=== PATIENT | female | born 1955 | race Caucasian/White ===

== ENCOUNTER 2016-09-06 15:43 | Emergency (ER) | payer SELFPAY ==
[~2016-09-06] VITALS: Ht 167.6 cm; Wt 90.0 kg
[~2016-09-06 15:43] MED LIST: LEVEMIR SQ; METH40TA PO; NEUR300C PO; NOVOLOGP2 SQ; PANT40TA3 PO
[2016-09-06 15:46] VITALS: BP 210/104; PULSE 86; RESP 22; TEMP 98.2; O2SAT 96
[2016-09-06] MEDS ORDERED: SODIUM CHLOR 0.9% 1000 ML INJ 1,000 ML IV ONE (16:13)
[2016-09-06 16:14] VITALS: O2SAT 96
[2016-09-06] MEDS ORDERED: INSULIN HUMAN REGULAR 1,000 UNITS/10 ML VIAL IVP ONE (16:15)
[2016-09-06] MEDS ORDERED: SODIUM CHLORIDE 0.9% FLUSH 5 ML FLUSH IVF PRN ×2 (16:15)
[2016-09-06] MEDS ORDERED: methylPREDNISolone SOD SUCC 125 MG/2 ML VIAL IVP ONE (16:15)
[2016-09-06 16:20] VITALS: RESP 24; O2SAT 97
[2016-09-06] MEDS: RESP: ALBUTEROL 2.5 MG/IPRATROPIUM 0.5 MG NEB (SCH) INH (16:22)
--- NOTE | 2016-09-06 16:25 | PD ---
HPI Chief Complaint: Cold / Flu Symptoms Time Seen by Provider: 16:04 Travel History International Travel<30 days: No Contact w/Intl Traveler<30days: No Traveled to known affect area: No History of Present Illness HPI The patient was seen and examined in the presence of the nurse. This patient complains of shortness of breath. Duration is 3 weeks. Severity is severe. She's been wheezing and congested and coughing. Denies fever or chest pain. She continues to smoke. Has history of uncontrolled diabetes, Accu-Chek was critical high just now. Reports compliance with her insulin. No alleviating factors. PFSH Past Medical History Hx Anticoagulant Therapy: No Arthritis: Yes Blood Disorders: No Anxiety: Yes Depression: Yes Cancer: No Cardiovascular Problems: No High Cholesterol: Yes Chemotherapy: No Chest Pain: Yes COPD: Yes Cerebrovascular Accident: No Diabetes: Yes Diminished Hearing: Yes Deep Vein Thrombosis: Yes Endocrine: Yes Gastrointestinal Disorders: Yes Genitourinary: Yes Hepatitis: Yes (B/C) Hiatal Hernia: Yes Hypertension: Yes Immune Disorder: No Implanted Vascular Access Dvce: No Musculoskeletal: Yes Neurologic: Yes Psychiatric: Yes Respiratory: No Integumentary: Yes (IVDA) Pneumonia: Yes Thyroid Disease: No Ulcer: Yes Menopausal: Yes : 3 Para: 2 Miscarriage: 1 Past Surgical History Body Medical Devices: NONE Gynecologic Surgery: Yes Oral Surgery: Yes (EGD) Pacemaker: No Thoracic Surgery: Yes (GRISELDA BREAST REDUCTION) Other Surgery: Yes (LEFT BREAST BIOPSY, PROLAPSED UTERUS) Social History Alcohol Use: No Tobacco Use: Yes (1/2 PPD) Substance Use: No Allergies-Medications (Allergen,Severity, Reaction): Coded Allergies: Erythromycin (Verified Allergy, Severe, Rash, 09/06/16) Toradol (Verified Allergy, Severe, Shortness of Breath, 09/06/16) Reported Meds & Prescriptions Reported Meds & Active Scripts Active Ventolin Hfa 18 GM Inh (Albuterol Sulfate) 90 Mcg/Act Aer 2 Puff INH Q6H PRN Prednisone 20 Mg Tab 40 Mg PO DIRECTED Bactrim DS (Sulfamethoxazole-Trimethoprim) 800-160 Mg Tab 1 Tab PO BID Novolog Inj (Insulin Aspart) 1,000 Unit/10 Ml Vial 1-9 Units SQ ACHS sugars less than 70,(0)units; sugars 150-199,(1) unit; sugars 200-249,(3) units; sugars 250-299,(5) units; sugars 300-349,(7) units; sugars > 349,(9) units Levemir Inj (Insulin Detemir) 1,000 unit/ 10 ML Vial 55 Units SQ BID Give 30 day supply. Reported Methadone (Methadone HCl) 40 Mg Tab 120 Mg PO DAILY Neurontin (Gabapentin) 300 Mg Cap 300 Mg PO TID Review of Systems General / Constitutional: No: Fever Eyes: No: Visual changes HENT: No: Headaches Cardiovascular: No: Chest Pain or Discomfort Respiratory: Positive: Cough, Shortness of Breath, Wheezing Gastrointestinal: No: Abdominal Pain Genitourinary: No: Dysuria Musculoskeletal: No: Pain Skin: No Rash Neurologic: No: Weakness Psychiatric: No: Depression Endocrine: No: Polydipsia Hematologic/Lymphatic: No: Easy Bruising Physical Exam Narrative GENERAL: Well-nourished, well-developed patient who is short of breath . SKIN: Warm and dry. HEAD: Atraumatic. Normocephalic. EYES: Pupils equal and round. No scleral icterus. No injection or drainage. ENT: No nasal bleeding or discharge. Mucous membranes pink and moist. NECK: Trachea midline. No JVD. CARDIOVASCULAR: Regular rate and rhythm. No murmur appreciated. RESPIRATORY: Prominent accessory muscle use. Diffuse expiratory wheezing. Breath sounds equal bilaterally. GASTROINTESTINAL: Abdomen soft, non-tender, nondistended. Hepatic and splenic margins not palpable. MUSCULOSKELETAL: No obvious deformities. No clubbing. No cyanosis. No edema. NEUROLOGICAL: Awake and alert. No obvious cranial nerve deficits. Motor grossly within normal limits. Normal speech. PSYCHIATRIC: Appropriate mood and affect; insight and judgment normal. Data Data Last Documented VS Vital Signs Date Time Temp Pulse Resp B/P Pulse Ox O2 Delivery O2 Flow Rate FiO2 09/06/16 18:25 74 22 134/85 98 Nasal Cannula 2 09/06/16 16:14 21 09/06/16 15:46 98.2 Orders Complete Blood Count With Diff (09/06/16 16:13) Basic Metabolic Panel (Bmp) (09/06/16 16:13) Iv Access Insert/Monitor (09/06/16 16:13) Electrocardiogram (09/06/16 16:13) Ecg Monitoring (09/06/16 16:13) Oximetry (09/06/16 16:13) Oxygen Administration (09/06/16 16:13) Chest, Single Ap (09/06/16 16:13) Sodium Chloride 0.9% Flush (Ns Flush) (09/06/16 16:15) Methylprednisolone So Succ Inj (Solumedr (09/06/16 16:15) Albuterol-Ipratropium Neb (Duoneb Neb) (09/06/16 16:15) Beta Hydroxybutyrate (Acetone) (09/06/16 16:13) Sodium Chloride 0.9% Flush (Ns Flush) (09/06/16 16:15) Sodium Chlor 0.9% 1000 Ml Inj (Ns 1000 M (09/06/16 16:13) Insulin Human Regular Inj (Novolin R Inj (09/06/16 16:15) Consult Vascular Access Team (09/06/16 ) Vascular Poc Ultrasound (09/06/16 ) Insulin Human Regular Inj (Novolin R Inj (09/06/16 18:45) Labs Laboratory Tests Test 09/06/16 17:05 White Blood Count 9.4 TH/MM3 Red Blood Count 4.86 MIL/MM3 Hemoglobin 14.1 GM/DL Hematocrit 41.3 % Mean Corpuscular Volume 85.0 FL Mean Corpuscular Hemoglobin 29.1 PG Mean Corpuscular Hemoglobin 34.2 % Concent Red Cell Distribution Width 12.8 % Platelet Count 149 TH/MM3 Mean Platelet Volume 11.4 FL Neutrophils (%) (Auto) 68.6 % Lymphocytes (%) (Auto) 24.4 % Monocytes (%) (Auto) 4.9 % Eosinophils (%) (Auto) 1.5 % Basophils (%) (Auto) 0.6 % Neutrophils # (Auto) 6.5 TH/MM3 Lymphocytes # (Auto) 2.3 TH/MM3 Monocytes # (Auto) 0.5 TH/MM3 Eosinophils # (Auto) 0.1 TH/MM3 Basophils # (Auto) 0.1 TH/MM3 CBC Comment DIFF FINAL Differential Comment Sodium Level 130 MEQ/L Potassium Level 3.7 MEQ/L Chloride Level 93 MEQ/L Carbon Dioxide Level 26.5 MEQ/L Anion Gap 11 MEQ/L Blood Urea Nitrogen 10 MG/DL Creatinine 1.18 MG/DL Estimat Glomerular Filtration 47 ML/MIN Rate Random Glucose 521 MG/DL Calcium Level 8.9 MG/DL B-Hydroxybutyrate 0.74 MMOL/L MDM Medical Decision Making Medical Screen Exam Complete: Yes Emergency Medical Condition: Yes Medical Record Reviewed: Yes Differential Diagnosis Differential diagnosis includes COPD, asthma, pneumonia, bronchitis, CHF Narrative Course I have reviewed the patient's electronic medical record. Patient arrives extremely dyspneic and critically ill IV placed Given a series of 3 nebulizer treatments and oxygen I gave her IV Solu-Medrol I reviewed her chest x-ray which is normal I reviewed her EKG which shows sinus rhythm without ST elevation Extended cardiac monitoring shows sinus rhythm without ectopy CBC is normal Metabolic profile is normal other than hyperglycemia of 521 Beta hydroxybutyrate slightly elevated I gave her 12 units IV regular insulin and 1 L normal saline IV bolus On reassessment she is doing much better. She arrives critically ill but her sat is now 100 and her wheezing is significantly improved. She feels like she wants to go home. Repeat Accu-Chek is 367 She is not in DKA Gave her 15 units subcutaneous regular insulin I gave her 1 L normal saline IV I gave her 12 units IV regular insulin I prescribed her some antibiotics and prednisone and an albuterol inhaler Most importantly she needs to stay away from cigarettes Will return if she worsens Critical Care Narrative Aggregate critical care time was 35 minutes. Time to perform other separately billable procedures was not included in the critical care time. My time did not include minutes spent treating any other patients simultaneously or on activities that did not directly contribute to the patient's treatment. The services I provided to this patient were to treat and/or prevent clinically significant deterioration that could result in: Respiratory failure, cardiopulmonary arrest, I provided critical care services requiring my management, as noted below: Chart data review, documentation time, medication orders and management, vital sign assessments/reviewing monitor data, ordering and reviewing lab tests, ordering and interpreting/reviewing x-rays and diagnostic studies, care of the patient and discussion of the patient with the admitting physicians. Diagnosis Primary Impression: COPD exacerbation Additional Impression: Hyperglycemia Scripts Albuterol 18 GM Inh (Ventolin Hfa 18 GM Inh)90 Mcg/Act Aer2 Puff INH Q6H PRN ( SHORTNESS OF BREATH) #1 INHALER Ref 0 Prov:Black Velásquez MD 09/06/16 Prednisone 20 Mg Tab40 Mg PO DIRECTED #10 TAB Ref 0 Prov:Black Velásquez MD 09/06/16 Sulfamethoxazole-Trimethoprim (Bactrim DS)800-160 Mg Tab1 Tab PO BID #14 TAB Ref 0 Prov:Black Velásquez MD 09/06/16 Black Velásquez MD Sep 06, 2016 16:25
[2016-09-06 16:42] VITALS: O2SAT 96
--- NOTE | 2016-09-06 17:05 | RADRPT ---
EXAM DATE/TIME: 09/06/2016 16:37 [facility] COMPARISON: CHEST SINGLE AP, May 25, 2016, 19:59. INDICATIONS : Shortness of breath. MEDICAL HISTORY : None. SURGICAL HISTORY : None. ENCOUNTER: Initial ACUITY: 3 weeks PAIN SCORE: 0/10 LOCATION: Bilateral chest FINDINGS: A single view of the chest demonstrates the lungs to be symmetrically aerated without evidence of mas s, infiltrate or effusion. The cardiomediastinal contours are unremarkable except tortuous aorta. O sseous structures are intact. CONCLUSION: 1. No acute findings. Sebastian Allred MD on September 06, 2016 at 17:03 Board Certified Radiologist. This report was verified electronically.
[2016-09-06 17:41] LABS: AUTOMATED NEUTROPHIL # 6.5 TH/MM3 (1.8-7.7); BASOPHIL # 0.1 TH/MM3 (0-0.2); BASOPHIL % 0.6 % (0.0-2.0); EOSINOPHIL # 0.1 TH/MM3 (0-0.4); EOSINOPHIL % 1.5 % (0.0-4.0); HEMATOCRIT 41.3 % (35.0-46.0); HEMO FLAGS DIFF FINAL; LYMPH % 24.4 % (9.0-44.0); LYMPHOCYTE # 2.3 TH/MM3 (1.0-4.8); MEAN CORPUSCULAR HEMOGLOBIN 29.1 PG (27.0-34.0); MEAN CORPUSCULAR HGB CONC 34.2 % (32.0-36.0); MONO % 4.9 % (0.0-8.0); NEUT % 68.6 % (16.0-70.0); PLATELET COUNT 149 TH/MM3 (150-450); RED BLOOD COUNT 4.86 MIL/MM3 (4.00-5.30); RED CELL DISTRIBUTION WIDTH 12.8 % (11.6-17.2); WHITE BLOOD COUNT 9.4 TH/MM3 (4.0-11.0)
[2016-09-06 18:23] LABS: BETA-HYDROXYBUTYRATE 0.74 MMOL/L (0.00-0.39); BICARBONATE 26.5 MEQ/L (21.0-32.0); POTASSIUM 3.7 MEQ/L (3.5-5.1)
[2016-09-06 18:25] VITALS: BP 134/85; PULSE 74; RESP 22; O2SAT 98
[2016-09-06] MEDS ORDERED: BACT800T5 PO (18:39)
[2016-09-06] MEDS ORDERED: PRED20 PO (18:39)
[2016-09-06] MEDS ORDERED: VENTAER INH (18:39)
[2016-09-06] MEDS ORDERED: INSULIN HUMAN REGULAR 1,000 UNITS/10 ML VIAL SQ ONE (18:45)
--- NOTE | 2016-09-06 21:44 | EKG ---
Date Performed: 09/06/2016 Time Performed: 17:39:49 PTAGE: 61 years EKG: Sinus rhythm NONSPECIFIC T-WAVE ABNORMALITY BORDERLINE ECG PREVIOUS TRACING : 07/22/2016 10.04 No significant change DOCTOR: Marquise Hurley Interpretating Date/Time 09/06/2016 21:43:27
== END 2016-09-06 20:02 | disposition home or self-care (01) ==
LOC: NEPC 15:43
DX: J44.1 Chronic obstructive pulmonary disease with (acute) exacerbation (principal); E11.65 Type 2 diabetes mellitus with hyperglycemia; Z79.4 Long term (current) use of insulin; I10 Essential (primary) hypertension; Z86.718 Personal history of other venous thrombosis and embolism; E78.00 Pure hypercholesterolemia, unspecified; F17.210 Nicotine dependence, cigarettes, uncomplicated
CPT/HCPCS: 71010; 80048; 82010; 85025; 93005; 94640; 94664; 96361; 96372; 96374; 96375; 99285; J1815; J2930; J7030

== ENCOUNTER 2016-10-13 20:01 | Emergency (ER) | payer SELFPAY ==
[~2016-10-13] VITALS: Ht 167.6 cm; Wt 90.5 kg
[~2016-10-13 20:01] MED LIST changes: +BACT800T5 PO; -PANT40TA3 PO; +PRED20 PO; +VENTAER INH
[2016-10-13 20:03] VITALS: BP 152/70; PULSE 86; RESP 20; TEMP 98.1; O2SAT 95
[2016-10-13] MEDS ORDERED: SODIUM CHLOR 0.9% 1000 ML INJ 1,000 ML IV ONE ×2 (20:45→22:45)
[2016-10-13] MEDS ORDERED: INSULIN HUMAN REGULAR 1,000 UNITS/10 ML VIAL SQ ONE ×2 (20:45→22:30)
--- NOTE | 2016-10-13 20:45 | PD ---
HPI Chief Complaint: Diabetic Time Seen by Provider: 20:26 Travel History International Travel<30 days: No Contact w/Intl Traveler<30days: No Traveled to known affect area: No History of Present Illness HPI The patient is a 61 year old female who presents to the [facility] emergency department with a history of reportedly difficult to control blood sugar since although, the patient reports that her blood sugar has been always difficult to control. She reports that today it was higher than usual and that her meter would only state "high". She reports that she last administered insulin this morning at approximately 11 AM. She reports that she was concerned about administering too much and not being able to check her blood sugar regularly as it was not giving her an accurate measurement just high. She reports that she gave Levemir 45 units and 12 units of NovoLog at 11 AM. The patient reports having urinary frequency, however no urgency or dysuria. The patient denies any recent fevers, cough, congestion, neck pain, chest pain, shortness of breath, abdominal pain, vomiting, diarrhea, or new neurologic symptoms (she has a prior history of diabetic neuropathy). [facility] Past Medical History Narrative Medical The patient's past medical history is significant for diabetes mellitus, diagnosed 5 years ago, history of DVT, hiatal hernia, anxiety disorder, arthritis, hyperlipidemia, COPD, depression, diabetic neuropathy, hepatitis B and C, peptic ulcer disease, hypertension, history of pneumonia Hx Anticoagulant Therapy: No Arthritis: Yes Blood Disorders: No Anxiety: Yes Depression: Yes Cancer: No Cardiovascular Problems: No High Cholesterol: Yes Chemotherapy: No Chest Pain: Yes COPD: Yes Cerebrovascular Accident: No Diabetes: Yes Patient Takes Glucophage: No Diminished Hearing: Yes Deep Vein Thrombosis: Yes Endocrine: Yes Gastrointestinal Disorders: Yes Genitourinary: Yes Hepatitis: Yes (B/C) Hiatal Hernia: Yes Hypertension: Yes Immune Disorder: No Implanted Vascular Access Dvce: No Musculoskeletal: Yes Neurologic: Yes Psychiatric: Yes Respiratory: No Integumentary: Yes (IVDA) Pneumonia: Yes Thyroid Disease: No Ulcer: Yes Menopausal: Yes : 3 Para: 2 Miscarriage: 1 Past Surgical History Narrative Surgical The patient's past surgical history is significant for left breast biopsy, surgical repair of a prolapsed uterus, history of EGD, bilateral breast reduction. Body Medical Devices: NONE Gynecologic Surgery: Yes Oral Surgery: Yes (EGD) Pacemaker: No Thoracic Surgery: Yes (GRISELDA BREAST REDUCTION) Other Surgery: Yes (LEFT BREAST BIOPSY, PROLAPSED UTERUS) Social History Alcohol Use: No Tobacco Use: Yes (1 PPD) Substance Use: No Allergies-Medications (Allergen,Severity, Reaction): Coded Allergies: Erythromycin (Verified Allergy, Severe, Rash, 10/13/16) Toradol (Verified Allergy, Severe, Shortness of Breath, 10/13/16) Reported Meds & Prescriptions Reported Meds & Active Scripts Active Novolog Inj (Insulin Aspart) 1,000 Unit/10 Ml Vial 1-9 Units SQ ACHS sugars less than 70,(0)units; sugars 150-199,(1) unit; sugars 200-249,(3) units; sugars 250-299,(5) units; sugars 300-349,(7) units; sugars > 349,(9) units Levemir Inj (Insulin Detemir) 1,000 unit/ 10 ML Vial 55 Units SQ BID Give 30 day supply. Reported Methadone (Methadone HCl) 40 Mg Tab 120 Mg PO DAILY Neurontin (Gabapentin) 300 Mg Cap 300 Mg PO TID Review of Systems Except as stated in HPI: all other systems reviewed are Neg General / Constitutional: No: Fever Eyes: No: Visual changes HENT: No: Headaches Cardiovascular: No: Chest Pain or Discomfort Respiratory: No: Shortness of Breath Gastrointestinal: No: Abdominal Pain Genitourinary: Positive: Frequency, No: Urgency, Dysuria, Flank Pain Musculoskeletal: No: Pain Skin: No Rash Neurologic: Positive: Paresthesia (chronically related to diabetic neuropathy) , No: Weakness, Focal Abnormalities, Change in Mentation, Slurred Speech, Sensory Disturbance Psychiatric: No: Depression Endocrine: Positive: Polyuria, No: Polydipsia Hematologic/Lymphatic: No: Easy Bruising Physical Exam Narrative General: The patient is a well-developed well-nourished female in no acute distress. Head and Neck exam: Head is normocephalic atraumatic. Eyes: EOMI, pupils are equal round and reactive to light. Nose: Midline septum with pink mucous membranes Mouth: Dentition unremarkable. Moist mucus membranes. Posterior oropharynx is not erythematous. No tonsillar hypertrophy. Uvula midline. Airway patent. Neck: No palpable lymphadenopathy. No nuchal rigidity. No thyromegaly. Cardiovascular: Regular rate and rhythm without murmurs, gallops, or rubs. Lungs: Clear to auscultation bilaterally. No wheezes, rhonchi, or rales. Abdomen: Soft, without tenderness to palpation in all 4 quadrants of the abdomen. No guarding, rebound, or rigidity. Normal bowel sounds are audible. Extremities: No clubbing, cyanosis, or edema. 2+ pulses in all 4 extremities. No calf tenderness on palpation. Back: No spinous process tenderness to palpation. No costovertebral angle tenderness to palpation. Neurologic Exam: Grossly nonfocal. Skin Exam: No rash noted. Intact skin that is warm and dry. Data Data Last Documented VS Vital Signs Date Time Temp Pulse Resp B/P Pulse Ox O2 Delivery O2 Flow Rate FiO2 10/13/16 22:02 70 18 138/88 99 10/13/16 20:03 98.1 Room Air Orders Complete Blood Count With Diff (10/13/16 20:36) Comprehensive Metabolic Panel (10/13/16 20:36) Urinalysis - C+S If Indicated (10/13/16 20:36) Magnesium (Mg) (10/13/16 20:36) Beta Hydroxybutyrate (Acetone) (10/13/16 20:36) Iv Access Insert/Monitor (10/13/16 20:36) Ecg Monitoring (10/13/16 20:36) Oximetry (10/13/16 20:36) Sodium Chlor 0.9% 1000 Ml Inj (Ns 1000 M (10/13/16 20:45) Insulin Human Regular Inj (Novolin R Inj (10/13/16 20:45) Blood Glucose (10/13/16 21:35) Insulin Human Regular Inj (Novolin R Inj (10/13/16 22:30) Sodium Chlor 0.9% 1000 Ml Inj (Ns 1000 M (10/13/16 22:45) Labs Laboratory Tests Test 10/13/16 21:05 White Blood Count 9.0 TH/MM3 Red Blood Count 5.10 MIL/MM3 Hemoglobin 14.7 GM/DL Hematocrit 43.8 % Mean Corpuscular Volume 85.9 FL Mean Corpuscular Hemoglobin 28.9 PG Mean Corpuscular Hemoglobin 33.6 % Concent Red Cell Distribution Width 13.0 % Platelet Count 138 TH/MM3 Mean Platelet Volume 11.0 FL Neutrophils (%) (Auto) 74.1 % Lymphocytes (%) (Auto) 19.1 % Monocytes (%) (Auto) 4.2 % Eosinophils (%) (Auto) 2.0 % Basophils (%) (Auto) 0.6 % Neutrophils # (Auto) 6.7 TH/MM3 Lymphocytes # (Auto) 1.7 TH/MM3 Monocytes # (Auto) 0.4 TH/MM3 Eosinophils # (Auto) 0.2 TH/MM3 Basophils # (Auto) 0.1 TH/MM3 CBC Comment DIFF FINAL Differential Comment Urine Color LIGHT-YELLOW Urine Turbidity CLEAR Urine pH 6.0 Urine Specific [place] 1.035 Urine Protein NEG mg/dL Urine Glucose (UA) 1000 mg/dL Urine Ketones NEG mg/dL Urine Occult Blood NEG Urine Nitrite NEG Urine Bilirubin NEG Urine Urobilinogen LESS THAN 2.0 MG/DL Urine Leukocyte Esterase NEG Urine RBC LESS THAN 1 /hpf Urine WBC LESS THAN 1 /hpf Urine Squamous Epithelial <1 /hpf Cells Urine Bacteria RARE /hpf Microscopic Urinalysis Comment CULT NOT INDICATED Sodium Level 128 MEQ/L Potassium Level 4.4 MEQ/L Chloride Level 89 MEQ/L Carbon Dioxide Level 30.4 MEQ/L Anion Gap 9 MEQ/L Blood Urea Nitrogen 16 MG/DL Creatinine 1.13 MG/DL Estimat Glomerular Filtration 49 ML/MIN Rate Random Glucose 490 MG/DL Calcium Level 8.5 MG/DL Magnesium Level 2.0 MG/DL Total Bilirubin 0.5 MG/DL Aspartate Amino Transf 98 U/L (AST/SGOT) Alanine Aminotransferase 161 U/L (ALT/SGPT) Alkaline Phosphatase 133 U/L Total Protein 8.2 GM/DL Albumin 3.4 GM/DL B-Hydroxybutyrate 0.20 MMOL/L [facility] Medical Decision Making Medical Screen Exam Complete: Yes Emergency Medical Condition: Yes Medical Record Reviewed: Yes Differential Diagnosis Poorly controlled diabetes mellitus with hyperglycemia, versus DKA, versus electrolyte abnormalities Narrative Course During the course of the patients emergency department visit, the patients history, examination, and differential diagnosis were reviewed with the patient. The patient had IV access obtained and blood work sent for analysis. The patient was placed on a surveillance monitor with oximetry and blood pressure monitoring. The patient was provided normal saline 1 L IV fluid bolus. The patient was given regular insulin 12 units subcutaneously 1 after her initial blood sugar was noted to be 476. The patients laboratory studies were reviewed and remarkable for a white count of 9, hemoglobin 14.7, platelets 138 with 74.1 neutrophils, CMP is remarkable for sodium of 128, chloride 89, creatinine 1.13, GFR 49, glucose 490, AST 98, ALT 161, alkaline phosphatase 133, urinalysis is unremarkable, beta hydroxybutyrate is within normal limits at 0.2. A review the patient's electronic medical record reveals that the patient had similarly elevated liver enzymes in the past and a positive hepatitis C antibody in September 2013. Repeat blood sugar at 11:36 PM continued to improve and was down to 301. The patient was instructed regarding the importance of taking her insulin on a regular basis. The patient was instructed to use a sliding scale as previously prescribed. The patient is instructed regarding the importance of close follow- up with her primary care physician due to her blood sugar being difficult to control recently. The patient is resting comfortably and feels better, is alert and in no distress. The patients results and examination findings were discussed with the patient. The repeat examination is unremarkable and benign. The history, exam, diagnostic testing, and current condition do not suggest any significant pathology to warrant further testing, continued ED treatment, admission, or surgical evaluation at this point. The vital signs have been stable. The patient does not have uncontrollable pain, intractable vomiting, or other significant symptoms. The patient's condition is stable and appropriate for discharge. The patient will pursue further outpatient evaluation with a primary care physician or other designated or consulting physician as indicated in the discharge instructions. The patient expressed understanding and was agreeable with this plan. Diagnosis Primary Impression: Hyperglycemia Additional Impression: Poorly controlled diabetes mellitus Referrals: Primary Care Physician 2 days Patient Instructions: Diabetic Hyperglycemia (ED), General Instructions Med/Other Pt SpecificInfo: No Change to Meds Disposition: 01 DISCHARGE HOME Condition: Stable Giana Zamora MD Oct 13, 2016 20:45 Giana Zamora MD Oct 13, 2016 20:45
[2016-10-13 21:31] LABS: AUTOMATED NEUTROPHIL # 6.7 TH/MM3 (1.8-7.7); BASOPHIL # 0.1 TH/MM3 (0-0.2); BASOPHIL % 0.6 % (0.0-2.0); EOSINOPHIL # 0.2 TH/MM3 (0-0.4); HEMATOCRIT 43.8 % (35.0-46.0); HEMO FLAGS DIFF FINAL; LYMPH % 19.1 % (9.0-44.0); LYMPHOCYTE # 1.7 TH/MM3 (1.0-4.8); MEAN CELL VOLUME 85.9 FL (80.0-100.0); MEAN CORPUSCULAR HEMOGLOBIN 28.9 PG (27.0-34.0); MEAN CORPUSCULAR HGB CONC 33.6 % (32.0-36.0); MONO % 4.2 % (0.0-8.0); NEUT % 74.1 % (16.0-70.0); PLATELET COUNT 138 TH/MM3 (150-450)
[2016-10-13 21:46] LABS: BACTERIA, URINE RARE /hpf; BLOOD, URINE NEG (NEG); COMMENT (UR) CULT NOT INDICATED; CULTURE IF INDICATED CULT NOT INDICATED; GLUCOSE,URINE 1000 mg/dL (NEG); KETONE, URINE NEG (NEG); NITRITE,URINE NEG (NEG); SQUAMOUS EPITHELIAL CELL URINE <1 /hpf (0-5); URINE COLOR LIGHT-YELLOW (YELLW/STRAW)
[2016-10-13 21:48] LABS: ANION GAP 9 MEQ/L (5-15)
[2016-10-13 22:02] VITALS: BP 138/88; PULSE 69; PULSE 70; RESP 16; RESP 18; O2SAT 99
[2016-10-13 22:06] LABS: ALKALINE PHOSPHATASE 133 U/L (45-117); ALT (GPT) 161 U/L (10-53); AST (GOT) 98 U/L (15-37); BICARBONATE 30.4 MEQ/L (21.0-32.0); BLOOD UREA NITROGEN 16 MG/DL (7-18); CHLORIDE 89 MEQ/L (98-107); GLOMERULAR FILTRATION RATE 49 ML/MIN (>89); SODIUM (NA) 128 MEQ/L (136-145); TOTAL BILIRUBIN ADULT 0.5 MG/DL (0.2-1.0)
[2016-10-13 22:17] LABS: POTASSIUM 4.4 MEQ/L (3.5-5.1)
== END 2016-10-13 23:50 | disposition home or self-care (01) ==
LOC: NEPE 20:01
DX: E11.40 Type 2 diabetes mellitus with diabetic neuropathy, unspecified (principal); B19.20 Unspecified viral hepatitis C without hepatic coma; M19.90 Unspecified osteoarthritis, unspecified site; J44.9 Chronic obstructive pulmonary disease, unspecified; I10 Essential (primary) hypertension; Z79.4 Long term (current) use of insulin; Z86.718 Personal history of other venous thrombosis and embolism
CPT/HCPCS: 80053; 81001; 82010; 83735; 85025; 96372; 99284; J1815; J7030

== ENCOUNTER 2017-04-21 06:15 | Inpatient (IN) | payer SELFPAY ==
[2017-04-21] VITALS (7 sets, daily range): BP systolic 127–146; BP diastolic 65–93; PULSE 61–81; RESP 16–18; TEMP 97.9–98.1; O2SAT 96–98
[~2017-04-21] VITALS: Ht 172.7 cm; Wt 91.6 kg
[~2017-04-21 06:15] MED LIST changes: -BACT800T5 PO; -PRED20 PO; -VENTAER INH
[2017-04-21] MEDS ORDERED: METH40TA PO (06:37)
[2017-04-21] MEDS ORDERED: SODIUM CHLOR 0.9% 1000 ML INJ 1,000 ML IV ONE ×4 (06:44→09:15)
[2017-04-21] MEDS ORDERED: INSULIN HUMAN REGULAR 1,000 UNITS/10 ML VIAL IV PUSH ONE (06:45)
[2017-04-21] MEDS ORDERED: SODIUM CHLORIDE 0.9% FLUSH 10 ML FLUSH IVF PRN (06:45)
[2017-04-21 07:11] LABS: BLOOD GAS VENOUS BASE EXCESS 4.7 mmol/L (-2-2); BLOOD GAS VENOUS HCO3 29 mmol/L (22-26); BLOOD GAS VENOUS O2 CONTENT 17.1 Vol % (9.0-17.0); BLOOD GAS VENOUS O2 HGB SAT 78 % (70-76); BLOOD GAS VENOUS PCO2 47 mmHg (44-48); BLOOD GAS VENOUS PO2 43 mmHg (35-40); BLOOD GAS VENOUS pH 7.41 (7.360-7.400); CRITICAL VALUE NO; DRAW SITE CL; OXYGEN DEVICE RA; STAT YES; TEMP CORR TO 98.6
--- NOTE | 2017-04-21 07:47 | PD ---
HPI . Abdominal pain Chief Complaint: Diabetic Time Seen by Provider: 06:44 Travel History International Travel<30 days: No Contact w/Intl Traveler<30days: No Traveled to known affect area: No History of Present Illness HPI This is a noncompliant diabetic who presents with chief complaint of upper abdominal pain associated with nausea and vomiting. Other symptoms include polyuria and polydipsia, blurred vision and exacerbation of her chronic diabetic neuropathy. Symptoms all started about a week ago. They have become progressively worse. She states that the symptoms are now severe. She reports no relieving factor. PFSH Past Medical History Hx Anticoagulant Therapy: No Arthritis: Yes Blood Disorders: No Anxiety: Yes Depression: Yes Cancer: No Cardiovascular Problems: No High Cholesterol: Yes Chemotherapy: No Chest Pain: Yes COPD: Yes Cerebrovascular Accident: No Diabetes: Yes Patient Takes Glucophage: No Diminished Hearing: Yes Deep Vein Thrombosis: Yes Endocrine: Yes Gastrointestinal Disorders: Yes Genitourinary: Yes Hepatitis: Yes (B/C) Hiatal Hernia: Yes Hypertension: Yes Immune Disorder: No Implanted Vascular Access Dvce: No Musculoskeletal: Yes Neurologic: Yes Psychiatric: Yes Respiratory: No Integumentary: Yes (IVDA) Pneumonia: Yes Thyroid Disease: No Ulcer: Yes Menopausal: Yes : 3 Para: 2 Miscarriage: 1 Past Surgical History Body Medical Devices: NONE Gynecologic Surgery: Yes Hysterectomy: No Oral Surgery: Yes (EGD) Pacemaker: No Thoracic Surgery: Yes (GRISELDA BREAST REDUCTION) Other Surgery: Yes (LEFT BREAST BIOPSY, PROLAPSED UTERUS) Social History Alcohol Use: No Tobacco Use: Yes (1/2ppd) Substance Use: No Allergies-Medications (Allergen,Severity, Reaction): Coded Allergies: erythromycin base (Unverified Allergy, Severe, Rash, 04/21/17) ketorolac (Unverified Allergy, Severe, Shortness of Breath, 04/21/17) Reported Meds & Prescriptions Reported Meds & Active Scripts Active Levemir Inj (Insulin Detemir) 1,000 unit/ 10 ML Vial 55 Units SQ BID Give 30 day supply. Novolog Inj (Insulin Aspart) 1,000 Unit/10 Ml Vial 1-9 Units SQ ACHS sugars less than 70,(0)units; sugars 150-199,(1) unit; sugars 200-249,(3) units; sugars 250-299,(5) units; sugars 300-349,(7) units; sugars > 349,(9) units Reported Methadone (Methadone HCl) 40 Mg Tab 100 Mg PO DAILY Neurontin (Gabapentin) 300 Mg Cap 300 Mg PO TID Review of Systems Except as stated in HPI: all other systems reviewed are Neg General / Constitutional: No: Fever, Chills Eyes: Positive: Blurred Vision Cardiovascular: No: Chest Pain or Discomfort Respiratory: No: Shortness of Breath Gastrointestinal: Positive: Nausea, Vomiting, Abdominal Pain Neurologic: Positive: Other (neuropathy) Endocrine: Positive: Polyuria, Polydipsia Physical Exam Narrative GENERAL: The patient is awake and alert and does not smell of ketones. SKIN: Warm and dry. HEAD: Atraumatic. Normocephalic. EYES: Pupils equal and round. Extraocular movements are intact. ENT: No nasal bleeding or discharge. Mucous membranes slightly dry. NECK: Trachea midline. Neck is supple. CARDIOVASCULAR: Regular rate and rhythm. Heart sounds are normal. RESPIRATORY: No accessory muscle use. Lungs are clear with full air movement throughout. GASTROINTESTINAL: Abdomen soft. Epigastric tenderness with no guarding or rebound. Nondistended. MUSCULOSKELETAL: No obvious deformities. No edema. NEUROLOGICAL: Awake and alert. No obvious cranial nerve deficits. Motor grossly within normal limits. Normal speech. PSYCHIATRIC: Appropriate mood and affect; insight and judgment normal. Data Data Last Documented VS Vital Signs Date Time Temp Pulse Resp B/P (MAP) Pulse Ox O2 Delivery O2 Flow Rate FiO2 04/21/17 07:11 96 04/21/17 06:18 98.1 81 16 Room Air Orders Orders Electrocardiogram (04/21/17 06:44) Complete Blood Count With Diff (04/21/17 06:44) Comprehensive Metabolic Panel (04/21/17 06:44) Beta Hydroxybutyrate (Acetone) (04/21/17 06:44) Urinalysis - C+S If Indicated (04/21/17 06:44) Blood Gas Venous (Vbg) (04/21/17 06:44) Blood Glucose (04/21/17 06:44) Blood Glucose (04/21/17 07:44) Ecg Monitoring (04/21/17 06:44) Iv Access Insert/Monitor (04/21/17 06:44) Oximetry (04/21/17 06:44) NPO (04/21/17 06:44) Sodium Chlor 0.9% 1000 Ml Inj (Ns 1000 M (04/21/17 06:44) Sodium Chlor 0.9% 1000 Ml Inj (Ns 1000 M (04/21/17 07:14) Sodium Chloride 0.9% Flush (Ns Flush) (04/21/17 06:45) Insulin Human Regular Inj (Novolin R Inj (04/21/17 06:45) Labs Laboratory Tests Test 04/21/17 06:44 Blood Gas Puncture Site CL Blood Gas Patient Temperature 98.6 Venous Blood pH 7.41 Venous Blood Partial Pressure CO2 47 mmHg Venous Blood Partial Pressure O2 43 mmHg Venous Blood HCO3 29 mmol/L Venous Blood Oxygen Saturation 78 % Venous Blood Oxygen Content 17.1 Vol % Venous Blood Base Excess 4.7 mmol/L Oxygen Delivery Device RA VALLE Medical Decision Making Medical Screen Exam Complete: Yes Emergency Medical Condition: Yes Medical Record Reviewed: Yes (this patient's medical history is significant for diabetes, COPD, hepatitis C, hyperlipidemia, tobacco and drug abuse and noncompliance.) Interpretation(s) EKG shows a sinus rhythm with no acute ischemic change. Differential Diagnosis Differential diagnosis includes but is not limited to viral gastritis, food poisoning, pancreatitis, pneumonia, hepatitis, acute coronary syndrome, Narrative Course This patient presents with the onset of blurred vision, polyuria, polydipsia, nausea, vomiting and abdominal pain. She has been noncompliant with her insulin for a week or more. Her fingerstick blood sugar here is greater than 500. IV fluids and IV insulin have been ordered. Routine labs have been ordered in addition to a venous blood gas and serum ketones. Her care is being turned over to Dr. Franklin at this time. Diagnosis Primary Impression: Hyperglycemia Condition: Stable Katelynn Palma MD Apr 21, 2017 07:46
[2017-04-21 08:00] LABS: AUTOMATED NEUTROPHIL # 5.8 TH/MM3 (1.8-7.7); BASOPHIL % 0.6 % (0.0-2.0); EOSINOPHIL # 0.2 TH/MM3 (0-0.4); EOSINOPHIL % 2.2 % (0.0-4.0); HEMATOCRIT 45.4 % (35.0-46.0); HEMO FLAGS DIFF FINAL; LYMPH % 16.4 % (9.0-44.0); LYMPHOCYTE # 1.3 TH/MM3 (1.0-4.8); MEAN CELL VOLUME 86.9 FL (80.0-100.0); MEAN CORPUSCULAR HEMOGLOBIN 30.1 PG (27.0-34.0); MEAN CORPUSCULAR HGB CONC 34.7 % (32.0-36.0); NEUT % 75.8 % (16.0-70.0); PLATELET COUNT 121 TH/MM3 (150-450); RED BLOOD COUNT 5.23 MIL/MM3 (4.00-5.30); RED CELL DISTRIBUTION WIDTH 12.9 % (11.6-17.2); WHITE BLOOD COUNT 7.6 TH/MM3 (4.0-11.0)
[2017-04-21 08:03] LABS: BLOOD, URINE NEG (NEG); COMMENT (UR) CULT NOT INDICATED; CULTURE IF INDICATED CULT NOT INDICATED; GLUCOSE,URINE 1000 mg/dL (NEG); KETONE, URINE NEG (NEG); NITRITE,URINE NEG (NEG); PH, URINE 5.5 (5.0-8.5); SQUAMOUS EPITHELIAL CELL URINE <1 /hpf (0-5); URINE COLOR LIGHT-YELLOW (YELLW/STRAW)
[2017-04-21 08:36] LABS: ALKALINE PHOSPHATASE 126 U/L (45-117); ALT (GPT) 239 U/L (10-53); ANION GAP 11 MEQ/L (5-15); AST (GOT) 205 U/L (15-37); BETA-HYDROXYBUTYRATE 0.42 MMOL/L (0.00-0.39); BICARBONATE 26.5 MEQ/L (21.0-32.0); BLOOD UREA NITROGEN 14 MG/DL (7-18); CHLORIDE 86 MEQ/L (98-107); GLOMERULAR FILTRATION RATE 56 ML/MIN (>89)
[2017-04-21 08:39] LABS: POTASSIUM 4.7 MEQ/L (3.5-5.1)
[2017-04-21 08:41] LABS: SODIUM (NA) 123 MEQ/L (136-145)
[2017-04-21] MEDS ORDERED: ONDANSETRON HCL 4 MG/2 ML VIAL IV PUSH ONE (08:45)
--- NOTE | 2017-04-21 09:14 | PD ---
Physical Exam Date Seen by Provider: Apr 21, 2017 Time Seen by Provider: 09:10 Narrative 62-year-old female came to the emergency room for hyperglycemia, revision and burning of both feet. She is a diabetic but has not taken her insulin in 3 weeks since she ran out of it and could not afford it. She was seen by the previous ER physician. Please refer to her notes regarding the details about history and physical. Sign out was to follow-up on the blood test results. Patient has a sugar of 600. She has HONK since the pH on VBG is within normal limits. Patient had received IV insulin initially by the previous ER physician and 2 L of IV fluid bolus. I've ordered 2 more liters of IV fluid bolus. Awaiting for the hospitalist to call back to admit. Blood test results otherwise show physician his hyponatremia and elevated LFTs. Patient said that she has been symptomatic for past few days where she is polyuria, polydipsia, significant dryness of her mouth. She's been trying to drink a lot but he urinates 3-4 times an hour. Data Data Last Documented VS Vital Signs Date Time Temp Pulse Resp B/P (MAP) Pulse Ox O2 Delivery O2 Flow Rate FiO2 04/21/17 07:11 96 04/21/17 06:18 98.1 81 16 Room Air Orders Orders Electrocardiogram (04/21/17 06:44) Complete Blood Count With Diff (04/21/17 06:44) Comprehensive Metabolic Panel (04/21/17 06:44) Beta Hydroxybutyrate (Acetone) (04/21/17 06:44) Urinalysis - C+S If Indicated (04/21/17 06:44) Blood Gas Venous (Vbg) (04/21/17 06:44) Blood Glucose (04/21/17 06:44) Blood Glucose (04/21/17 07:44) Ecg Monitoring (04/21/17 06:44) Iv Access Insert/Monitor (04/21/17 06:44) Oximetry (04/21/17 06:44) NPO (04/21/17 06:44) Sodium Chlor 0.9% 1000 Ml Inj (Ns 1000 M (04/21/17 06:44) Sodium Chlor 0.9% 1000 Ml Inj (Ns 1000 M (04/21/17 07:14) Sodium Chloride 0.9% Flush (Ns Flush) (04/21/17 06:45) Insulin Human Regular Inj (Novolin R Inj (04/21/17 06:45) Ondansetron Inj (Zofran Inj) (04/21/17 08:45) Sodium Chlor 0.9% 1000 Ml Inj (Ns 1000 M (04/21/17 09:15) Sodium Chlor 0.9% 1000 Ml Inj (Ns 1000 M (04/21/17 09:15) Insulin Human Regular Inj (Novolin R Inj (04/21/17 09:15) Gabapentin (Neurontin) (04/21/17 13:00) Methadone (Dolophine) (04/21/17 10:00) Insulin Detemir Inj (Levemir Inj) (04/21/17 10:00) Code Status (04/21/17 09:52) Vital Signs (Adult) Q4H (04/21/17 09:52) Activity Oob Ad Daxa (04/21/17 09:52) Bedside Glucose MAGGIE.AC&HS (04/21/17 09:52) Diet 1800 Ada Cons Carb (04/21/17 Breakfast) Sodium Chlor 0.9% 1000 Ml Inj (Ns 1000 M (04/21/17 09:52) Sodium Chloride 0.9% Flush (Ns Flush) (04/21/17 10:00) Sodium Chloride 0.9% Flush (Ns Flush) (04/21/17 21:00) Ondansetron Inj (Zofran Inj) (04/21/17 10:00) Comprehensive Metabolic Panel (04/22/17 06:00) Complete Blood Count With Diff (04/22/17 06:00) Case Management Consult (04/21/17 09:52) Enoxaparin Inj (Lovenox Inj) (04/21/17 10:00) Naloxone Inj (Narcan Inj) (04/21/17 10:00) Docusate Sodium-Senna (Eun-Colace) (04/21/17 21:00) Magnesium Hydroxide Liq (Milk Of Magnesi (04/21/17 10:00) Sennosides (Senokot) (04/21/17 10:00) Bisacodyl Supp (Dulcolax Supp) (04/21/17 10:00) Lactulose Liq (Lactulose Liq) (04/21/17 10:00) Insulin Human Reg Supp Scale (Novolin R (04/21/17 11:00) Admit Order (Ed Use Only) (04/21/17 09:59) Labs Laboratory Tests Test 04/21/17 06:44 04/21/17 07:00 Blood Gas Puncture Site CL Blood Gas Patient Temperature 98.6 Venous Blood pH 7.41 Venous Blood Partial Pressure CO2 47 mmHg Venous Blood Partial Pressure O2 43 mmHg Venous Blood HCO3 29 mmol/L Venous Blood Oxygen Saturation 78 % Venous Blood Oxygen Content 17.1 Vol % Venous Blood Base Excess 4.7 mmol/L Oxygen Delivery Device RA White Blood Count 7.6 TH/MM3 Red Blood Count 5.23 MIL/MM3 Hemoglobin 15.8 GM/DL Hematocrit 45.4 % Mean Corpuscular Volume 86.9 FL Mean Corpuscular Hemoglobin 30.1 PG Mean Corpuscular Hemoglobin Concent 34.7 % Red Cell Distribution Width 12.9 % Platelet Count 121 TH/MM3 Mean Platelet Volume 11.6 FL Neutrophils (%) (Auto) 75.8 % Lymphocytes (%) (Auto) 16.4 % Monocytes (%) (Auto) 5.0 % Eosinophils (%) (Auto) 2.2 % Basophils (%) (Auto) 0.6 % Neutrophils # (Auto) 5.8 TH/MM3 Lymphocytes # (Auto) 1.3 TH/MM3 Monocytes # (Auto) 0.4 TH/MM3 Eosinophils # (Auto) 0.2 TH/MM3 Basophils # (Auto) 0.0 TH/MM3 CBC Comment DIFF FINAL Differential Comment Urine Color LIGHT-YELLOW Urine Turbidity CLEAR Urine pH 5.5 Urine Specific [place] 1.041 Urine Protein NEG mg/dL Urine Glucose (UA) 1000 mg/dL Urine Ketones NEG mg/dL Urine Occult Blood NEG Urine Nitrite NEG Urine Bilirubin NEG Urine Urobilinogen LESS THAN 2.0 MG/DL Urine Leukocyte Esterase NEG Urine RBC LESS THAN 1 /hpf Urine WBC LESS THAN 1 /hpf Urine Squamous Epithelial Cells <1 /hpf Microscopic Urinalysis Comment CULT NOT INDICATED Blood Urea Nitrogen 14 MG/DL Creatinine 1.01 MG/DL Random Glucose 604 MG/DL Total Protein 8.3 GM/DL Albumin 3.1 GM/DL Calcium Level 8.5 MG/DL Alkaline Phosphatase 126 U/L Aspartate Amino Transf (AST/SGOT) 205 U/L Alanine Aminotransferase (ALT/SGPT) 239 U/L Total Bilirubin 1.0 MG/DL Sodium Level 123 MEQ/L Potassium Level 4.7 MEQ/L Chloride Level 86 MEQ/L Carbon Dioxide Level 26.5 MEQ/L Anion Gap 11 MEQ/L Estimat Glomerular Filtration Rate 56 ML/MIN Hemoglobin A1c 14.5 % Triglycerides Level 172 MG/DL Cholesterol Level 148 MG/DL LDL Cholesterol 78 MG/DL HDL Cholesterol 35.6 MG/DL Cholesterol/HDL Ratio 4.15 RATIO Free Thyroxine 1.71 NG/DL Thyroid Stimulating Hormone 3rd Gen 1.350 uIU/ML B-Hydroxybutyrate 0.42 MMOL/L MDM Supervised Visit with ARTUR: No Narrative Course 9:15 AM patient was given 8 units of subcutaneous regular insulin in addition. Diagnosis Primary Impression: Hyperglycemia Additional Impressions: Elevated LFTs Hyperosmolar non-ketotic state in patient with type 2 diabetes mellitus Blurred vision, bilateral Admitting Information Admitting Physician Requests: Admit Condition: Stable Aniya Franklin MD Apr 21, 2017 09:14
[2017-04-21] MEDS ORDERED: INSULIN HUMAN REGULAR 1,000 UNITS/10 ML VIAL SQ ONE (09:15)
[2017-04-21] MEDS ORDERED: MAGNESIUM HYDROXIDE SUSP 30 ML CUP PO PRN (10:00)
[2017-04-21] MEDS ORDERED: LACTULOSE SYRUP 20 GM/30 ML CUP PO PRN (10:00)
[2017-04-21] MEDS ORDERED: SENNOSIDES 8.6 MG TAB PO PRN (10:00)
[2017-04-21] MEDS ORDERED: SODIUM CHLORIDE 0.9% FLUSH 10 ML FLUSH IV FLUSH PRN (10:00)
[2017-04-21] MEDS ORDERED: BISACODYL 10 MG SUPP RECTAL PRN (10:00)
[2017-04-21] MEDS ORDERED: NALOXONE HCL 0.4 MG/ML AMP IV PRN (10:00)
[2017-04-21] MEDS: METHADONE HCL 10 MG TAB PO SCH (10:00)
[2017-04-21] MEDS: INSULIN DETEMIR 100 UNITS/ML VIAL SQ SCH ×2 (10:45→23:01)
--- NOTE | 2017-04-21 11:17 | HHI.HP ---
[facility] Kyra Zabala MD Admission Diagnosis hyperosmotic non-acidotic hyperglycemia Diagnoses: Chief Complaint: Nausea and vomit Travel History International Travel<30 Days: No Contact w/Intl Traveler <30 Da: No Traveled to Known Affected Are: No History of Present Illness This is a Pleasant 62 y/o Female with Severe Medical Non compliant issues, has DM II, came to ER with upper abdominal pain associated with nausea and vomiting. Other symptoms include polyuria and polydipsia, blurred vision and exacerbation of her chronic diabetic neuropathy. Symptoms all started about a week ago. They have become progressively worse. She states that the symptoms are now severe. She reports no relieving factor. Seen in ER in the presence of her Roommate she states run out of her medicines, discussed with nurse Miss Anne in her room. also complaint of Blurry vision and bilateral feet burning sensation asking for pain medicine, she is able to take Oxycodone. Review of Systems Constitutional: DENIES: Fever, Chills, Change in appetite Endocrine: DENIES: Heat/cold intolerance Eyes: DENIES: Blurred vision, Eye pain Except as stated in HPI: all other systems reviewed are Neg Past Family Social History Past Medical History OA Anxiety disorder Depression Hyperlipidemia COPD DM II Hepatitis B/C Hiatal Hernia Hypertension IVDA Past Surgical History Breast Reduction Left breast biopsy Uterine prolapse Reported Medications Reported Meds & Active Scripts Active Levemir Inj (Insulin Detemir) 1,000 unit/ 10 ML Vial 55 Units SQ BID Give 30 day supply. Novolog Inj (Insulin Aspart) 1,000 Unit/10 Ml Vial 1-9 Units SQ ACHS sugars less than 70,(0)units; sugars 150-199,(1) unit; sugars 200-249,(3) units; sugars 250-299,(5) units; sugars 300-349,(7) units; sugars > 349,(9) units Reported Methadone (Methadone HCl) 40 Mg Tab 100 Mg PO DAILY Neurontin (Gabapentin) 300 Mg Cap 300 Mg PO TID Allergies: Coded Allergies: erythromycin base (Unverified Allergy, Severe, Rash, 04/21/17) ketorolac (Unverified Allergy, Severe, Shortness of Breath, 04/21/17) Active Ordered Medications Current Medications Medications (Trade) Dose Ordered Sig/Criss Route Start Time Stop Time Status Last Admin (NS Flush) 2 ml UNSCH PRN IVF 04/21/17 06:45 04/21/17 07:14 (Neurontin) 300 mg TID PO 04/21/17 13:00 04/21/17 13:17 (Dolophine) 100 mg DAILY PO 04/21/17 10:00 (Levemir Inj) 40 units Q12HR SQ 04/21/17 10:00 04/21/17 10:45 Sodium Chloride 1,000 ml @ 150 mls/hr Q6H40M IV 04/21/17 09:52 04/21/17 11:57 (NS Flush) 2 ml UNSCH PRN IV FLUSH 04/21/17 10:00 (NS Flush) 2 ml BID IV FLUSH 04/21/17 21:00 (Zofran Inj) 4 mg Q6H PRN IVP 04/21/17 10:00 (Lovenox Inj) 40 mg Q24H SQ 04/21/17 10:00 04/21/17 11:29 (Narcan Inj) 0.4 mg UNSCH PRN IV 04/21/17 10:00 (Eun-Colace) 1 tab BID PO 04/21/17 21:00 (Milk Of Magnesia Liq) 30 ml Q12H PRN PO 04/21/17 10:00 (Senokot) 17.2 mg Q12H PRN PO 04/21/17 10:00 (Dulcolax Supp) 10 mg DAILY PRN RECTAL 04/21/17 10:00 (Lactulose Liq) 30 ml DAILY PRN PO 04/21/17 10:00 (NovoLIN R SUPPLEMENTAL SCALE) 1 ACHS SLIDING SCALE SQ 04/21/17 11:00 04/21/17 11:39 Family History Mother with DM father with Throat Cancer Social History Tobacco dependence one pack daily. Lives with her Roommate. Physical Exam Vital Signs Vital Signs Date Time Temp Pulse Resp B/P (MAP) Pulse Ox O2 Delivery O2 Flow Rate FiO2 04/21/17 10:49 70 18 127/93 (104) 96 Room Air 04/21/17 07:11 96 04/21/17 06:18 98.1 81 16 146/72 (96) 96 Room Air Physical Exam GENERAL: Overweight patient alert in no acute distress. SKIN: Warm and dry. HEAD: Atraumatic. Normocephalic. EYES: Pupils equal and round. Extraocular movements are intact. ENT: No nasal bleeding or discharge. Mucous membranes slightly dry. NECK: Trachea midline. Neck is supple. CARDIOVASCULAR: Regular rate and rhythm. Heart sounds are normal. RESPIRATORY: No accessory muscle use. Lungs are clear with full air movement throughout. GASTROINTESTINAL: Abdomen soft. Epigastric tenderness with no guarding or rebound. Nondistended. MUSCULOSKELETAL: No obvious deformities. No edema. NEUROLOGICAL: Awake and alert. No obvious cranial nerve deficits. Motor grossly within normal limits. Normal speech. PSYCHIATRIC: Appropriate mood and affect; insight and judgment normal. Laboratory Laboratory Tests Test 04/21/17 06:44 04/21/17 07:00 Blood Gas Puncture Site CL Blood Gas Patient Temperature 98.6 Venous Blood pH 7.41 Venous Blood Partial Pressure CO2 47 Venous Blood Partial Pressure O2 43 Venous Blood HCO3 29 Venous Blood Oxygen Saturation 78 Venous Blood Oxygen Content 17.1 Venous Blood Base Excess 4.7 Oxygen Delivery Device RA White Blood Count 7.6 Red Blood Count 5.23 Hemoglobin 15.8 Hematocrit 45.4 Mean Corpuscular Volume 86.9 Mean Corpuscular Hemoglobin 30.1 Mean Corpuscular Hemoglobin Concent 34.7 Red Cell Distribution Width 12.9 Platelet Count 121 Mean Platelet Volume 11.6 Neutrophils (%) (Auto) 75.8 Lymphocytes (%) (Auto) 16.4 Monocytes (%) (Auto) 5.0 Eosinophils (%) (Auto) 2.2 Basophils (%) (Auto) 0.6 Neutrophils # (Auto) 5.8 Lymphocytes # (Auto) 1.3 Monocytes # (Auto) 0.4 Eosinophils # (Auto) 0.2 Basophils # (Auto) 0.0 CBC Comment DIFF FINAL Differential Comment Urine Color LIGHT-YELLOW Urine Turbidity CLEAR Urine pH 5.5 Urine Specific [place] 1.041 Urine Protein NEG Urine Glucose (UA) 1000 Urine Ketones NEG Urine Occult Blood NEG Urine Nitrite NEG Urine Bilirubin NEG Urine Urobilinogen LESS THAN 2.0 Urine Leukocyte Esterase NEG Urine RBC LESS THAN 1 Urine WBC LESS THAN 1 Urine Squamous Epithelial Cells <1 Microscopic Urinalysis Comment CULT NOT INDICATED Blood Urea Nitrogen 14 Creatinine 1.01 Random Glucose 604 Total Protein 8.3 Albumin 3.1 Calcium Level 8.5 Alkaline Phosphatase 126 Aspartate Amino Transf (AST/SGOT) 205 Alanine Aminotransferase (ALT/SGPT) 239 Total Bilirubin 1.0 Sodium Level 123 Potassium Level 4.7 Chloride Level 86 Carbon Dioxide Level 26.5 Anion Gap 11 Estimat Glomerular Filtration Rate 56 B-Hydroxybutyrate 0.42 Result Diagram: 04/21/17 0700 04/21/17 0700 Caprini VTE Risk Assessment Caprini VTE Risk Assessment: Mod/High Risk (score >= 2) Caprini Risk Assessment Model Point Value = 1 Point Value = 2 Point Value = 3 Point Value = 5 Age 41-60 Minor surgery BMI > 25 kg/m2 Swollen legs Varicose veins or History of unexplained or recurrent spontaneous Oral contraceptives or hormone replacement Sepsis (< 1 month) Serious lung disease, including pneumonia (< 1 month) Abnormal pulmonary function Acute myocardial infarction Congestive heart failure (< 1 month) History of inflammatory bowel disease Medical patient at bed rest Age 61-74 Arthroscopic surgery Major open surgery (> 45 min) Laparoscopic surgery (> 45 min) Malignancy Confined to bed (> 72 hours) Immobilizing plaster cast Central venous access Age >= 75 History of VTE Family history of VTE Factor V Leiden Prothrombin [id number] Lupus anticoagulant Anticardiolipin antibodies Elevated serum homocysteine Heparin-induced thrombocytopenia Other congenital or acquired thrombophilia Stroke (< 1 month) Elective arthroplasty Hip, pelvis, or leg fracture Acute spinal cord injury (< 1 month) Prophylaxis Regimen Total Risk Factor Score Risk Level Prophylaxis Regimen 0-1 Low Early ambulation 2 Moderate Order ONE of the following: *Sequential Compression Device (SCD) *Heparin 5000 units SQ BID 3-4 Higher Order ONE of the following medications: *Heparin 5000 units SQ TID *Enoxaparin/Lovenox 40 mg SQ daily (WT < 150 kg, CrCl > 30 mL/min) *Enoxaparin/Lovenox 30 mg SQ daily (WT < 150 kg, CrCl > 10-29 mL/min) *Enoxaparin/Lovenox 30 mg SQ BID (WT < 150 kg, CrCl > 30 mL/min) AND/OR *Sequential Compression Device (SCD) 5 or more Highest Order ONE of the following medications: *Heparin 5000 units SQ TID (Preferred with Epidurals) *Enoxaparin/Lovenox 40 mg SQ daily (WT < 150 kg, CrCl > 30 mL/min) *Enoxaparin/Lovenox 30 mg SQ daily (WT < 150 kg, CrCl > 10-29 mL/min) *Enoxaparin/Lovenox 30 mg SQ BID (WT < 150 kg, CrCl > 30 mL/min) AND *Sequential Compression Device (SCD) Assessment and Plan Assessment and Plan 1. Hyponatremia receiving hydration at this time with IV fluids 2. Hyperglycemia secondary to Diabetic patient with severe non compliance and is not taking her medicines will re start her Insulin and follow her, continue Long lasting insulin, sliding scale to moderate dose and Pre meal insulin, Hemoglobin A1C, diabetic education. 3. Anxiety disorder and Depression continue Home medicines if any 4. COPD/Severe tobacco dependence strongly recommended to stop smoking Refused Nicotine replacement 5. Hepatitis C by history 6. History of IVDA 7. Peripheral Neuropathy continue Gabapentin 8. GERD symptomatology start Famotidine and Carafate. 9. Increased transaminases follow after hydration. complete laboratory continue IV fluids follow laboratory in am tomorrow Bronchodilator, Mucolytic and incentive spirometry manager office services for discharge Pain medicine DVT prophylaxis with heparin. Code Status full code Discussed Condition With patient, her relative in the room and ER physician Otilio Vazquez MD Apr 21, 2017 11:17
[2017-04-21] MEDS: ENOXAPARIN SODIUM 40 MG/0.4 ML SYRINGE SQ SCH (11:29)
[2017-04-21] MEDS: INSULIN NovoLIN REGULAR SUPPLEMENTAL SCALE SQ SCH ×3 (11:39→23:00)
[2017-04-21] MEDS: SODIUM CHLOR 0.9% 1000 ML INJ 1,000 ML IV SCH ×3 (11:57→23:12)
--- NOTE | 2017-04-21 12:36 | EKG ---
Date Performed: 04/21/2017 Time Performed: 07:23:18 PTAGE: 62 years EKG: Sinus rhythm LOW QRS VOLTAGE IN PRECORDIAL LEADS BORDERLINE ECG PREVIOUS TRACING : 09/06/2016 17.39 No significant change from previous tracing noted. DOCTOR: Eliel Stevenson Interpretating Date/Time 04/21/2017 12:35:21
[2017-04-21] MEDS: GABAPENTIN 300 MG CAP PO SCH ×2 (13:17→18:51)
[2017-04-21] MEDS: FAMOTIDINE 20 MG TAB PO SCH ×2 (14:08→22:53)
[2017-04-21 14:40] LABS: FREE T4 1.71 NG/DL (0.76-1.46); HDL CHOLESTEROL 35.6 MG/DL (40.0-60.0); LDL CHOLESTEROL 78 MG/DL (0-99)
[2017-04-21] MEDS: RESP: ALBUTEROL 2.5 MG/IPRATROPIUM 0.5 MG NEB (SCH) NEB ×3 (16:32→23:17)
[2017-04-21 17:10] LABS: HEMOGLOBIN A1a 1.8 %; HEMOGLOBIN A1b 1.7 %; HEMOGLOBIN F 3.6 %; HEMOGLOBIN LA1C 5.5 %
[2017-04-21] MEDS: SUCRALFATE 1 GM TAB PO SCH ×2 (17:35→22:53)
[2017-04-21] MEDS: DOCUSATE SODIUM 50 MG/SENNA 8.6 MG TAB PO SCH (21:00)
[2017-04-21] MEDS: guaiFENesin E.R. 600 MG TAB PO SCH (21:00)
[2017-04-21] MEDS ORDERED: HEPARIN SODIUM - SQ 10,000 UNITS/ML VIAL SQ SCH (21:00)
[2017-04-21] MEDS ORDERED: LORazepam 0.5 MG TAB PO ONE (21:45)
[2017-04-21] MEDS: SODIUM CHLORIDE 0.9% FLUSH 10 ML FLUSH IV FLUSH SCH (22:58)
[2017-04-22] VITALS (8 sets, daily range): BP systolic 117–166; BP diastolic 59–85; PULSE 61–76; RESP 16–18; TEMP 97.7–98.4; O2SAT 92–98
[2017-04-22] MEDS: ONDANSETRON HCL 4 MG/2 ML VIAL IVP PRN (03:44)
[2017-04-22] MEDS: RESP: ALBUTEROL 2.5 MG/IPRATROPIUM 0.5 MG NEB (SCH) NEB ×4 (04:00→23:50)
[2017-04-22] MEDS: SODIUM CHLOR 0.9% 1000 ML INJ 1,000 ML IV SCH ×3 (05:52→18:36)
[2017-04-22] MEDS: SUCRALFATE 1 GM TAB PO SCH ×4 (06:27→22:47)
[2017-04-22] MEDS: INSULIN NovoLIN REGULAR SUPPLEMENTAL SCALE SQ SCH ×4 (06:29→22:52)
--- NOTE | 2017-04-22 08:41 | HHI.PR ---
Subjective Remarks Follow up for uncontrolled diabetes. The patient reports "not feeling well at all" today. She reports a global headache with blurred vision, no nausea/ vomiting. She is tolerating oral intake. Her polydipsia and polyuria have improved overnight. Denies abdominal pain, diarrhea, or constipation. She reports diffuse body aches and pains. Requesting her methadone. She says there' s no way she can go home today feeling this way. She says she has felt miserable for 2 weeks now. She has been out of insulin for 3 weeks now, only has very tiny amount of Novolog. She does not know her Levemir dosing because she has been out for so long. She has no other medical complaints at this time. Objective Vitals Vital Signs Date Time Temp Pulse Resp B/P (MAP) Pulse Ox O2 Delivery O2 Flow Rate FiO2 04/22/17 07:36 97 21 04/22/17 04:11 97.9 63 18 117/75 (89) 96 04/22/17 01:08 98.4 71 18 119/69 (86) 96 04/21/17 20:15 98 21 04/21/17 18:44 97.9 61 16 133/82 (99) 98 04/21/17 18:32 04/21/17 16:33 96 21 04/21/17 16:22 18 04/21/17 15:04 70 18 136/65 (88) 97 Room Air 04/21/17 10:49 70 18 127/93 (104) 96 Room Air I/O 04/21/17 04/21/17 04/21/17 04/22/17 04/22/17 04/22/17 07:00 15:00 23:00 07:00 15:00 23:00 Intake Total 4000 ml Balance 4000 ml Intake IV Total 4000 ml Result Diagram: 04/21/17 0704/21/17 0700 Objective Remarks GENERAL: Well-nourished, well-developed female patient in [facility]. SKIN: Warm and dry. No rash. HEENT: Normocephalic. Atraumatic. Pupils equal and round. Mucous membranes pink and moist. NECK: Supple. Trachea midline. CARDIOVASCULAR: Regular rate and rhythm. S1, S2 noted. No murmur appreciated. RESPIRATORY: No accessory muscle use. Clear to auscultation. Breath sounds equal bilaterally. GASTROINTESTINAL: Abdomen soft, non-tender, nondistended. Normoactive bowel sounds x4. MUSCULOSKELETAL: No obvious deformities. Extremities without clubbing, cyanosis , or edema. NEUROLOGICAL: Awake and alert. No obvious cranial nerve deficits. Motor grossly within normal limits. Normal speech. PSYCHIATRIC: Appropriate mood and affect; insight and judgment normal. Medications and IVs Current Medications Medications (Trade) Dose Ordered Sig/Criss Route Start Time Stop Time Status Last Admin (NS Flush) 2 ml UNSCH PRN IVF 04/21/17 06:45 04/21/17 07:14 (Neurontin) 300 mg TID PO 04/21/17 13:00 04/22/17 10:04 (Dolophine) 100 mg DAILY PO 04/21/17 10:00 04/22/17 10:05 Sodium Chloride 1,000 ml @ 150 mls/hr Q6H40M IV 04/21/17 09:52 04/21/17 17:39 (NS Flush) 2 ml UNSCH PRN IV FLUSH 04/21/17 10:00 (NS Flush) 2 ml BID IV FLUSH 04/21/17 21:00 04/22/17 10:06 (Zofran Inj) 4 mg Q6H PRN IVP 04/21/17 10:00 04/22/17 03:44 (Lovenox Inj) 40 mg Q24H SQ 04/21/17 10:00 04/22/17 10:08 (Narcan Inj) 0.4 mg UNSCH PRN IV 04/21/17 10:00 (Eun-Colace) 1 tab BID PO 04/21/17 21:00 04/22/17 10:04 (Milk Of Magnesia Liq) 30 ml Q12H PRN PO 04/21/17 10:00 (Senokot) 17.2 mg Q12H PRN PO 04/21/17 10:00 (Dulcolax Supp) 10 mg DAILY PRN RECTAL 04/21/17 10:00 (Lactulose Liq) 30 ml DAILY PRN PO 04/21/17 10:00 (NovoLIN R SUPPLEMENTAL SCALE) 1 ACHS SLIDING SCALE SQ 04/21/17 11:00 04/22/17 06:29 (Duoneb Neb) 1 ampule Q4HR NEB NEB 04/21/17 16:00 04/22/17 07:33 (Mucinex Er) 600 mg BID PO 04/21/17 21:00 04/22/17 10:04 (Pepcid) 20 mg BID PO 04/21/17 14:00 04/22/17 10:05 (Carafate) 1 gm ACHS PO 04/21/17 16:00 04/22/17 06:27 (Roxicodone) 5 mg Q6H PRN PO 04/21/17 14:00 04/22/17 03:47 (Levemir Inj) 45 units Q12HR SQ 04/22/17 09:00 04/22/17 10:06 A/P Assessment and Plan 62-year-old female with history of type 2 diabetes, hyperlipidemia, hepatitis C , PE s/p anticoagulation, anxiety/depression. Hyperglycemia with Diabetes: BG over 600 upon arrival. Secondary to noncompliance with insulin x3 weeks. Patient well known to me (see prior discharge summary), long hx of noncompliance; also last hospitalization patient noncompliant with diabetic diet, ordering extra food and multiple snacks, monitor closely. -Restart patient's Levemir (unknown home dose), previously discharged on 55u bid; will start with 45u bid and titrate up as needed. -Monitor Accu-checks, cover with SSI -HgbA1c 14.5 -consult para educator and regional construction manager again Hyperglycemia Induced Hyponatremia: Na 123, however corrected Na around 133. -Continue on IVF with NS. -Repeat BMP pending. Mild COPD Exacerbation & Tobacco Use: acute on chronic, reportedly wheezing upon arrival, lungs sound clear on exam today however patient reporting nonproductive cough -counseled on tobacco cessation, patient declined nicotine patch -continue duonebs q8h, mucinex bid, incentive spirometry -check CXR Diabetic Neuropathy: acute on chronic, secondary to uncontrolled diabetes. Continue patient's Gabapentin. GERD: started on Famotidine and Carafate. Transaminitis: with hx of hepatitis C. Give IVF. Repeat CMP. Avoid hepatotoxins. Chronic Pain, Opioid Dependence: chronic. Continue patient's Methadone. DVT prophylaxis with heparin. Discharge Planning Discharge pending further clinical improvement, hopefully tomorrow. Louise Meneses PA-C Apr 22, 2017 8:41 am
[2017-04-22] MEDS: DOCUSATE SODIUM 50 MG/SENNA 8.6 MG TAB PO SCH ×2 (10:04→21:00)
[2017-04-22] MEDS: GABAPENTIN 300 MG CAP PO SCH ×3 (10:04→18:34)
[2017-04-22] MEDS: guaiFENesin E.R. 600 MG TAB PO SCH ×2 (10:04→21:00)
[2017-04-22] MEDS: METHADONE HCL 10 MG TAB PO SCH (10:05)
[2017-04-22] MEDS: FAMOTIDINE 20 MG TAB PO SCH ×2 (10:05→22:47)
[2017-04-22] MEDS: SODIUM CHLORIDE 0.9% FLUSH 10 ML FLUSH IV FLUSH SCH ×2 (10:06→22:47)
[2017-04-22] MEDS: INSULIN DETEMIR 100 UNITS/ML VIAL SQ SCH ×2 (10:06→22:49)
[2017-04-22] MEDS: ENOXAPARIN SODIUM 40 MG/0.4 ML SYRINGE SQ SCH (10:08)
[2017-04-22 13:05] LABS: AUTOMATED NEUTROPHIL # 5.6 TH/MM3 (1.8-7.7); BASOPHIL # 0.1 TH/MM3 (0-0.2); EOSINOPHIL # 0.1 TH/MM3 (0-0.4); EOSINOPHIL % 1.1 % (0.0-4.0); LYMPH % 13.2 % (9.0-44.0); LYMPHOCYTE # 0.9 TH/MM3 (1.0-4.8); MEAN CELL VOLUME 87.1 FL (80.0-100.0); MEAN CORPUSCULAR HEMOGLOBIN 29.6 PG (27.0-34.0); MONO % 3.4 % (0.0-8.0); NEUT % 80.3 % (16.0-70.0); PLATELET COUNT 93 TH/MM3 (150-450); RED BLOOD COUNT 4.59 MIL/MM3 (4.00-5.30); RED CELL DISTRIBUTION WIDTH 12.7 % (11.6-17.2); WHITE BLOOD COUNT 6.9 TH/MM3 (4.0-11.0)
[2017-04-22 13:10] LABS: HEMO FLAGS AUTO DIFF
[2017-04-22] MEDS: LORazepam 0.5 MG TAB PO PRN (13:15)
[2017-04-22 13:36] LABS: PLATELET ESTIMATE SMEAR LOW (NORMAL); PLATELET MORPHOLOGY NORMAL (NORMAL)
[2017-04-22 13:37] LABS: SCAN/DIFF AUTO DIFF CONFIRMED
[2017-04-22 13:38] LABS: ALT (GPT) 291 U/L (10-53); ANION GAP 9 MEQ/L (5-15); AST (GOT) 281 U/L (15-37); BICARBONATE 25.6 MEQ/L (21.0-32.0); BLOOD UREA NITROGEN 11 MG/DL (7-18); CHLORIDE 95 MEQ/L (98-107); GLOMERULAR FILTRATION RATE 68 ML/MIN (>89); POTASSIUM 4.3 MEQ/L (3.5-5.1); SODIUM (NA) 130 MEQ/L (136-145)
[2017-04-22 13:40] LABS: ALKALINE PHOSPHATASE 110 U/L (45-117); TOTAL BILIRUBIN ADULT 0.7 MG/DL (0.2-1.0)
--- NOTE | 2017-04-22 15:41 | RADRPT ---
EXAM DATE/TIME: 04/22/2017 14:53 [facility] COMPARISON: CHEST SINGLE AP, September 06, 2016, 16:37. INDICATIONS : Wheezing. MEDICAL HISTORY : Hypertension. Deep venous thrombosis. Hypercholesterolemia. COPD. Ulcer. Hiatal SURGICAL HISTORY : Hysterectomy. Breast reduction. Left breast biopsy. ENCOUNTER: Initial ACUITY: 3 days PAIN SCORE: 0/10 LOCATION: Bilateral chest FINDINGS: A single view of the chest demonstrates the lungs to be symmetrically aerated without evidence of mas s, infiltrate or effusion. The cardiomediastinal contours are unremarkable. Osseous structures are intact. CONCLUSION: No acute disease. Douglas Cunningham MD on April 22, 2017 at 15:28 Board Certified Radiologist. This report was verified electronically.
[2017-04-22] MEDS ORDERED: INSULIN HUMAN REGULAR 1,000 UNITS/10 ML VIAL IV PUSH ONE (22:30)
[2017-04-23] VITALS (7 sets, daily range): BP systolic 119–141; BP diastolic 63–75; PULSE 64–80; RESP 16–18; TEMP 97.6–98.6; O2SAT 94–98
[2017-04-23] MEDS ORDERED: INSULIN HUMAN REGULAR 1,000 UNITS/10 ML VIAL IV PUSH ONE ×2 (00:45→07:00)
[2017-04-23] MEDS: LORazepam 0.5 MG TAB PO PRN ×2 (01:11→13:50)
[2017-04-23] MEDS: SODIUM CHLOR 0.9% 1000 ML INJ 1,000 ML IV SCH ×4 (01:52→21:52)
[2017-04-23] MEDS: SUCRALFATE 1 GM TAB PO SCH ×4 (06:59→20:23)
[2017-04-23] MEDS: INSULIN NovoLIN REGULAR SUPPLEMENTAL SCALE SQ SCH (07:00)
[2017-04-23] MEDS: RESP: ALBUTEROL 2.5 MG/IPRATROPIUM 0.5 MG NEB (SCH) NEB ×3 (07:37→23:01)
[2017-04-23] MEDS ORDERED: INSULIN ASPART 1,000 UNITS/10 ML VIAL SQ ONE (08:30)
[2017-04-23] MEDS: guaiFENesin E.R. 600 MG TAB PO SCH ×2 (09:00→20:23)
[2017-04-23] MEDS: SODIUM CHLORIDE 0.9% FLUSH 10 ML FLUSH IV FLUSH SCH ×2 (09:00→20:23)
[2017-04-23] MEDS: METHADONE HCL 10 MG TAB PO SCH (09:01)
[2017-04-23] MEDS: ENOXAPARIN SODIUM 40 MG/0.4 ML SYRINGE SQ SCH (09:02)
[2017-04-23] MEDS: DOCUSATE SODIUM 50 MG/SENNA 8.6 MG TAB PO SCH ×2 (09:02→20:23)
[2017-04-23] MEDS: FAMOTIDINE 20 MG TAB PO SCH ×2 (09:02→20:23)
[2017-04-23] MEDS: GABAPENTIN 300 MG CAP PO SCH (09:02)
[2017-04-23] MEDS: INSULIN DETEMIR 100 UNITS/ML VIAL SQ SCH ×2 (09:04→20:24)
[2017-04-23 10:52] LABS: ANION GAP 10 MEQ/L (5-15); AST (GOT) 192 U/L (15-37); BICARBONATE 26.5 MEQ/L (21.0-32.0); BLOOD UREA NITROGEN 10 MG/DL (7-18); CHLORIDE 97 MEQ/L (98-107); GLOMERULAR FILTRATION RATE 69 ML/MIN (>89); POTASSIUM 3.7 MEQ/L (3.5-5.1); SODIUM (NA) 133 MEQ/L (136-145)
[2017-04-23 10:53] LABS: ALT (GPT) 258 U/L (10-53)
[2017-04-23 10:55] LABS: ALKALINE PHOSPHATASE 110 U/L (45-117); TOTAL BILIRUBIN ADULT 0.4 MG/DL (0.2-1.0)
--- NOTE | 2017-04-23 10:58 | HHI.PR ---
Subjective Remarks Follow-up for uncontrolled diabetes. Required IV insulin overnight secondary to low glucoses in the 500s. Patient continues to complain of generalized ill feeling. She complains of blurry vision. She states she's had blurry vision for months, and hasn't seen an eye doctor in years, counseled on compliance with ophthalmology follow-up and diabetes. Patient continues to complain of generalized headache, unchanged. She complains of chronic lower extremity burning pain, unchanged. She is asking for increased frequency or dose of oxycodone. She states she is pretty signed gabapentin for this, unsure what dose she was taking. Patient continues to complain of polyuria and polydipsia. Per RN, has been really requesting sugary drinks including apple juice. Objective Vitals Vital Signs Date Time Temp Pulse Resp B/P (MAP) Pulse Ox O2 Delivery O2 Flow Rate FiO2 04/23/17 08:29 98.6 70 16 119/63 (81) 95 04/23/17 07:37 97 21 04/23/17 06:39 98.3 64 18 141/72 (95) 95 04/23/17 00:44 97.9 80 18 133/65 (87) 94 04/22/17 23:52 96 21 04/22/17 20:12 98.2 72 16 132/59 (83) 95 04/22/17 16:17 97.7 76 16 139/67 (91) 96 04/22/17 12:17 97.8 61 16 166/85 (112) 98 I/O 04/22/17 04/22/17 04/22/17 04/23/17 04/23/17 04/23/17 07:00 15:00 23:00 07:00 15:00 23:00 Intake Total 1000 ml Balance 1000 ml Intake IV Total 1000 ml # Voids 3 Result Diagram: 04/22/17 1250 04/22/17 1250 Imaging Last Impressions Chest X-Ray 04/22/17 0000 Signed Impressions: Service Date/Time: Saturday, April 22, 2017 14:53 - CONCLUSION: No acute disease. Douglas Cunningham MD Objective Remarks GENERAL: Well-developed well-nourished. In no acute distress. SKIN: Warm and dry. No lesions noted. HEENT: Normocephalic. Pupils equal and round. Mucous membranes pink and moist. CARDIOVASCULAR: Regular rate and rhythm. No murmur appreciated. RESPIRATORY: No accessory muscle use. Clear to auscultation. Breath sounds equal bilaterally. GASTROINTESTINAL: Abdomen soft, non-tender, nondistended. Bowel sounds x4. MUSCULOSKELETAL: No obvious deformities. No clubbing or cyanosis. No edema. NEUROLOGICAL: Awake and alert. No focal neurological deficits. Moves upper and lower extremities spontaneously. Normal speech. PSYCHIATRIC: Appropriate mood and affect; insight and judgment normal. A/P Assessment and Plan 62-year-old female with history of type 2 diabetes, hyperlipidemia, hepatitis C , PE s/p anticoagulation, anxiety/depression. Hyperglycemia with Diabetes: Blood glucoses uncontrolled, hemoglobin A1c 14.5, secondary to medication and dietary noncompliance. -Restarted Levemir, currently on 45u bid, will titrate up as needed. 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 -Continue on IVF with NS. -Monitor Mild COPD Exacerbation & Tobacco Use: No further wheezing. Chest x-ray clear. Improved. -counseled on tobacco cessation, patient declined nicotine patch -continue duonebs q8h, mucinex bid, incentive spirometry Diabetic Neuropathy: -Increased gabapentin dose. -Continue oxycodone as needed, will not adjust dose at this time GERD: -started on Famotidine and Carafate. Transaminitis: with hx of hepatitis C. transaminases are stable. -Monitor CMP. Avoid hepatotoxins. Chronic Pain, Opioid Dependence: chronic. -Continue patient's Methadone. -Encouraged pain management follow-up DVT prophylaxis with heparin. Discharge Planning Blood glucoses remain uncontrolled. Discussed with case management, patient has been inpatient criteria since admission, will admit. Possible discharge in 1-2 days if blood glucoses are better controlled. Discussed with case management, patient may need assistance with insulin prescriptions at discharge. Otoniel Moise Apr 23, 2017 10:58
[2017-04-23] MEDS: INSULIN ASPART SUPPLEMENTAL SCALE SQ SCH ×3 (11:00→20:34)
[2017-04-23] MEDS ORDERED: INSULIN ASPART 1,000 UNITS/10 ML VIAL SQ SCH ×2 (12:00→17:00)
[2017-04-23] MEDS: GABAPENTIN 400 MG CAP PO SCH ×2 (12:16→16:57)
[2017-04-24] VITALS (9 sets, daily range): BP systolic 130–151; BP diastolic 65–76; PULSE 59–87; RESP 16–18; TEMP 97.7–98.5; O2SAT 95–98
[2017-04-24] MEDS: LORazepam 0.5 MG TAB PO PRN ×3 (01:50→16:46)
[2017-04-24] MEDS: SODIUM CHLOR 0.9% 1000 ML INJ 1,000 ML IV SCH ×4 (04:32→23:02)
[2017-04-24] MEDS: INSULIN ASPART SUPPLEMENTAL SCALE SQ SCH ×4 (06:46→22:15)
[2017-04-24] MEDS: SUCRALFATE 1 GM TAB PO SCH ×4 (06:49→22:07)
[2017-04-24] MEDS: RESP: ALBUTEROL 2.5 MG/IPRATROPIUM 0.5 MG NEB (SCH) NEB (07:27)
--- NOTE | 2017-04-24 07:53 | HHI.PR ---
Subjective Remarks in no acute distress. but she says that she's not feeling good with some on and off nausea, anxiety and some blurred vision. blood sugar levels still in 400 range. Objective Vitals Vital Signs Date Time Temp Pulse Resp B/P (MAP) Pulse Ox O2 Delivery O2 Flow Rate FiO2 04/24/17 07:29 96 21 04/24/17 07:24 97.7 59 17 151/72 (98) 96 04/24/17 03:53 98.2 76 18 130/65 (86) 98 04/24/17 00:10 98.5 75 18 134/67 (89) 97 04/23/17 21:26 16 04/23/17 20:02 98.1 80 18 140/70 (93) 98 04/23/17 15:39 98.2 75 18 134/67 (89) 95 04/23/17 11:50 97.6 73 17 122/75 (91) 95 04/23/17 08:29 98.6 70 16 119/63 (81) 95 I/O 04/23/17 04/23/17 04/23/17 04/24/17 04/24/17 04/24/17 07:00 15:00 23:00 07:00 15:00 23:00 Intake Total 874 ml Balance 874 ml Intake IV Total 874 ml # Voids 3 4 3 Result Diagram: 04/22/17 1250 04/23/17 0847 Imaging Last Impressions Chest X-Ray 04/22/17 0000 Signed Impressions: Service Date/Time: Saturday, April 22, 2017 14:53 - CONCLUSION: No acute disease. Douglas Cunningham MD Objective Remarks GENERAL: This is a well-nourished, well-developed patient, in no apparent distress. CARDIOVASCULAR: Regular rate and regular rhythm without murmurs, gallops, or rubs. RESPIRATORY: minimal bilateral wheezing. GASTROINTESTINAL: Abdomen soft, non-tender, nondistended. Normal, active bowel sounds MUSCULOSKELETAL: Extremities without clubbing, cyanosis, or edema. NEURO: Alert & Oriented x4 to person, place, time, situation. Moves all ext x4 Medications and IVs Current Medications Sodium Chloride 1,000 ml @ 2,000 mls/hr Q30M ONCE IV Last administered on 04/21t 07:13; Start 04/21/17 at 06:44; Stop 04/21/17 at 07:13; Status DC Sodium Chloride 1,000 ml @ 2,000 mls/hr Q30M ONCE IV Last administered on 04/21 07:14; Start 04/21/17 at 07:14; Stop 04/21/17 at 07:43; Status DC Sodium Chloride (NS Flush) 2 ml UNSCH PRN IVF FLUSH AFTER USING IV ACCESS Last administered on 04/21/17 07:14; Start 04/21/17 at 06:45; Stop 04/23/17 at 07:23 ; Status DC Insulin Human Regular (NovoLIN R INJ) 9 units ONCE ONCE IV PUSH Last administered on 04/21/17 07:13; Start 04/21/17 at 06:45; Stop 04/21/17 at 06:48 ; Status DC Ondansetron HCl (Zofran Inj) 4 mg ONCE ONCE IV PUSH Last administered on 08:54; Start 04/21/17 at 08:45; Stop 04/21/17 at 08:46; Status DC Sodium Chloride 1,000 ml @ 999 mls/hr BOLUS ONCE IV Last administered on 04/21 10:25; Start 04/21/17 at 09:15; Stop 04/21/17 at 10:15; Status DC Sodium Chloride 1,000 ml @ 999 mls/hr BOLUS ONCE IV Last administered on 04/21 10:25; Start 04/21/17 at 09:15; Stop 04/21/17 at 10:15; Status DC Insulin Human Regular (NovoLIN R INJ) 8 units ONCE ONCE SQ ; Start 04/21/17 at 09:15; Stop 04/21/17 at 09:16; Status DC Gabapentin (Neurontin) 300 mg TID PO Last administered on 04/23/17 09:02; Start 04/21/17 at 13:00; Stop 04/23/17 at 10:51; Status DC Methadone HCl (Dolophine) 100 mg DAILY PO Last administered on 04/23/17 09:01 ; Start 04/21/17 at 10:00 Insulin Detemir (Levemir Inj) 40 units Q12HR SQ Last administered on 04/21/17 23:01; Start 04/21/17 at 10:00; Stop 04/22/17 at 08:40; Status DC Sodium Chloride 1,000 ml @ 150 mls/hr Q6H40M IV Last administered on 16:58; Start 04/21/17 at 09:52 Sodium Chloride (NS Flush) 2 ml UNSCH PRN IV FLUSH FLUSH AFTER USING IV ACCESS ; Start 04/21/17 at 10:00 Sodium Chloride (NS Flush) 2 ml BID IV FLUSH Last administered on 04/23/17 20: 23; Start 04/21/17 at 21:00 Ondansetron HCl (Zofran Inj) 4 mg Q6H PRN IVP NAUSEA OR VOMITING Last administered on 04/22/17 03:44; Start 04/21/17 at 10:00 Enoxaparin Sodium (Lovenox Inj) 40 mg Q24H SQ Last administered on 04/23/17 09 :02; Start 04/21/17 at 10:00 Naloxone HCl (Narcan Inj) 0.4 mg UNSCH PRN IV SEE LABEL COMMENTS; Start at 10:00 Senna/Docusate Sodium (Eun-Colace) 1 tab BID PO Last administered on 20:23; Start 04/21/17 at 21:00 Magnesium Hydroxide (Milk Of Magnesia Liq) 30 ml Q12H PRN PO MILD - MODERATE CONSTIPATION; Start 04/21/17 at 10:00 Sennosides (Senokot) 17.2 mg Q12H PRN PO MODERATE - SEVERE CONSTIPATION; Start 04/21/17 at 10:00 Bisacodyl (Dulcolax Supp) 10 mg DAILY PRN RECTAL SEVERE CONSITIPATION; Start at 10:00 Lactulose (Lactulose Liq) 30 ml DAILY PRN PO SEVERE CONSITIPATION; Start at 10:00 Insulin Human Regular (NovoLIN R SUPPLEMENTAL SCALE) 1 ACHS SLIDING SCALE SQ Last administered on 04/22/17 18:33; Start 04/21/17 at 11:00; Stop 04/23/17 at 07:20; Status DC Albuterol/ Ipratropium (Duoneb Neb) 1 ampule Q4HR NEB NEB Last administered on 04/22/17 07:33; Start 04/21/17 at 16:00; Stop 04/22/17 at 11:17; Status DC Guaifenesin (Mucinex Er) 600 mg BID PO Last administered on 04/23/17 20:23; Start 04/21/17 at 21:00 Famotidine (Pepcid) 20 mg BID PO Last administered on 04/23/17 20:23; Start at 14:00 Sucralfate (Carafate) 1 gm ACHS PO Last administered on 04/24/17 06:49; Start 04/21/17 at 16:00 Oxycodone HCl (Roxicodone) 5 mg Q6H PRN PO PAIN SCALE 5 TO 10 Last administered on 04/23/17 20:23; Start 04/21/17 at 14:00 Heparin Sodium (Porcine) (Heparin Inj) 5,000 units Q12HR SQ ; Start 04/21/17 at 21:00; Stop 04/21/17 at 21:00; Status DC Lorazepam (Ativan) 0.5 mg ONCE ONCE PO Last administered on 04/21/17 22:53; Start 04/21/17 at 21:45; Stop 04/21/17 at 21:46; Status DC Insulin Detemir (Levemir Inj) 45 units Q12HR SQ Last administered on 04/23/17 09:04; Start 04/22/17 at 09:00; Stop 04/23/17 at 16:22; Status DC Albuterol/ Ipratropium (Duoneb Neb) 1 ampule Q8HR NEB NEB Last administered on 04/24/17 07:27; Start 04/22/17 at 16:00 Lorazepam (Ativan) 0.5 mg Q12HR PRN PO anxiety Last administered on 04/24/17 01:50; Start 04/22/17 at 13:00 Insulin Human Regular (NovoLIN R INJ) 10 units ONCE ONCE IV PUSH Last administered on 04/22/17 22:51; Start 04/22/17 at 22:30; Stop 04/22/17 at 22:31 ; Status DC Insulin Human Regular (NovoLIN R INJ) 10 units ONCE ONCE IV PUSH Last administered on 04/23/17 01:11; Start 04/23/17 at 00:45; Stop 04/23/17 at 00:49 ; Status DC Insulin Human Regular (NovoLIN R INJ) 10 units ONCE ONCE IV PUSH Last administered on 04/23/17 07:01; Start 04/23/17 at 07:00; Stop 04/23/17 at 07:01 ; Status DC Insulin Aspart (NovoLOG SUPPLEMENTAL SCALE) 1 ACHS SLIDING SCALE SQ Last administered on 04/24/17 06:46; Start 04/23/17 at 11:00 Insulin Aspart (NovoLOG INJ) 5 units TIDAC SQ Last administered on 04/23/17 12 :17; Start 04/23/17 at 12:00; Stop 04/23/17 at 16:22; Status DC Insulin Aspart (NovoLOG INJ) 7 units ONCE ONCE SQ ; Start 04/23/17 at 08:30; Stop 04/23/17 at 08:30; Status DC Gabapentin (Neurontin) 400 mg TID PO Last administered on 04/23/17 16:57; Start 04/23/17 at 13:00 Insulin Aspart (NovoLOG INJ) 8 units TIDAC SQ Last administered on 04/23/17 19 :04; Start 04/23/17 at 17:00 Insulin Detemir (Levemir Inj) 50 units Q12HR SQ Last administered on 04/23/17 20:24; Start 04/23/17 at 21:00 A/P Assessment and Plan A/P Hyperglycemia with Diabetes: Blood glucoses uncontrolled, hemoglobin A1c 14.5, secondary to medication and dietary noncompliance. -Restarted Levemir, currently on 50 units bid, will titrate up as needed. -increase preprandial NovoLog to 10 units -Continue sliding scale to medium NovoLog scale -Monitor Accu-checks, adjust regimen as needed -Patient continues to have poor insight into her diabetes, consulted nurse educator and language tutor -Counseled on compliance and importance of follow-up Hyperglycemia Induced Hyponatremia: Na 123, improved to 133 with IVF and better blood glucose control. -Continue on IVF with NS. -Monitor Mild COPD Exacerbation & Tobacco Use: Chest x-ray clear. Improved. -counseled on tobacco cessation, patient declined nicotine patch -continue albuterol as needed, mucinex bid, incentive spirometry Diabetic Neuropathy: -continue Gabapentin -Continue oxycodone as needed. GERD: -started on Famotidine and Carafate. Transaminitis: with hx of hepatitis C. transaminases are stable. -Monitor CMP. Avoid hepatotoxins. Chronic Pain, Opioid Dependence: chronic. -Continue patient's Methadone. -Encouraged pain management follow-up DVT prophylaxis with heparin. Discharge Planning dc home within the next 24-48 hrs when blood sugar is better controlled. Lola Urban MD Apr 24, 2017 07:53
[2017-04-24] MEDS: METHADONE HCL 10 MG TAB PO SCH (08:30)
[2017-04-24] MEDS: GABAPENTIN 400 MG CAP PO SCH ×3 (08:31→16:47)
[2017-04-24] MEDS: SODIUM CHLORIDE 0.9% FLUSH 10 ML FLUSH IV FLUSH SCH ×2 (08:31→22:08)
[2017-04-24] MEDS: guaiFENesin E.R. 600 MG TAB PO SCH ×2 (08:31→21:00)
[2017-04-24] MEDS: DOCUSATE SODIUM 50 MG/SENNA 8.6 MG TAB PO SCH ×2 (08:31→22:07)
[2017-04-24] MEDS: FAMOTIDINE 20 MG TAB PO SCH ×2 (08:31→22:07)
[2017-04-24] MEDS: INSULIN DETEMIR 100 UNITS/ML VIAL SQ SCH ×2 (08:38→22:15)
[2017-04-24] MEDS: INSULIN ASPART 1,000 UNITS/10 ML VIAL SQ SCH ×3 (08:38→16:15)
[2017-04-24] MEDS: ENOXAPARIN SODIUM 40 MG/0.4 ML SYRINGE SQ SCH (08:40)
[2017-04-25] VITALS (7 sets, daily range): BP systolic 108–129; BP diastolic 60–90; PULSE 64–80; RESP 16–18; TEMP 97.4–97.9; O2SAT 93–98
[2017-04-25] MEDS: LORazepam 0.5 MG TAB PO PRN ×3 (01:18→18:14)
[2017-04-25] MEDS: SUCRALFATE 1 GM TAB PO SCH ×4 (06:20→21:00)
[2017-04-25] MEDS: SODIUM CHLOR 0.9% 1000 ML INJ 1,000 ML IV SCH ×3 (06:24→14:24)
[2017-04-25] MEDS: INSULIN ASPART SUPPLEMENTAL SCALE SQ SCH ×4 (06:24→21:41)
[2017-04-25] MEDS: INSULIN DETEMIR 100 UNITS/ML VIAL SQ SCH ×2 (08:59→21:41)
[2017-04-25] MEDS: guaiFENesin E.R. 600 MG TAB PO SCH ×2 (09:00→21:00)
[2017-04-25] MEDS: INSULIN ASPART 1,000 UNITS/10 ML VIAL SQ SCH ×4 (09:00→18:35)
[2017-04-25] MEDS: METHADONE HCL 10 MG TAB PO SCH (09:09)
[2017-04-25] MEDS: GABAPENTIN 400 MG CAP PO SCH ×2 (09:10→12:43)
[2017-04-25] MEDS: DOCUSATE SODIUM 50 MG/SENNA 8.6 MG TAB PO SCH ×2 (09:10→21:00)
[2017-04-25] MEDS: FAMOTIDINE 20 MG TAB PO SCH ×2 (09:10→21:00)
[2017-04-25] MEDS: SODIUM CHLORIDE 0.9% FLUSH 10 ML FLUSH IV FLUSH SCH ×2 (09:11→21:39)
[2017-04-25] MEDS: ONDANSETRON HCL 4 MG/2 ML VIAL IVP PRN ×2 (09:16→18:13)
[2017-04-25] MEDS: ENOXAPARIN SODIUM 40 MG/0.4 ML SYRINGE SQ SCH (12:44)
--- NOTE | 2017-04-25 12:45 | HHI.PR ---
Subjective Remarks in no acute distress. had some nausea and an episode of emesis earlier today. complaining of pain to both legs. accu-check trend noted. Objective Vitals Vital Signs Date Time Temp Pulse Resp B/P (MAP) Pulse Ox O2 Delivery O2 Flow Rate FiO2 04/25/17 12:00 97.9 64 18 118/75 (89) 96 04/25/17 08:34 98 04/25/17 08:20 72 04/25/17 08:00 97.9 67 18 123/70 (87) 96 04/25/17 03:44 97.5 80 16 108/90 (96) 96 04/24/17 23:50 98.0 77 16 148/76 (100) 96 04/24/17 20:00 76 04/24/17 19:50 98.5 69 16 140/76 (97) 96 04/24/17 14:52 97.9 87 17 150/76 (100) 97 I/O 04/24/17 04/24/17 04/24/17 04/25/17 04/25/17 04/25/17 06:59 14:59 22:59 06:59 14:59 22:59 Intake Total 960 ml Output Total 350 ml Balance 610 ml Intake Oral 960 ml Output Urine Total 350 ml # Bowel Movements 0 Result Diagram: 04/22/17 1250 04/23/17 0847 Imaging Last Impressions Chest X-Ray 04/22/17 0000 Signed Impressions: Service Date/Time: Saturday, April 22, 2017 14:53 - CONCLUSION: No acute disease. Douglas Cunningham MD Objective Remarks GENERAL: This is a well-nourished, well-developed patient, in no apparent distress. CARDIOVASCULAR: Regular rate and regular rhythm without murmurs, gallops, or rubs. RESPIRATORY: minimal bilateral wheezing. GASTROINTESTINAL: Abdomen soft, non-tender, nondistended. Normal, active bowel sounds MUSCULOSKELETAL: Extremities without clubbing, cyanosis, or edema. NEURO: Alert & Oriented x4 to person, place, time, situation. Moves all ext x4 Medications and IVs Current Medications Sodium Chloride 1,000 ml @ 2,000 mls/hr Q30M ONCE IV Last administered on 04/21t 07:13; Start 04/21/17 at 06:44; Stop 04/21/17 at 07:13; Status DC Sodium Chloride 1,000 ml @ 2,000 mls/hr Q30M ONCE IV Last administered on 04/21 07:14; Start 04/21/17 at 07:14; Stop 04/21/17 at 07:43; Status DC Sodium Chloride (NS Flush) 2 ml UNSCH PRN IVF FLUSH AFTER USING IV ACCESS Last administered on 04/21/17 07:14; Start 04/21/17 at 06:45; Stop 04/23/17 at 07:23 ; Status DC Insulin Human Regular (NovoLIN R INJ) 9 units ONCE ONCE IV PUSH Last administered on 04/21/17 07:13; Start 04/21/17 at 06:45; Stop 04/21/17 at 06:48 ; Status DC Ondansetron HCl (Zofran Inj) 4 mg ONCE ONCE IV PUSH Last administered on 08:54; Start 04/21/17 at 08:45; Stop 04/21/17 at 08:46; Status DC Sodium Chloride 1,000 ml @ 999 mls/hr BOLUS ONCE IV Last administered on 04/21 10:25; Start 04/21/17 at 09:15; Stop 04/21/17 at 10:15; Status DC Sodium Chloride 1,000 ml @ 999 mls/hr BOLUS ONCE IV Last administered on 04/21 10:25; Start 04/21/17 at 09:15; Stop 04/21/17 at 10:15; Status DC Insulin Human Regular (NovoLIN R INJ) 8 units ONCE ONCE SQ ; Start 04/21/17 at 09:15; Stop 04/21/17 at 09:16; Status DC Gabapentin (Neurontin) 300 mg TID PO Last administered on 04/23/17 09:02; Start 04/21/17 at 13:00; Stop 04/23/17 at 10:51; Status DC Methadone HCl (Dolophine) 100 mg DAILY PO Last administered on 04/25/17 09:09 ; Start 04/21/17 at 10:00 Insulin Detemir (Levemir Inj) 40 units Q12HR SQ Last administered on 04/21/17 23:01; Start 04/21/17 at 10:00; Stop 04/22/17 at 08:40; Status DC Sodium Chloride 1,000 ml @ 150 mls/hr Q6H40M IV Last administered on 16:58; Start 04/21/17 at 09:52 Sodium Chloride (NS Flush) 2 ml UNSCH PRN IV FLUSH FLUSH AFTER USING IV ACCESS ; Start 04/21/17 at 10:00 Sodium Chloride (NS Flush) 2 ml BID IV FLUSH Last administered on 04/25/17 09: 11; Start 04/21/17 at 21:00 Ondansetron HCl (Zofran Inj) 4 mg Q6H PRN IVP NAUSEA OR VOMITING Last administered on 04/25/17 09:16; Start 04/21/17 at 10:00 Enoxaparin Sodium (Lovenox Inj) 40 mg Q24H SQ Last administered on 04/24/17 08 :40; Start 04/21/17 at 10:00 Naloxone HCl (Narcan Inj) 0.4 mg UNSCH PRN IV SEE LABEL COMMENTS; Start at 10:00 Senna/Docusate Sodium (Eun-Colace) 1 tab BID PO Last administered on 09:10; Start 04/21/17 at 21:00 Magnesium Hydroxide (Milk Of Magnesia Liq) 30 ml Q12H PRN PO MILD - MODERATE CONSTIPATION; Start 04/21/17 at 10:00 Sennosides (Senokot) 17.2 mg Q12H PRN PO MODERATE - SEVERE CONSTIPATION; Start 04/21/17 at 10:00 Bisacodyl (Dulcolax Supp) 10 mg DAILY PRN RECTAL SEVERE CONSITIPATION; Start at 10:00 Lactulose (Lactulose Liq) 30 ml DAILY PRN PO SEVERE CONSITIPATION; Start at 10:00 Insulin Human Regular (NovoLIN R SUPPLEMENTAL SCALE) 1 ACHS SLIDING SCALE SQ Last administered on 04/22/17 18:33; Start 04/21/17 at 11:00; Stop 04/23/17 at 07:20; Status DC Albuterol/ Ipratropium (Duoneb Neb) 1 ampule Q4HR NEB NEB Last administered on 04/22/17 07:33; Start 04/21/17 at 16:00; Stop 04/22/17 at 11:17; Status DC Guaifenesin (Mucinex Er) 600 mg BID PO Last administered on 04/24/17 21:00; Start 04/21/17 at 21:00 Famotidine (Pepcid) 20 mg BID PO Last administered on 04/25/17 09:10; Start at 14:00 Sucralfate (Carafate) 1 gm ACHS PO Last administered on 04/25/17 06:20; Start 04/21/17 at 16:00 Oxycodone HCl (Roxicodone) 5 mg Q6H PRN PO PAIN SCALE 5 TO 10 Last administered on 04/25/17 06:20; Start 04/21/17 at 14:00 Heparin Sodium (Porcine) (Heparin Inj) 5,000 units Q12HR SQ ; Start 04/21/17 at 21:00; Stop 04/21/17 at 21:00; Status DC Lorazepam (Ativan) 0.5 mg ONCE ONCE PO Last administered on 04/21/17 22:53; Start 04/21/17 at 21:45; Stop 04/21/17 at 21:46; Status DC Insulin Detemir (Levemir Inj) 45 units Q12HR SQ Last administered on 04/23/17 09:04; Start 04/22/17 at 09:00; Stop 04/23/17 at 16:22; Status DC Albuterol/ Ipratropium (Duoneb Neb) 1 ampule Q8HR NEB NEB Last administered on 04/24/17 07:27; Start 04/22/17 at 16:00; Stop 04/24/17 at 07:49; Status DC Lorazepam (Ativan) 0.5 mg Q12HR PRN PO anxiety Last administered on 04/24/17 01:50; Start 04/22/17 at 13:00; Stop 04/24/17 at 07:49; Status DC Insulin Human Regular (NovoLIN R INJ) 10 units ONCE ONCE IV PUSH Last administered on 04/22/17 22:51; Start 04/22/17 at 22:30; Stop 04/22/17 at 22:31 ; Status DC Insulin Human Regular (NovoLIN R INJ) 10 units ONCE ONCE IV PUSH Last administered on 04/23/17 01:11; Start 04/23/17 at 00:45; Stop 04/23/17 at 00:49 ; Status DC Insulin Human Regular (NovoLIN R INJ) 10 units ONCE ONCE IV PUSH Last administered on 04/23/17 07:01; Start 04/23/17 at 07:00; Stop 04/23/17 at 07:01 ; Status DC Insulin Aspart (NovoLOG SUPPLEMENTAL SCALE) 1 ACHS SLIDING SCALE SQ Last administered on 04/25/17 12:34; Start 04/23/17 at 11:00 Insulin Aspart (NovoLOG INJ) 5 units TIDAC SQ Last administered on 04/23/17 12 :17; Start 04/23/17 at 12:00; Stop 04/23/17 at 16:22; Status DC Insulin Aspart (NovoLOG INJ) 7 units ONCE ONCE SQ ; Start 04/23/17 at 08:30; Stop 04/23/17 at 08:30; Status DC Gabapentin (Neurontin) 400 mg TID PO Last administered on 04/25/17 09:10; Start 04/23/17 at 13:00 Insulin Aspart (NovoLOG INJ) 8 units TIDAC SQ Last administered on 04/23/17 19 :04; Start 04/23/17 at 17:00; Stop 04/24/17 at 07:53; Status DC Insulin Detemir (Levemir Inj) 50 units Q12HR SQ Last administered on 04/25/17 08:59; Start 04/23/17 at 21:00 Lorazepam (Ativan) 0.5 mg Q8HR PRN PO anxiety Last administered on 04/25/17 09 :18; Start 04/24/17 at 08:00 Albuterol Sulfate (Albuterol Neb) 1.25 mg Q6HR NEB PRN NEB SHORTNESS OF BREATH ; Start 04/24/17 at 08:30 Insulin Aspart (NovoLOG INJ) 10 units TIDAC SQ Last administered on 04/25/17 12:34; Start 04/24/17 at 08:15 A/P Assessment and Plan A/P Hyperglycemia with Diabetes: Blood glucoses uncontrolled, hemoglobin A1c 14.5, secondary to medication and dietary noncompliance. -Restarted Levemir, currently on 50 units bid, will titrate up as needed. -increase preprandial NovoLog to 12 units -Continue sliding scale to medium NovoLog scale -Monitor Accu-checks, adjust regimen as needed -Patient continues to have poor insight into her diabetes, consulted patient educator and set up operator -Counseled on compliance and importance of follow-up Hyperglycemia Induced Hyponatremia: Na 123, improved to 133 with IVF and better blood glucose control. -Continue on IVF with NS. -Monitor Mild COPD Exacerbation & Tobacco Use: Chest x-ray clear. Improved. -counseled on tobacco cessation, patient declined nicotine patch -continue albuterol as needed, mucinex bid, incentive spirometry Diabetic Neuropathy: -increase Gabapentin -Continue oxycodone as needed. GERD: -started on Famotidine and Carafate. Transaminitis: with hx of hepatitis C. transaminases are stable. -Monitor CMP. Avoid hepatotoxins. Chronic Pain, Opioid Dependence: chronic. -Continue patient's Methadone. -Encouraged pain management follow-up DVT prophylaxis with heparin. Discharge Planning not ready for discharge yet; dc home within the next 24-48 hrs when blood sugar is better controlled. Lola Urban MD Apr 25, 2017 12:44
[2017-04-25] MEDS: GABAPENTIN 300 MG CAP PO SCH ×2 (14:15→18:14)
[2017-04-25] MEDS: ACETAMINOPHEN 325 MG TAB PO PRN ×2 (18:13→22:40)
[2017-04-26] VITALS (8 sets, daily range): BP systolic 105–130; BP diastolic 60–70; PULSE 69–84; RESP 18–20; TEMP 97.2–98.6; O2SAT 93–97
[2017-04-26] MEDS: SODIUM CHLOR 0.9% 1000 ML INJ 1,000 ML IV SCH ×2 (00:19→20:24)
[2017-04-26] MEDS: LORazepam 0.5 MG TAB PO PRN ×3 (02:32→19:02)
[2017-04-26 03:31] LABS: BICARBONATE 30.9 MEQ/L (21.0-32.0); POTASSIUM 4.6 MEQ/L (3.5-5.1)
[2017-04-26] MEDS ORDERED: INSULIN HUMAN REGULAR 1,000 UNITS/10 ML VIAL IV PUSH ONE (03:45)
--- NOTE | 2017-04-26 03:48 | HHI.PR ---
Addendum to Inpatient Note Addendum Reason: Additional Documentation Additional Information The nurse reports that the patient has a friend in her room with multiple food items including bread rolls. The patient denies eating any of her friends food. When the nurse has attempted to educate her regarding her diabetes, she has been very belligerent with her and cursed at her and called her insulting names. The patient's blood sugar has been significantly elevated overnight. Currently, blood glucose is 565 and we are treating with Regular Insulin IV 10 units with recheck in one hour. Annika Wells Apr 26, 2017 03:48
[2017-04-26] MEDS: SUCRALFATE 1 GM TAB PO SCH ×4 (06:36→22:50)
[2017-04-26] MEDS: INSULIN ASPART SUPPLEMENTAL SCALE SQ SCH ×4 (06:48→23:05)
[2017-04-26] MEDS: INSULIN ASPART 1,000 UNITS/10 ML VIAL SQ SCH ×3 (08:00→17:41)
[2017-04-26] MEDS: SODIUM CHLORIDE 0.9% FLUSH 10 ML FLUSH IV FLUSH SCH ×2 (09:00→22:51)
[2017-04-26] MEDS: ENOXAPARIN SODIUM 40 MG/0.4 ML SYRINGE SQ SCH (09:01)
[2017-04-26] MEDS: guaiFENesin E.R. 600 MG TAB PO SCH ×2 (09:01→21:00)
[2017-04-26] MEDS: DOCUSATE SODIUM 50 MG/SENNA 8.6 MG TAB PO SCH ×2 (09:01→22:49)
[2017-04-26] MEDS: GABAPENTIN 300 MG CAP PO SCH ×3 (09:01→17:36)
[2017-04-26] MEDS: FAMOTIDINE 20 MG TAB PO SCH ×2 (09:02→22:49)
[2017-04-26] MEDS: METHADONE HCL 10 MG TAB PO SCH (09:02)
[2017-04-26] MEDS: INSULIN DETEMIR 100 UNITS/ML VIAL SQ SCH (09:10)
--- NOTE | 2017-04-26 11:18 | HHI.PR ---
Subjective Remarks f/u; uncontrolled diabetes in no acute distress. night-time provider note was reviewed. patient is not compliant with the diet- had a blood sugar of 500's last night. d/w the RN. Objective Vitals Vital Signs Date Time Temp Pulse Resp B/P (MAP) Pulse Ox O2 Delivery O2 Flow Rate FiO2 04/26/17 08:00 98.3 80 18 105/62 (76) 97 04/26/17 04:00 97.4 69 20 112/65 (81) 95 04/26/17 00:00 97.2 78 20 130/62 (84) 94 04/25/17 23:35 20 04/25/17 23:35 20 04/25/17 21:00 80 04/25/17 20:00 97.4 79 16 129/60 (83) 93 04/25/17 12:00 97.9 64 18 118/75 (89) 96 I/O 04/25/17 04/25/17 04/25/17 04/26/17 04/26/17 04/26/17 07:00 15:00 23:00 07:00 15:00 23:00 Intake Total 960 ml 480 ml Output Total 350 ml Balance 610 ml 480 ml Intake Oral 960 ml 480 ml Output Urine Total 350 ml # Voids 3 # Bowel Movements 0 Result Diagram: 04/22/17 1250 04/26/17 0248 Imaging Last Impressions Chest X-Ray 04/22/17 0000 Signed Impressions: Service Date/Time: Saturday, April 22, 2017 14:53 - CONCLUSION: No acute disease. Douglas Cunningham MD Objective Remarks GENERAL: This is a well-nourished, well-developed patient, in no apparent distress. CARDIOVASCULAR: Regular rate and regular rhythm without murmurs, gallops, or rubs. RESPIRATORY: minimal bilateral wheezing. GASTROINTESTINAL: Abdomen soft, non-tender, nondistended. Normal, active bowel sounds MUSCULOSKELETAL: Extremities without clubbing, cyanosis, or edema. NEURO: Alert & Oriented x4 to person, place, time, situation. Moves all ext x4 Medications and IVs Current Medications Sodium Chloride 1,000 ml @ 2,000 mls/hr Q30M ONCE IV Last administered on 04/21t 07:13; Start 04/21/17 at 06:44; Stop 04/21/17 at 07:13; Status DC Sodium Chloride 1,000 ml @ 2,000 mls/hr Q30M ONCE IV Last administered on 04/21 07:14; Start 04/21/17 at 07:14; Stop 04/21/17 at 07:43; Status DC Sodium Chloride (NS Flush) 2 ml UNSCH PRN IVF FLUSH AFTER USING IV ACCESS Last administered on 04/21/17 07:14; Start 04/21/17 at 06:45; Stop 04/23/17 at 07:23 ; Status DC Insulin Human Regular (NovoLIN R INJ) 9 units ONCE ONCE IV PUSH Last administered on 04/21/17 07:13; Start 04/21/17 at 06:45; Stop 04/21/17 at 06:48 ; Status DC Ondansetron HCl (Zofran Inj) 4 mg ONCE ONCE IV PUSH Last administered on 08:54; Start 04/21/17 at 08:45; Stop 04/21/17 at 08:46; Status DC Sodium Chloride 1,000 ml @ 999 mls/hr BOLUS ONCE IV Last administered on 04/21 10:25; Start 04/21/17 at 09:15; Stop 04/21/17 at 10:15; Status DC Sodium Chloride 1,000 ml @ 999 mls/hr BOLUS ONCE IV Last administered on 04/21 10:25; Start 04/21/17 at 09:15; Stop 04/21/17 at 10:15; Status DC Insulin Human Regular (NovoLIN R INJ) 8 units ONCE ONCE SQ ; Start 04/21/17 at 09:15; Stop 04/21/17 at 09:16; Status DC Gabapentin (Neurontin) 300 mg TID PO Last administered on 04/23/17 09:02; Start 04/21/17 at 13:00; Stop 04/23/17 at 10:51; Status DC Methadone HCl (Dolophine) 100 mg DAILY PO Last administered on 04/26/17 09:02 ; Start 04/21/17 at 10:00 Insulin Detemir (Levemir Inj) 40 units Q12HR SQ Last administered on 04/21/17 23:01; Start 04/21/17 at 10:00; Stop 04/22/17 at 08:40; Status DC Sodium Chloride 1,000 ml @ 100 mls/hr Q10H IV Last administered on 04/23/17 16:58; Start 04/21/17 at 09:52 Sodium Chloride (NS Flush) 2 ml UNSCH PRN IV FLUSH FLUSH AFTER USING IV ACCESS ; Start 04/21/17 at 10:00 Sodium Chloride (NS Flush) 2 ml BID IV FLUSH Last administered on 04/26/17 09: 00; Start 04/21/17 at 21:00 Ondansetron HCl (Zofran Inj) 4 mg Q6H PRN IVP NAUSEA OR VOMITING Last administered on 04/25/17 18:13; Start 04/21/17 at 10:00 Enoxaparin Sodium (Lovenox Inj) 40 mg Q24H SQ Last administered on 04/26/17 09 :01; Start 04/21/17 at 10:00 Naloxone HCl (Narcan Inj) 0.4 mg UNSCH PRN IV SEE LABEL COMMENTS; Start at 10:00 Senna/Docusate Sodium (Eun-Colace) 1 tab BID PO Last administered on 09:01; Start 04/21/17 at 21:00 Magnesium Hydroxide (Milk Of Magnesia Liq) 30 ml Q12H PRN PO MILD - MODERATE CONSTIPATION; Start 04/21/17 at 10:00 Sennosides (Senokot) 17.2 mg Q12H PRN PO MODERATE - SEVERE CONSTIPATION; Start 04/21/17 at 10:00 Bisacodyl (Dulcolax Supp) 10 mg DAILY PRN RECTAL SEVERE CONSITIPATION; Start at 10:00 Lactulose (Lactulose Liq) 30 ml DAILY PRN PO SEVERE CONSITIPATION; Start at 10:00 Insulin Human Regular (NovoLIN R SUPPLEMENTAL SCALE) 1 ACHS SLIDING SCALE SQ Last administered on 04/22/17 18:33; Start 04/21/17 at 11:00; Stop 04/23/17 at 07:20; Status DC Albuterol/ Ipratropium (Duoneb Neb) 1 ampule Q4HR NEB NEB Last administered on 04/22/17 07:33; Start 04/21/17 at 16:00; Stop 04/22/17 at 11:17; Status DC Guaifenesin (Mucinex Er) 600 mg BID PO Last administered on 04/26/17 09:01; Start 04/21/17 at 21:00 Famotidine (Pepcid) 20 mg BID PO Last administered on 04/26/17 09:02; Start at 14:00 Sucralfate (Carafate) 1 gm ACHS PO Last administered on 04/26/17 06:36; Start 04/21/17 at 16:00 Oxycodone HCl (Roxicodone) 5 mg Q6H PRN PO PAIN SCALE 5 TO 10 Last administered on 04/26/17 06:36; Start 04/21/17 at 14:00 Heparin Sodium (Porcine) (Heparin Inj) 5,000 units Q12HR SQ ; Start 04/21/17 at 21:00; Stop 04/21/17 at 21:00; Status DC Lorazepam (Ativan) 0.5 mg ONCE ONCE PO Last administered on 04/21/17 22:53; Start 04/21/17 at 21:45; Stop 04/21/17 at 21:46; Status DC Insulin Detemir (Levemir Inj) 45 units Q12HR SQ Last administered on 04/23/17 09:04; Start 04/22/17 at 09:00; Stop 04/23/17 at 16:22; Status DC Albuterol/ Ipratropium (Duoneb Neb) 1 ampule Q8HR NEB NEB Last administered on 04/24/17 07:27; Start 04/22/17 at 16:00; Stop 04/24/17 at 07:49; Status DC Lorazepam (Ativan) 0.5 mg Q12HR PRN PO anxiety Last administered on 04/24/17 01:50; Start 04/22/17 at 13:00; Stop 04/24/17 at 07:49; Status DC Insulin Human Regular (NovoLIN R INJ) 10 units ONCE ONCE IV PUSH Last administered on 04/22/17 22:51; Start 04/22/17 at 22:30; Stop 04/22/17 at 22:31 ; Status DC Insulin Human Regular (NovoLIN R INJ) 10 units ONCE ONCE IV PUSH Last administered on 04/23/17 01:11; Start 04/23/17 at 00:45; Stop 04/23/17 at 00:49 ; Status DC Insulin Human Regular (NovoLIN R INJ) 10 units ONCE ONCE IV PUSH Last administered on 04/23/17 07:01; Start 04/23/17 at 07:00; Stop 04/23/17 at 07:01 ; Status DC Insulin Aspart (NovoLOG SUPPLEMENTAL SCALE) 1 ACHS SLIDING SCALE SQ Last administered on 04/26/17 06:48; Start 04/23/17 at 11:00 Insulin Aspart (NovoLOG INJ) 5 units TIDAC SQ Last administered on 04/23/17 12 :17; Start 04/23/17 at 12:00; Stop 04/23/17 at 16:22; Status DC Insulin Aspart (NovoLOG INJ) 7 units ONCE ONCE SQ ; Start 04/23/17 at 08:30; Stop 04/23/17 at 08:30; Status DC Gabapentin (Neurontin) 400 mg TID PO Last administered on 04/25/17 12:43; Start 04/23/17 at 13:00; Stop 04/25/17 at 12:47; Status DC Insulin Aspart (NovoLOG INJ) 8 units TIDAC SQ Last administered on 04/23/17 19 :04; Start 04/23/17 at 17:00; Stop 04/24/17 at 07:53; Status DC Insulin Detemir (Levemir Inj) 50 units Q12HR SQ Last administered on 04/26/17 09:10; Start 04/23/17 at 21:00 Lorazepam (Ativan) 0.5 mg Q8HR PRN PO anxiety Last administered on 04/26/17 10 :03; Start 04/24/17 at 08:00 Albuterol Sulfate (Albuterol Neb) 1.25 mg Q6HR NEB PRN NEB SHORTNESS OF BREATH ; Start 04/24/17 at 08:30 Insulin Aspart (NovoLOG INJ) 10 units TIDAC SQ Last administered on 04/25/17 12:34; Start 04/24/17 at 08:15; Stop 04/25/17 at 12:47; Status DC Gabapentin (Neurontin) 600 mg TID PO Last administered on 04/26/17 09:01; Start 04/25/17 at 14:15 Insulin Aspart (NovoLOG INJ) 12 units TIDAC SQ Last administered on 04/26/17 08:00; Start 04/25/17 at 17:00 Acetaminophen (Tylenol) 650 mg Q4H PRN PO HEADACHE Last administered on 22:40; Start 04/25/17 at 17:45 Insulin Human Regular (NovoLIN R INJ) 10 units ONCE ONCE IV PUSH Last administered on 04/26/17 04:06; Start 04/26/17 at 03:45; Stop 04/26/17 at 03:46 ; Status DC A/P Assessment and Plan A/P Hyperglycemia with Diabetes: Blood glucoses uncontrolled, hemoglobin A1c 14.5, secondary to medication and dietary noncompliance. -Restarted Levemir, increase to 52 units bid, will titrate up as needed. -increased preprandial NovoLog to 12 units -Continue sliding scale to medium NovoLog scale -counselled on compliance with the diet again; consulted manager pulmonary. -Monitor Accu-checks, adjust regimen as needed -Patient continues to have poor insight into her diabetes, consulted paraeducator . Hyperglycemia Induced Hyponatremia:improved. -Continue on IVF with NS. -Monitor Mild COPD Exacerbation & Tobacco Use: Chest x-ray clear. Improved. -counseled on tobacco cessation, patient declined nicotine patch -continue albuterol as needed, mucinex bid, incentive spirometry Diabetic Neuropathy: -increased Gabapentin -Continue oxycodone as needed. GERD: -started on Famotidine and Carafate. Transaminitis: with hx of hepatitis C. transaminases are stable. -Monitor CMP. Avoid hepatotoxins. Chronic Pain, Opioid Dependence: chronic. -Continue patient's Methadone. -Encouraged pain management follow-up DVT prophylaxis with subq Lovenox. Discharge Planning not ready for discharge today; dc home within the next 24-48 hrs when blood sugar is better controlled. Lola Urban MD Apr 26, 2017 11:18
[2017-04-26] MEDS ORDERED: INSULIN DETEMIR 100 UNITS/ML VIAL SQ SCH (21:00)
[2017-04-27] VITALS (8 sets, daily range): BP systolic 109–172; BP diastolic 56–74; PULSE 62–86; RESP 16–20; TEMP 97.5–99.3; O2SAT 92–98
[2017-04-27] MEDS: LORazepam 0.5 MG TAB PO PRN ×2 (03:49→20:36)
[2017-04-27] MEDS: SODIUM CHLOR 0.9% 1000 ML INJ 1,000 ML IV SCH ×2 (06:24→20:27)
[2017-04-27] MEDS: SUCRALFATE 1 GM TAB PO SCH ×4 (06:30→20:36)
[2017-04-27] MEDS: INSULIN ASPART SUPPLEMENTAL SCALE SQ SCH ×4 (06:41→20:55)
[2017-04-27 07:51] LABS: BICARBONATE 31.3 MEQ/L (21.0-32.0); POTASSIUM 4.6 MEQ/L (3.5-5.1)
[2017-04-27] MEDS: DOCUSATE SODIUM 50 MG/SENNA 8.6 MG TAB PO SCH ×2 (08:26→20:36)
[2017-04-27] MEDS: FAMOTIDINE 20 MG TAB PO SCH ×2 (08:26→20:36)
[2017-04-27] MEDS: guaiFENesin E.R. 600 MG TAB PO SCH ×2 (08:26→20:37)
[2017-04-27] MEDS: GABAPENTIN 300 MG CAP PO SCH ×3 (08:26→17:23)
[2017-04-27] MEDS: ENOXAPARIN SODIUM 40 MG/0.4 ML SYRINGE SQ SCH (08:26)
[2017-04-27] MEDS: METHADONE HCL 10 MG TAB PO SCH (08:27)
[2017-04-27] MEDS: INSULIN DETEMIR 100 UNITS/ML VIAL SQ SCH ×2 (08:30→20:57)
[2017-04-27] MEDS: INSULIN ASPART 1,000 UNITS/10 ML VIAL SQ SCH ×3 (08:30→17:25)
[2017-04-27] MEDS: SODIUM CHLORIDE 0.9% FLUSH 10 ML FLUSH IV FLUSH SCH ×2 (09:00→20:52)
--- NOTE | 2017-04-27 11:37 | HHI.PR ---
Subjective Remarks Follow up diabetes, hyperglycemia. Patient reporting nausea. Glucose has remained elevated. She has not eaten anything this morning. Objective Vitals Vital Signs Date Time Temp Pulse Resp B/P (MAP) Pulse Ox O2 Delivery O2 Flow Rate FiO2 04/27/17 08:00 98.3 71 18 123/56 (78) 98 04/27/17 04:00 98.3 62 20 121/58 (79) 93 04/27/17 00:00 98.6 69 20 129/60 (83) 93 04/26/17 20:05 84 04/26/17 20:00 98.6 79 20 119/60 (79) 93 04/26/17 16:00 97.7 81 18 126/70 (88) 93 04/26/17 13:36 20 04/26/17 12:00 98.0 81 18 112/70 (84) 95 I/O 04/26/17 04/26/17 04/26/17 04/27/17 04/27/17 04/27/17 07:00 15:00 23:00 07:00 15:00 23:00 Intake Total 480 ml 600 ml 300 ml Output Total 300 ml 900 ml Balance 480 ml 300 ml -600 ml Intake Oral 480 ml 600 ml 300 ml Output Urine Total 300 ml 900 ml # Voids 3 # Bowel Movements 0 Result Diagram: 04/27/17 0713 Imaging Last Impressions Chest X-Ray 04/22/17 0000 Signed Impressions: Service Date/Time: Saturday, April 22, 2017 14:53 - CONCLUSION: No acute disease. Douglas Cunningham MD Objective Remarks Patient examined in the presence of the nurse. General: No acute distress. Heart: Regular rate and rhythm. No murmur. Lungs: Clear to auscultation bilaterally. No wheezes, rales, or rhonchi. Breathing is nonlabored. Abdomen: Soft, obese, nontender, nondistended. Extremities: No lower extremity edema. Psych: Alert and oriented. Procedures None Urinary Catheter: No Vascular Central Line Catheter: No A/P Problem List: (1) Type II diabetes mellitus ICD Code: E11.9 - Type 2 diabetes mellitus without complications Status: Chronic (2) Poorly controlled diabetes mellitus ICD Code: E11.65 - Type 2 diabetes mellitus with hyperglycemia Status: Acute (3) Hyperglycemia ICD Code: R73.9 - Hyperglycemia Status: Acute (4) Methadone dependence ICD Code: F11.20 - Methadone dependence Status: Chronic (5) COPD exacerbation ICD Code: J44.1 - COPD exacerbation Status: Acute (6) Tobacco use disorder ICD Code: Z72.0 - Tobacco use disorder Status: Acute (7) Hyponatremia ICD Code: E87.1 - Hypo-osmolality and hyponatremia Assessment and Plan 1. Diabetes mellitus with hyperglycemia: Glucose remains poorly controlled. Increase Levemir. Continue preprandial insulin. Diabetic diet. Monitor accuchecks and cover with sliding scale insulin. 2. Hyponatremia: Improved. Secondary to hyperglycemia. 3. Mild COPD exacerbation: Improved. 4. Tobacco abuse: Counselled. 5. Diabetic neuropathy: Continue gabapentin. 6. GERD: Continue carafate, famotidine. 7. Transaminitis: Hx of hepatitis C. Labs are stable. 8. Chronic pain, opioid dependence: Continue patient's methadone. 9. DVT prophylaxis: Lovenox. Discharge Planning When glucose control is improved. Black Ansari MD Apr 27, 2017 11:37
[2017-04-28] VITALS (7 sets, daily range): BP systolic 116–135; BP diastolic 55–68; PULSE 64–84; RESP 16–18; TEMP 97–98.1; O2SAT 93–96
[2017-04-28] MEDS: ONDANSETRON HCL 4 MG/2 ML VIAL IVP PRN (04:02)
[2017-04-28] MEDS: ACETAMINOPHEN 325 MG TAB PO PRN (04:03)
[2017-04-28] MEDS: SUCRALFATE 1 GM TAB PO SCH ×4 (05:38→21:05)
[2017-04-28] MEDS: LORazepam 0.5 MG TAB PO PRN ×2 (05:48→18:50)
[2017-04-28] MEDS: INSULIN ASPART SUPPLEMENTAL SCALE SQ SCH ×4 (05:51→21:09)
[2017-04-28] MEDS ORDERED: INSULIN HUMAN REGULAR 1,000 UNITS/10 ML VIAL IV PUSH ONE (06:00)
[2017-04-28] MEDS ORDERED: INSULIN ASPART 1,000 UNITS/10 ML VIAL SQ ONE (06:15)
[2017-04-28] MEDS: INSULIN DETEMIR 100 UNITS/ML VIAL SQ SCH ×2 (09:00→21:08)
[2017-04-28] MEDS: GABAPENTIN 300 MG CAP PO SCH ×3 (09:28→17:20)
[2017-04-28] MEDS: FAMOTIDINE 20 MG TAB PO SCH ×2 (09:28→21:05)
[2017-04-28] MEDS: DOCUSATE SODIUM 50 MG/SENNA 8.6 MG TAB PO SCH ×2 (09:28→21:05)
[2017-04-28] MEDS: ENOXAPARIN SODIUM 40 MG/0.4 ML SYRINGE SQ SCH (09:28)
[2017-04-28] MEDS: guaiFENesin E.R. 600 MG TAB PO SCH ×2 (09:28→21:05)
[2017-04-28] MEDS: METHADONE HCL 10 MG TAB PO SCH (09:29)
[2017-04-28] MEDS: INSULIN ASPART 1,000 UNITS/10 ML VIAL SQ SCH ×3 (09:30→17:25)
[2017-04-28] MEDS: SODIUM CHLORIDE 0.9% FLUSH 10 ML FLUSH IV FLUSH SCH ×2 (09:41→21:06)
[2017-04-28 11:58] LABS: AUTOMATED NEUTROPHIL # 4.2 TH/MM3 (1.8-7.7); BASOPHIL % 0.4 % (0.0-2.0); EOSINOPHIL # 0.1 TH/MM3 (0-0.4); EOSINOPHIL % 2.4 % (0.0-4.0); HEMATOCRIT 39.2 % (35.0-46.0); LYMPH % 17.7 % (9.0-44.0); MEAN CELL VOLUME 89.4 FL (80.0-100.0); MEAN CORPUSCULAR HEMOGLOBIN 29.8 PG (27.0-34.0); MEAN CORPUSCULAR HGB CONC 33.3 % (32.0-36.0); MONO % 8.3 % (0.0-8.0); NEUT % 71.2 % (16.0-70.0); PLATELET COUNT 95 TH/MM3 (150-450); RED BLOOD COUNT 4.38 MIL/MM3 (4.00-5.30); RED CELL DISTRIBUTION WIDTH 13.4 % (11.6-17.2); WHITE BLOOD COUNT 5.9 TH/MM3 (4.0-11.0)
[2017-04-28 12:04] LABS: HEMO FLAGS AUTO DIFF
[2017-04-28] MEDS: SODIUM CHLOR 0.9% 1000 ML INJ 1,000 ML IV SCH ×2 (12:06→21:12)
[2017-04-28 12:30] LABS: BICARBONATE 29.7 MEQ/L (21.0-32.0); POTASSIUM 4.1 MEQ/L (3.5-5.1)
[2017-04-28 14:24] LABS: PLATELET ESTIMATE SMEAR LOW (NORMAL); PLATELET MORPHOLOGY NORMAL (NORMAL); SCAN/DIFF AUTO DIFF CONFIRMED
--- NOTE | 2017-04-28 15:04 | HHI.PR ---
Subjective Remarks Follow up hyperglycemia. Patient reports less nausea/vomiting today. Complaining of sore throat. Objective Vitals Vital Signs Date Time Temp Pulse Resp B/P (MAP) Pulse Ox O2 Delivery O2 Flow Rate FiO2 04/28/17 12:00 97.9 75 18 118/65 (82) 93 04/28/17 08:00 97.0 84 18 124/64 (84) 96 04/28/17 04:14 98.1 72 16 135/68 (90) 95 04/28/17 00:00 97.6 69 18 116/55 (75) 96 04/27/17 20:48 99.3 83 16 134/62 (86) 96 04/27/17 20:03 86 04/27/17 16:00 98.3 73 18 109/63 (78) 95 I/O 04/27/17 04/27/17 04/27/17 04/28/17 04/28/17 04/28/17 07:00 15:00 23:00 07:00 15:00 23:00 Intake Total 300 ml 960 ml 600 ml Output Total 900 ml Balance -600 ml 960 ml 600 ml Intake Oral 300 ml 960 ml 600 ml Output Urine Total 900 ml # Voids 4 3 # Bowel Movements 1 1 Result Diagram: 04/28/17 1119 04/28/17 1119 Imaging Last Impressions Chest X-Ray 04/22/17 0000 Signed Impressions: Service Date/Time: Saturday, April 22, 2017 14:53 - CONCLUSION: No acute disease. Douglas Cunningham MD Objective Remarks General: No acute distress. Heart: Regular rate and rhythm. No murmur. Lungs: Clear to auscultation bilaterally. No wheezes, rales, or rhonchi. Breathing is nonlabored. Abdomen: Soft, obese, nontender, nondistended. Extremities: No lower extremity edema. Psych: Alert and oriented. Procedures None Urinary Catheter: No Vascular Central Line Catheter: No A/P Problem List: (1) Type II diabetes mellitus ICD Code: E11.9 - Type 2 diabetes mellitus without complications Status: Chronic (2) Poorly controlled diabetes mellitus ICD Code: E11.65 - Type 2 diabetes mellitus with hyperglycemia Status: Acute (3) Hyperglycemia ICD Code: R73.9 - Hyperglycemia Status: Acute (4) Methadone dependence ICD Code: F11.20 - Methadone dependence Status: Chronic (5) COPD exacerbation ICD Code: J44.1 - COPD exacerbation Status: Acute (6) Tobacco use disorder ICD Code: Z72.0 - Tobacco use disorder Status: Acute (7) Hyponatremia ICD Code: E87.1 - Hypo-osmolality and hyponatremia Assessment and Plan 1. Diabetes mellitus with hyperglycemia: Glucose remains poorly controlled, but somewhat improved. Levemir increased to 60 units BID. Continue preprandial insulin. Diabetic diet. Monitor accuchecks and cover with sliding scale insulin. 2. Hyponatremia: Improved. Secondary to hyperglycemia. 3. Mild COPD exacerbation: Improved. 4. Tobacco abuse: Counselled. 5. Diabetic neuropathy: Continue gabapentin. 6. GERD: Continue carafate, famotidine. 7. Transaminitis: Hx of hepatitis C. Labs are stable. 8. Chronic pain, opioid dependence: Continue patient's methadone. 9. DVT prophylaxis: Lovenox. Discharge Planning Discharge home when glucose control is improved, possibly tomorrow. Black Ansari MD Apr 28, 2017 15:04
[2017-04-28] MEDS ORDERED: BENZOCAINE-MENTHOL (SUGAR FREE) 15 MG-3.6 MG LOZENGE BUCCAL PRN (16:00)
[2017-04-29] VITALS (7 sets, daily range): BP systolic 111–144; BP diastolic 58–77; PULSE 64–85; RESP 16–20; TEMP 97.6–99.4; O2SAT 94–98
[2017-04-29] MEDS: LORazepam 0.5 MG TAB PO PRN ×3 (02:55→20:35)
[2017-04-29] MEDS: SUCRALFATE 1 GM TAB PO SCH ×4 (06:21→20:35)
[2017-04-29] MEDS: INSULIN ASPART SUPPLEMENTAL SCALE SQ SCH ×4 (06:24→20:39)
[2017-04-29] MEDS: SODIUM CHLOR 0.9% 1000 ML INJ 1,000 ML IV SCH ×2 (08:24→18:24)
[2017-04-29] MEDS: guaiFENesin E.R. 600 MG TAB PO SCH ×2 (08:47→20:35)
[2017-04-29] MEDS: FAMOTIDINE 20 MG TAB PO SCH ×2 (08:47→20:35)
[2017-04-29] MEDS: DOCUSATE SODIUM 50 MG/SENNA 8.6 MG TAB PO SCH ×2 (08:47→20:35)
[2017-04-29] MEDS: GABAPENTIN 300 MG CAP PO SCH ×3 (08:47→17:35)
[2017-04-29] MEDS: METHADONE HCL 10 MG TAB PO SCH (08:48)
[2017-04-29] MEDS: SODIUM CHLORIDE 0.9% FLUSH 10 ML FLUSH IV FLUSH SCH ×2 (08:49→20:44)
[2017-04-29] MEDS: INSULIN ASPART 1,000 UNITS/10 ML VIAL SQ SCH ×3 (09:03→17:00)
[2017-04-29] MEDS: ENOXAPARIN SODIUM 40 MG/0.4 ML SYRINGE SQ SCH (09:05)
[2017-04-29] MEDS: INSULIN DETEMIR 100 UNITS/ML VIAL SQ SCH ×2 (09:06→20:38)
[2017-04-29 10:20] LABS: BICARBONATE 26.3 MEQ/L (21.0-32.0); POTASSIUM 4.3 MEQ/L (3.5-5.1)
[2017-04-29 10:26] LABS: AUTOMATED NEUTROPHIL # 4.2 TH/MM3 (1.8-7.7); BASOPHIL % 0.4 % (0.0-2.0); EOSINOPHIL # 0.2 TH/MM3 (0-0.4); EOSINOPHIL % 2.6 % (0.0-4.0); HEMATOCRIT 40.2 % (35.0-46.0); LYMPH % 18.1 % (9.0-44.0); MEAN CELL VOLUME 89.9 FL (80.0-100.0); MEAN CORPUSCULAR HEMOGLOBIN 29.4 PG (27.0-34.0); MEAN CORPUSCULAR HGB CONC 32.7 % (32.0-36.0); MONO % 6.5 % (0.0-8.0); NEUT % 72.4 % (16.0-70.0); PLATELET COUNT 98 TH/MM3 (150-450); RED BLOOD COUNT 4.47 MIL/MM3 (4.00-5.30); RED CELL DISTRIBUTION WIDTH 13.7 % (11.6-17.2); WHITE BLOOD COUNT 5.8 TH/MM3 (4.0-11.0)
[2017-04-29 10:36] LABS: HEMO FLAGS AUTO DIFF
--- NOTE | 2017-04-29 11:12 | HHI.PR ---
Subjective Remarks Follow up hyperglycemia, sore throat. The patient states that she still has sore throat, but less than yesterday. Still feels "terrible". Nausea, but no vomiting. Denies chest pain, dyspnea. Objective Vitals Vital Signs Date Time Temp Pulse Resp B/P (MAP) Pulse Ox O2 Delivery O2 Flow Rate FiO2 04/29/17 08:00 Room Air 04/29/17 08:00 64 04/29/17 08:00 99.2 70 18 127/65 (85) 94 04/29/17 04:07 18 04/29/17 04:00 Nasal Cannula 3.00 Humidified 04/29/17 04:00 97.8 71 16 118/77 (91) 97 04/29/17 00:00 98.5 78 16 124/63 (83) 96 04/29/17 00:00 Nasal Cannula 3.00 Humidified 04/28/17 20:11 75 04/28/17 20:00 97.7 83 17 125/60 (81) 95 04/28/17 16:10 97.3 65 18 129/58 (81) 95 04/28/17 12:00 97.9 75 18 118/65 (82) 93 I/O 04/28/17 04/28/17 04/28/17 04/29/17 04/29/17 04/29/17 06:59 14:59 22:59 06:59 14:59 22:59 Intake Total 600 ml 740 ml Output Total 900 ml Balance 600 ml -160 ml Intake Oral 600 ml 740 ml Output Urine Total 900 ml # Voids 3 # Bowel Movements 1 1 Result Diagram: 04/29/17 0950 04/29/17 0950 Imaging Last Impressions Chest X-Ray 04/22/17 0000 Signed Impressions: Service Date/Time: Saturday, April 22, 2017 14:53 - CONCLUSION: No acute disease. Douglas Cunningham MD Objective Remarks General: No acute distress. Heart: Regular rate and rhythm. No murmur. Lungs: Clear to auscultation bilaterally. No wheezes, rales, or rhonchi. Breathing is nonlabored. Abdomen: Soft, obese, nontender, nondistended. Extremities: No lower extremity edema. Psych: Alert and oriented. Procedures None Urinary Catheter: No Vascular Central Line Catheter: No A/P Problem List: (1) Type II diabetes mellitus ICD Code: E11.9 - Type 2 diabetes mellitus without complications Status: Chronic (2) Poorly controlled diabetes mellitus ICD Code: E11.65 - Type 2 diabetes mellitus with hyperglycemia Status: Acute (3) Hyperglycemia ICD Code: R73.9 - Hyperglycemia Status: Acute (4) Methadone dependence ICD Code: F11.20 - Methadone dependence Status: Chronic (5) COPD exacerbation ICD Code: J44.1 - COPD exacerbation Status: Acute (6) Tobacco use disorder ICD Code: Z72.0 - Tobacco use disorder Status: Acute (7) Hyponatremia ICD Code: E87.1 - Hypo-osmolality and hyponatremia Assessment and Plan 1. Diabetes mellitus with hyperglycemia: Glucose remains poorly controlled, but somewhat improved. Levemir increased to 64 units BID. Continue preprandial insulin. Diabetic diet. Monitor accuchecks and cover with sliding scale insulin. 2. Hyponatremia: Improved. Secondary to hyperglycemia. 3. Mild COPD exacerbation: Improved. 4. Tobacco abuse: Counselled. 5. Diabetic neuropathy: Continue gabapentin. 6. GERD: Continue carafate, famotidine. 7. Transaminitis: Hx of hepatitis C. Labs are stable. 8. Chronic pain, opioid dependence: Continue patient's methadone. 9. DVT prophylaxis: Lovenox. 10. Sore throat: Cepacol lozenges as needed, guaifenesin. Discharge Planning Discharge home when glucose control is improved, possibly tomorrow. Black Ansari MD Apr 29, 2017 11:12
[2017-04-29] MEDS: RESP: ALBUTEROL 1.25 MG/3 ML NEB (PRN) NEB (11:48)
[2017-04-29 11:54] LABS: BANDS 6 % (0-6); EOSINOPHILS 7 % (0-4); METAMYELOCYTES 1 % (0-1); NEUTROPHIL # MANUAL DIFF 4.1 TH/MM3 (1.8-7.7); PLATELET ESTIMATE SMEAR LOW (NORMAL); POLYS (SEG NEUTROPHILS) 64 % (16-70); WBC DIFF SAMPLE 100
[2017-04-29 11:55] LABS: PLATELET MORPHOLOGY NORMAL (NORMAL); SCAN/DIFF FINAL DIFF MANUAL
[2017-04-30] VITALS: BP 120/61; PULSE 76; RESP 20; TEMP 98.1; O2SAT 96
[2017-04-30] MEDS: ACETAMINOPHEN 325 MG TAB PO PRN (02:15)
[2017-04-30] MEDS: SODIUM CHLOR 0.9% 1000 ML INJ 1,000 ML IV SCH ×3 (03:46→20:48)
[2017-04-30 04:00] VITALS: BP 123/72; PULSE 72; RESP 20; TEMP 97.6; O2SAT 92
[2017-04-30] MEDS: LORazepam 0.5 MG TAB PO PRN ×2 (05:05→17:26)
[2017-04-30] MEDS: INSULIN ASPART SUPPLEMENTAL SCALE SQ SCH ×4 (05:08→20:56)
[2017-04-30] MEDS ORDERED: INSULIN HUMAN REGULAR 1,000 UNITS/10 ML VIAL IV PUSH PRN (05:45)
[2017-04-30] MEDS: SUCRALFATE 1 GM TAB PO SCH ×4 (06:09→20:46)
[2017-04-30] MEDS ORDERED: INSULIN ASPART 1,000 UNITS/10 ML VIAL SQ ONE (06:45)
[2017-04-30 08:00] VITALS: BP 127/66; PULSE 68; RESP 20; TEMP 97.8; O2SAT 98
[2017-04-30] MEDS: guaiFENesin E.R. 600 MG TAB PO SCH ×2 (08:44→20:47)
[2017-04-30] MEDS: GABAPENTIN 300 MG CAP PO SCH ×3 (08:44→17:21)
[2017-04-30] MEDS: DOCUSATE SODIUM 50 MG/SENNA 8.6 MG TAB PO SCH ×2 (08:44→20:47)
[2017-04-30] MEDS: FAMOTIDINE 20 MG TAB PO SCH ×2 (08:44→20:46)
[2017-04-30] MEDS: SODIUM CHLORIDE 0.9% FLUSH 10 ML FLUSH IV FLUSH SCH ×2 (08:45→20:47)
[2017-04-30] MEDS: METHADONE HCL 10 MG TAB PO SCH (08:45)
[2017-04-30] MEDS: INSULIN ASPART 1,000 UNITS/10 ML VIAL SQ SCH ×3 (08:55→17:19)
[2017-04-30] MEDS: INSULIN DETEMIR 100 UNITS/ML VIAL SQ SCH ×2 (08:57→20:58)
[2017-04-30] MEDS: ENOXAPARIN SODIUM 40 MG/0.4 ML SYRINGE SQ SCH (09:00)
[2017-04-30 09:21] LABS: BICARBONATE 29.3 MEQ/L (21.0-32.0); POTASSIUM 3.8 MEQ/L (3.5-5.1)
[2017-04-30 12:00] VITALS: BP 130/69; PULSE 77; RESP 20; TEMP 96.9; O2SAT 97
--- NOTE | 2017-04-30 15:21 | HHI.PR ---
Subjective Remarks Follow up hyperglycemia. Patient still does not feel well. Reporting upper abdominal pain. Objective Vitals Vital Signs Date Time Temp Pulse Resp B/P (MAP) Pulse Ox O2 Delivery O2 Flow Rate FiO2 04/30/17 12:00 96.9 77 20 130/69 (89) 97 04/30/17 11:05 Room Air 21 04/30/17 08:00 97.8 68 20 127/66 (86) 98 04/30/17 04:00 97.6 72 20 123/72 (89) 92 04/30/17 04:00 Room Air 04/30/17 03:45 18 04/30/17 00:10 Room Air 04/30/17 00:00 98.1 76 20 120/61 (80) 96 04/29/17 21:39 18 04/29/17 20:00 97.9 77 18 144/61 (88) 97 04/29/17 16:00 99.4 85 20 134/63 (86) 96 04/29/17 16:00 Room Air I/O 04/29/17 04/29/17 04/29/17 04/30/17 04/30/17 04/30/17 06:59 14:59 22:59 06:59 14:59 22:59 Intake Total 740 ml 840 ml 720 ml Output Total 900 ml 600 ml Balance -160 ml 840 ml 120 ml Intake Oral 740 ml 840 ml 720 ml Output Urine Total 900 ml 600 ml # Voids 4 # Bowel Movements 1 1 0 Result Diagram: 04/29/17 0950 04/30/17 0752 Imaging Last Impressions Chest X-Ray 04/22/17 0000 Signed Impressions: Service Date/Time: Saturday, April 22, 2017 14:53 - CONCLUSION: No acute disease. Douglas Cunningham MD Objective Remarks General: No acute distress. Heart: Regular rate and rhythm. No murmur. Lungs: Clear to auscultation bilaterally. No wheezes, rales, or rhonchi. Breathing is nonlabored. Abdomen: Soft, obese, mildly tender in upper abdomen, nondistended. Extremities: No lower extremity edema. Psych: Alert and oriented. Procedures None Urinary Catheter: No Vascular Central Line Catheter: No A/P Problem List: (1) Type II diabetes mellitus ICD Code: E11.9 - Type 2 diabetes mellitus without complications Status: Chronic (2) Poorly controlled diabetes mellitus ICD Code: E11.65 - Type 2 diabetes mellitus with hyperglycemia Status: Acute (3) Hyperglycemia ICD Code: R73.9 - Hyperglycemia Status: Acute (4) Methadone dependence ICD Code: F11.20 - Methadone dependence Status: Chronic (5) COPD exacerbation ICD Code: J44.1 - COPD exacerbation Status: Acute (6) Tobacco use disorder ICD Code: Z72.0 - Tobacco use disorder Status: Acute (7) Hyponatremia ICD Code: E87.1 - Hypo-osmolality and hyponatremia Assessment and Plan 1. Diabetes mellitus with hyperglycemia: Glucose remains poorly controlled. Increase Levemir to 65 units BID. Continue preprandial insulin. Diabetic diet. Monitor accuchecks and cover with sliding scale insulin. 2. Hyponatremia: Improved. Secondary to hyperglycemia. 3. Mild COPD exacerbation: Improved. 4. Tobacco abuse: Counselled. 5. Diabetic neuropathy: Continue gabapentin. 6. GERD: Continue carafate, famotidine. 7. Transaminitis: Hx of hepatitis C. Labs are stable. 8. Chronic pain, opioid dependence: Continue patient's methadone. 9. DVT prophylaxis: Lovenox. 10. Sore throat: Cepacol lozenges as needed, guaifenesin. 11. Abdominal pain: Check lipase. Consider abdominal CT if symptoms worsen. Discharge Planning Discharge home when glucose control is improved, possibly tomorrow. Black Ansari MD Apr 30, 2017 15:21
[2017-04-30 16:00] VITALS: BP 128/66; PULSE 73; RESP 20; TEMP 98.8; O2SAT 97
[2017-04-30 20:00] VITALS: BP 123/60; PULSE 75; RESP 20; TEMP 97.8; O2SAT 96
[2017-05-01] VITALS: BP 131/68; PULSE 81; RESP 20; TEMP 97.6; O2SAT 95
[2017-05-01] MEDS: ACETAMINOPHEN 325 MG TAB PO PRN (00:10)
[2017-05-01] MEDS: LORazepam 0.5 MG TAB PO PRN ×3 (01:59→21:19)
[2017-05-01 04:00] VITALS: BP 116/59; PULSE 75; RESP 20; TEMP 97.6; O2SAT 95
[2017-05-01] MEDS: SUCRALFATE 1 GM TAB PO SCH ×4 (05:54→20:13)
[2017-05-01] MEDS: INSULIN ASPART SUPPLEMENTAL SCALE SQ SCH ×4 (05:58→20:19)
[2017-05-01 08:00] VITALS: BP 145/67; PULSE 72; RESP 20; TEMP 97.9; O2SAT 97
[2017-05-01 08:04] LABS: AUTOMATED NEUTROPHIL # 3.2 TH/MM3 (1.8-7.7); BASOPHIL % 0.4 % (0.0-2.0); EOSINOPHIL # 0.1 TH/MM3 (0-0.4); EOSINOPHIL % 2.8 % (0.0-4.0); HEMATOCRIT 40.2 % (35.0-46.0); LYMPH % 20.9 % (9.0-44.0); MEAN CELL VOLUME 91.4 FL (80.0-100.0); MEAN CORPUSCULAR HEMOGLOBIN 29.4 PG (27.0-34.0); MEAN CORPUSCULAR HGB CONC 32.2 % (32.0-36.0); MONO % 7.2 % (0.0-8.0); NEUT % 68.7 % (16.0-70.0); PLATELET COUNT 94 TH/MM3 (150-450); RED CELL DISTRIBUTION WIDTH 13.5 % (11.6-17.2); WHITE BLOOD COUNT 4.7 TH/MM3 (4.0-11.0)
[2017-05-01 08:13] LABS: HEMO FLAGS AUTO DIFF
[2017-05-01 08:40] LABS: BICARBONATE 33.7 MEQ/L (21.0-32.0); POTASSIUM 4.2 MEQ/L (3.5-5.1)
[2017-05-01] MEDS: SODIUM CHLORIDE 0.9% FLUSH 10 ML FLUSH IV FLUSH SCH ×2 (09:00→20:14)
[2017-05-01 09:09] LABS: PLATELET ESTIMATE SMEAR LOW (NORMAL); PLATELET MORPHOLOGY NORMAL (NORMAL); SCAN/DIFF AUTO DIFF CONFIRMED
[2017-05-01] MEDS: ENOXAPARIN SODIUM 40 MG/0.4 ML SYRINGE SQ SCH ×2 (09:31→11:59)
[2017-05-01] MEDS: INSULIN DETEMIR 100 UNITS/ML VIAL SQ SCH ×2 (09:33→20:18)
[2017-05-01] MEDS: INSULIN ASPART 1,000 UNITS/10 ML VIAL SQ SCH ×3 (09:34→17:56)
[2017-05-01] MEDS: GABAPENTIN 300 MG CAP PO SCH ×3 (11:59→17:50)
[2017-05-01] MEDS: guaiFENesin E.R. 600 MG TAB PO SCH ×2 (11:59→20:14)
[2017-05-01] MEDS: DOCUSATE SODIUM 50 MG/SENNA 8.6 MG TAB PO SCH ×2 (11:59→20:14)
[2017-05-01] MEDS: FAMOTIDINE 20 MG TAB PO SCH ×2 (11:59→20:14)
[2017-05-01 12:00] VITALS: BP 163/77; PULSE 66; RESP 18; TEMP 97.9; O2SAT 96
[2017-05-01] MEDS: METHADONE HCL 10 MG TAB PO SCH (12:04)
--- NOTE | 2017-05-01 13:21 | HHI.PR ---
Subjective Remarks Follow up hyperglycemia, abdominal pain. Patient still having pain in the upper abdomen. Describes burning pain in both feet. Glucose still elevated. Patient's nurse does not think that she has been eating extra or high carb foods today. Objective Vitals Vital Signs Date Time Temp Pulse Resp B/P (MAP) Pulse Ox O2 Delivery O2 Flow Rate FiO2 05/01/17 12:00 97.9 66 18 163/77 (105) 96 05/01/17 08:00 97.9 72 20 145/67 (93) 97 05/01/17 08:00 Room Air 05/01/17 04:00 97.6 75 20 116/59 (78) 95 05/01/17 00:00 97.6 81 20 131/68 (89) 95 04/30/17 20:00 Room Air 04/30/17 20:00 97.8 75 20 123/60 (81) 96 04/30/17 16:00 98.8 73 20 128/66 (86) 97 I/O 04/30/17 04/30/17 04/30/17 05/01/17 05/01/17 05/01/17 07:00 15:00 23:00 07:00 15:00 23:00 Intake Total 720 ml 600 ml Output Total 600 ml Balance 120 ml 600 ml Intake Oral 720 ml 600 ml Output Urine Total 600 ml # Voids 5 # Bowel Movements 0 0 Result Diagram: 05/01/17 0701 05/01/17 0701 Imaging Last Impressions Chest X-Ray 04/22/17 0000 Signed Impressions: Service Date/Time: Saturday, April 22, 2017 14:53 - CONCLUSION: No acute disease. Douglas Cunningham MD Objective Remarks Examined in the presence of the nurse. General: No acute distress. Heart: Regular rate and rhythm. No murmur. Lungs: Clear to auscultation bilaterally. No wheezes, rales, or rhonchi. Breathing is nonlabored. Abdomen: Soft, obese, mildly tender in upper abdomen, nondistended. Extremities: No lower extremity edema. Psych: Alert and oriented. Procedures None Urinary Catheter: No Vascular Central Line Catheter: No A/P Problem List: (1) Type II diabetes mellitus ICD Code: E11.9 - Type 2 diabetes mellitus without complications Status: Chronic (2) Poorly controlled diabetes mellitus ICD Code: E11.65 - Type 2 diabetes mellitus with hyperglycemia Status: Acute (3) Hyperglycemia ICD Code: R73.9 - Hyperglycemia Status: Acute (4) Methadone dependence ICD Code: F11.20 - Methadone dependence Status: Chronic (5) COPD exacerbation ICD Code: J44.1 - COPD exacerbation Status: Acute (6) Tobacco use disorder ICD Code: Z72.0 - Tobacco use disorder Status: Acute (7) Hyponatremia ICD Code: E87.1 - Hypo-osmolality and hyponatremia Assessment and Plan 1. Diabetes mellitus with hyperglycemia: Glucose remains poorly controlled. Increase Levemir to 68 units BID. Continue preprandial insulin. Diabetic diet. Monitor accuchecks and cover with sliding scale insulin. 2. Hyponatremia: Improved. Secondary to hyperglycemia. 3. Mild COPD exacerbation: Improved. 4. Tobacco abuse: Counselled. 5. Diabetic neuropathy: Continue gabapentin. 6. GERD: Continue carafate, famotidine. 7. Transaminitis: Hx of hepatitis C. Labs are stable. 8. Chronic pain, opioid dependence: Continue patient's methadone. 9. DVT prophylaxis: Lovenox. 10. Sore throat: Cepacol lozenges as needed, guaifenesin. 11. Abdominal pain: Lipase is low. Check CT abdomen/pelvis. Discharge Planning Discharge home when glucose control is improved. Black Ansari MD May 01, 2017 13:21
[2017-05-01 16:00] VITALS: BP 141/61; PULSE 70; RESP 18; TEMP 97.7; O2SAT 97
[2017-05-01] MEDS ORDERED: DIATRIZOATE MEGLUM/DIATRIZOATE SOD 9 ML CUP PO ONE (17:00)
[2017-05-01 20:00] VITALS: BP 136/67; PULSE 76; RESP 20; TEMP 98.5; O2SAT 97
[2017-05-01] MEDS: SODIUM CHLOR 0.9% 1000 ML INJ 1,000 ML IV SCH ×2 (20:20→20:23)
[2017-05-02] VITALS: BP 138/68; PULSE 79; RESP 20; TEMP 98.7; O2SAT 97
[2017-05-02] MEDS: LORazepam 0.5 MG TAB PO PRN ×3 (05:21→20:47)
[2017-05-02] MEDS: INSULIN ASPART SUPPLEMENTAL SCALE SQ SCH ×4 (05:25→20:49)
[2017-05-02] MEDS: SODIUM CHLOR 0.9% 1000 ML INJ 1,000 ML IV SCH ×2 (05:30→16:24)
[2017-05-02] MEDS: SUCRALFATE 1 GM TAB PO SCH ×4 (06:04→20:47)
[2017-05-02 08:00] VITALS: BP 121/67; PULSE 82; RESP 16; TEMP 98.4; O2SAT 95
[2017-05-02] MEDS: METHADONE HCL 10 MG TAB PO SCH (08:47)
[2017-05-02] MEDS: SODIUM CHLORIDE 0.9% FLUSH 10 ML FLUSH IV FLUSH SCH ×2 (08:47→20:46)
[2017-05-02] MEDS: FAMOTIDINE 20 MG TAB PO SCH ×2 (08:48→20:47)
[2017-05-02] MEDS: DOCUSATE SODIUM 50 MG/SENNA 8.6 MG TAB PO SCH ×2 (08:48→20:47)
[2017-05-02] MEDS: GABAPENTIN 300 MG CAP PO SCH ×3 (08:48→18:29)
[2017-05-02] MEDS: guaiFENesin E.R. 600 MG TAB PO SCH ×2 (08:53→20:47)
[2017-05-02] MEDS: INSULIN DETEMIR 100 UNITS/ML VIAL SQ SCH ×2 (08:57→20:50)
[2017-05-02] MEDS: INSULIN ASPART 1,000 UNITS/10 ML VIAL SQ SCH ×3 (08:58→18:34)
[2017-05-02] MEDS ORDERED: DIATRIZOATE MEGLUM/DIATRIZOATE SOD 9 ML CUP PO ONE (10:00)
[2017-05-02 11:00] LABS: BICARBONATE 32.2 MEQ/L (21.0-32.0); POTASSIUM 4.1 MEQ/L (3.5-5.1)
[2017-05-02 12:00] VITALS: BP 114/59; PULSE 75; RESP 16; TEMP 98.1; O2SAT 95
--- NOTE | 2017-05-02 14:40 | HHI.PR ---
Subjective Remarks Follow up hyperglycemia, abdominal pain. Patient seen and examined today, sitting on side of bed in no apparent distress. Denies any new acute events overnight. Does state she hasn't been sleeping well. Denies any recent fever, chills, cough, shortness of breath, n/v/d or dysuria. Tolerating PO intake well. Expresses concern regarding so much insulin. Objective Vitals Vital Signs Date Time Temp Pulse Resp B/P (MAP) Pulse Ox O2 Delivery O2 Flow Rate FiO2 05/02/17 12:00 98.1 75 16 114/59 (77) 95 05/02/17 08:00 98.4 82 16 121/67 (85) 95 05/02/17 04:00 Room Air 05/02/17 00:00 98.7 79 20 138/68 (91) 97 05/02/17 00:00 Room Air 05/01/17 20:00 98.5 76 20 136/67 (90) 97 05/01/17 20:00 Room Air 05/01/17 16:00 97.7 70 18 141/61 (87) 97 I/O 05/01/17 05/01/17 05/01/17 05/02/17 05/02/17 05/02/17 06:59 14:59 22:59 06:59 14:59 22:59 Intake Total 720 ml 480 ml Output Total 1100 ml Balance -380 ml 480 ml Intake Oral 720 ml 480 ml Output Urine Total 1100 ml # Voids 2 # Bowel Movements 0 1 Result Diagram: 05/01/17 0701 05/02/17 0722 Imaging Last Impressions Chest X-Ray 04/22/17 0000 Signed Impressions: Service Date/Time: Saturday, April 22, 2017 14:53 - CONCLUSION: No acute disease. Douglas Cunningham MD Objective Remarks GENERAL: Well-developed well-nourished. In no acute distress. SKIN: Warm and dry. No lesions noted. HEENT: Normocephalic. Pupils equal and round and reactive to light. EOMs intact. Mucous membranes pink and moist. CARDIOVASCULAR: Regular rate and rhythm. No murmur appreciated. RESPIRATORY: No accessory muscle use. Clear to auscultation. Breath sounds equal bilaterally. GASTROINTESTINAL: Abdomen soft, non-tender, nondistended. Bowel sounds x4. MUSCULOSKELETAL: No obvious deformities. No clubbing or cyanosis. No edema. NEUROLOGICAL: Awake and alert. No focal neurological deficits. Moves upper and lower extremities spontaneously. Normal speech. Strength 5/5. PSYCHIATRIC: Appropriate mood and affect; insight and judgment normal. Procedures None A/P Problem List: (1) Type II diabetes mellitus ICD Code: E11.9 - Type 2 diabetes mellitus without complications Status: Chronic (2) Poorly controlled diabetes mellitus ICD Code: E11.65 - Type 2 diabetes mellitus with hyperglycemia Status: Acute (3) Hyperglycemia ICD Code: R73.9 - Hyperglycemia Status: Acute (4) Methadone dependence ICD Code: F11.20 - Methadone dependence Status: Chronic (5) COPD exacerbation ICD Code: J44.1 - COPD exacerbation Status: Acute (6) Tobacco use disorder ICD Code: Z72.0 - Tobacco use disorder Status: Acute (7) Hyponatremia ICD Code: E87.1 - Hypo-osmolality and hyponatremia Assessment and Plan 1. Diabetes mellitus with hyperglycemia: Glucose remains poorly controlled. Levemir 70 units BID. Continue preprandial insulin increase from 12 to 15 units TID AC. Diabetic diet. Monitor accuchecks and cover with sliding scale insulin. 2. Hyponatremia: Improved. Secondary to hyperglycemia. 3. Mild COPD exacerbation: Improved. 4. Tobacco abuse: Counselled. 5. Diabetic neuropathy: Continue gabapentin. 6. GERD: Continue carafate, famotidine. 7. Transaminitis: Hx of hepatitis C. Labs are stable. 8. Chronic pain, opioid dependence: Continue patient's methadone. 9. DVT prophylaxis: Lovenox. 10. Sore throat: Improving. Cepacol lozenges as needed, guaifenesin. 11. Abdominal pain: Lipase is low. CT of abdomen/pelvis ordered, patient unable to tolerate contrast. June Waters May 02, 2017 14:40
[2017-05-02 16:00] VITALS: BP 109/55; PULSE 74; RESP 17; TEMP 97.6; O2SAT 96
[2017-05-02] MEDS ORDERED: IOHEXOL 350 MG/ML 10 ML VIAL (for RAD DIAG) IVCONTRAST ONE (16:51)
--- NOTE | 2017-05-02 17:15 | RADRPT ---
EXAM DATE/TIME: 05/02/2017 16:35 [facility] COMPARISON: CT ABDOMEN & PELVIS W CONTRAST, July 19, 2016, 17:14. INDICATIONS : Patient complains of upper abdominal pain. IV CONTRAST: 100 cc Omnipaque 350 (iohexol) IV ORAL CONTRAST: No oral contrast ingested. RADIATION DOSE: 13.75 CTDIvol (mGy) MEDICAL HISTORY : Hypertension. Diabetes mellitus type 2. Chronic obstructive pulmonary disease.ulcer SURGICAL HISTORY : None. ENCOUNTER: Initial ACUITY: 1 day PAIN SCALE: 5/10 LOCATION: Bilateral upper quadrant TECHNIQUE: Volumetric scanning of the abdomen and pelvis was performed. Using automated exposure control and ad justment of the mA and/or kV according to patient size, radiation dose was kept as low as reasonably achievable to obtain optimal diagnostic quality images. DICOM format image data is available electro nically for review and comparison. FINDINGS: Examination of the lung bases demonstrates no abnormality. No pleural fluid is identified. No pulmona ry nodules are present. There is decreased density of the liver with respect to the spleen compatible with fatty infiltration. The spleen is unremarkable. The spleen is enlarged measuring 15.8 cm. The g allbladder and pancreas are unremarkable. No intrahepatic or extrahepatic ductal dilatation is seen. The portal vein is patent. The adrenal glands and kidneys appear normal bilaterally. No hydronephrosi s or mass lesions are identified. No abnormally enlarged lymph nodes are identified. Examination of the pelvis demonstrates no evidence of free fluid or pelvic mass. No abnormally enlarg ed inguinal or retroperitoneal lymph nodes are present. The bladder is unremarkable. There is diverti culosis without evidence of diverticulitis. CONCLUSION: 1. No evidence of acute abdominal or pelvic process. No masses are identified. 2. Fatty infiltration of the liver with splenomegaly. Splenomegaly is new when compared with the prio r study Francsi Ardon MD on May 02, 2017 at 17:11 Board Certified Radiologist. This report was verified electronically.
[2017-05-02 20:00] VITALS: BP 134/70; PULSE 81; RESP 20; TEMP 97.8; O2SAT 96
[2017-05-03] MEDS: SODIUM CHLOR 0.9% 1000 ML INJ 1,000 ML IV SCH (01:30)
[2017-05-03] MEDS: LORazepam 0.5 MG TAB PO PRN ×2 (04:46→20:50)
[2017-05-03] MEDS: INSULIN ASPART SUPPLEMENTAL SCALE SQ SCH ×4 (05:07→21:08)
[2017-05-03] MEDS: SUCRALFATE 1 GM TAB PO SCH ×4 (06:30→20:50)
[2017-05-03] MEDS: INSULIN ASPART 1,000 UNITS/10 ML VIAL SQ SCH ×2 (08:00→16:10)
[2017-05-03 08:08] VITALS: BP 133/63; PULSE 68; RESP 18; TEMP 97.6; O2SAT 97
[2017-05-03] MEDS: FAMOTIDINE 20 MG TAB PO SCH ×2 (08:40→20:50)
[2017-05-03] MEDS: GABAPENTIN 300 MG CAP PO SCH ×3 (08:40→16:34)
[2017-05-03] MEDS: DOCUSATE SODIUM 50 MG/SENNA 8.6 MG TAB PO SCH ×2 (08:40→20:50)
[2017-05-03] MEDS: METHADONE HCL 10 MG TAB PO SCH (08:40)
[2017-05-03] MEDS: ENOXAPARIN SODIUM 40 MG/0.4 ML SYRINGE SQ SCH (08:41)
[2017-05-03] MEDS: SODIUM CHLORIDE 0.9% FLUSH 10 ML FLUSH IV FLUSH SCH ×2 (08:47→20:51)
[2017-05-03] MEDS: INSULIN DETEMIR 100 UNITS/ML VIAL SQ SCH ×2 (08:47→21:07)
[2017-05-03 12:13] VITALS: BP 150/70; PULSE 74; RESP 18; TEMP 97.5; O2SAT 96
[2017-05-03] MEDS: guaiFENesin E.R. 600 MG TAB PO SCH ×2 (12:54→20:50)
--- NOTE | 2017-05-03 15:10 | HHI.PR ---
Subjective Remarks Follow up hyperglycemia, abdominal pain. Patient seen and examined today. Sitting up on side of bed. Blood sugars still labile. Patient states shes been compliant with carbohydrate recommendations. Also complaints of vaginal itching today. Denies any recent fever, chills, cough, shortness of breath, n/v/d or dysuria. States that she is concerned regarding discharge and unable to obtain insulin since the community clinic is closing. Spoke at length about options and reassured about case management assistance. Objective Vitals Vital Signs Date Time Temp Pulse Resp B/P (MAP) Pulse Ox O2 Delivery O2 Flow Rate FiO2 05/03/17 12:13 97.5 74 18 150/70 (96) 96 05/03/17 08:08 97.6 68 18 133/63 (86) 97 05/03/17 00:00 Room Air 05/02/17 20:00 97.8 81 20 134/70 (91) 96 05/02/17 16:00 97.6 74 17 109/55 (73) 96 I/O 05/02/17 05/02/17 05/02/17 05/03/17 05/03/17 05/03/17 06:59 14:59 22:59 06:59 14:59 22:59 Intake Total 480 ml 720 ml 480 ml Balance 480 ml 720 ml 480 ml Intake Oral 480 ml 720 ml 480 ml # Voids 2 3 3 # Bowel Movements 1 1 1 Result Diagram: 05/01/17 0701 05/02/17 0722 Imaging Last Impressions Abdomen/Pelvis CT 05/01/17 0000 Signed Impressions: Service Date/Time: Tuesday, May 02, 2017 16:35 - CONCLUSION: 1. No evidence of acute abdominal or pelvic process. No masses are identified. 2. Fatty infiltration of the liver with splenomegaly. Splenomegaly is new when compared with the prior study Francis Ardon MD Chest X-Ray 04/22/17 0000 Signed Impressions: Service Date/Time: Saturday, April 22, 2017 14:53 - CONCLUSION: No acute disease. Douglas Cunningham MD Objective Remarks GENERAL: Well-developed well-nourished. In no acute distress. Somewhat anxious regarding treatment plan and discharge. SKIN: Warm and dry. No lesions noted. HEENT: Normocephalic. Pupils equal and round and reactive to light. EOMs intact. Mucous membranes pink and moist. CARDIOVASCULAR: Regular rate and rhythm. No murmur appreciated. RESPIRATORY: No accessory muscle use. Clear to auscultation. Breath sounds equal bilaterally. GASTROINTESTINAL: Abdomen soft, non-tender, nondistended. Bowel sounds x4. MUSCULOSKELETAL: No obvious deformities. No clubbing or cyanosis. No edema. NEUROLOGICAL: Awake and alert. No focal neurological deficits. Moves upper and lower extremities spontaneously. Normal speech. Strength 5/5. PSYCHIATRIC: Appropriate mood and affect; insight and judgment normal. Procedures None A/P Problem List: (1) Type II diabetes mellitus ICD Code: E11.9 - Type 2 diabetes mellitus without complications Status: Chronic (2) Poorly controlled diabetes mellitus ICD Code: E11.65 - Type 2 diabetes mellitus with hyperglycemia Status: Acute (3) Hyperglycemia ICD Code: R73.9 - Hyperglycemia Status: Acute (4) Methadone dependence ICD Code: F11.20 - Methadone dependence Status: Chronic (5) COPD exacerbation ICD Code: J44.1 - COPD exacerbation Status: Acute (6) Tobacco use disorder ICD Code: Z72.0 - Tobacco use disorder Status: Acute (7) Hyponatremia ICD Code: E87.1 - Hypo-osmolality and hyponatremia Assessment and Plan 1. Diabetes mellitus with hyperglycemia: Glucose remains poorly controlled. Levemir 70 units BID. Continue preprandial insulin increase from 15 to 20 units TID AC. Diabetic diet. Monitor accuchecks and cover with sliding scale insulin. Will consult nurses educator for further teaching and recommendations. Consult placed to CM to assist with obtaining outpatient follow up and medications. 2. Hyponatremia: Improved. Secondary to hyperglycemia. 3. Mild COPD exacerbation: Improved. 4. Tobacco abuse: Counselled. 5. Diabetic neuropathy: Continue gabapentin. 6. GERD: Continue carafate, famotidine. 7. Transaminitis: Hx of hepatitis C. Labs are stable. 8. Chronic pain, opioid dependence: Continue patient's methadone. 9. DVT prophylaxis: Lovenox. 10. Sore throat: Improving. Cepacol lozenges as needed, guaifenesin. 11. Abdominal pain: Lipase is low. CT of abdomen/pelvis ordered and reviewed, showing splenomegaly. Hematology has seen patient, spoke with Dr. Honeycutt states it is probably due to uncontrolled diabetes and no further work up planned. 12. Vaginal itching: Possible candidiasis. Diflucan x 1. Follow. June Waters May 03, 2017 15:10
[2017-05-03] MEDS ORDERED: PILL SPLITTER OTHER PRN (16:00)
[2017-05-03] MEDS ORDERED: FLUCONAZOLE 100 MG TAB PO ONE (16:00)
[2017-05-03 16:08] VITALS: BP 122/58; PULSE 74; RESP 17; TEMP 98; O2SAT 95
--- NOTE | 2017-05-03 17:44 | MB ---
cc: GAIL MOON KARLA A. MD DATE OF CONSULTATION: 05/03/2017. HEMATOLOGY/ONCOLOGY CONSULTATION NOTE REASON FOR CONSULTATION: Thrombocytopenia. PRIMARY CARE PHYSICIAN: Dr. Kyra Zabala. CONSULT REQUESTED BY: The Hospitalist Service. CHIEF COMPLAINT: Ms. Sahni reports having had uncontrolled diabetes with blood glucose levels undetectably high (greater than 600). She reports running out of her insulin. She reports generalized fatigue, weakness, blurry vision and burning pain in her feet and hands. HISTORY OF PRESENT ILLNESS: Ms. Sahni is a 62-year-old female with uncontrolled diabetes, she also has a history of untreated hepatitis C, steatohepatitis due to fatty liver infiltration and mild thrombocytopenia amongst other medical comorbid conditions. The patient reports having run out of her insulin some days ago, her blood glucose levels have been undetectably elevated and she presented to the hospital for further workup and management because she felt faint, tired and had burning sensation in her hands and feet. Upon presentation, blood work performed indicated platelet counts ranging between 120 and 94,000. She had blood glucose levels at the time of presentation of over 600. She had a hyponatremia as well but this was likely secondary to the hyperglycemia and when corrected for the hyperglycemia, her sodium levels were within normal limits. Imaging studies of the abdomen performed during this hospitalization indicate splenomegaly. Also noted is steatohepatitis. The hematology service has been asked to see this lady for further evaluation of her thrombocytopenia. PAST MEDICAL HISTORY: 1. Uncontrolled diabetes. 2. Untreated hepatitis C. 3. Obesity. 4. Personal history of IV drug abuse. 5. Anxiety and depression. 6. Hypertension. 7. Hyperlipidemia. 8. COPD. 9. Osteoarthritis. PAST SURGICAL HISTORY: 1. Uterine prolapse surgery. 2. Left breast biopsy. 3. Breast reduction surgery. FAMILY HISTORY: Mom with diabetes. Father with head and neck carcinoma, he was a smoker. SOCIAL HISTORY: The patient lives at home with a roommate and her son. She reports formerly being a smoker. She denies history of alcohol abuse. She does report IV drug use in the past. ALLERGIES: 1. KETOROLAC. 2. ERYTHROMYCIN. CURRENT INPATIENT MEDICATIONS: 1. Normal saline 100 per hour. 2. Tylenol 650 milligrams p.o. q. 4 hours as needed for headache. 3. Albuterol nebulizers every six hours as needed for shortness of breath. 4. Colace / senna one tablet p.o. twice a day. 5. Lovenox 40 milligrams subcutaneous q.24. 6. Famotidine 20 milligrams p.o. twice a day. 7. Gabapentin 600 milligrams p.o. three times a day. 8. Guaifenesin 600 milligrams p.o. twice a day. 9. Insulin sliding scale 15 units subcutaneous three times a day. 10.Insulin Levemir 70 units q. 12 hours subcutaneous. 11. Lorazepam 0.5 milligrams every 12 hours as needed for anxiety. 12. Methadone 100 milligrams twice a day. 13. Insulin sliding scale; regular per protocol before meals. 14. Oxycodone 5 milligrams p.o. q. 6 hours as needed for pain. 15. Senna 17.2 milligrams p.o. q. 12 hours. 16. Carafate 1 gram p.o. a.c. and h.s. REVIEW OF SYSTEMS: A thirteen point review of systems was obtained and the following are the pertinent positives and negatives. CONSTITUTIONAL: The patient reports fatigue, weakness, denies fevers, chills, night sweats. She denies weight loss. She reports good appetite and in fact tells me she is very hungry. HEAD, EYES, EARS, NOSE, THROAT: Denies headaches, does report blurry vision, denies soreness in the throat. RESPIRATORY: Reports shortness of breath with exertion, denies pleuritic chest pain,, cough or hemoptysis. CARDIOVASCULAR: Denies angina-like chest pain, PND, orthopnea. Reports lower extremity edema. GI: Denies nausea, vomiting, diarrhea, hematochezia, melena, denies abdominal distension, denies yellow jaundice. : Denies dysuria, hematuria, urinary incontinence. COMPUTER FORENSICS INVESTIGATOR: Denies any focal sensory or motor deficits other than burning and numbness of her fingers and toes. COMPUTER FORENSICS INVESTIGATOR: No other complaints. MUSCULOSKELETAL: No complaints. PHYSICAL EXAMINATION: VITAL SIGNS: Temperature 97.6 degrees Fahrenheit, respiratory rate 18, blood pressure 133/63, O2 sats 97% on room air, respiratory rate is 18 breaths per minute. GENERAL PHYSICAL APPEARANCE: Ms. Sahni is a middle-aged female, she is sitting up in bed, she appears to be in no acute distress. HEAD, EYES, EARS, NOSE, THROAT: Head IS atraumatic, normocephalic, conjunctive are not pale, sclerae are anicteric, Extraocular muscles intact, Pupils equal, round and reactive to light and accommodation. Oral exam no pharyngeal erythema. NECK: No palpable cervical, supraclavicular lymphadenopathy. RESPIRATORY: Good air movement bilaterally. No added breath sounds. CARDIOVASCULAR: Regular rate rhythm, S1-S2. No obvious murmurs, rubs or gallops. ABDOMINAL EXAM: Obese belly. Soft. No obvious tenderness. No organ enlargement is noted; however, the exam may be limited due to her obese belly. LOWER EXTREMITIES: No pretibial edema or calf tenderness. COMPUTER FORENSICS INVESTIGATOR: Some numbness of the toes but otherwise no noted sensory or motor deficits. LABORATORY FINDINGS: Blood work dated 05/02/2017: Sodium 138, potassium 4.1, chloride 98, bicarb 32, BUN 13, creatinine 0.81, EGFR 72, random glucose 165, calcium 8.5, lipase is 56. CBC dated 05/01/2017: WBC count 4.7, hemoglobin 12.9 gm/dl, hematocrit 40.2%, MCV 91, platelet count 94,000, absolute neutrophil count of 32. Serology: Hepatitis C antibody was positive in September of 2013. HIV I and II antibody screen was negative in September of 2013 as well. IMAGING STUDIES: The imaging studies dated 05/01/2017 indicate no evidence of acute abdominal or pelvic processes. No masses are identified. Fatty infiltration of the liver with splenomegaly. ASSESSMENT: Ms. Sahni is a 62-year-old female with multiple medical comorbid conditions including hepatitis C, uncontrolled diabetes, obesity, COPD, previous history of IV drug abuse. This lady does have splenomegaly and this is likely congestive splenomegaly secondary to steatohepatitis with resultant portal hypertension and resultant congestion of the spleen. Her thrombocytopenia is likely a combination of splenic sequestration and possibly a direct immune-related phenomenon secondary to untreated hepatitis C. All-in-all, her thrombocytopenia is quite mild and asymptomatic and really requires no therapeutic intervention at this time. 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 She does not at this time require hematology followup. I would however recommend she be sent to see us should her platelet counts drop down to the 50,000 to 60,000 range. MD MENDY Stuart /12:27 PM /4:56 PM
[2017-05-03 20:00] VITALS: BP 120/60; PULSE 72; RESP 16; TEMP 98.1; O2SAT 95
[2017-05-04] VITALS (8 sets, daily range): BP systolic 116–142; BP diastolic 65–74; PULSE 66–76; RESP 16–20; TEMP 97.4–98.6; O2SAT 93–99
[2017-05-04] MEDS: RESP: ALBUTEROL 1.25 MG/3 ML NEB (PRN) NEB (00:08)
[2017-05-04] MEDS: SUCRALFATE 1 GM TAB PO SCH ×4 (05:14→21:45)
[2017-05-04] MEDS: LORazepam 0.5 MG TAB PO PRN ×3 (05:14→21:45)
[2017-05-04] MEDS: FAMOTIDINE 20 MG TAB PO SCH ×2 (05:51→21:45)
[2017-05-04] MEDS: INSULIN ASPART SUPPLEMENTAL SCALE SQ SCH ×4 (05:52→22:02)
[2017-05-04] MEDS: INSULIN ASPART 1,000 UNITS/10 ML VIAL SQ SCH ×3 (08:00→17:00)
[2017-05-04] MEDS: GABAPENTIN 300 MG CAP PO SCH ×3 (08:55→17:32)
[2017-05-04] MEDS: METHADONE HCL 10 MG TAB PO SCH (08:55)
[2017-05-04] MEDS: guaiFENesin E.R. 600 MG TAB PO SCH ×2 (08:55→21:00)
[2017-05-04] MEDS: DOCUSATE SODIUM 50 MG/SENNA 8.6 MG TAB PO SCH ×2 (08:56→21:45)
[2017-05-04] MEDS: INSULIN DETEMIR 100 UNITS/ML VIAL SQ SCH ×2 (09:00→22:01)
[2017-05-04] MEDS: SODIUM CHLORIDE 0.9% FLUSH 10 ML FLUSH IV FLUSH SCH ×2 (09:03→21:45)
[2017-05-04] MEDS: ENOXAPARIN SODIUM 40 MG/0.4 ML SYRINGE SQ SCH (09:03)
--- NOTE | 2017-05-04 14:40 | HHI.PR ---
Subjective Remarks Follow up hyperglycemia, abdominal pain. Patient seen and examined today. Lying in bed sleeping. Awakens to voice. Complaints of continued abdominal pain right at her rib on left side. Eating well. Complaints of a headache. Denies any fever , chills. Denies nausea, vomiting or diarrhea. Afebrile. Blood sugars more controlled. Objective Vitals Vital Signs Date Time Temp Pulse Resp B/P (MAP) Pulse Ox O2 Delivery O2 Flow Rate FiO2 05/04/17 12:00 97.6 76 20 142/65 (90) 95 05/04/17 09:00 96 Room Air 05/04/17 08:00 98.6 74 20 139/74 (95) 96 05/04/17 07:58 98 05/04/17 04:00 97.7 73 16 116/69 (85) 93 05/04/17 00:10 99 05/04/17 00:00 98.3 66 19 132/70 (90) 94 05/03/17 21:30 98 Room Air 05/03/17 20:00 98.1 72 16 120/60 (80) 95 05/03/17 16:08 98.0 74 17 122/58 (79) 95 I/O 05/03/17 05/03/17 05/03/17 05/04/17 05/04/17 05/04/17 07:00 15:00 23:00 07:00 15:00 23:00 Intake Total 480 ml 360 ml 680 ml Output Total 1000 ml 1050 ml Balance 480 ml -640 ml -370 ml Intake Oral 480 ml 360 ml 680 ml Output Urine Total 1000 ml 1050 ml # Voids 3 # Bowel Movements 1 0 0 Result Diagram: 05/01/17 0701 05/02/17 0722 Imaging Last Impressions Abdomen/Pelvis CT 05/01/17 0000 Signed Impressions: Service Date/Time: Tuesday, May 02, 2017 16:35 - CONCLUSION: 1. No evidence of acute abdominal or pelvic process. No masses are identified. 2. Fatty infiltration of the liver with splenomegaly. Splenomegaly is new when compared with the prior study Francis Ardon MD Chest X-Ray 04/22/17 0000 Signed Impressions: Service Date/Time: Saturday, April 22, 2017 14:53 - CONCLUSION: No acute disease. Douglas Cunningham MD Objective Remarks GENERAL: Well-developed well-nourished. In no acute distress. SKIN: Warm and dry. No lesions noted. HEENT: Normocephalic. Pupils equal and round and reactive to light. EOMs intact. Mucous membranes pink and moist. CARDIOVASCULAR: Regular rate and rhythm. No murmur appreciated. RESPIRATORY: No accessory muscle use. Clear to auscultation. Breath sounds equal bilaterally. GASTROINTESTINAL: Abdomen soft, non-tender, nondistended. Bowel sounds x4. MUSCULOSKELETAL: No obvious deformities. No clubbing or cyanosis. No edema. NEUROLOGICAL: Awake and alert. No focal neurological deficits. Moves upper and lower extremities spontaneously. Normal speech. Strength 5/5. PSYCHIATRIC: Appropriate mood and affect; insight and judgment normal. Procedures None A/P Problem List: (1) Type II diabetes mellitus ICD Code: E11.9 - Type 2 diabetes mellitus without complications Status: Chronic (2) Poorly controlled diabetes mellitus ICD Code: E11.65 - Type 2 diabetes mellitus with hyperglycemia Status: Acute (3) Hyperglycemia ICD Code: R73.9 - Hyperglycemia Status: Acute (4) Methadone dependence ICD Code: F11.20 - Methadone dependence Status: Chronic (5) COPD exacerbation ICD Code: J44.1 - COPD exacerbation Status: Acute (6) Tobacco use disorder ICD Code: Z72.0 - Tobacco use disorder Status: Acute (7) Hyponatremia ICD Code: E87.1 - Hypo-osmolality and hyponatremia Assessment and Plan 1. Diabetes mellitus with hyperglycemia: Glucose remains poorly controlled. Levemir 70 units BID. Continue preprandial insulin increase from 15 to 20 units TID AC. Diabetic diet. Monitor accuchecks and cover with sliding scale insulin. Consulted coding educator for further teaching and recommendations. Consult placed to CM to assist with obtaining outpatient follow up and medications. 2. Hyponatremia: Improved. Secondary to hyperglycemia. 3. Mild COPD exacerbation: Improved. 4. Tobacco abuse: Counselled. 5. Diabetic neuropathy: Continue gabapentin. 6. GERD: Continue Carafate, famotidine. 7. Transaminitis: Hx of hepatitis C. Labs are stable. 8. Chronic pain, opioid dependence: Continue patient's methadone. 9. DVT prophylaxis: Lovenox. 10. Sore throat: Improving. Cepacol lozenges as needed, guaifenesin. 11. Abdominal pain/Mild thrombocytopenia: Lipase is low. CT of abdomen/pelvis ordered and reviewed, showing splenomegaly. 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 No hematology workup at this time. Follow platelets. 12. Vaginal itching: Possible candidiasis. Diflucan x 1 given yesterday. Still complaints of itching, will order Monistat cream HS. Will monitor, follow up in am. June Waters May 04, 2017 14:40
[2017-05-04] MEDS ORDERED: MICONAZOLE NITRATE 2% VAG CREAM 45 GM VAGINAL SCH (21:00)
[2017-05-04] MEDS: CLOTRIMAZOLE 1% VAG CREAM 45 GM TUBE VAGINAL SCH (22:05)
[2017-05-05] VITALS (8 sets, daily range): BP systolic 110–151; BP diastolic 58–70; PULSE 65–94; RESP 16–20; TEMP 97.5–98.5; O2SAT 92–97
[2017-05-05] MEDS: LORazepam 0.5 MG TAB PO PRN ×2 (05:36→17:55)
[2017-05-05] MEDS: SUCRALFATE 1 GM TAB PO SCH ×4 (05:36→20:12)
[2017-05-05] MEDS: INSULIN ASPART SUPPLEMENTAL SCALE SQ SCH ×4 (05:41→20:17)
[2017-05-05] MEDS: INSULIN ASPART 1,000 UNITS/10 ML VIAL SQ SCH ×3 (08:00→17:00)
[2017-05-05] MEDS: METHADONE HCL 10 MG TAB PO SCH (08:48)
[2017-05-05] MEDS: FAMOTIDINE 20 MG TAB PO SCH ×2 (08:48→20:12)
[2017-05-05] MEDS: DOCUSATE SODIUM 50 MG/SENNA 8.6 MG TAB PO SCH ×2 (08:48→20:12)
[2017-05-05] MEDS: guaiFENesin E.R. 600 MG TAB PO SCH ×2 (08:48→20:12)
[2017-05-05] MEDS: GABAPENTIN 300 MG CAP PO SCH ×3 (08:49→18:17)
[2017-05-05] MEDS: INSULIN DETEMIR 100 UNITS/ML VIAL SQ SCH ×2 (09:00→20:16)
[2017-05-05] MEDS: SODIUM CHLORIDE 0.9% FLUSH 10 ML FLUSH IV FLUSH SCH ×2 (09:00→20:12)
--- NOTE | 2017-05-05 10:01 | HHI.PR ---
Subjective Remarks Follow-up visit uncontrolled diabetes type 2. Patient seen and examined today. States she is not feeling well. Complaints of generalized weakness, unsteady gait. States she is unable to go home and her situation. Patient states that she could not afford her medications including her Levemir as she ran out of it or to being in the hospital for a month because she could not afford it. She also is complaining of abdominal pain, 5/10, dull achy, intermittent, relieved by rest. Reports she has bowel movements every day and not constipated. Denies any abdominal cramping, nausea, vomiting, diarrhea. Denies any dysuria. Patient states her bilateral lower extremity is also painful when she gets up and stand up and walk around. States it feels like blocks and very heavy. She also complains of sore throat. Patient also complains of insomnia unable to sleep at night even with oxycodone, and Ativan being given. She states that Xanax works for her prior. When asked where she gets her Xanax or who prescribes it to her, patient states that she buys it from somebody is not prescribed for it. Denies fevers, chills. Denies chest pain, palpitations, headaches, dizziness. As per nursing Faye, patient has been noncompliant even with diet. She refused nurses educator. Patient denies that she has refused nurses educator. Objective Vitals Vital Signs Date Time Temp Pulse Resp B/P (MAP) Pulse Ox O2 Delivery O2 Flow Rate FiO2 05/05/17 04:00 98.5 65 16 122/63 (82) 96 05/05/17 00:00 97.5 78 17 151/70 (97) 97 05/04/17 21:40 Room Air 05/04/17 20:00 97.4 68 17 131/66 (87) 95 05/04/17 16:00 98.0 76 20 135/71 (92) 95 05/04/17 12:00 97.6 76 20 142/65 (90) 95 I/O 05/04/17 05/04/17 05/04/17 05/05/17 05/05/17 05/05/17 07:00 15:00 23:00 07:00 15:00 23:00 Intake Total 680 ml 440 ml Output Total 1050 ml 800 ml Balance -370 ml -360 ml Intake Oral 680 ml 440 ml Output Urine Total 1050 ml 800 ml # Bowel Movements 0 0 Result Diagram: 05/01/17 0701 05/02/17 0722 Imaging Last Impressions Abdomen/Pelvis CT 05/01/17 0000 Signed Impressions: Service Date/Time: Tuesday, May 02, 2017 16:35 - CONCLUSION: 1. No evidence of acute abdominal or pelvic process. No masses are identified. 2. Fatty infiltration of the liver with splenomegaly. Splenomegaly is new when compared with the prior study Francis Ardon MD Chest X-Ray 04/22/17 0000 Signed Impressions: Service Date/Time: Saturday, April 22, 2017 14:53 - CONCLUSION: No acute disease. Douglas Cunningham MD Objective Remarks GENERAL: This is an obese, well-developed patient, in no apparent distress. SKIN: Warm and dry. HEENT: Normocephalic. Pupils equal round and reactive. Nose without bleeding. Airway patent. Mild erythema tonsillar area. NECK: Trachea midline. Supple. CARDIOVASCULAR: Regular rate and rhythm without murmurs, gallops, or rubs. RESPIRATORY: Clear to auscultation. Breath sounds equal bilaterally. No wheezes , rales, or rhonchi. GASTROINTESTINAL: Abdomen soft, protuberant. Bowel Sounds normoactive x4. Mild tenderness to palpation left quadrant area. MUSCULOSKELETAL: Extremities without clubbing, cyanosis. Bilateral lower extremity edema left greater than right, +2. NEUROLOGICAL: Awake and alert. Oriented to time, place, person. No focal neuro deficit. Moves all extremities. Normal speech. Procedures None A/P Problem List: (1) Type II diabetes mellitus ICD Code: E11.9 - Type 2 diabetes mellitus without complications Status: Chronic (2) Poorly controlled diabetes mellitus ICD Code: E11.65 - Type 2 diabetes mellitus with hyperglycemia Status: Acute (3) Hyperglycemia ICD Code: R73.9 - Hyperglycemia Status: Acute (4) Methadone dependence ICD Code: F11.20 - Methadone dependence Status: Chronic (5) COPD exacerbation ICD Code: J44.1 - COPD exacerbation Status: Acute (6) Tobacco use disorder ICD Code: Z72.0 - Tobacco use disorder Status: Acute (7) Hyponatremia ICD Code: E87.1 - Hypo-osmolality and hyponatremia Assessment and Plan Patient is a 62-year-old female who came into the hospital secondary to complaints of abdominal pain associated with nausea vomiting. Noncompliant with home medications. 1. Diabetes mellitus with hyperglycemia, uncontrolled - Glucose remains poorly controlled. Levemir 70 units BID. - Continue preprandial insulin increase from 15 to 20 units TID AC. - Diabetic diet. Monitor accuchecks and cover with sliding scale insulin. - Consulted nurses educator for further teaching and recommendations. Patient has previously refused. Will reconsult. Patient is counseled that she cannot refuse this time. Verbalized understanding. - Consult placed to CM to assist with obtaining outpatient follow up and medications. Patient is adamant she can't afford medication. 2. Hyponatremia: Improved. Secondary to hyperglycemia. 3. Mild COPD exacerbation: Improved. - Complaints of sore throat. Continue with DuoNeb's. Cepacol lozenges, guaifenesin. 4. Tobacco abuse: Counselled. 5. Diabetic neuropathy: Continue gabapentin. 6. GERD: Continue Carafate, famotidine. 7. Transaminitis: Hx of hepatitis C. Labs are stable. 8. Chronic pain, opioid dependence: Continue patient's methadone. 9. Abdominal pain/Mild thrombocytopenia: Lipase is low. 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 No hematology workup at this time. Follow platelets. 10. Vaginal itching: Possible candidiasis. Diflucan x 1 given yesterday. Monistat. No complaints today. 11. Insomnia: Will add melatonin 12. Generalized weakness: PT to eval and treat 13. Bilateral lower extremity edema, pain: History of PE, was on anticoagulant warfarin approx 3 years ago. Will do Bilat US Doppler. Follow up results. DVT prophylaxis: Lovenox. Full Code Discuss with patient, nursing, Dr. Ansari Discharge Planning Will plan to DC home tomorrow if clinically improved. Case management to provide assistance for follow up and medication assistance. Corinne Antunez May 05, 2017 10:01
[2017-05-05] MEDS: ENOXAPARIN SODIUM 40 MG/0.4 ML SYRINGE SQ SCH (11:29)
--- NOTE | 2017-05-05 14:13 | RADRPT ---
EXAM DATE/TIME: 05/05/2017 13:08 [facility] COMPARISON: No previous studies available for comparison. INDICATIONS : Bilateral leg swelling. MEDICAL HISTORY : Hypercholesterolemia. Deep venous thrombosis. Chronic obstructive pulmonary disease. Ulcer. Hiatal he rnia. Diabetes. SURGICAL HISTORY : Breast reduction. Left breast biopsy. Gynecologic surgery, prolapsed uterus/ ENCOUNTER: Subsequent ACUITY: 1 day PAIN SCORE: 0/10 LOCATION: Bilateral legs. TECHNIQUE: Venous ultrasound of the left and right leg was performed from the inguinal ligament to the proximal calf. Real-time, color Doppler and spectral tracing, compression and augmentation techniques were us ed. FINDINGS: RIGHT LEG: There is normal compressibility of the deep venous system from the inguinal region to the proximal ca lf. No echogenic clot is seen in the lumen of the common femoral, femoral, popliteal, and posterior tibial veins. There is a normal response of the venous system to proximal and distal augmentation an d respiration. LEFT LEG: There is normal compressibility of the deep venous system from the inguinal region to the proximal ca lf. No echogenic clot is seen in the lumen of the common femoral, femoral, popliteal, and posterior tibial veins. There is a normal response of the venous system to proximal and distal augmentation an d respiration. CONCLUSION: Negative for deep venous thrombosis. Chaitanya Adams MD FACR on May 05, 2017 at 14:11 Board Certified Radiologist. This report was verified electronically.
[2017-05-05] MEDS: CLOTRIMAZOLE 1% VAG CREAM 45 GM TUBE VAGINAL SCH (20:13)
[2017-05-06] MEDS: LORazepam 0.5 MG TAB PO PRN ×3 (02:03→21:46)
[2017-05-06 03:26] VITALS: BP 115/57; PULSE 68; RESP 16; TEMP 97.9; O2SAT 97
[2017-05-06] MEDS: INSULIN ASPART SUPPLEMENTAL SCALE SQ SCH ×4 (05:35→21:00)
[2017-05-06] MEDS: ACETAMINOPHEN 325 MG TAB PO PRN (05:41)
[2017-05-06] MEDS: SUCRALFATE 1 GM TAB PO SCH ×4 (05:41→21:46)
[2017-05-06] MEDS: SODIUM CHLORIDE 0.9% FLUSH 10 ML FLUSH IV FLUSH SCH ×2 (07:31→20:27)
[2017-05-06 08:00] VITALS: BP 113/55; PULSE 64; RESP 20; TEMP 97.3; O2SAT 97
[2017-05-06] MEDS: INSULIN ASPART 1,000 UNITS/10 ML VIAL SQ SCH ×3 (08:00→17:43)
[2017-05-06] MEDS ORDERED: MELATONIN 5 MG TAB PO PRN (08:00)
[2017-05-06] MEDS: FAMOTIDINE 20 MG TAB PO SCH ×2 (08:45→21:47)
[2017-05-06] MEDS: guaiFENesin E.R. 600 MG TAB PO SCH ×2 (08:46→21:47)
[2017-05-06] MEDS: GABAPENTIN 300 MG CAP PO SCH ×3 (08:46→17:36)
[2017-05-06] MEDS: METHADONE HCL 10 MG TAB PO SCH (08:46)
[2017-05-06] MEDS: DOCUSATE SODIUM 50 MG/SENNA 8.6 MG TAB PO SCH ×2 (08:46→21:47)
[2017-05-06] MEDS: INSULIN DETEMIR 100 UNITS/ML VIAL SQ SCH ×2 (08:58→21:00)
[2017-05-06] MEDS: ENOXAPARIN SODIUM 40 MG/0.4 ML SYRINGE SQ SCH (09:00)
--- NOTE | 2017-05-06 10:15 | HHI.PR ---
Subjective Remarks Follow-up visit uncontrolled diabetes type 2, sore throat. Patient seen and examined today lying in bed. States she continues to have sore throat and she feels that her ears are hurting also. She is asking if she needs antibiotics. She denies any fevers, chills, nausea, vomiting, diarrhea. She denies difficulty swallowing or painful swallowing. Denies any chest pain, palpitations. As per nurse, patient states this morning that she's been having headaches and that she would need her methadone and oxycodone together to be given. Objective Vitals Vital Signs Date Time Temp Pulse Resp B/P (MAP) Pulse Ox O2 Delivery O2 Flow Rate FiO2 05/06/17 08:00 97.3 64 20 113/55 (74) 97 05/06/17 03:26 97.9 68 16 115/57 (76) 97 05/06/17 00:00 Room Air 05/05/17 23:58 97.8 94 16 123/60 (81) 93 05/05/17 20:30 Room Air 05/05/17 20:02 93 Nasal Cannula 3.00 05/05/17 20:00 97.9 84 16 125/64 (84) 92 05/05/17 16:00 98.1 74 20 116/58 (77) 97 05/05/17 12:00 97.7 78 20 110/69 (83) 95 I/O 05/05/17 05/05/17 05/05/17 05/06/17 05/06/17 05/06/17 07:00 15:00 23:00 07:00 15:00 23:00 Intake Total 440 ml 1020 ml 720 ml Output Total 800 ml Balance -360 ml 1020 ml 720 ml Intake Oral 440 ml 1020 ml 720 ml Output Urine Total 800 ml # Voids 5 6 # Bowel Movements 0 1 0 Result Diagram: 05/02/17 0722 Imaging Last Impressions Lower Extremity Ultrasound 05/05/17 0000 Signed Impressions: Service Date/Time: Friday, May 05, 2017 13:08 - CONCLUSION: Negative for deep venous thrombosis. Chaitanya Adams MD FACR Abdomen/Pelvis CT 05/01/17 0000 Signed Impressions: Service Date/Time: Tuesday, May 02, 2017 16:35 - CONCLUSION: 1. No evidence of acute abdominal or pelvic process. No masses are identified. 2. Fatty infiltration of the liver with splenomegaly. Splenomegaly is new when compared with the prior study Francis Ardon MD Chest X-Ray 04/22/17 0000 Signed Impressions: Service Date/Time: Saturday, April 22, 2017 14:53 - CONCLUSION: No acute disease. Douglas Cunningham MD Objective Remarks GENERAL: This is an obese, well-developed patient, in no apparent distress. SKIN: Warm and dry. HEENT: Normocephalic. Pupils equal round and reactive. Nose without bleeding. Airway patent. No erythema tonsillar area. TM clear without erythema or effusion. NECK: Trachea midline. Supple. CARDIOVASCULAR: Regular rate and rhythm without murmurs, gallops, or rubs. RESPIRATORY: Clear to auscultation. Breath sounds equal bilaterally. No wheezes , rales, or rhonchi. GASTROINTESTINAL: Abdomen soft, protuberant. Bowel Sounds normoactive x4. Mild tenderness to palpation left quadrant area. MUSCULOSKELETAL: Extremities without clubbing, cyanosis. Bilateral lower extremity edema left greater than right, +1. NEUROLOGICAL: Awake and alert. Oriented to time, place, person. No focal neuro deficit. Moves all extremities. Normal speech. Procedures None A/P Problem List: (1) Type II diabetes mellitus ICD Code: E11.9 - Type 2 diabetes mellitus without complications Status: Chronic (2) Poorly controlled diabetes mellitus ICD Code: E11.65 - Type 2 diabetes mellitus with hyperglycemia Status: Acute (3) Hyperglycemia ICD Code: R73.9 - Hyperglycemia Status: Acute (4) Methadone dependence ICD Code: F11.20 - Methadone dependence Status: Chronic (5) COPD exacerbation ICD Code: J44.1 - COPD exacerbation Status: Acute (6) Tobacco use disorder ICD Code: Z72.0 - Tobacco use disorder Status: Acute (7) Hyponatremia ICD Code: E87.1 - Hypo-osmolality and hyponatremia Assessment and Plan Patient is a 62-year-old female who came into the hospital secondary to complaints of abdominal pain associated with nausea vomiting. Noncompliant with home medications. Diabetes mellitus with hyperglycemia, uncontrolled - Glucose remains poorly controlled. Levemir 70 units BID. - Continue preprandial insulin increase from 15 to 20 units TID AC. - Diabetic diet. Monitor accuchecks and cover with sliding scale insulin. - Consulted ems educator for further teaching and recommendations. Will reconsult. Patient is counseled that she cannot refuse this time. Verbalized understanding. - Spoke with case management, patient will get medication assistance for 30 day supply and will f/u with [employer] next month. This has been discussed with patient. Patient states she could not afford her medication especially insulin. But then when she was told that the coverage for her medication assistance is limited to her insulin and other medical condition and not methadone. Patient states if she pays [id number] for methadone, would we be able to write a prescription for it. Discussed with patient that we will not write a prescription for her methadone or any other narcotics, she needs to follow up with the methadone clinic. Verbalized understanding. - Patient appears to be with seeking behavior. She wanted her methadone in combination with oxycodone to be given at the same time. She was also asking for Xanax instead of Ativan. Reports she buys Xanax on the street. Counselled. Patient was informed she will not get Xanax. Hyponatremia: Improved. Secondary to hyperglycemia. Mild COPD exacerbation: Improved. - Complaints of sore throat. - Continue with DuoNeb's. - Cepacol lozenges, guaifenesin - Nasal sprays PRN Tobacco abuse: Counselled. Diabetic neuropathy: Continue gabapentin. GERD: Continue Carafate, famotidine. Transaminitis: Hx of hepatitis C. Labs are stable. Chronic pain, opioid dependence: Continue patient's methadone. Abdominal pain/Mild thrombocytopenia: Lipase is low. 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 No hematology workup at this time. Follow platelets. Vaginal itching: Possible candidiasis. Diflucan x 1 given yesterday. Monistat. No complaints today. Insomnia: melatonin Generalized weakness: PT to eval and treat Bilateral lower extremity edema, pain: History of PE, was on anticoagulant warfarin approx 3 years ago. - Bilat US Doppler negative for DVT - Lasix IV today then PO for 2 days DVT prophylaxis: Lovenox. Full Code Discuss with patient, nursing, Dr. Solano Discharge Planning Will plan to DC home tomorrow if clinically improved. Case management to provide assistance for follow up and medication assistance. Corinne Antunez 5, 2017 10:15
[2017-05-06] MEDS ORDERED: SODIUM CHLORIDE 0.65% NASAL SPRAY 45 ML BTL EACH NARE PRN (10:45)
[2017-05-06 12:00] VITALS: BP 104/57; PULSE 70; RESP 20; TEMP 97.7; O2SAT 97
[2017-05-06] MEDS ORDERED: POTASSIUM CHLORIDE 10 MEQ CONTROLLED RELEASE TAB PO ONE (12:00)
[2017-05-06] MEDS ORDERED: FUROSEMIDE 20 MG/2 ML VIAL IV PUSH ONE (12:00)
[2017-05-06] MEDS: RESP: ALBUTEROL 1.25 MG/3 ML NEB (PRN) NEB (12:49)
[2017-05-06 12:51] VITALS: O2SAT 97
[2017-05-06] MEDS ORDERED: FUROSEMIDE 40 MG TAB PO ONE (16:00)
[2017-05-06 21:00] VITALS: BP 127/59; PULSE 70; RESP 16; TEMP 97.6; O2SAT 95
[2017-05-06] MEDS: CLOTRIMAZOLE 1% VAG CREAM 45 GM TUBE VAGINAL SCH (21:00)
[2017-05-07 05:10] VITALS: BP 141/63; PULSE 64; RESP 16; TEMP 97.7; O2SAT 95
[2017-05-07] MEDS: INSULIN ASPART SUPPLEMENTAL SCALE SQ SCH ×2 (06:16→12:39)
[2017-05-07] MEDS: SUCRALFATE 1 GM TAB PO SCH ×2 (06:16→12:33)
[2017-05-07] MEDS: LORazepam 0.5 MG TAB PO PRN (06:16)
[2017-05-07] MEDS ORDERED: NOVOLOGP2 SQ (07:58)
[2017-05-07] MEDS ORDERED: LEVEMIR SQ (07:58)
[2017-05-07] MEDS ORDERED: FURO20TA PO (07:58)
[2017-05-07] MEDS ORDERED: CARA1TAB6 PO (07:58)
[2017-05-07] MEDS ORDERED: OCEA0.653 EACH NARE (07:58)
[2017-05-07] MEDS ORDERED: guaiFENesin ER PO (07:58)
[2017-05-07] MEDS ORDERED: NEUR300C PO (07:58)
[2017-05-07] MEDS ORDERED: SM C1CRE VAGINAL (07:58)
[2017-05-07] MEDS ORDERED: FAMO20TA2 PO (07:58)
[2017-05-07] MEDS: DOCUSATE SODIUM 50 MG/SENNA 8.6 MG TAB PO SCH (08:42)
[2017-05-07] MEDS: guaiFENesin E.R. 600 MG TAB PO SCH (08:42)
[2017-05-07] MEDS: METHADONE HCL 10 MG TAB PO SCH (08:42)
[2017-05-07] MEDS: SODIUM CHLORIDE 0.9% FLUSH 10 ML FLUSH IV FLUSH SCH (08:42)
[2017-05-07] MEDS: GABAPENTIN 300 MG CAP PO SCH ×2 (08:42→12:32)
[2017-05-07] MEDS: FAMOTIDINE 20 MG TAB PO SCH (08:42)
[2017-05-07] MEDS: INSULIN DETEMIR 100 UNITS/ML VIAL SQ SCH (08:48)
[2017-05-07] MEDS: INSULIN ASPART 1,000 UNITS/10 ML VIAL SQ SCH ×2 (08:49→12:39)
--- NOTE | 2017-05-07 08:50 | HHI.DS ---
Discharge Summary Admission Date Apr 23, 2017 at 08:14 Discharge Date: May 07, 2017 Admitting Diagnosis hyperosmotic non-acidotic hyperglycemia (1) Type II diabetes mellitus ICD Code: E11.9 - Type 2 diabetes mellitus without complications Status: Chronic (2) Poorly controlled diabetes mellitus ICD Code: E11.65 - Type 2 diabetes mellitus with hyperglycemia Status: Acute (3) Hyperglycemia ICD Code: R73.9 - Hyperglycemia Status: Acute (4) Methadone dependence ICD Code: F11.20 - Methadone dependence Status: Chronic (5) COPD exacerbation ICD Code: J44.1 - COPD exacerbation Status: Acute (6) Tobacco use disorder ICD Code: Z72.0 - Tobacco use disorder Status: Acute (7) Hyponatremia ICD Code: E87.1 - Hypo-osmolality and hyponatremia Procedures None Brief History - From Admission This is a Pleasant 62 y/o Female with Severe Medical Non compliant issues, has DM II, came to ER with upper abdominal pain associated with nausea and vomiting. Other symptoms include polyuria and polydipsia, blurred vision and exacerbation of her chronic diabetic neuropathy. Symptoms all started about a week ago. They have become progressively worse. She states that the symptoms are now severe. She reports no relieving factor. Seen in ER in the presence of her Roommate she states run out of her medicines, discussed with nurse Miss Anne in her room. also complaint of Blurry vision and bilateral feet burning sensation asking for pain medicine, she is able to take Oxycodone. Imaging Last Impressions Lower Extremity Ultrasound 05/05/17 0000 Signed Impressions: Service Date/Time: Friday, May 05, 2017 13:08 - CONCLUSION: Negative for deep venous thrombosis. Chaitanya Adams MD FACR Abdomen/Pelvis CT 05/01/17 0000 Signed Impressions: Service Date/Time: Tuesday, May 02, 2017 16:35 - CONCLUSION: 1. No evidence of acute abdominal or pelvic process. No masses are identified. 2. Fatty infiltration of the liver with splenomegaly. Splenomegaly is new when compared with the prior study Francis Ardon MD Chest X-Ray 04/22/17 0000 Signed Impressions: Service Date/Time: Saturday, April 22, 2017 14:53 - CONCLUSION: No acute disease. Douglas Cunningham MD PE at Discharge GENERAL: This is an obese, well-developed patient, in no apparent distress. SKIN: Warm and dry. HEENT: Normocephalic. Pupils equal round and reactive. Nose without bleeding. Airway patent. No erythema tonsillar area. TM clear without erythema or effusion. NECK: Trachea midline. Supple. CARDIOVASCULAR: Regular rate and rhythm without murmurs, gallops, or rubs. RESPIRATORY: Clear to auscultation. Breath sounds equal bilaterally. No wheezes , rales, or rhonchi. GASTROINTESTINAL: Abdomen soft, protuberant. Bowel Sounds normoactive x4. Mild tenderness to palpation left quadrant area. MUSCULOSKELETAL: Extremities without clubbing, cyanosis. Bilateral lower extremity edema left greater than right, +1. NEUROLOGICAL: Awake and alert. Oriented to time, place, person. No focal neuro deficit. Moves all extremities. Normal speech. Pt update on day of discharge Follow-up visit uncontrolled diabetes type 2, sore throat, chronic pain. Patient seen and examined today sitting up in the bed. Patient states she doesn 't want to go home and she thinks that she needs to stay more or longer at the hospital. When discussed with patient that she refused to take her insulin last night, she states that because they didn't come back. Patient continues to complain with her chronic conditions including neuropathic pain, back pain. She states that "I don't have a car to go home, I don't have keys to my house." Discuss and explained with patient that all her medical conditions are chronic and management should continue with her current regimen and that she needs to follow-up with her primary care doctor. Hospital Course Patient is a 62-year-old female who came into the hospital secondary to complaints of abdominal pain associated with nausea vomiting. Noncompliant with home medications. DM type II with hyperglycemia and has been uncontrolled. Her hospital course includes adjustment of all insulins. She was also referred to software educator which she has refused. Patient has been noncompliant on and off during hospitalization. But has been very adamant with getting her a medication including methadone and oxycodone. Patient appears to be with seeking behavior. She wanted her methadone in combination with oxycodone to be given at the same time. She was also asking for Xanax instead of Ativan. she Reports she buys Xanax on the street. She was counselled. Patient was informed she will not get Xanax. Her abdominal CT showed no evidence of acute abdominal or pelvic process. No masses are identified. 2. Fatty infiltration of the liver with splenomegaly. Spleen irregularly is new when compared to prior study. Discuss with patient extensively during her stay regarding precautions on splenomegaly. 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 No hematology workup at this time. Her regimen on discharge would be Levemir 72 units twice a day, prandial insulin 20 units 3 times a day. Her diabetic neuropathy continues because of uncontrolled diabetes mellitus management prior to hospitalization, she will continue with gabapentin. Her bilateral lower extremity edema was negative for DVT and she will have 2 doses of Lasix when she goes home. She has vaginal candidiasis which is being treated with Monistat and she still has 3 more doses. Her sore throat complaint did not show any evidence of infectious process on exam there was no erythema on the tonsillar area, tympanic membranes are clear without any effusions, no cervical lymphadenopathies noted. Discussed with patient she will need to follow-up with her primary care doctor either Dr. Zabala and will be transitioned to [facility]. PT recommended walker use, will provide DME for walker. Patient is clinically stable and has no immediate need for acute care management. Discharge was coordinated extensively with CM and nursing. Pt Condition on Discharge: Stable Discharge Disposition: Discharge Home Discharge Time: > 30 minutes Discharge Instructions DIET: Follow Instructions for: Diabetic Diet Speech Therapy-Diet Recommends: Regular Activities you can perform: Weight Bearing as Farhad Follow up Referrals: PCP Follow-up - 1 Month with [facility] New Medications: Glucocom Test Strips (Glucocom Test Strips) 1 Roseline Roseline EA .ROUTE DIRECTED for Blood Sugar Management, #1 Insulin Syringe/U-100/31G X 5/16" 1 ml (Insulin Syringe/U-100/31G X 5/16" 1 ml) 31 Gauge X 5/16" Mis EA .ROUTE DIRECTED for Blood Sugar Management, #1 0 Refills Walker Rolling/GetGo (Walker Rolling/GetGo) 1 Mis Mis EA .ROUTE DIRECTED, #1 Clotrimazole Vaginal (Sm Clotrimazole Vaginal) 1 % Cre 1 APPL VAGINAL HS for [employer] for 3 Days, #3 TUBE Famotidine (Famotidine) 20 Mg Tab 20 MG PO BID for Reflux, #30 TAB Furosemide (Furosemide) 20 Mg Tab 20 MG PO DAILY for Edema, #2 TAB Gabapentin (Neurontin) 300 Mg Cap 600 MG PO TID for Neuropathy, #90 CAP Insulin Aspart Inj (Novolog Inj) 1,000 Unit/10 Ml Vial 20 UNITS SQ TIDAC for Blood Sugar Management for 30 Days, #10 INJECTION Give 1 month Supply Insulin Detemir Inj (Levemir Inj) 1,000 unit/ 10 ML Vial 72 UNITS SQ Q12HR for Blood Sugar Management for 30 Days, #10 INJECTION Do not mix with any other Insulin. Saline Nasal ([employer] Nasal) 0.65% [place] 2 SPRAY EACH NARE Q4H PRN for NASAL CONGESTION for 10 Days, #1 BOTTLE Sucralfate (Carafate) 1 Gram Tab 1 GM PO ACHS for Reflux, #90 TAB [guaiFENesin ER] () 600 MG TABCR 600 MG PO BID for Cough, #10 Corinne Antunez May 07, 2017 08:50 Antony Solano MD May 26, 2017 15:33
[2017-05-07] MEDS ORDERED: FUROSEMIDE 20 MG TAB PO SCH (09:00)
[2017-05-07] MEDS: ENOXAPARIN SODIUM 40 MG/0.4 ML SYRINGE SQ SCH (10:00)
[2017-05-07] MEDS ORDERED: GLUCTES12 (11:14)
[2017-05-07] MEDS ORDERED: INSU1MIS15 (11:14)
[2017-05-07 12:00] VITALS: BP 122/57; PULSE 70; RESP 17; TEMP 97.7; O2SAT 94
[2017-05-07] MEDS ORDERED: GETGO ROLLING W1 MI1 (14:36)
== END 2017-05-07 15:34 | disposition home or self-care (01) | DRG 638 ==
LOC: NEPC 06:15 → INTOOBSV 10:01 → NEDA 10:01 → NEPFCDU 18:26 → OBSVTOIN 04-23 08:14 → N04B 04-24 15:00
PROVIDERS: ADMIT Family Medicine; ATTEND Family Medicine
DX: E11.65 Type 2 diabetes mellitus with hyperglycemia (principal); K76.6 Portal hypertension; E11.40 Type 2 diabetes mellitus with diabetic neuropathy, unspecified; J44.1 Chronic obstructive pulmonary disease with (acute) exacerbation; F11.20 Opioid dependence, uncomplicated; D69.59 Other secondary thrombocytopenia; E87.1 Hypo-osmolality and hyponatremia; F41.9 Anxiety disorder, unspecified; Z91.14 Patient's other noncompliance with medication regimen; K75.81 Nonalcoholic steatohepatitis (NASH); I10 Essential (primary) hypertension; F32.9 Major depressive disorder, single episode, unspecified; E78.5 Hyperlipidemia, unspecified; F17.210 Nicotine dependence, cigarettes, uncomplicated; K21.9 Gastro-esophageal reflux disease without esophagitis; E66.9 Obesity, unspecified; Z79.4 Long term (current) use of insulin; B19.20 Unspecified viral hepatitis C without hepatic coma; G89.29 Other chronic pain; J02.9 Acute pharyngitis, unspecified; Z86.711 Personal history of pulmonary embolism
CPT/HCPCS: 71010; 74177; 76937; 80048; 80053; 80061; 81001; 82010; 82805; 82947; 82948; 83036; 83690; 84439; 84443; 85007; 85025; 85027; 93005; 93970; 94150; 94640; 94664; 96361; 96372; 96374; 96375; G0378; J1650; J1815; J2405; J7030; J7613; Q9963; Q9967

== ENCOUNTER 2017-06-03 16:18 | Inpatient (IN) | payer SELFPAY ==
[~2017-06-03] VITALS: Ht 165.1 cm; Wt 98.8 kg
[~2017-06-03 16:18] MED LIST changes: +CARA1TAB6 PO; +FAMO20TA2 PO; +FURO20TA PO; +GETGO ROLLING W1 MI1; +GLUCTES12; +INSU1MIS15; +OCEA0.653 EACH NARE; +SM C1CRE VAGINAL; +guaiFENesin ER PO
[2017-06-03] MEDS ORDERED: SODIUM CHLOR 0.9% 1000 ML INJ 1,000 ML IV SCH (16:26)
[2017-06-03] MEDS ORDERED: MORPHINE SULFATE 4 MG/ML INJ IV PUSH ONE (16:30)
[2017-06-03] MEDS ORDERED: ONDANSETRON HCL 4 MG/2 ML VIAL IVP ONE (16:30)
[2017-06-03 16:35] VITALS: BP 165/90; PULSE 68; RESP 16; TEMP 97.7; O2SAT 97
--- NOTE | 2017-06-03 17:01 | PD ---
HPI Chief Complaint: Fall Time Seen by Provider: 16:32 Travel History International Travel<30 days: No Contact w/Intl Traveler<30days: No Traveled to known affect area: No History of Present Illness HPI 62-year-old female with history of diabetes is brought in by EMS status post trip and fall at [facility]. Patient is complaining of left arm and rib pain status post fall onto the curb. Patient states she lost her balance she did not pass out. She denies head injury or neck pain. Patient denies loss of consciousness. Patient has history of uncontrolled diabetes in the past and current blood sugar is 427 per EMS. Patient has 8 out of 10 pain in the left shoulder and upper arm. She denies numbness but does not want to move it or be touched. She is able to wiggle her fingers in the left hand. It is guarded in the flexed position. Sling is in placed per EMS. No IV has been placed as the patient is a very difficult stick usually requiring ultrasound IV. No pain to been given prior to arrival. Patient is allergic to erythromycin and ketorolac. PFSH Past Medical History Medical History: Denies Significant Hx Hx Anticoagulant Therapy: No Arthritis: Yes Blood Disorders: No Anxiety: Yes Depression: Yes Cancer: No Cardiovascular Problems: No High Cholesterol: Yes Chemotherapy: No Chest Pain: Yes COPD: Yes Cerebrovascular Accident: No Diabetes: Yes Diminished Hearing: Yes Deep Vein Thrombosis: Yes Endocrine: Yes Gastrointestinal Disorders: Yes Genitourinary: Yes Hepatitis: Yes (B/C) Hiatal Hernia: Yes Hypertension: Yes Immune Disorder: No Implanted Vascular Access Dvce: No Musculoskeletal: Yes Neurologic: Yes Psychiatric: Yes Reproductive: No Respiratory: No Integumentary: Yes (IVDA) Pneumonia: Yes Thyroid Disease: No Ulcer: Yes Tetanus Vaccination: Unknown Influenza Vaccination: No Menopausal: Yes : 3 Para: 2 Miscarriage: 1 Past Surgical History Body Medical Devices: NONE Gynecologic Surgery: Yes Hysterectomy: No Oral Surgery: Yes (EGD) Pacemaker: No Thoracic Surgery: Yes (GRISELDA BREAST REDUCTION) Other Surgery: Yes (bladder repair and breast reduction) Social History Alcohol Use: No Tobacco Use: Yes (1/2 ppd) Substance Use: No Allergies-Medications (Allergen,Severity, Reaction): Coded Allergies: erythromycin base (Unverified Allergy, Severe, Rash, 06/03/17) ketorolac (Unverified Allergy, Severe, Shortness of Breath, 06/03/17) Reported Meds & Prescriptions Reported Meds & Active Scripts Active Glucocom Test Strips (Blood Glucose Test Strips) 1 Roseline Roseline Ea .ROUTE DIRECTED Insulin Syringe/U-100/31G X 16" 1 ml 31 Gauge X 01/14" Mis Ea .ROUTE DIRECTED Novolog Inj (Insulin Aspart) 1,000 Unit/10 Ml Vial 20 Units SQ TIDAC 30 Days Give 1 month Supply Famotidine 20 Mg Tab 20 Mg PO BID Neurontin (Gabapentin) 300 Mg Cap 600 Mg PO TID Levemir Inj (Insulin Detemir) 1,000 unit/ 10 ML Vial 55 Units SQ BID Give 30 day supply. Novolog Inj (Insulin Aspart) 1,000 Unit/10 Ml Vial 1-9 Units SQ ACHS sugars less than 70,(0)units; sugars 150-199,(1) unit; sugars 200-249,(3) units; sugars 250-299,(5) units; sugars 300-349,(7) units; sugars > 349,(9) units Reported Methadone (Methadone HCl) 40 Mg Tab 100 Mg PO DAILY Review of Systems General / Constitutional: No: Fever Eyes: No: Visual changes HENT: No: Headaches Cardiovascular: No: Chest Pain or Discomfort Respiratory: No: Shortness of Breath Gastrointestinal: No: Abdominal Pain Genitourinary: No: Dysuria Musculoskeletal: Positive: Arthralgias, Limited ROM, Pain Skin: No Rash Neurologic: No: Weakness Psychiatric: No: Depression Endocrine: No: Polydipsia Hematologic/Lymphatic: No: Easy Bruising Physical Exam Narrative GENERAL: Patient is in obvious distress. No open wounds. SKIN: Warm and dry. Normal color. Normal turgor. No obvious ecchymosis or swelling HEAD: Atraumatic. Normocephalic. EYES: Pupils equal and round. No scleral icterus. No injection or drainage. ENT: No nasal bleeding or discharge. Mucous membranes pink and moist. Pharynx is clear. Airway is patent. NECK: Trachea midline. No bony tenderness or step-off. Range of motion is full without tenderness. CARDIOVASCULAR: Regular rate and rhythm. RESPIRATORY: No accessory muscle use. Clear to auscultation. Breath sounds equal bilaterally. GASTROINTESTINAL: Abdomen soft, non-tender, nondistended. Hepatic and splenic margins not palpable. MUSCULOSKELETAL: Extremities without clubbing, cyanosis, or edema. No obvious deformities. Patient very difficult to examine secondary to her pain. Pain seems to be localized to the left proximal humerus and left upper lateral thorax. NEUROLOGICAL: Awake and alert. No obvious cranial nerve deficits. Motor grossly within normal limits. Five out of 5 muscle strength in the arms and legs. Normal speech. PSYCHIATRIC: Appropriate mood and affect; insight and judgment normal. Data Data Last Documented VS Vital Signs Date Time Temp Pulse Resp B/P (MAP) Pulse Ox O2 Delivery O2 Flow Rate FiO2 06/03/17 18:06 60 16 148/93 (111) 96 Room Air 06/03/17 16:35 97.7 Orders Orders Complete Blood Count With Diff (06/03/17 16:26) Comprehensive Metabolic Panel (06/03/17:) Lipase (06/03/17 16:26) Iv Access Insert/Monitor (06/03/17 16:26) Ecg Monitoring (06/03/17 16:26) Oximetry (06/03/17 16:26) NPO (06/03/17 16:26) Morphine Inj (Morphine Inj) (06/03/17 16:30) Ondansetron Inj (Zofran Inj) (06/03/17 16:30) Sodium Chlor 0.9% 1000 Ml Inj (Ns 1000 M (06/03/17 16:26) Sodium Chloride 0.9% Flush (Ns Flush) (06/03/17 16:30) Electrocardiogram (06/03/17 16:26) Humerus (Min 2vws) (06/03/17 16:26) Ice/Cold Pack (06/03/17 16:26) Elbow, Limited (Ap&Lat) (06/03/17 16:26) Shoulder, Limited(2vws) (06/03/17 16:26) Chest, Single Ap (06/03/17 16:26) Hydromorphone Pf Inj (Dilaudid Pf Inj) (06/03/17 17:45) Splint Or Brace Apply/Monitor (06/03/17 17:58) Insulin Human Regular Inj (Novolin R Inj (06/03/17 18:15) Diet 1800 Ada Cons Carb (06/03/17 Dinner) Vital Signs (Adult) MAGGIE.Q4H (06/03/17 18:25) Blood Glucose Goal (Criteria) (06/03/17 18:25) Hypoglycemia 70 Mg/Dl Or < (06/03/17 18:25) Notify Dr: Other (06/03/17 18:25) Dextrose 50% In Thaddeus (Vial) Inj (D50w (Vi (06/03/17 18:30) Glucagon Inj (Glucagon Inj) (06/03/17 18:30) Insulin Aspart Supplemtl Scale (Novolog (06/03/17 21:00) Sodium Chlor 0.9% 1000 Ml Inj (Ns 1000 M (06/03/17 18:30) Consult Orthopedic (06/03/17 ) Ondansetron Inj (Zofran Inj) (06/03/17 18:30) Basic Metabolic Panel (Bmp) (06/04/17 06:00) Admit Order (Ed Use Only) (06/03/17 18:26) Labs Laboratory Tests Test 06/03/17 17:00 White Blood Count 9.6 TH/MM3 Red Blood Count 4.99 MIL/MM3 Hemoglobin 14.8 GM/DL Hematocrit 44.0 % Mean Corpuscular Volume 88.1 FL Mean Corpuscular Hemoglobin 29.5 PG Mean Corpuscular Hemoglobin Concent 33.5 % Red Cell Distribution Width 13.0 % Platelet Count 173 TH/MM3 Mean Platelet Volume 11.4 FL Neutrophils (%) (Auto) 81.6 % Lymphocytes (%) (Auto) 12.2 % Monocytes (%) (Auto) 4.1 % Eosinophils (%) (Auto) 1.8 % Basophils (%) (Auto) 0.3 % Neutrophils # (Auto) 7.8 TH/MM3 Lymphocytes # (Auto) 1.2 TH/MM3 Monocytes # (Auto) 0.4 TH/MM3 Eosinophils # (Auto) 0.2 TH/MM3 Basophils # (Auto) 0.0 TH/MM3 CBC Comment AUTO DIFF Differential Comment AUTO DIFF CONFIRMED Platelet Estimate LOW Platelet Morphology Comment NORMAL Blood Urea Nitrogen 13 MG/DL Creatinine 1.13 MG/DL Random Glucose 432 MG/DL Total Protein 8.4 GM/DL Albumin 3.1 GM/DL Calcium Level 8.6 MG/DL Alkaline Phosphatase 107 U/L Aspartate Amino Transf (AST/SGOT) 211 U/L Alanine Aminotransferase (ALT/SGPT) 215 U/L Total Bilirubin 1.0 MG/DL Sodium Level 129 MEQ/L Potassium Level 4.5 MEQ/L Chloride Level 96 MEQ/L Carbon Dioxide Level 25.8 MEQ/L Anion Gap 7 MEQ/L Estimat Glomerular Filtration Rate 49 ML/MIN Lipase 44 U/L [facility] Medical Decision Making Medical Screen Exam Complete: Yes Emergency Medical Condition: Yes Medical Record Reviewed: Yes Differential Diagnosis Trip and fall. Left thoracic contusion. Rib fracture. Left upper arm contusion. Left upper arm fracture. Shoulder dislocation. Elevated serum glucose. Narrative Course Patient is medically stable at time of exam although very uncomfortable. IV access is obtained. Labs ordered including CBC, CMP, lipase, and urinalysis. Patient is made nothing by mouth. Patient is given 4 mg morphine IV as well as 4 mg Zofran IV. Patient is given 1000 miles normal saline bolus. X-rays of the left shoulder, humerus, elbow, and ribs are ordered. Patient is given 1 mg Dilaudid IM after her x-rays as pain is not controlled. Patient has a somewhat compacted surgical neck fracture of the left humerus. CBC is unremarkable. CMP shows sodium 129, potassium is 4.5, chloride is 96, creatinine is 1.13, GFR is 49, glucose is 432. AST and ALT are elevated at 211 and 2:15 respectively. 1820 Calls placed to the hospitalist for admission, with consult to orthopedics. Patient is placed in a shoulder immobilizer. Patient is discussed with Dr. Ramirez who agrees to admit the patient for observation with orthopedic consult. Patient is given Percocet 10/325 by mouth Diagnosis Primary Impression: Closed left humeral fracture Qualified Codes: S42.212A - Unspecified displaced fracture of surgical neck of left humerus, initial encounter for closed fracture Additional Impressions: Hyperglycemia Hyponatremia Admitting Information Admitting Physician Requests: Admit Condition: Stable Amrik Alvares Jun 03, 2017 17:01
[2017-06-03 17:42] LABS: AUTOMATED NEUTROPHIL # 7.8 TH/MM3 (1.8-7.7); BASOPHIL % 0.3 % (0.0-2.0); EOSINOPHIL # 0.2 TH/MM3 (0-0.4); EOSINOPHIL % 1.8 % (0.0-4.0); LYMPH % 12.2 % (9.0-44.0); LYMPHOCYTE # 1.2 TH/MM3 (1.0-4.8); MEAN CELL VOLUME 88.1 FL (80.0-100.0); MEAN CORPUSCULAR HEMOGLOBIN 29.5 PG (27.0-34.0); MEAN CORPUSCULAR HGB CONC 33.5 % (32.0-36.0); MONO % 4.1 % (0.0-8.0); NEUT % 81.6 % (16.0-70.0); RED BLOOD COUNT 4.99 MIL/MM3 (4.00-5.30); WHITE BLOOD COUNT 9.6 TH/MM3 (4.0-11.0)
[2017-06-03] MEDS ORDERED: HYDROmorphone HCL PF 1 MG/ML VIAL IV PUSH ONE ×2 (17:45→22:30)
[2017-06-03 17:59] LABS: HEMO FLAGS AUTO DIFF
--- NOTE | 2017-06-03 17:59 | RADRPT ---
EXAM DATE/TIME: 06/03/2017 17:12 [facility] COMPARISON: No previous studies available for comparison. INDICATIONS : Left shoulder pain after falling today. MEDICAL HISTORY : Diabetes mellitus type II. Smoker. SURGICAL HISTORY : None. ENCOUNTER: Initial ACUITY: 1 day PAIN SCORE: 10/10 LOCATION: Left humeral head FINDINGS: Slightly impacted left humeral surgical neck fracture.. Glenohumeral joint is maintained. Remaining o sseous structures are intact. The left lung is clear. CONCLUSION: 1. Left humeral surgical neck fracture, as above. Cricket Gay MD on June 03, 2017 at 17:56 Board Certified Radiologist. This report was verified electronically.
--- NOTE | 2017-06-03 18:00 | RADRPT ---
EXAM DATE/TIME: 06/03/2017 17:20 [facility] COMPARISON: No previous studies available for comparison. INDICATIONS : Left elbow pain after falling today. MEDICAL HISTORY : Diabetes mellitus type II. Smoker. SURGICAL HISTORY : None. ENCOUNTER: Initial ACUITY: 1 day PAIN SCORE: 3/10 LOCATION: Left elbow. FINDINGS: Two view examination of the left elbow demonstrates no soft tissue swelling, joint effusion, fracture or dislocation. Soft tissue calcification noted posterior to the elbow. Bony mineralization is jarek l. CONCLUSION: 1. No acute fracture or dislocation. Cricket Gay MD on June 03, 2017 at 17:57 Board Certified Radiologist. This report was verified electronically.
--- NOTE | 2017-06-03 18:04 | RADRPT ---
EXAM DATE/TIME: 06/03/2017 17:31 [facility] COMPARISON: HUMERUS LEFT (MIN 2VWS), June 03, 2017, 17:16. CHEST SINGLE AP, April 22, 2017, 14:53. INDICATIONS : Chest pain after falling today. MEDICAL HISTORY : Diabetes mellitus type II. Smoker. SURGICAL HISTORY : Breast reduction. ENCOUNTER: Initial ACUITY: 1 day PAIN SCORE: 10/10 LOCATION: Left chest FINDINGS: A single view of the chest demonstrates the lungs to be symmetrically aerated without evidence of mas s, infiltrate or effusion. The cardiomediastinal contours are unremarkable. Osseous structures are grossly intact. CONCLUSION: 1. No acute cardiopulmonary disease. Cricket Gay MD on June 03, 2017 at 18:01 Board Certified Radiologist. This report was verified electronically.
[2017-06-03 18:05] LABS: ALKALINE PHOSPHATASE 107 U/L (45-117); ALT (GPT) 215 U/L (10-53); ANION GAP 7 MEQ/L (5-15); AST (GOT) 211 U/L (15-37); BICARBONATE 25.8 MEQ/L (21.0-32.0); BLOOD UREA NITROGEN 13 MG/DL (7-18); CHLORIDE 96 MEQ/L (98-107); GLOMERULAR FILTRATION RATE 49 ML/MIN (>89); POTASSIUM 4.5 MEQ/L (3.5-5.1); SODIUM (NA) 129 MEQ/L (136-145)
--- NOTE | 2017-06-03 18:05 | RADRPT ---
EXAM DATE/TIME: 06/03/2017 17:16 [facility] COMPARISON: SHOULDER LEFT LTD (2VWS), June 03, 2017, 17:12. INDICATIONS : Left humerus pain after falling today. MEDICAL HISTORY : Diabetes mellitus type II. Smoker. SURGICAL HISTORY : None. ENCOUNTER: Initial ACUITY: 1 day PAIN SCORE: 10/10 LOCATION: Left humeral head and midshaft. FINDINGS: There is fracture at the surgical neck of the left proximal humerus. The glenohumeral joint appears n ormally aligned. There is some hypertrophic calcification seen lateral to the humeral head. There is also some calcific hypertrophic change adjacent to the lateral epicondyle at the elbow. CONCLUSION: Fracturing at the surgical neck region of the proximal left humerus. Hima Richard MD on June 03, 2017 at 18:02 Board Certified Radiologist. This report was verified electronically.
[2017-06-03 18:06] VITALS: BP 148/93; PULSE 60; RESP 16; O2SAT 96
[2017-06-03] MEDS ORDERED: INSULIN HUMAN REGULAR 1,000 UNITS/10 ML VIAL IV PUSH ONE (18:15)
[2017-06-03] MEDS ORDERED: ONDANSETRON HCL 4 MG/2 ML VIAL IV PUSH PRN (18:30)
[2017-06-03] MEDS ORDERED: DEXTROSE 50% IN WATER 50 ML VIAL(D50) IV PUSH PRN (18:30)
[2017-06-03] MEDS ORDERED: GLUCAGON 1 MG/ML VIAL OTHER PRN (18:30)
[2017-06-03 18:31] LABS: PLATELET COUNT 173 TH/MM3 (150-450)
[2017-06-03 18:32] LABS: PLATELET ESTIMATE SMEAR LOW (NORMAL); PLATELET MORPHOLOGY NORMAL (NORMAL); SCAN/DIFF AUTO DIFF CONFIRMED
[2017-06-03] MEDS ORDERED: oxyCODONE/ACETAMINOPHEN 10 MG/325 MG TAB PO ONE (18:45)
[2017-06-03 18:46] VITALS: BP 152/90; PULSE 60; RESP 16; O2SAT 100
[2017-06-03 19:24] VITALS: BP 149/83; PULSE 57; RESP 18; TEMP 99.1; O2SAT 98
[2017-06-03] MEDS: SODIUM CHLOR 0.9% 1000 ML INJ 1,000 ML IV SCH (20:27)
[2017-06-03] MEDS: HYDROmorphone HCL PF 1 MG/ML VIAL IV PUSH PRN (21:30)
[2017-06-03] MEDS ORDERED: METOPROLOL TARTRATE 25 MG TAB PO PRN (22:00)
[2017-06-03] MEDS ORDERED: SODIUM CHLORID 0.9% 500 ML IV PRN (22:00)
[2017-06-03] MEDS ORDERED: POVIDONE IODINE 5% (ANTISEPSIS KIT) 4 APPLICATIONS EACH NARE PRN (22:00)
[2017-06-03] MEDS ORDERED: CHLORHEXIDINE GLUCONATE 2 % 1 PACK (2 CLOTHS) TOPICAL PRN (22:00)
[2017-06-03] MEDS ORDERED: INSULIN HUMAN REGULAR 1,000 UNITS/10 ML VIAL SQ PRN (22:00)
[2017-06-03] MEDS ORDERED: LACTATED RINGER'S 1000 ML IV PRN (22:00)
--- NOTE | 2017-06-03 22:33 | HHI.HP ---
[facility] No Primary Care Physician Admission Diagnosis hyperglycemia/hyponatremia/Left shoulder fracture Diagnoses: (1) Closed left humeral fracture (2) Type II diabetes mellitus (3) Poorly controlled diabetes mellitus (4) Hyponatremia Chief Complaint: Severe left upper pain s/p fall Travel History International Travel<30 Days: No Contact w/Intl Traveler <30 Da: No Traveled to Known Affected Are: No History of Present Illness Written by Annika Wells, acting as scribe for Dr. Farley on 06/03/17 at 22:33. The patient is seen in her room. She reports that she was at [employer], got out of her car, stepped on uneven pavement, tripped, and fell. She fell onto her left chest wall/left side with severe left arm pain afterwards. She denies hitting her head. She is writhing in pain unless distracted. She reports the worst pain she's ever had in left upper arm. She has chronic back pain and takes Methadone for this. She reports taking Methadone 110 mg daily p.o. daily and records from her May admission here indicate the dose as 100 mg daily. Methadone dosing will need to be verified during day with Methadone clinic. She appears to have drug seeking behaviors throughout the visit. Denies being on blood thinners. Denies history of anesthesia reaction. Review of Systems Except as stated in HPI: all other systems reviewed are Neg Past Family Social History Past Medical History Hepatitis B or C - unsure which Diabetes Mellitus PE a couple of years ago - was on Warfarin for about 6 months Chronic back pain Denies hypertension, CAD, CHF, atrial fibrillation, COPD, asthma, kidney problems, DVT, CVA, seizures, thyroid problems, or cancers . Past Surgical History Bladder repair Breast Reduction . Reported Medications Reported Meds & Active Scripts Active Glucocom Test Strips (Blood Glucose Test Strips) 1 Roseline Roseline Ea .ROUTE DIRECTED Insulin Syringe/U-100/31G X 5/16" 1 ml 31 Gauge X 5/16" Mis Ea .ROUTE DIRECTED Novolog Inj (Insulin Aspart) 1,000 Unit/10 Ml Vial 20 Units SQ TIDAC 30 Days Give 1 month Supply Famotidine 20 Mg Tab 20 Mg PO BID Neurontin (Gabapentin) 300 Mg Cap 600 Mg PO TID Levemir Inj (Insulin Detemir) 1,000 unit/ 10 ML Vial 55 Units SQ BID Give 30 day supply. Novolog Inj (Insulin Aspart) 1,000 Unit/10 Ml Vial 1-9 Units SQ ACHS sugars less than 70,(0)units; sugars 150-199,(1) unit; sugars 200-249,(3) units; sugars 250-299,(5) units; sugars 300-349,(7) units; sugars > 349,(9) units Reported Methadone (Methadone HCl) 40 Mg Tab 100 Mg PO DAILY . Allergies: Coded Allergies: erythromycin base (Unverified Allergy, Severe, Rash, 06/03/17) ketorolac (Unverified Allergy, Severe, Shortness of Breath, 06/03/17) Active Ordered Medications Current Medications Morphine Sulfate (Morphine Inj) 4 mg ONCE ONCE IV PUSH Last administered on 16:55; Start 06/03/17 at 16:30; Stop 06/03/17 at 16:32; Status DC Ondansetron HCl (Zofran Inj) 4 mg ONCE ONCE IVP Last administered on 16:56; Start 06/03/17 at 16:30; Stop 06/03/17 at 16:32; Status DC Sodium Chloride 1,000 ml @ 1,000 mls/hr Q1H IV Last administered on 06/03/17 16:56; Start 06/03/17 at 16:26; Stop 06/03/17 at 17:25; Status DC Sodium Chloride (NS Flush) 2 ml UNSCH PRN IV FLUSH FLUSH AFTER USING IV ACCESS ; Start 06/03/17 at 16:30 Hydromorphone HCl (Dilaudid Pf Inj) 1 mg ONCE ONCE IV PUSH Last administered on 06/03/17 18:03; Start 06/03/17 at 17:45; Stop 06/03/17 at 17:46; Status DC Insulin Human Regular (NovoLIN R INJ) 10 units ONCE ONCE IV PUSH Last administered on 06/03/17 18:15; Start 06/03/17 at 18:15; Stop 06/03/17 at 18:16 ; Status DC Dextrose (D50w (Vial) Inj) 50 ml UNSCH PRN IV PUSH HYPOGLYCEMIA-SEE COMMENTS; Start 06/03/17 at 18:30 Glucagon (Glucagon Inj) 1 mg UNSCH PRN OTHER HYPOGLYCEMIA-SEE COMMENTS; Start 06/03/17 at 18:30 Insulin Aspart (NovoLOG SUPPLEMENTAL SCALE) 1 ACHS SLIDING SCALE SQ ; Start at 21:00 Sodium Chloride 1,000 ml @ 100 mls/hr Q10H IV Last administered on 06/03/17 20:27; Start 06/03/17 at 18:30 Ondansetron HCl (Zofran Inj) 4 mg Q8HR PRN IV PUSH NAUSEA; Start 06/03/17 at 18 :30 Oxycodone/ Acetaminophen (Percocet 10-325 Mg) 1 tab ONCE ONCE PO Last administered on 06/03/17 18:52; Start 06/03/17 at 18:45; Stop 06/03/17 at 18:47 ; Status DC Hydromorphone HCl (Dilaudid Pf Inj) 1 mg Q3H PRN IV PUSH pain >5 Last administered on 06/03/17 21:30; Start 06/03/17 at 20:15 Lactated Ringer's 1,000 ml @ 30 mls/hr Q24H PRN IV SEE LABEL COMMENTS; Start 06/03/17 at 22:00; Stop 06/06/17 at 21:59 Sodium Chloride 500 ml @ 30 mls/hr [id number] PRN IV SEE LABEL COMMENTS; Start at 22:00; Stop 06/06/17 at 21:59 Metoprolol Tartrate (Lopressor) 25 mg TILE AND MARBLE INSTALLER PRN PO SEE LABEL COMMENTS; Start 06/03/17 at 22:00; Stop 06/06/17 at 21:59 Povidone Iodine (Betadine 5% Antisepsis Kit) 1 applic TILE AND MARBLE INSTALLER PRN EACH NARE SEE LABEL COMMENTS; Start 06/03/17 at 22:00; Stop 06/06/17 at 21:59 Chlorhexidine Gluconate (Chlorhexidine 2% Cloth) 3 pack TILE AND MARBLE INSTALLER PRN TOPICAL SEE LABEL COMMENTS; Start 06/03/17 at 22:00; Stop 06/06/17 at 21:59 Insulin Human Regular (NovoLIN R INJ) See Protocol Table ... TILE AND MARBLE INSTALLER PRN SQ SEE PROTOCOL TABLE; Start 06/03/17 at 22:00; Stop 06/06/17 at 21:59 . Family History Mother with diabetes mellitus . Social History Tobacco: smokes 1/2 PPD Alcohol: denies Illicit drugs: denies . Physical Exam Vital Signs Vital Signs Date Time Temp Pulse Resp B/P (MAP) Pulse Ox O2 Delivery O2 Flow Rate FiO2 06/03/17 19:37 20 06/03/17 19:37 20 06/03/17 18:46 60 16 152/90 (110) 100 Room Air 06/03/17 18:06 60 16 148/93 (111) 96 Room Air 06/03/17 16:35 97.7 68 16 165/90 (115) 97 Physical Exam GENERAL: This is a female patient, writhing in pain unless distracted. SKIN: No rashes. Cool and dry. HEAD: Atraumatic. Normocephalic. EYES: No scleral icterus. No injection or drainage. ENT: Nose without bleeding, purulent drainage. Airway patent. NECK: Trachea midline. No JVD. CARDIOVASCULAR: Regular rate and rhythm without murmurs, gallops, or rubs. RESPIRATORY: Clear to auscultation. Breath sounds equal bilaterally. No wheezes , rales, or rhonchi. GASTROINTESTINAL: Abdomen soft, non-tender, nondistended. No guarding. MUSCULOSKELETAL: Extremities without clubbing, cyanosis, or edema. Left shoulder not in splint. Patient reports severe pain. NEUROLOGICAL: Awake and alert. Motor and sensory grossly within normal limits. Normal speech. . Laboratory Laboratory Tests Test 06/03/17 17:00 White Blood Count 9.6 Red Blood Count 4.99 Hemoglobin 14.8 Hematocrit 44.0 Mean Corpuscular Volume 88.1 Mean Corpuscular Hemoglobin 29.5 Mean Corpuscular Hemoglobin Concent 33.5 Red Cell Distribution Width 13.0 Platelet Count 173 Mean Platelet Volume 11.4 Neutrophils (%) (Auto) 81.6 Lymphocytes (%) (Auto) 12.2 Monocytes (%) (Auto) 4.1 Eosinophils (%) (Auto) 1.8 Basophils (%) (Auto) 0.3 Neutrophils # (Auto) 7.8 Lymphocytes # (Auto) 1.2 Monocytes # (Auto) 0.4 Eosinophils # (Auto) 0.2 Basophils # (Auto) 0.0 CBC Comment AUTO DIFF Differential Comment AUTO DIFF CONFIRMED Platelet Estimate LOW Platelet Morphology Comment NORMAL Blood Urea Nitrogen 13 Creatinine 1.13 Random Glucose 432 Total Protein 8.4 Albumin 3.1 Calcium Level 8.6 Alkaline Phosphatase 107 Aspartate Amino Transf (AST/SGOT) 211 Alanine Aminotransferase (ALT/SGPT) 215 Total Bilirubin 1.0 Sodium Level 129 Potassium Level 4.5 Chloride Level 96 Carbon Dioxide Level 25.8 Anion Gap 7 Estimat Glomerular Filtration Rate 49 Lipase 44 Result Diagram: 06/03/17 1700 06/03/17 170 Imaging Last Impressions Shoulder X-Ray 06/03/171625 Signed Impressions: Service Date/Time: Saturday, June 03, 2017 17:12 - CONCLUSION: 1. Left humeral surgical neck fracture, as above. Cricket Gay MD Humerus X-Ray 06/03/171625 Signed Impressions: Service Date/Time: Saturday, June 03, 2017 17:16 - CONCLUSION: Fracturing at the surgical neck region of the proximal left humerus. Hima Richard MD Elbow X-Ray 06/03/171625 Signed Impressions: Service Date/Time: Saturday, June 03, 2017 17:20 - CONCLUSION: 1. No acute fracture or dislocation. Cricket Gay MD Chest X-Ray 06/03/171625 Signed Impressions: Service Date/Time: Saturday, June 03, 2017 17:31 - CONCLUSION: 1. No acute cardiopulmonary disease. Crickte Gay MD . Caprini VTE Risk Assessment Caprini VTE Risk Assessment: Mod/High Risk (score >= 2) Caprini Risk Assessment Model Point Value = 1 Point Value = 2 Point Value = 3 Point Value = 5 Age 41-60 Minor surgery BMI > 25 kg/m2 Swollen legs Varicose veins or History of unexplained or recurrent spontaneous Oral contraceptives or hormone replacement Sepsis (< 1 month) Serious lung disease, including pneumonia (< 1 month) Abnormal pulmonary function Acute myocardial infarction Congestive heart failure (< 1 month) History of inflammatory bowel disease Medical patient at bed rest Age 61-74 Arthroscopic surgery Major open surgery (> 45 min) Laparoscopic surgery (> 45 min) Malignancy Confined to bed (> 72 hours) Immobilizing plaster cast Central venous access Age >= 75 History of VTE Family history of VTE Factor V Leiden Prothrombin [id number] Lupus anticoagulant Anticardiolipin antibodies Elevated serum homocysteine Heparin-induced thrombocytopenia Other congenital or acquired thrombophilia Stroke (< 1 month) Elective arthroplasty Hip, pelvis, or leg fracture Acute spinal cord injury (< 1 month) Prophylaxis Regimen Total Risk Factor Score Risk Level Prophylaxis Regimen 0-1 Low Early ambulation 2 Moderate Order ONE of the following: *Sequential Compression Device (SCD) *Heparin 5000 units SQ BID 3-4 Higher Order ONE of the following medications: *Heparin 5000 units SQ TID *Enoxaparin/Lovenox 40 mg SQ daily (WT < 150 kg, CrCl > 30 mL/min) *Enoxaparin/Lovenox 30 mg SQ daily (WT < 150 kg, CrCl > 10-29 mL/min) *Enoxaparin/Lovenox 30 mg SQ BID (WT < 150 kg, CrCl > 30 mL/min) AND/OR *Sequential Compression Device (SCD) 5 or more Highest Order ONE of the following medications: *Heparin 5000 units SQ TID (Preferred with Epidurals) *Enoxaparin/Lovenox 40 mg SQ daily (WT < 150 kg, CrCl > 30 mL/min) *Enoxaparin/Lovenox 30 mg SQ daily (WT < 150 kg, CrCl > 10-29 mL/min) *Enoxaparin/Lovenox 30 mg SQ BID (WT < 150 kg, CrCl > 30 mL/min) AND *Sequential Compression Device (SCD) Assessment and Plan Problem List: (1) Closed left humeral fracture ICD Code: S42.302A - Unspecified fracture of shaft of humerus, left arm, initial encounter for closed fracture Status: Acute (2) Type II diabetes mellitus ICD Code: E11.9 - Type 2 diabetes mellitus without complications Status: Chronic (3) Hyperglycemia ICD Code: R73.9 - Hyperglycemia Status: Acute (4) Hyponatremia ICD Code: E87.1 - Hypo-osmolality and hyponatremia (5) Transaminitis ICD Code: R74.0 - Nonspecific elevation of levels of transaminase and lactic acid dehydrogenase [LDH] Status: Chronic Assessment and Plan 62 y/o female with chronic back pain on Methadone and diabetes mellitus who presents following fall in a parking lot with left humerus fracture: Left humerus fracture - orthopedic surgeon consulted - NPO for possible surgical repair in a.m. - Dilaudid 1 mg q3h PRN pain IV - additional dose ordered prior to visit due to patient's complaints of severe pain. - sling/cradle arm Chronic back pain - nursing to verify methadone dose with clinic prior to reconciling - continuous cardiac telemetry to monitor for cardiac arrhythmias/heart rate Type 2 diabetes mellitus with hyperglycemia - Blood glucose 432 in ED - patient reports taking Levemir 50 units subq q12h at home - will restart - Accu-Cheks before meals and at bedtime with low-dose NovoLog sliding scale coverage - Hypoglycemia protocol - Monitor trends and blood glucose readings and adjust treatments as indicated - 1800 ADA diet Transaminitis - AST 211, ALT 215 - likely secondary to hepatitis - stable compared to prior labs -Follow trends in LFTs Hyponatremia - Sodium replace the IV normal saline at 100 cc per hour - Recheck BMP in a.m. and follow sodium level results - Replace as indicated DVT prophylaxis - SCDs/TEDs This note was transcribed by scribe [Annika Wells]. I, Dr. Ceci Farley personally performed the history, physical exam, and medical decision making; and confirmed the accuracy of the information in the transcribed note. Authenticated by Dr. Ceci Farley on 06/03/17 at 22:33. Discussed Condition With ER physician, patient, and RN Physician Certification 2 Midnight Certification Type: Admission for Inpatient Services Order for Inpatient Services The services are ordered in accordance with Medicare regulations or non- Medicare payer requirements, as applicable. In the case of services not specified as inpatient-only, they are appropriately provided as inpatient services in accordance with the 2-midnight benchmark. Estimated LOS (days): 3 days is the estimated time the patient will need to remain in the hospital, assuming treatment plan goals are met and no additional complications. Post-Hospital Plan: Not yet determined Problem Qualifiers (1) Closed left humeral fracture: Qualified Codes: S42.212A - Unspecified displaced fracture of surgical neck of left humerus, initial encounter for closed fracture Annika Wells Jun 03, 2017 22:33 Ceci Farley MD Jun 05, 2017 22:58
[2017-06-03] MEDS: INSULIN ASPART SUPPLEMENTAL SCALE SQ SCH (23:00)
[2017-06-04] MEDS: HYDROmorphone HCL PF 1 MG/ML VIAL IV PUSH PRN ×3 (00:31→08:17)
[2017-06-04 01:15] VITALS: BP 142/90; PULSE 71; RESP 20; TEMP 99.5; O2SAT 94
[2017-06-04 05:14] VITALS: BP 133/83; PULSE 62; RESP 18; TEMP 97.3; O2SAT 94
[2017-06-04] MEDS: SODIUM CHLOR 0.9% 1000 ML INJ 1,000 ML IV SCH ×3 (05:18→22:12)
[2017-06-04 08:00] VITALS: BP 155/75; PULSE 61; RESP 19; TEMP 98.2; O2SAT 93
[2017-06-04] MEDS: INSULIN ASPART SUPPLEMENTAL SCALE SQ SCH ×4 (08:00→21:20)
[2017-06-04] MEDS: INSULIN DETEMIR 100 UNITS/ML VIAL SQ SCH ×2 (08:22→21:20)
--- NOTE | 2017-06-04 10:15 | EKG ---
Date Performed: 06/03/2017 Time Performed: 21:12:51 PTAGE: 62 years EKG: Sinus rhythm BORDERLINE LEFT AXIS DEVIATION LOW QRS VOLTAGE IN PRECORDIAL LEADS BORDERLINE ECG PREVIOUS TRACING : 04/21/2017 07.23 DOCTOR: Oneal Maddox Interpretating Date/Time 06/04/2017 10:13:19
[2017-06-04] MEDS: MORPHINE SULFATE 15 MG TAB PO PRN ×4 (10:59→23:57)
[2017-06-04 12:00] VITALS: BP 154/90; PULSE 67; RESP 19; TEMP 97.3; O2SAT 95
[2017-06-04] MEDS: METHADONE HCL 10 MG TAB PO SCH (13:17)
[2017-06-04] MEDS: FAMOTIDINE 20 MG TAB PO SCH ×2 (13:17→19:45)
[2017-06-04] MEDS: GABAPENTIN 300 MG CAP PO SCH ×2 (13:17→17:59)
[2017-06-04 16:00] VITALS: BP 115/68; PULSE 64; RESP 17; TEMP 97.7; O2SAT 95
[2017-06-04 16:13] LABS: ALKALINE PHOSPHATASE 85 U/L (45-117); ALT (GPT) 158 U/L (10-53); ANION GAP 8 MEQ/L (5-15); AST (GOT) 136 U/L (15-37); BICARBONATE 25.4 MEQ/L (21.0-32.0); BLOOD UREA NITROGEN 10 MG/DL (7-18); CHLORIDE 102 MEQ/L (98-107); GLOMERULAR FILTRATION RATE 64 ML/MIN (>89); SODIUM (NA) 135 MEQ/L (136-145); TOTAL BILIRUBIN ADULT 0.7 MG/DL (0.2-1.0)
[2017-06-04 16:21] LABS: POTASSIUM 4.6 MEQ/L (3.5-5.1)
--- NOTE | 2017-06-04 17:35 | HHI.PR ---
Subjective Remarks Nurse reports that the patient is complaining profoundly of pain, nurse also reports that the patient instantaneously starts wailing and moaning when she walks in the room entering upon the patient. Patient herself says that the Dilaudid is not doing much, once her methadone back on. Objective Vital Signs Date Time Temp Pulse Resp B/P (MAP) Pulse Ox O2 Delivery O2 Flow Rate FiO2 06/04/17 16:00 97.7 64 17 115/68 (84) 95 06/04/17 12:00 97.3 67 19 154/90 (111) 95 06/04/17 08:00 98.2 61 19 155/75 (101) 93 06/04/17 05:59 19 06/04/17 05:14 97.3 62 18 133/83 (100) 94 06/04/17 01:48 Room Air 06/04/17 01:15 99.5 71 20 142/90 (107) 94 06/03/17 23:31 18 06/03/17 19:37 20 06/03/17 19:37 20 06/03/17 19:24 99.1 57 18 149/83 (105) 98 06/03/17 18:46 60 16 152/90 (110) 100 Room Air 06/03/17 18:06 60 16 148/93 (111) 96 Room Air I/O 06/03/17 06/03/17 06/03/17 06/04/17 06/04/17 06/04/17 07:00 15:00 23:00 07:00 15:00 23:00 Intake Total 1240 ml 1120 ml Balance 1240 ml 1120 ml Intake Oral 240 ml 120 ml IV Total 1000 ml 1000 ml # Voids 0 1 # Bowel Movements 0 0 Result Diagram: 06/03/17 1700 06/04/17 1515 Imaging Last Impressions Shoulder X-Ray 06/03/17 1626 Signed Impressions: Service Date/Time: Saturday, June 03, 2017 17:12 - CONCLUSION: 1. Left humeral surgical neck fracture, as above. Cricket Gay MD Humerus X-Ray 06/03/17 1626 Signed Impressions: Service Date/Time: Saturday, June 03, 2017 17:16 - CONCLUSION: Fracturing at the surgical neck region of the proximal left humerus. Hima Richard MD Elbow X-Ray 06/03/171625 Signed Impressions: Service Date/Time: Saturday, June 03, 2017 17:20 - CONCLUSION: 1. No acute fracture or dislocation. Cricket Gay MD Chest X-Ray 06/03/171625 Signed Impressions: Service Date/Time: Saturday, June 03, 2017 17:31 - CONCLUSION: 1. No acute cardiopulmonary disease. Cricket Gay MD Objective Remarks Left arm and forearm and shoulder sling, wrist and fingers are mobile grossly; right arm with good full range of motion Patient appears very anxious, and mild to moderate distress secondary to pain A/P Assessment and Plan 62 y/o female with chronic back pain on Methadone and diabetes mellitus who presents following fall in a parking lot with left humerus fracture: Left humerus fracture - No surgical intervention needed per orthopedics, sling/cradle - We'll attempt a trial of by mouth narcotics (in addition to her methadone) and wean IV narcotics - We'll consult case management for home care if possible given patient's limited ability to perform ADLs given her current state - OT and PT consulted to give recs. Chronic back pain - Continue home methadone Type 2 diabetes mellitus with hyperglycemia - Accu-Cheks before meals and at bedtime with low-dose NovoLog sliding scale coverage - Hypoglycemia protocol - Monitor trends and blood glucose readings and adjust treatments as indicated - 1800 ADA diet Transaminitis - Secondary to hepatitis C, improved w/ IV hydration Hyponatremia - resolved w/ IV fluids Needs DVT prophylaxis - SCDs/TEDs . Discharge Planning Anticipated in a.m. after case management sorts out possibility of home care. Syed Lua MD Jun 04, 2017 17:35
--- NOTE | 2017-06-04 17:36 | PD.CONS ---
cc: Raul Blank Jr., MD HPI Service Orthopedic Surgeons Consult Requested By Primary Care Physician No Primary Care Physician Admission Diagnosis hyperglycemia/hyponatremia/Left shoulder fracture Diagnoses: (1) Closed left humeral fracture (2) Type II diabetes mellitus (3) Hyperglycemia (4) Hyponatremia (5) Transaminitis Diagnosis: Principal Chief Complaint: Left shoulder fracture History of Present Illness 62-year-old female history of drug abus and currently on high dose chronic narcotic medicine presented to emergency department after a fall complaining of LEFT shoulder pain. She is nvi. X-ray taken the emergency department reveal 2 part proximal humerus fracture. Denies any head injuries. Denies loss of consciousness. Currently patient's pain is sharp, 8 out of 10, exacerbated by any range of motion, relieved at rest and with IV pain medicine, pain is sharp nonradiating, not associated with any paresthesia and numbness to the extremity. Past Family Social History Past Medical History Hepatitis B or C - unsure which Diabetes Mellitus PE a couple of years ago - was on Warfarin for about 6 months Chronic back pain Denies hypertension, CAD, CHF, atrial fibrillation, COPD, asthma, kidney problems, DVT, CVA, seizures, thyroid problems, or cancers . Past Surgical History Bladder repair Breast Reduction . Allergies: Coded Allergies: erythromycin base (Unverified Allergy, Severe, Rash, 06/03/17) ketorolac (Unverified Allergy, Severe, Shortness of Breath, 06/03/17) Active Ordered Medications Current Medications Medications (Trade) Dose Ordered Sig/Criss Route Start Time Stop Time Status Last Admin (NS Flush) 2 ml UNSCH PRN IV FLUSH 06/03/17 16:30 (D50w (Vial) Inj) 50 ml UNSCH PRN IV PUSH 06/03/17 18:30 (Glucagon Inj) 1 mg UNSCH PRN OTHER 06/03/17 18:30 (NovoLOG SUPPLEMENTAL SCALE) 1 ACHS SLIDING SCALE SQ 06/03/17 21:00 06/04/17 12:15 Sodium Chloride 1,000 ml @ 100 mls/hr Q10H IV 06/03/17 18:30 06/04/17 16:46 (Zofran Inj) 4 mg Q8HR PRN IV PUSH 06/03/17 18:30 Lactated Ringer's 1,000 ml @ 30 mls/hr Q24H PRN IV 06/03/17 22:00 06/06/17 21:59 Sodium Chloride 500 ml @ 30 mls/hr [id number] PRN IV 06/03/17 22:00 06/06/17 21:59 (Lopressor) 25 mg SLIDER ASSEMBLER PRN PO 06/03/17 22:00 06/06/17 21:59 (Betadine 5% Antisepsis Kit) 1 applic SLIDER ASSEMBLER PRN EACH NARE 06/03/17 22:00 06/06/17 21:59 (Chlorhexidine 2% Cloth) 3 pack SLIDER ASSEMBLER PRN TOPICAL 06/03/17 22:00 06/06/17 21:59 (NovoLIN R INJ) See Protocol Table ... SLIDER ASSEMBLER PRN SQ 06/03/17 22:00 06/06/17 21:59 (Levemir Inj) 50 units Q12HR SQ 06/04/17 09:00 (Msir) 15 mg Q4H PRN PO 06/04/17 10:30 06/04/17 15:18 (Pepcid) 20 mg BID PO 06/04/17 13:00 06/04/17 13:17 (Neurontin) 600 mg TID PO 06/04/17 13:00 06/04/17 13:17 (Dolophine) 100 mg DAILY PO 06/04/17 13:00 06/04/17 13:17 Reported Meds & Active Scripts Active Glucocom Test Strips (Blood Glucose Test Strips) 1 Roseline Roseline Ea .ROUTE DIRECTED Insulin Syringe/U-100/31G X 01/14" 1 ml 31 Gauge X 01/14" Mis Ea .ROUTE DIRECTED Novolog Inj (Insulin Aspart) 1,000 Unit/10 Ml Vial 20 Units SQ TIDAC 30 Days Give 1 month Supply Famotidine 20 Mg Tab 20 Mg PO BID Neurontin (Gabapentin) 300 Mg Cap 600 Mg PO TID Levemir Inj (Insulin Detemir) 1,000 unit/ 10 ML Vial 55 Units SQ BID Give 30 day supply. Novolog Inj (Insulin Aspart) 1,000 Unit/10 Ml Vial 1-9 Units SQ ACHS sugars less than 70,(0)units; sugars 150-199,(1) unit; sugars 200-249,(3) units; sugars 250-299,(5) units; sugars 300-349,(7) units; sugars > 349,(9) units Reported Methadone (Methadone HCl) 40 Mg Tab 100 Mg PO DAILY Family History Mother with diabetes mellitus . Social History Tobacco: smokes 1/2 PPD Alcohol: denies Illicit drugs: denies . Physical Exam Vital Signs Vital Signs Date Time Temp Pulse Resp B/P (MAP) Pulse Ox O2 Delivery O2 Flow Rate FiO2 06/04/17 16:00 97.7 64 17 115/68 (84) 95 06/04/17 12:00 97.3 67 19 154/90 (111) 95 06/04/17 08:00 98.2 61 19 155/75 (101) 93 06/04/17 05:59 19 06/04/17 05:14 97.3 62 18 133/83 (100) 94 06/04/17 01:48 Room Air 06/04/17 01:15 99.5 71 20 142/90 (107) 94 06/03/17 23:31 18 06/03/17 19:37 20 06/03/17 19:37 20 06/03/17 19:24 99.1 57 18 149/83 (105) 98 06/03/17 18:46 60 16 152/90 (110) 100 Room Air 06/03/17 18:06 60 16 148/93 (111) 96 Room Air Physical Exam Alert awake and oriented x 3. No acute distress. Head: NC/AT Neck: No pain with any range of motion and neck. No tenderness to palpation along posterior cervical elements. Negative Spurling. Pulmonary: Normal respiratory effort. RIGHT upper extremity: Intact sensation distally in median, ulnar, and radial nerve. Intact motor in anterior interosseous, posterior interosseous, and ulnar nerve. 2+ radial artery pulses. Good cap refill. LEFT upper extremity exam: splint in place. Tenderness, swelling and ecchymosis about the proximal humerus. Intact sensation distally in median, ulnar, and radial nerve. Intact motor in anterior interosseous, posterior interosseous, and ulnar nerve. 2+ radial artery pulses. Good cap refill. Bilateral lower extremity: Neurovascularly intact, +EHL/FHL, + PT/DP pulses. Supple compartments. Negative Homans sign. Laboratory Laboratory Tests Test 06/04/17 15:15 Blood Urea Nitrogen 10 Creatinine 0.89 Random Glucose 333 Total Protein 6.9 Albumin 2.7 Calcium Level 7.5 Alkaline Phosphatase 85 Aspartate Amino Transf (AST/SGOT) 136 Alanine Aminotransferase (ALT/SGPT) 158 Total Bilirubin 0.7 Sodium Level 135 Potassium Level 4.6 Chloride Level 102 Carbon Dioxide Level 25.4 Anion Gap 8 Estimat Glomerular Filtration Rate 64 Result Diagram: 06/03/17 1700 06/04/17 1515 Imaging Last 72 hours Impressions Shoulder X-Ray 06/03/171625 Signed Impressions: Service Date/Time: Saturday, June 03, 2017 17:12 - CONCLUSION: 1. Left humeral surgical neck fracture, as above. Cricket Gay MD Humerus X-Ray 06/03/171625 Signed Impressions: Service Date/Time: Saturday, June 03, 2017 17:16 - CONCLUSION: Fracturing at the surgical neck region of the proximal left humerus. Hima Richard MD Elbow X-Ray 06/03/171625 Signed Impressions: Service Date/Time: Saturday, June 03, 2017 17:20 - CONCLUSION: 1. No acute fracture or dislocation. Cricket Gay MD Chest X-Ray 06/03/171625 Signed Impressions: Service Date/Time: Saturday, June 03, 2017 17:31 - CONCLUSION: 1. No acute cardiopulmonary disease. Cricket Gay MD Assessment & Plan Assessment and Plan 62-year-old female history of IV drug abuse status post a [place] fall at [place] sustaining an impacted left proximal humerus fracture. She is grossly neurovascularly intact. Her injury is amenable to nonsurgical treatment. -Sling for 1-2 weeks for comfort only - Physical therapy with pendulums in 2 weeks. Treatment plans discussed. All questions answered. Follow-up in [address] Blank, orthopedic clinic in [place]. Raul Blank Jr., MD Jun 04, 2017 17:36
[2017-06-04 20:20] VITALS: BP 123/75; PULSE 60; RESP 18; TEMP 97.2; O2SAT 94
[2017-06-04 21:48] LABS: INTERNATIONAL NORMALIZED RATIO 1.1 RATIO
[2017-06-05] VITALS (12 sets, daily range): BP systolic 115–207; BP diastolic 71–114; PULSE 61–85; RESP 18–24; TEMP 97.4–100.9; O2SAT 95–96
[2017-06-05] MEDS: MORPHINE SULFATE 15 MG TAB PO PRN ×2 (03:35→08:07)
[2017-06-05] MEDS: FAMOTIDINE 20 MG TAB PO SCH ×2 (08:08→21:19)
[2017-06-05] MEDS: METHADONE HCL 10 MG TAB PO SCH (08:08)
[2017-06-05] MEDS: GABAPENTIN 300 MG CAP PO SCH ×3 (08:08→16:43)
[2017-06-05] MEDS: SODIUM CHLORIDE 0.9% FLUSH 10 ML FLUSH IV FLUSH PRN (08:11)
[2017-06-05] MEDS: INSULIN DETEMIR 100 UNITS/ML VIAL SQ SCH ×2 (08:18→23:24)
[2017-06-05] MEDS: INSULIN ASPART SUPPLEMENTAL SCALE SQ SCH ×4 (08:20→21:00)
[2017-06-05] MEDS: SODIUM CHLOR 0.9% 1000 ML INJ 1,000 ML IV SCH ×2 (08:23→17:15)
[2017-06-05] MEDS ORDERED: MORPHINE SULFATE 2 MG/ML INJ IM PRN (10:45)
--- NOTE | 2017-06-05 11:29 | HHI.PR ---
Subjective Remarks The patient was uncomfortable. She had significant pain in her left arm. She said it was the worst pain of her life. She requested increased pain medications. Discussed with nursing. Objective Vitals Vital Signs Date Time Temp Pulse Resp B/P (MAP) Pulse Ox O2 Delivery O2 Flow Rate FiO2 06/05/17 08:24 Room Air 06/05/17 08:00 98.1 66 20 151/71 (97) 95 06/05/17 03:05 98.1 61 18 159/80 (106) 95 06/05/17 00:00 98.1 75 18 151/97 (115) 95 06/04/17 20:20 97.2 60 18 123/75 (91) 94 06/04/17 16:00 97.7 64 17 115/68 (84) 95 06/04/17 12:00 97.3 67 19 154/90 (111) 95 I/O 06/04/17 06/04/17 06/04/17 06/05/17 06/05/17 06/05/17 07:00 15:00 23:00 07:00 15:00 23:00 Intake Total 1120 ml Balance 1120 ml Intake Oral 120 ml IV Total 1000 ml # Voids 1 # Bowel Movements 0 Result Diagram: 06/03/17 1700 06/04/17 1515 Imaging Last Impressions Shoulder X-Ray 06/03/171625 Signed Impressions: Service Date/Time: Saturday, June 03, 2017 17:12 - CONCLUSION: 1. Left humeral surgical neck fracture, as above. Cricket Gay MD Humerus X-Ray 06/03/171625 Signed Impressions: Service Date/Time: Saturday, June 03, 2017 17:16 - CONCLUSION: Fracturing at the surgical neck region of the proximal left humerus. Hima Richard MD Elbow X-Ray 06/03/171625 Signed Impressions: Service Date/Time: Saturday, June 03, 2017 17:20 - CONCLUSION: 1. No acute fracture or dislocation. Cricket Gay MD Chest X-Ray 06/03/171625 Signed Impressions: Service Date/Time: Saturday, June 03, 2017 17:31 - CONCLUSION: 1. No acute cardiopulmonary disease. Cricket Gay MD Objective Remarks GENERAL: Appears to be uncomfortable. SKIN: Warm and dry. Normal color. Normal turgor. No obvious ecchymosis or swelling. HEAD: Atraumatic. Normocephalic. EYES: Pupils equal and round. No scleral icterus. No injection or drainage. ENT: No nasal bleeding or discharge. Mucous membranes pink and moist. Pharynx is clear. Airway is patent. NECK: Trachea midline. CARDIOVASCULAR: Regular rate and rhythm. RESPIRATORY: No accessory muscle use. Clear to auscultation. Breath sounds equal bilaterally. GASTROINTESTINAL: Abdomen soft, non-tender, nondistended. Hepatic and splenic margins not palpable. MUSCULOSKELETAL: Extremities without clubbing, cyanosis, or edema. No obvious deformities. Patient very difficult to examine secondary to her pain. Splint in place on the left. NEUROLOGICAL: Awake and alert. No obvious cranial nerve deficits. Motor grossly within normal limits. Five out of 5 muscle strength in the arms and legs. Normal speech. PSYCHIATRIC: Appropriate mood and affect; insight and judgment normal. Medications and IVs Current Medications Medications (Trade) Dose Ordered Sig/Criss Route Start Time Stop Time Status Last Admin (NS Flush) 2 ml UNSCH PRN IV FLUSH 06/03/17 16:30 06/05/17 08:11 (D50w (Vial) Inj) 50 ml UNSCH PRN IV PUSH 06/03/17 18:30 (Glucagon Inj) 1 mg UNSCH PRN OTHER 06/03/17 18:30 (NovoLOG SUPPLEMENTAL SCALE) 1 ACHS SLIDING SCALE SQ 06/03/17 21:00 06/05/17 08:20 Sodium Chloride 1,000 ml @ 100 mls/hr Q10H IV 06/03/17 18:30 06/04/17 16:46 (Zofran Inj) 4 mg Q8HR PRN IV PUSH 06/03/17 18:30 Lactated Ringer's 1,000 ml @ 30 mls/hr Q24H PRN IV 06/03/17 22:00 06/06/17 21:59 Sodium Chloride 500 ml @ 30 mls/hr [id number] PRN IV 06/03/17 22:00 06/06/17 21:59 (Lopressor) 25 mg SHEET ROCK TAPER PRN PO 06/03/17 22:00 06/06/17 21:59 (Betadine 5% Antisepsis Kit) 1 applic SHEET ROCK TAPER PRN EACH NARE 06/03/17 22:00 06/06/17 21:59 (Chlorhexidine 2% Cloth) 3 pack SHEET ROCK TAPER PRN TOPICAL 06/03/17 22:00 06/06/17 21:59 (NovoLIN R INJ) See Protocol Table ... SHEET ROCK TAPER PRN SQ 06/03/17 22:00 06/06/17 21:59 (Levemir Inj) 50 units Q12HR SQ 06/04/17 09:00 06/05/17 08:18 (Msir) 15 mg Q4H PRN PO 06/04/17 10:30 06/05/17 08:07 (Pepcid) 20 mg BID PO 06/04/17 13:00 06/05/17 08:08 (Neurontin) 600 mg TID PO 06/04/17 13:00 06/05/17 08:08 (Dolophine) 100 mg DAILY PO 06/04/17 13:00 06/05/17 08:08 A/P Problem List: (1) Closed left humeral fracture ICD Code: S42.302A - Unspecified fracture of shaft of humerus, left arm, initial encounter for closed fracture Status: Acute (2) Type II diabetes mellitus ICD Code: E11.9 - Type 2 diabetes mellitus without complications Status: Chronic (3) Hyperglycemia ICD Code: R73.9 - Hyperglycemia Status: Acute (4) Hyponatremia ICD Code: E87.1 - Hypo-osmolality and hyponatremia (5) Transaminitis ICD Code: R74.0 - Nonspecific elevation of levels of transaminase and lactic acid dehydrogenase [LDH] Status: Chronic Assessment and Plan 62 y/o female with chronic back pain on Methadone and diabetes mellitus who presents following a fall in a parking lot with left humerus fracture: Left humerus fracture S/p fall. Ortho eval appreciated. - No surgical intervention needed per orthopedics, sling/cradle - We'll attempt a trial of by mouth narcotics (in addition to her methadone) and wean IV narcotics - We'll consult case management for home care if possible given patient's limited ability to perform ADLs given her current state - OT and PT consulted to give recs. Type 2 diabetes mellitus Poorly controlled. - Accu-Cheks before meals and at bedtime with low-dose NovoLog sliding scale coverage. - Hypoglycemia protocol. - Monitor trends and blood glucose readings and adjust treatments as indicated. - 1800 ADA diet. - Levemir 50 units BID. Transaminitis Secondary to hepatitis C. - improved w/ IV hydration. DVT prophylaxis - SCDs/TEDs Discharge Planning Awaiting improvement in pain. Possibly 1-2 days Problem Qualifiers (1) Closed left humeral fracture: Qualified Codes: S42.212A - Unspecified displaced fracture of surgical neck of left humerus, initial encounter for closed fracture Dyllan Parish DO Jun 05, 2017 10:53
[2017-06-05] MEDS: MORPHINE SULFATE 30 MG TAB PO PRN ×2 (16:41→21:20)
[2017-06-05] MEDS: INSULIN ASPART 1,000 UNITS/10 ML VIAL SQ SCH (17:15)
[2017-06-05] MEDS: LORazepam 0.5 MG TAB PO PRN (18:07)
[2017-06-05 20:21] LABS: POTASSIUM 4.7 MEQ/L (3.5-5.1)
[2017-06-05] MEDS ORDERED: INSULIN HUMAN REGULAR 1,000 UNITS/10 ML VIAL IV PUSH ONE ×2 (21:15→23:00)
[2017-06-05] MEDS: DOCUSATE SODIUM 100 MG CAP PO SCH (21:19)
[2017-06-05] MEDS: POLYETHYLENE GLYCOL 17 GM PKG PO SCH (21:20)
[2017-06-05] MEDS: BISACODYL EC 5 MG TABEC PO SCH (21:20)
[2017-06-05] MEDS: MAGNESIUM HYDROXIDE SUSP 30 ML CUP PO SCH (21:20)
[2017-06-05] MEDS ORDERED: ACETAMINOPHEN 325 MG TAB PO PRN (23:15)
[2017-06-05] MEDS: ENALAPRILAT 2.5 MG/2 ML VIAL IV PUSH PRN (23:22)
[2017-06-06] VITALS (7 sets, daily range): BP systolic 133–154; BP diastolic 64–79; PULSE 62–96; RESP 18; TEMP 97–99.2; O2SAT 95–97
[2017-06-06] MEDS: INSULIN ASPART SUPPLEMENTAL SCALE SQ SCH ×5 (01:58→20:52)
[2017-06-06] MEDS: LORazepam 0.5 MG TAB PO PRN (01:58)
[2017-06-06] MEDS: MORPHINE SULFATE 30 MG TAB PO PRN ×3 (01:58→10:39)
[2017-06-06 06:16] LABS: BICARBONATE 21.8 MEQ/L (21.0-32.0); MAGNESIUM 1.9 MG/DL (1.5-2.5)
[2017-06-06] MEDS: SODIUM CHLOR 0.9% 1000 ML INJ 1,000 ML IV SCH ×2 (06:30→13:15)
[2017-06-06 07:08] LABS: BACTERIA, URINE RARE /hpf; BLOOD, URINE NEG (NEG); COMMENT (UR) CULT NOT INDICATED; CULTURE IF INDICATED CULT NOT INDICATED; GLUCOSE,URINE 1000 mg/dL (NEG); KETONE, URINE NEG (NEG); NITRITE,URINE NEG (NEG); SQUAMOUS EPITHELIAL CELL URINE 1 /hpf (0-5); TRANSITIONAL EPI CELLS, URINE <1 /hpf; URINE COLOR LIGHT-YELLOW (YELLW/STRAW)
[2017-06-06] MEDS: INSULIN ASPART 1,000 UNITS/10 ML VIAL SQ SCH ×2 (08:00→12:25)
[2017-06-06] MEDS: GABAPENTIN 300 MG CAP PO SCH ×3 (08:57→18:35)
[2017-06-06] MEDS: MAGNESIUM HYDROXIDE SUSP 30 ML CUP PO SCH ×2 (08:57→20:51)
[2017-06-06] MEDS: FAMOTIDINE 20 MG TAB PO SCH ×2 (08:57→20:51)
[2017-06-06] MEDS: METHADONE HCL 10 MG TAB PO SCH (08:57)
[2017-06-06] MEDS: DOCUSATE SODIUM 100 MG CAP PO SCH ×2 (08:57→20:51)
[2017-06-06] MEDS: INSULIN DETEMIR 100 UNITS/ML VIAL SQ SCH ×2 (08:58→20:52)
[2017-06-06] MEDS ORDERED: HYDROmorphone HCL PF 1 MG/ML VIAL IV PUSH ONE (12:00)
--- NOTE | 2017-06-06 12:05 | HHI.PR ---
Subjective Remarks The patient says that her pain is the worst she has experienced in her life. She says she has been having a hard time getting to the bathroom because of the pain and because it took so long to get to the bathroom she ended up urinating in her pants twice. Family was at the bedside. The patient said that she is working on smoking. Objective Vitals Vital Signs Date Time Temp Pulse Resp B/P (MAP) Pulse Ox O2 Delivery O2 Flow Rate FiO2 06/06/17 08:00 97.0 62 18 154/79 (104) 96 06/06/17 04:05 98.6 75 18 140/73 (95) 97 06/05/17 23:50 99.6 79 20 165/90 (115) 95 06/05/17 22:15 100.9 80 20 170/114 (132) 95 06/05/17 21:00 83 06/05/17 20:25 85 190/106 (134) 06/05/17 19:25 99.1 83 24 207/89 (128) 96 06/05/17 17:16 97.4 78 20 115/71 (86) 95 06/05/17 16:00 97.6 76 20 141/73 (95) 95 06/05/17 14:20 82 I/O 06/05/17 06/05/17 06/05/17 06/06/17 06/06/17 06/06/17 07:00 15:00 23:00 07:00 15:00 23:00 Intake Total 240 ml 960 ml 1120 ml Balance 240 ml 960 ml 1120 ml Intake Oral 240 ml 960 ml 120 ml IV Total 1000 ml # Voids 1 3 4 2 # Bowel Movements 0 0 0 0 Result Diagram: 06/03/17 1700 06/06/17 0506 Imaging Last Impressions Shoulder X-Ray 06/03/171625 Signed Impressions: Service Date/Time: Saturday, June 03, 2017 17:12 - CONCLUSION: 1. Left humeral surgical neck fracture, as above. Cricket Gay MD Humerus X-Ray 06/03/171625 Signed Impressions: Service Date/Time: Saturday, June 03, 2017 17:16 - CONCLUSION: Fracturing at the surgical neck region of the proximal left humerus. Hima Richard MD Elbow X-Ray 06/03/171625 Signed Impressions: Service Date/Time: Saturday, June 03, 2017 17:20 - CONCLUSION: 1. No acute fracture or dislocation. Cricket Gay MD Chest X-Ray 06/03/171625 Signed Impressions: Service Date/Time: Saturday, June 03, 2017 17:31 - CONCLUSION: 1. No acute cardiopulmonary disease. Cricket Gay MD Objective Remarks GENERAL: Appears to be uncomfortable. SKIN: Warm and dry. Normal color. Normal turgor. No obvious ecchymosis or swelling. HEAD: Atraumatic. Normocephalic. EYES: Pupils equal and round. No scleral icterus. No injection or drainage. ENT: No nasal bleeding or discharge. Mucous membranes pink and moist. Pharynx is clear. Airway is patent. NECK: Trachea midline. CARDIOVASCULAR: Regular rate and rhythm. RESPIRATORY: No accessory muscle use. Clear to auscultation. Breath sounds equal bilaterally. GASTROINTESTINAL: Abdomen soft, non-tender, nondistended. Hepatic and splenic margins not palpable. MUSCULOSKELETAL: Extremities without clubbing, cyanosis. 1+ edema in RUE, TR edema in LUE. No obvious deformities. Patient very difficult to examine secondary to her pain. Splint in place on the left. NEUROLOGICAL: Awake and alert. No obvious cranial nerve deficits. Motor grossly within normal limits. Five out of 5 muscle strength in the arms and legs. Normal speech. PSYCHIATRIC: Appropriate mood and affect; insight and judgment normal. Procedures None Medications and IVs Current Medications Medications (Trade) Dose Ordered Sig/Criss Route Start Time Stop Time Status Last Admin (NS Flush) 2 ml UNSCH PRN IV FLUSH 06/03/17 16:30 06/05/17 08:11 (D50w (Vial) Inj) 50 ml UNSCH PRN IV PUSH 06/03/17 18:30 (Glucagon Inj) 1 mg UNSCH PRN OTHER 06/03/17 18:30 (Zofran Inj) 4 mg Q8HR PRN IV PUSH 06/03/17 18:30 Lactated Ringer's 1,000 ml @ 30 mls/hr Q24H PRN IV 06/03/17 22:00 06/06/17 21:59 Sodium Chloride 500 ml @ 30 mls/hr [id number] PRN IV 06/03/17 22:00 06/06/17 21:59 (Lopressor) 25 mg MONUMENT INSTALLER PRN PO 06/03/17 22:00 06/06/17 21:59 (Betadine 5% Antisepsis Kit) 1 applic MONUMENT INSTALLER PRN EACH NARE 06/03/17 22:00 06/06/17 21:59 (Chlorhexidine 2% Cloth) 3 pack MONUMENT INSTALLER PRN TOPICAL 06/03/17 22:00 06/06/17 21:59 (NovoLIN R INJ) See Protocol Table ... MONUMENT INSTALLER PRN SQ 06/03/17 22:00 06/06/17 21:59 (Levemir Inj) 50 units Q12HR SQ 06/04/17 09:00 06/06/17 08:58 (Pepcid) 20 mg BID PO 06/04/17 13:00 06/06/17 08:57 (Neurontin) 600 mg TID PO 06/04/17 13:00 06/06/17 08:57 (Dolophine) 100 mg DAILY PO 06/04/17 13:00 06/06/17 08:57 (Roxicodone) 5 mg Q4H PRN PO 06/05/17 10:45 (Morphine Inj) 2 mg Q4H PRN IM 06/05/17 10:45 (Msir) 30 mg Q4H PRN PO 06/05/17 15:00 06/06/17 10:39 (NovoLOG SUPPLEMENTAL SCALE) 1 ACHS SLIDING SCALE SQ 06/05/17 17:00 06/06/17 08:58 (Dulcolax Ec) 10 mg HS PO 06/05/17 21:00 06/05/17 21:20 (Miralax) 17 gm HS PO 06/05/17 21:00 06/05/17 21:20 (Milk Of Magnesia Liq) 30 ml BID PO 06/05/17 21:00 06/06/17 08:57 (Colace) 100 mg BID PO 06/05/17 21:00 06/06/17 08:57 Sodium Chloride 1,000 ml @ 100 mls/hr Q10H IV 06/05/17 17:15 06/06/17 23:14 06/06/17 06:30 (Ativan) 0.5 mg Q8H PRN PO 06/05/17 17:15 06/06/17 01:58 (NovoLOG INJ) 15 units TIDAC SQ 06/05/17 17:15 06/05/17 17:15 (Vasotec Inj) 2.5 mg Q6H PRN IV PUSH 06/05/17 23:15 06/05/17 23:22 (Tylenol) 650 mg Q4H PRN PO 06/05/17 23:15 06/05/17 23:21 A/P Problem List: (1) Closed left humeral fracture ICD Code: S42.302A - Unspecified fracture of shaft of humerus, left arm, initial encounter for closed fracture Status: Acute (2) Type II diabetes mellitus ICD Code: E11.9 - Type 2 diabetes mellitus without complications Status: Chronic (3) Hyperglycemia ICD Code: R73.9 - Hyperglycemia Status: Acute (4) Hyponatremia ICD Code: E87.1 - Hypo-osmolality and hyponatremia (5) Transaminitis ICD Code: R74.0 - Nonspecific elevation of levels of transaminase and lactic acid dehydrogenase [LDH] Status: Chronic Assessment and Plan 62 y/o female with chronic back pain on Methadone and diabetes mellitus who presents following a fall in a parking lot with left humerus fracture: Left humerus fracture S/p fall. Ortho eval appreciated. - No surgical intervention needed per orthopedics, sling/cradle - We'll attempt a trial of by mouth narcotics (in addition to her methadone). Start IV Dilaudid for breakthrough as the pt is in extreme pain. - We'll consult case management for home care if possible given patient's limited ability to perform ADLs given her current state - OT and PT consulted to give recs. Type 2 diabetes mellitus Very poorly controlled. Improving. - Accu-Cheks q4H with high NovoLog sliding scale coverage. - Hypoglycemia protocol. - Monitor trends and blood glucose readings and adjust treatments as indicated. - 1800 ADA diet. - Levemir 50 units BID. Added prandial insulin as well. Transaminitis Secondary to hepatitis C. - improved w/ IV hydration. DVT prophylaxis - SCDs/TEDs Discharge Planning Awaiting improvement in pain. Possibly 1-2 days Problem Qualifiers (1) Closed left humeral fracture: Qualified Codes: S42.212A - Unspecified displaced fracture of surgical neck of left humerus, initial encounter for closed fracture Dyllan Parish DO Jun 06, 2017 12:05
[2017-06-06 17:37] LABS: MEAN CELL VOLUME 88.3 FL (80.0-100.0); MEAN CORPUSCULAR HEMOGLOBIN 29.7 PG (27.0-34.0); MEAN CORPUSCULAR HGB CONC 33.7 % (32.0-36.0); PLATELET COUNT 105 TH/MM3 (150-450); RED CELL DISTRIBUTION WIDTH 13.1 % (11.6-17.2); REVIEW FLAG FINAL; WHITE BLOOD COUNT 9.1 TH/MM3 (4.0-11.0)
[2017-06-06] MEDS: BISACODYL EC 5 MG TABEC PO SCH (20:51)
[2017-06-06] MEDS: POLYETHYLENE GLYCOL 17 GM PKG PO SCH (20:52)
[2017-06-06] MEDS: HYDROmorphone HCL PF 1 MG/ML VIAL IV PUSH PRN (20:59)
[2017-06-06] MEDS: ENALAPRILAT 2.5 MG/2 ML VIAL IV PUSH PRN (23:28)
[2017-06-07] VITALS (8 sets, daily range): BP systolic 117–171; BP diastolic 64–89; PULSE 77–86; RESP 16–18; TEMP 96.5–99.7; O2SAT 94–98
[2017-06-07] MEDS: HYDROmorphone HCL PF 1 MG/ML VIAL IV PUSH PRN ×5 (02:23→20:31)
[2017-06-07] MEDS: METHADONE HCL 10 MG TAB PO SCH (08:04)
[2017-06-07] MEDS: LORazepam 0.5 MG TAB PO PRN (08:04)
[2017-06-07] MEDS: SODIUM CHLORIDE 0.9% FLUSH 10 ML FLUSH IV FLUSH PRN ×2 (08:07→20:28)
[2017-06-07] MEDS: GABAPENTIN 300 MG CAP PO SCH ×3 (09:36→17:43)
[2017-06-07] MEDS: DOCUSATE SODIUM 100 MG CAP PO SCH ×2 (09:36→20:28)
[2017-06-07] MEDS: FAMOTIDINE 20 MG TAB PO SCH ×2 (09:36→20:28)
[2017-06-07] MEDS: INSULIN DETEMIR 100 UNITS/ML VIAL SQ SCH ×2 (09:37→20:30)
[2017-06-07] MEDS: INSULIN ASPART SUPPLEMENTAL SCALE SQ SCH ×4 (09:37→20:30)
[2017-06-07] MEDS: INSULIN ASPART 1,000 UNITS/10 ML VIAL SQ SCH ×4 (09:38→20:29)
[2017-06-07] MEDS: MAGNESIUM HYDROXIDE SUSP 30 ML CUP PO SCH ×2 (09:40→20:28)
--- NOTE | 2017-06-07 11:14 | HHI.PR ---
Subjective Remarks The pt has severe pain. She says she can't go home like this. She said the breakthrough pain meds help. She describes pain under her left breast as well. Discussed with nursing. Objective Vitals Vital Signs Date Time Temp Pulse Resp B/P (MAP) Pulse Ox O2 Delivery O2 Flow Rate FiO2 06/07/17 08:00 98.6 82 18 156/78 (104) 96 06/07/17 07:07 18 06/07/17 04:05 99.0 84 18 161/82 (108) 95 06/07/17 02:51 18 06/07/17 00:08 99.7 82 18 171/86 (114) 98 06/06/17 20:16 99.2 90 18 145/74 (97) 95 06/06/17 19:12 96 06/06/17 17:00 88 06/06/17 16:00 97.8 84 18 142/64 (90) 95 06/06/17 12:00 98.0 82 18 133/76 (95) 95 I/O 06/06/17 06/06/17 06/06/17 06/07/17 06/07/17 06/07/17 07:00 15:00 23:00 07:00 15:00 23:00 Intake Total 1120 ml 600 ml 360 ml 240 ml Balance 1120 ml 600 ml 360 ml 240 ml Intake Oral 120 ml 600 ml 360 ml 240 ml IV Total 1000 ml # Voids 2 3 1 3 # Bowel Movements 0 0 0 0 Result Diagram: 06/06/17 1700 06/06/17 0506 Imaging Last Impressions Shoulder X-Ray 06/03/171625 Signed Impressions: Service Date/Time: Saturday, June 03, 2017 17:12 - CONCLUSION: 1. Left humeral surgical neck fracture, as above. Cricket Gay MD Humerus X-Ray 06/03/171625 Signed Impressions: Service Date/Time: Saturday, June 03, 2017 17:16 - CONCLUSION: Fracturing at the surgical neck region of the proximal left humerus. Hima Richard MD Elbow X-Ray 06/03/171625 Signed Impressions: Service Date/Time: Saturday, June 03, 2017 17:20 - CONCLUSION: 1. No acute fracture or dislocation. Cricket aGy MD Chest X-Ray 06/03/17 1626 Signed Impressions: Service Date/Time: Saturday, June 03, 2017 17:31 - CONCLUSION: 1. No acute cardiopulmonary disease. Cricket Gay MD Objective Remarks GENERAL: Appears to be uncomfortable. SKIN: Warm and dry. Normal color. Normal turgor. No obvious ecchymosis or swelling. HEAD: Atraumatic. Normocephalic. EYES: Pupils equal and round. No scleral icterus. No injection or drainage. ENT: No nasal bleeding or discharge. Mucous membranes pink and moist. Pharynx is clear. Airway is patent. NECK: Trachea midline. CARDIOVASCULAR: Regular rate and rhythm. RESPIRATORY: No accessory muscle use. Clear to auscultation. Breath sounds equal bilaterally. GASTROINTESTINAL: Abdomen soft, non-tender, nondistended. Hepatic and splenic margins not palpable. MUSCULOSKELETAL: Extremities without clubbing, cyanosis. 1+ edema in RUE, TR edema in LUE. No obvious deformities. Patient very difficult to examine secondary to her pain. Splint in place on the left. NEUROLOGICAL: Awake and alert. No obvious cranial nerve deficits. Motor grossly within normal limits. Five out of 5 muscle strength in the arms and legs. Normal speech. PSYCHIATRIC: Anxious. Procedures None Medications and IVs Current Medications Medications (Trade) Dose Ordered Sig/Criss Route Start Time Stop Time Status Last Admin (NS Flush) 2 ml UNSCH PRN IV FLUSH 06/03/17 16:30 06/07/17 08:07 (D50w (Vial) Inj) 50 ml UNSCH PRN IV PUSH 06/03/17 18:30 (Glucagon Inj) 1 mg UNSCH PRN OTHER 06/03/17 18:30 (Zofran Inj) 4 mg Q8HR PRN IV PUSH 06/03/17 18:30 (Levemir Inj) 50 units Q12HR SQ 06/04/17 09:00 06/07/17 09:37 (Pepcid) 20 mg BID PO 06/04/17 13:00 06/07/17 09:36 (Neurontin) 600 mg TID PO 06/04/17 13:00 06/07/17 09:36 (Dolophine) 100 mg DAILY PO 06/04/17 13:00 06/07/17 08:04 (Roxicodone) 5 mg Q4H PRN PO 06/05/17 10:45 (NovoLOG SUPPLEMENTAL SCALE) 1 ACHS SLIDING SCALE SQ 06/05/17 17:00 06/07/17 09:37 (Dulcolax Ec) 10 mg HS PO 06/05/17 21:00 06/06/17 20:51 (Miralax) 17 gm HS PO 06/05/17 21:00 06/05/17 21:20 (Milk Of Magnesia Liq) 30 ml BID PO 06/05/17 21:00 06/07/17 09:40 (Colace) 100 mg BID PO 06/05/17 21:00 06/07/17 09:36 (Ativan) 0.5 mg Q8H PRN PO 06/05/17 17:15 06/07/17 08:04 (Vasotec Inj) 2.5 mg Q6H PRN IV PUSH 06/05/17 23:15 06/06/17 23:28 (Tylenol) 650 mg Q4H PRN PO 06/05/17 23:15 06/05/17 23:21 (Roxicodone) 15 mg Q4H PRN PO 06/06/17 12:00 06/07/17 10:06 (Dilaudid Pf Inj) 1 mg Q4H PRN IV PUSH 06/06/17 12:00 06/07/17 08:06 (NovoLOG INJ) 20 units TIDAC SQ 06/07/17 08:00 06/07/17 09:38 A/P Problem List: (1) Closed left humeral fracture ICD Code: S42.302A - Unspecified fracture of shaft of humerus, left arm, initial encounter for closed fracture Status: Acute (2) Type II diabetes mellitus ICD Code: E11.9 - Type 2 diabetes mellitus without complications Status: Chronic (3) Hyperglycemia ICD Code: R73.9 - Hyperglycemia Status: Acute (4) Hyponatremia ICD Code: E87.1 - Hypo-osmolality and hyponatremia (5) Transaminitis ICD Code: R74.0 - Nonspecific elevation of levels of transaminase and lactic acid dehydrogenase [LDH] Status: Chronic Assessment and Plan 62 y/o female with chronic back pain on Methadone and diabetes mellitus who presents following a fall in a parking lot with left humerus fracture: Left humerus fracture S/p fall. Ortho eval appreciated. - No surgical intervention needed per orthopedics, sling/cradle - We'll attempt a trial of by mouth narcotics (in addition to her methadone). Start IV Dilaudid for breakthrough as the pt is in extreme pain. Standing ibuprofen added. - We'll consult case management for home care if possible given patient's limited ability to perform ADLs given her current state - OT and PT consulted to give recs. Type 2 diabetes mellitus Very poorly controlled. - Accu-Cheks q4H with high NovoLog sliding scale coverage. - Hypoglycemia protocol. - Monitor trends and blood glucose readings and adjust treatments as indicated. - 1800 ADA diet. - Levemir 50 units BID. Added 20 units prandial insulin as well. Adjust regimen as needed. Transaminitis Secondary to hepatitis C. Improved w/ IV hydration. - trend LFTs. DVT prophylaxis - SCDs/TEDs Discharge Planning Awaiting improvement in pain Problem Qualifiers (1) Closed left humeral fracture: Qualified Codes: S42.212A - Unspecified displaced fracture of surgical neck of left humerus, initial encounter for closed fracture Dyllan Parish DO Jun 07, 2017 11:14
[2017-06-07 12:24] LABS: TOTAL BILIRUBIN ADULT 0.6 MG/DL (0.2-1.0)
[2017-06-07 12:37] LABS: ALKALINE PHOSPHATASE 103 U/L (45-117); ALT (GPT) 105 U/L (10-53); ANION GAP 8 MEQ/L (5-15); AST (GOT) 74 U/L (15-37); BICARBONATE 28.4 MEQ/L (21.0-32.0); BLOOD UREA NITROGEN 9 MG/DL (7-18); CHLORIDE 93 MEQ/L (98-107); GLOMERULAR FILTRATION RATE 54 ML/MIN (>89); INDIRECT BILIRUBIN 0.4 MG/DL (0.0-0.8); POTASSIUM 4.8 MEQ/L (3.5-5.1); SODIUM (NA) 129 MEQ/L (136-145); TOTAL BILIRUBIN ADULT 0.6 MG/DL (0.2-1.0)
[2017-06-07] MEDS ORDERED: INSULIN DETEMIR 100 UNITS/ML VIAL SQ ONE (13:15)
[2017-06-07] MEDS: IBUPROFEN 800 MG TAB PO SCH ×2 (15:06→20:28)
[2017-06-07] MEDS ORDERED: INSULIN HUMAN REGULAR 1,000 UNITS/10 ML VIAL IV PUSH ONE ×2 (20:00→22:30)
[2017-06-07] MEDS: BISACODYL EC 5 MG TABEC PO SCH (20:29)
[2017-06-07] MEDS: POLYETHYLENE GLYCOL 17 GM PKG PO SCH (20:30)
[2017-06-08] VITALS (7 sets, daily range): BP systolic 85–130; BP diastolic 47–76; PULSE 69–87; RESP 15–18; TEMP 97–100; O2SAT 94–97
[2017-06-08] MEDS: HYDROmorphone HCL PF 1 MG/ML VIAL IV PUSH PRN ×3 (01:45→21:16)
[2017-06-08] MEDS: IBUPROFEN 800 MG TAB PO SCH ×3 (05:58→21:14)
[2017-06-08] MEDS: INSULIN ASPART SUPPLEMENTAL SCALE SQ SCH ×4 (08:00→21:15)
[2017-06-08 08:13] LABS: ALT (GPT) 96 U/L (10-53); ANION GAP 9 MEQ/L (5-15); AST (GOT) 89 U/L (15-37); BICARBONATE 29.6 MEQ/L (21.0-32.0); CHLORIDE 97 MEQ/L (98-107); GLOMERULAR FILTRATION RATE 68 ML/MIN (>89); POTASSIUM 4.9 MEQ/L (3.5-5.1); SODIUM (NA) 136 MEQ/L (136-145)
[2017-06-08 08:16] LABS: BLOOD UREA NITROGEN 14 MG/DL (7-18)
[2017-06-08 08:17] LABS: ALKALINE PHOSPHATASE 100 U/L (45-117); TOTAL BILIRUBIN ADULT 0.6 MG/DL (0.2-1.0)
[2017-06-08] MEDS: INSULIN DETEMIR 100 UNITS/ML VIAL SQ SCH (09:27)
[2017-06-08] MEDS: INSULIN ASPART 1,000 UNITS/10 ML VIAL SQ SCH ×2 (09:28→17:13)
[2017-06-08] MEDS: GABAPENTIN 300 MG CAP PO SCH ×3 (09:29→17:14)
[2017-06-08] MEDS: MAGNESIUM HYDROXIDE SUSP 30 ML CUP PO SCH ×2 (09:30→21:13)
[2017-06-08] MEDS: METHADONE HCL 10 MG TAB PO SCH (09:30)
[2017-06-08] MEDS: FAMOTIDINE 20 MG TAB PO SCH ×2 (09:31→21:14)
[2017-06-08] MEDS: DOCUSATE SODIUM 100 MG CAP PO SCH ×2 (09:31→21:13)
[2017-06-08] MEDS ORDERED: SODIUM CHLOR 0.9% 1000 ML INJ 1,000 ML IV SCH (11:00)
--- NOTE | 2017-06-08 11:37 | HHI.PR ---
Subjective Remarks The patient says her pain is slightly better controlled. She does endorse lack of motivation to improve her diabetes. She says she doesn't see the point in living. She sometimes has thoughts of jumping off her [address] floor balcony. She thinks she would benefit from speaking with the psychiatrist. Friends at the bedside. Objective Vitals Vital Signs Date Time Temp Pulse Resp B/P (MAP) Pulse Ox O2 Delivery O2 Flow Rate FiO2 06/08/17 08:10 97.0 70 18 85/49 (61) 95 06/08/17 07:10 18 06/08/17 07:10 18 06/08/17 04:15 Room Air 06/08/17 04:00 97.9 74 15 97/47 (64) 94 06/08/17 02:15 18 06/07/17 23:00 97.7 77 18 117/64 (81) 94 06/07/17 20:00 78 06/07/17 19:45 97.0 79 18 128/75 (92) 95 06/07/17 16:00 97.5 86 16 138/87 (104) 94 06/07/17 12:00 96.5 85 16 156/89 (111) 95 I/O 06/07/17 06/07/17 06/07/17 06/08/17 06/08/17 06/08/17 07:00 15:00 23:00 07:00 15:00 23:00 Intake Total 240 ml 520 ml 240 ml 240 ml Output Total 4 ml Balance 240 ml 516 ml 240 ml 240 ml Intake Oral 240 ml 520 ml 240 ml 240 ml Output Urine Total 4 ml # Voids 3 3 1 # Bowel Movements 0 1 0 0 Result Diagram: 06/06/17 1700 06/08/17 0615 Imaging Last Impressions Shoulder X-Ray 06/03/171625 Signed Impressions: Service Date/Time: Saturday, June 03, 2017 17:12 - CONCLUSION: 1. Left humeral surgical neck fracture, as above. Cricket Gay MD Humerus X-Ray 06/03/171625 Signed Impressions: Service Date/Time: Saturday, June 03, 2017 17:16 - CONCLUSION: Fracturing at the surgical neck region of the proximal left humerus. Hima Richard MD Elbow X-Ray 06/03/171625 Signed Impressions: Service Date/Time: Saturday, June 03, 2017 17:20 - CONCLUSION: 1. No acute fracture or dislocation. Cricket Gay MD Chest X-Ray 06/03/171625 Signed Impressions: Service Date/Time: Saturday, June 03, 2017 17:31 - CONCLUSION: 1. No acute cardiopulmonary disease. Cricket Gay MD Objective Remarks GENERAL: Appears to be uncomfortable. SKIN: Warm and dry. Normal color. Normal turgor. No obvious ecchymosis or swelling. HEAD: Atraumatic. Normocephalic. EYES: Pupils equal and round. No scleral icterus. No injection or drainage. ENT: No nasal bleeding or discharge. Mucous membranes pink and moist. Pharynx is clear. Airway is patent. NECK: Trachea midline. CARDIOVASCULAR: Regular rate and rhythm. RESPIRATORY: No accessory muscle use. Clear to auscultation. Breath sounds equal bilaterally. GASTROINTESTINAL: Abdomen soft, non-tender, nondistended. Hepatic and splenic margins not palpable. MUSCULOSKELETAL: Extremities without clubbing, cyanosis. 1+ edema in RUE, TR edema in LUE. No obvious deformities. Patient very difficult to examine secondary to her pain. Splint in place on the left. NEUROLOGICAL: Awake and alert. No obvious cranial nerve deficits. Motor grossly within normal limits. Five out of 5 muscle strength in the arms and legs. Normal speech. PSYCHIATRIC: Flattened affect. Procedures None Medications and IVs Current Medications Medications (Trade) Dose Ordered Sig/Criss Route Start Time Stop Time Status Last Admin (NS Flush) 2 ml UNSCH PRN IV FLUSH 06/03/17 16:30 06/07/17 20:28 (D50w (Vial) Inj) 50 ml UNSCH PRN IV PUSH 06/03/17 18:30 (Glucagon Inj) 1 mg UNSCH PRN OTHER 06/03/17 18:30 (Zofran Inj) 4 mg Q8HR PRN IV PUSH 06/03/17 18:30 (Pepcid) 20 mg BID PO 06/04/17 13:00 06/08/17 09:31 (Neurontin) 600 mg TID PO 06/04/17 13:00 06/08/17 09:29 (Dolophine) 100 mg DAILY PO 06/04/17 13:00 06/08/17 09:30 (Roxicodone) 5 mg Q4H PRN PO 06/05/17 10:45 (NovoLOG SUPPLEMENTAL SCALE) 1 ACHS SLIDING SCALE SQ 06/05/17 17:00 06/07/17 20:30 (Dulcolax Ec) 10 mg HS PO 06/05/17 21:00 06/07/17 20:29 (Miralax) 17 gm HS PO 06/05/17 21:00 06/05/17 21:20 (Milk Of Magnkarlos Liq) 30 ml BID PO 06/05/17 21:00 06/08/17 09:30 (Colace) 100 mg BID PO 06/05/17 21:00 06/08/17 09:31 (Ativan) 0.5 mg Q8H PRN PO 06/05/17 17:15 06/07/17 08:04 (Vasotec Inj) 2.5 mg Q6H PRN IV PUSH 06/05/17 23:15 06/06/17 23:28 (Tylenol) 650 mg Q4H PRN PO 06/05/17 23:15 06/05/17 23:21 (Roxicodone) 15 mg Q4H PRN PO 06/06/17 12:00 06/08/17 06:00 (NovoLOG INJ) 20 units TIDAC SQ 06/07/17 08:00 06/07/17 20:29 (Motrin) 800 mg Q8HR PO 06/07/17 14:00 06/08/17 05:58 (Levemir Inj) 60 units DAILY SQ 06/09/17 09:00 (Levemir Inj) 50 units HS SQ 06/08/17 21:00 Sodium Chloride 1,000 ml @ 100 mls/hr Q10H IV 06/08/17 11:00 06/08/17 20:59 A/P Problem List: (1) Closed left humeral fracture ICD Code: S42.302A - Unspecified fracture of shaft of humerus, left arm, initial encounter for closed fracture Status: Acute (2) Type II diabetes mellitus ICD Code: E11.9 - Type 2 diabetes mellitus without complications Status: Chronic (3) Hyperglycemia ICD Code: R73.9 - Hyperglycemia Status: Acute (4) Hyponatremia ICD Code: E87.1 - Hypo-osmolality and hyponatremia (5) Transaminitis ICD Code: R74.0 - Nonspecific elevation of levels of transaminase and lactic acid dehydrogenase [LDH] Status: Chronic Assessment and Plan 62 y/o female with chronic back pain on Methadone and diabetes mellitus who presents following a fall in a parking lot with left humerus fracture: Left humerus fracture S/p fall. Ortho eval appreciated. - No surgical intervention needed per orthopedics, sling/cradle. - We'll attempt a trial of by mouth narcotics (in addition to her methadone). Start IV Dilaudid for breakthrough as the pt is in extreme pain. Standing ibuprofen added. Decrease IV Dilaudid. - We'll consult case management for home care if possible given patient's limited ability to perform ADLs given her current state - OT and PT consulted to give recs. Type 2 diabetes mellitus Very poorly controlled. Fluctuates from 500 to 50. The pt eats junk food and sometimes doesn't eat at all, making it very difficult to achieve glycemic control. - Accu-Cheks q4H with high NovoLog sliding scale coverage. - Hypoglycemia protocol. - Monitor trends and blood glucose readings and adjust treatments as indicated. - 1800 ADA diet. - Levemir 60 units daily, 50 units HS. Added 20 units prandial insulin as well. Adjust regimen as needed. Transaminitis Chronic. - trend LFTs as needed. Thrombocytopenia Likely s/t liver disease. - follow CBC. Depression The pt endorses anhedonia and suicidal ideation. She says she has thoughts of jumping off of her 12th floor balcony. She doesn't care if her diabetes is controlled or not. - psych consult pending. DVT prophylaxis - SCDs/TEDs Discharge Planning Awaiting improvement in pain, psych consult Problem Qualifiers (1) Closed left humeral fracture: Qualified Codes: S42.212A - Unspecified displaced fracture of surgical neck of left humerus, initial encounter for closed fracture Dyllan Parish DO Jun 08, 2017 11:37
[2017-06-08] MEDS ORDERED: RESP: ALBUTEROL 2.5 MG/IPRATROPIUM 0.5 MG NEB (PRN) NEB (17:45)
--- NOTE | 2017-06-08 18:26 | RADRPT ---
EXAM DATE/TIME: 06/08/2017 18:07 [facility] COMPARISON: No previous studies available for comparison. INDICATIONS : Nausea MEDICAL HISTORY : Diabetes mellitus type II. SURGICAL HISTORY : None. Breast reduction ENCOUNTER: Initial ACUITY: 4 - 6 days PAIN SCORE: 10/10 LOCATION: Abdomen FINDINGS: Supine view of the abdomen was performed. The abdominal bowel gas pattern is normal. No abnormal ma sses, calcifications, or organomegaly is seen. The osseous structures are unremarkable. CONCLUSION: No acute disease. Douglas Cunningham MD on June 08, 2017 at 18:25 Board Certified Radiologist. This report was verified electronically.
--- NOTE | 2017-06-08 18:27 | RADRPT ---
EXAM DATE/TIME: 06/08/2017 18:01 [facility] COMPARISON: No previous studies available for comparison. INDICATIONS : Dyspnea MEDICAL HISTORY : Diabetes mellitus type II. SURGICAL HISTORY : Breast reduction. ENCOUNTER: Subsequent ACUITY: 4 - 6 days PAIN SCORE: 10/10 LOCATION: chest FINDINGS: A single view of the chest demonstrates the lungs to be symmetrically aerated without evidence of mas s, infiltrate or effusion. The cardiomediastinal contours are unremarkable. Osseous structures are intact. CONCLUSION: No acute disease. Douglas Cunningham MD on June 08, 2017 at 18:25 Board Certified Radiologist. This report was verified electronically.
[2017-06-08] MEDS ORDERED: INSULIN DETEMIR 100 UNITS/ML VIAL SQ SCH (21:00)
[2017-06-08] MEDS: SODIUM CHLORIDE 0.9% FLUSH 10 ML FLUSH IV FLUSH PRN (21:12)
[2017-06-08] MEDS: BISACODYL EC 5 MG TABEC PO SCH (21:13)
[2017-06-08] MEDS: POLYETHYLENE GLYCOL 17 GM PKG PO SCH (21:14)
[2017-06-09 04:30] VITALS: BP 105/60; PULSE 71; RESP 16; TEMP 97.1; O2SAT 96
[2017-06-09] MEDS: HYDROmorphone HCL PF 1 MG/ML VIAL IV PUSH PRN (04:59)
[2017-06-09] MEDS: IBUPROFEN 800 MG TAB PO SCH (05:00)
[2017-06-09 08:00] VITALS: BP 134/78; PULSE 74; RESP 18; TEMP 98.1; O2SAT 97
[2017-06-09] MEDS: MAGNESIUM HYDROXIDE SUSP 30 ML CUP PO SCH ×2 (09:00→09:34)
[2017-06-09] MEDS ORDERED: INSULIN DETEMIR 100 UNITS/ML VIAL SQ SCH (09:00)
[2017-06-09] MEDS: DOCUSATE SODIUM 100 MG CAP PO SCH (09:33)
[2017-06-09] MEDS: FAMOTIDINE 20 MG TAB PO SCH (09:33)
[2017-06-09] MEDS: GABAPENTIN 300 MG CAP PO SCH (09:33)
[2017-06-09] MEDS: METHADONE HCL 10 MG TAB PO SCH (09:33)
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
[2017-06-09] MEDS: INSULIN ASPART 1,000 UNITS/10 ML VIAL SQ SCH (10:15)
[2017-06-09] MEDS: INSULIN ASPART SUPPLEMENTAL SCALE SQ SCH (10:15)
[2017-06-09 12:00] VITALS: BP 101/61; PULSE 75; RESP 18; TEMP 96.5; O2SAT 93
[2017-06-09] MEDS ORDERED: OXYC-392 PO (12:39)
--- NOTE | 2017-06-09 12:48 | HHI.DCPOC ---
Discharge Care Plan Diagnosis: (1) Adjustment disorder (2) Poorly controlled diabetes mellitus (3) Closed left humeral fracture (4) Methadone dependence (5) Non-compliance Goals to Promote Your Health * To prevent worsening of your condition and complications * To maintain your health at the optimal level Directions to Meet Your Goals Take your medications as prescribed Follow your dietary instruction Follow activity as directed Keep your appointments as scheduled Take your immunizations and boosters as scheduled If your symptoms worsen call your PCP, if no PCP go to Urgent Care Center or Emergency Room Smoking is Dangerous to Your Health. Avoid second hand smoke Call the 24-hour hour crisis hotline for domestic abuse at Dyllan Parish DO Jun 09, 2017 12:48
--- NOTE | 2017-06-09 12:51 | HHI.DS ---
Discharge Summary Admission Date Jun 03, 2017 at 18:28 Discharge Date: Jun 09, 2017 Admitting Diagnosis hyperglycemia/hyponatremia/Left shoulder fracture (1) Closed left humeral fracture ICD Code: S42.302A - Unspecified fracture of shaft of humerus, left arm, initial encounter for closed fracture Diagnosis: Principal Status: Acute (2) Type II diabetes mellitus ICD Code: E11.9 - Type 2 diabetes mellitus without complications Diagnosis: Principal Status: Chronic (3) Hyperglycemia ICD Code: R73.9 - Hyperglycemia Status: Acute (4) Hyponatremia ICD Code: E87.1 - Hypo-osmolality and hyponatremia (5) Transaminitis ICD Code: R74.0 - Nonspecific elevation of levels of transaminase and lactic acid dehydrogenase [LDH] Status: Chronic Procedures None Brief History - From Admission Written by Annika Wells, acting as scribe for Dr. Farley on 06/03/17 at 22:33. The patient is seen in her room. She reports that she was at [employer], got out of her car, stepped on uneven pavement, tripped, and fell. She fell onto her left chest wall/left side with severe left arm pain afterwards. She denies hitting her head. She is writhing in pain unless distracted. She reports the worst pain she's ever had in left upper arm. She has chronic back pain and takes Methadone for this. She reports taking Methadone 110 mg daily p.o. daily and records from her May admission here indicate the dose as 100 mg daily. Methadone dosing will need to be verified during day with Methadone clinic. She appears to have drug seeking behaviors throughout the visit. Denies being on blood thinners. Denies history of anesthesia reaction. CBC/BMP: 06/06/17 1700 06/08/17 0615 Significant Findings Laboratory Tests Test 06/06/17 17:00 06/07/17 11:52 06/08/17 06:15 06/09/17 08:35 Platelet Count 105 TH/MM3 (150-450) Mean Platelet Volume 11.1 FL (7.0-11.0) Creatinine 1.04 MG/DL (0.50-1.00) Random Glucose 481 MG/DL (74-106) 59 MG/DL (74-106) Albumin 2.8 GM/DL (3.4-5.0) 2.7 GM/DL (3.4-5.0) Calcium Level 8.1 MG/DL (8.5-10.1) Aspartate Amino Transf (AST/SGOT) 74 U/L (15-37) 89 U/L (15-37) Alanine Aminotransferase (ALT/SGPT) 105 U/L (10-53) 96 U/L (10-53) Sodium Level 129 MEQ/L (136-145) Chloride Level 93 MEQ/L (98-107) 97 MEQ/L (98-107) Estimat Glomerular Filtration Rate 54 ML/MIN (>89) 68 ML/MIN (>89) Imaging Last Impressions Chest X-Ray 06/08/17 0000 Signed Impressions: Service Date/Time: Thursday, June 08, 2017 18:01 - CONCLUSION: No acute disease. Douglas Cunningham MD Abdomen X-Ray 06/08/17 0000 Signed Impressions: Service Date/Time: Thursday, June 08, 2017 18:07 - CONCLUSION: No acute disease. Douglas Cunningham MD Shoulder X-Ray 06/03/17 1626 Signed Impressions: Service Date/Time: Saturday, June 03, 2017 17:12 - CONCLUSION: 1. Left humeral surgical neck fracture, as above. Cricket Gay MD Humerus X-Ray 06/03/[id number] Signed Impressions: Service Date/Time: Saturday, June 03, 2017 17:16 - CONCLUSION: Fracturing at the surgical neck region of the proximal left humerus. Hima Richard MD Elbow X-Ray [id number]/03/[id number] Signed Impressions: Service Date/Time: Saturday, June 03, 2017 17:20 - CONCLUSION: 1. No acute fracture or dislocation. Cricket Gay MD PE at Discharge GENERAL: Appears to be uncomfortable. SKIN: Warm and dry. Normal color. Normal turgor. No obvious ecchymosis or swelling. HEAD: Atraumatic. Normocephalic. EYES: Pupils equal and round. No scleral icterus. No injection or drainage. ENT: No nasal bleeding or discharge. Mucous membranes pink and moist. Pharynx is clear. Airway is patent. NECK: Trachea midline. CARDIOVASCULAR: Regular rate and rhythm. RESPIRATORY: No accessory muscle use. Clear to auscultation. Breath sounds equal bilaterally. GASTROINTESTINAL: Abdomen soft, non-tender, nondistended. Hepatic and splenic margins not palpable. MUSCULOSKELETAL: Extremities without clubbing, cyanosis. 1+ edema in RUE, TR edema in LUE. No obvious deformities. Patient very difficult to examine secondary to her pain. Splint in place on the left. NEUROLOGICAL: Awake and alert. No obvious cranial nerve deficits. Motor grossly within normal limits. Five out of 5 muscle strength in the arms and legs. Normal speech. PSYCHIATRIC: Flattened affect. Pt update on day of discharge The patient did not want to leave the hospital. She said she was in too much pain to move around and will have not help once she gets home. She says she has no way to get home and she is unsure if she could open her door when she gets there. Her friend says she cannot be there to help her out because of other things she has to do. Discussed with nursing and case management. Hospital Course Left humerus fracture S/p fall. Orthopedic surgery was consulted. No surgical intervention needed per orthopedics. A sling/cradle was placed for comfort. PT in two weeks was recommended to begin pendulum exercises. Pain management was very difficult, as her tolerance was increased s/t methadone use. She required IV Dilaudid for a few days. She stated she was unable to get out of bed or transfer from the bed to chair. She said that she could not take care of herself at home. Nursing has witnessed the pt ambulate without too much difficulty. There is significant concern the pt was trying to remain in the hospital as long as possible. Orthopedic surgery said the pt may have a repeat x ray as an outpt and follow- up in one week. She will have pain meds provided upon discharge. Case management unable to place pt or obtain home health care. Nursing firmly believes that the pt is able to take care of herself on discharge and that she is malingering in the hospital. Will discharge the pt home at this time. Type 2 diabetes mellitus Very poorly controlled. Fluctuates from 500 to 50. The pt eats junk food and sometimes doesn't eat at all, making it very difficult to achieve glycemic control. Placed on Accu-Cheks q4H with high NovoLog sliding scale coverage and hypoglycemia protocol. Insulin was changed to Levemir 60 units daily, 50 units HS. Added 20 units prandial insulin as well. A visiting nurse consult was requested. She will resume her home regimen. Depression The pt endorses anhedonia and suicidal ideation. Psychiatry saw the pt and believed she was stable for discharge. Pt Condition on Discharge: Stable Discharge Disposition: Discharge Home Discharge Time: > 30 minutes Discharge Instructions DIET: Follow Instructions for: Diabetic Diet Activities you can perform: See Additionl Instruction Other Activity Instructions: Keep arm in sling for comfort Follow up Referrals: Orthopedics - 1 Week with Raul Blank Jr., MD PCP Follow-up - 1 Week New Orders: X-RAY HUMERUS - 3-5 Days New Medications: Oxycodone (Oxycodone) 5 Mg Tab 5 MG PO Q4H PRN for PAIN SCALE 1 TO 10, #30 TAB Continued Medications: Famotidine (Famotidine) 20 Mg Tab 20 MG PO BID for Reflux, #30 TAB Gabapentin (Neurontin) 300 Mg Cap 600 MG PO TID for Neuropathy, #90 CAP Insulin Aspart Inj (Novolog Inj) 1,000 Unit/10 Ml Vial 1-9 UNITS SQ ACHS for Blood Sugar Management, #10 ML 0 Refills sugars less than 70,(0)units; sugars 150-199,(1) unit; sugars 200-249,(3) units; sugars 250-299,(5) units; sugars 300-349,(7) units; sugars > 349,(9) units Insulin Aspart Inj (Novolog Inj) 1,000 Unit/10 Ml Vial 20 UNITS SQ TIDAC for Blood Sugar Management for 30 Days, #10 INJECTION Give 1 month Supply Insulin Detemir Inj (Levemir Inj) 1,000 unit/ 10 ML Vial 55 UNITS SQ BID for Blood Sugar Management, #100 INJECTION 3 Refills Give 30 day supply. Methadone (Methadone) 40 Mg Tab 100 MG PO DAILY, TAB 0 Refills Dyllan Parish DO Jun 09, 2017 12:51
== END 2017-06-09 16:43 | disposition home or self-care (01) | DRG 563 ==
LOC: NEPE 16:18 → NEDA 18:28 → N06A 19:24
PROVIDERS: ADMIT Hospitalist; ATTEND Hospitalist
DX: S42.212A Unspecified displaced fracture of surgical neck of left humerus, initial encounter for closed fracture (principal); E11.65 Type 2 diabetes mellitus with hyperglycemia; Z79.4 Long term (current) use of insulin; D69.6 Thrombocytopenia, unspecified; E87.1 Hypo-osmolality and hyponatremia; R74.0 Nonspecific elevation of levels of transaminase and lactic acid dehydrogenase [LDH]; W18.30XA Fall on same level, unspecified, initial encounter; Y92.481 Parking lot as the place of occurrence of the external cause; G89.29 Other chronic pain; M54.9 Dorsalgia, unspecified; Z79.891 Long term (current) use of opiate analgesic; F17.210 Nicotine dependence, cigarettes, uncomplicated; Z76.5 Malingerer [conscious simulation]; F32.9 Major depressive disorder, single episode, unspecified; B19.20 Unspecified viral hepatitis C without hepatic coma; Z91.19 Patient's noncompliance with other medical treatment and regimen; Z88.1 Allergy status to other antibiotic agents
CPT/HCPCS: 71010; 73030; 73060; 73070; 74000; 76937; 80048; 80053; 80076; 81001; 82010; 82947; 82948; 83690; 83735; 85025; 85027; 85610; 87040; 93005; 94664; 96361; 96374; 96375; J1170; J1815; J2270; J2405; J7030

== ENCOUNTER 2017-06-19 19:10 | Emergency (ER) | payer SELFPAY ==
[~2017-06-19] VITALS: Ht 165.1 cm; Wt 91.0 kg
[~2017-06-19 19:10] MED LIST changes: -CARA1TAB6 PO; -FURO20TA PO; -GETGO ROLLING W1 MI1; -OCEA0.653 EACH NARE; +OXYC-392 PO; -SM C1CRE VAGINAL; -guaiFENesin ER PO
[2017-06-19 19:13] VITALS: BP 188/87; PULSE 82; RESP 16; TEMP 97.7; O2SAT 96
[2017-06-19 19:16] VITALS: BP 117/60; PULSE 98; RESP 16; TEMP 98.6; O2SAT 100
--- NOTE | 2017-06-19 19:19 | PD ---
Physical Exam Date Seen by Provider: Jun 19, 2017 Time Seen by Provider: 19:16 Narrative 62-year-old female with history of fall with fracture to the left arm. Patient states blood sugars reading over 600 at home. She normally takes Levemir NovoLog at home. Last insulin dose was this morning. Patient complains of weakness and blurred vision. Also complaining of her pain being worse in her left arm. Patient states left arm pain is 10 over 10. Patient was a patient of Dr. Zabala currently looking for another primary care physician. Patient is unsure why her blood sugar is as elevated as it is. Patient is allergic to erythromycin and ketorolac. Data Data Last Documented VS Vital Signs Date Time Temp Pulse Resp B/P (MAP) Pulse Ox O2 Delivery O2 Flow Rate FiO2 06/19/17 19:13 97.7 82 16 188/87 (120) 96 Room Air [facility] Medical Record Reviewed: Yes Supervised Visit with ARTUR: Yes Narrative Course Recheck of blood sugar in triage is greater than 500. Vital signs are stable. Patient brought back to room immediately. Condition: Stable Amrik Alvares Jun 19, 2017 19:19
[2017-06-19] MEDS ORDERED: LEVEMIR SQ (19:29)
--- NOTE | 2017-06-19 19:30 | PD ---
HPI Chief Complaint: Pain: Acute or Chronic Time Seen by Provider: 19:24 Travel History International Travel<30 days: No Contact w/Intl Traveler<30days: No Traveled to known affect area: No History of Present Illness HPI Patient is a 62-year-old female presents emergency department for a chief complaint of left arm pain. Patient states she fell on June 03 of this month and was admitted to the hospital for a few days and was ultimately discharged with a sling and was told that her shoulder would eventually heal. She denied any traumatic events since then. She goes to the methadone clinic for chronic pain but despite this she states her pain is persisted over the past 3 weeks. She also noticed today that she took her sugar at home and it read as high, she is denying any abdominal pain fevers nausea or vomiting. She's been taking her other medications as prescribed. She states she currently is without a primary care physician is the [facility] closed. States his pain is moderate to severe, located in the left shoulder, context is fall and recent fracture, no radiation of the pain. PFSH Past Medical History Hx Anticoagulant Therapy: No Arthritis: Yes Blood Disorders: No Anxiety: Yes Depression: Yes Cancer: No Cardiovascular Problems: No High Cholesterol: Yes Chemotherapy: No Chest Pain: Yes COPD: Yes Cerebrovascular Accident: No Diabetes: Yes Diminished Hearing: Yes Deep Vein Thrombosis: Yes Endocrine: Yes Gastrointestinal Disorders: Yes Genitourinary: Yes Hepatitis: Yes (B/C) Hiatal Hernia: Yes Hypertension: Yes Immune Disorder: No Implanted Vascular Access Dvce: No Musculoskeletal: Yes Neurologic: Yes Psychiatric: Yes Reproductive: No Respiratory: No Integumentary: Yes (IVDA) Pneumonia: Yes Thyroid Disease: No Ulcer: Yes Menopausal: Yes : 3 Para: 2 Miscarriage: 1 Past Surgical History Body Medical Devices: NONE Gynecologic Surgery: Yes Hysterectomy: No Oral Surgery: Yes (EGD) Pacemaker: No Thoracic Surgery: Yes (GRISELDA BREAST REDUCTION) Other Surgery: Yes (bladder repair and breast reduction) Social History Alcohol Use: No Tobacco Use: Yes (1/2 ppd) Substance Use: No Allergies-Medications (Allergen,Severity, Reaction): Coded Allergies: erythromycin base (Verified Allergy, Severe, Rash, 06/19/17) ketorolac (Verified Allergy, Severe, Shortness of Breath, 06/19/17) Reported Meds & Prescriptions Reported Meds & Active Scripts Active Oxycodone (Oxycodone HCl) 5 Mg Tab 5 Mg PO Q4H PRN Glucocom Test Strips (Blood Glucose Test Strips) 1 Roseline Roseline Ea .ROUTE DIRECTED Insulin Syringe/U-100/31G X 01/14" 1 ml 31 Gauge X 01/14" Mis Ea .ROUTE DIRECTED Novolog Inj (Insulin Aspart) 1,000 Unit/10 Ml Vial 20 Units SQ TIDAC 30 Days Give 1 month Supply Famotidine 20 Mg Tab 20 Mg PO BID Neurontin (Gabapentin) 300 Mg Cap 600 Mg PO TID Novolog Inj (Insulin Aspart) 1,000 Unit/10 Ml Vial 1-9 Units SQ ACHS sugars less than 70,(0)units; sugars 150-199,(1) unit; sugars 200-249,(3) units; sugars 250-299,(5) units; sugars 300-349,(7) units; sugars > 349,(9) units Reported Levemir Inj (Insulin Detemir) 1,000 unit/ 10 ML Vial 45 Units SQ BID Do not mix with any other Insulin. Methadone (Methadone HCl) 40 Mg Tab 100 Mg PO DAILY Review of Systems Except as stated in HPI: all other systems reviewed are Neg Physical Exam Narrative GENERAL: Well-developed well-nourished, no obvious distress, left side sling in place. SKIN: Focused skin assessment warm/dry. HEAD: Atraumatic. Normocephalic. EYES: Pupils equal and round. No scleral icterus. No injection or drainage. ENT: No nasal bleeding or discharge. Mucous membranes pink and moist. NECK: Trachea midline. No JVD. CARDIOVASCULAR: Regular rate and rhythm. No murmur appreciated. RESPIRATORY: No accessory muscle use. Clear to auscultation. Breath sounds equal bilaterally. GASTROINTESTINAL: Abdomen soft, non-tender, nondistended. Hepatic and splenic margins not palpable. MUSCULOSKELETAL: No obvious deformities. No clubbing. No cyanosis. No edema. Moderate tenderness of the proximal humerus, pulse motor and sensory intact distally in all 4 extremities, Refill brisk in all 5 digits of the left hand, compartments are soft. No skin breakdown seen. NEUROLOGICAL: Awake and alert. No obvious cranial nerve deficits. Motor grossly within normal limits. Normal speech. PSYCHIATRIC: Appropriate mood and affect; insight and judgment normal. Data Data Last Documented VS Vital Signs Date Time Temp Pulse Resp B/P (MAP) Pulse Ox O2 Delivery O2 Flow Rate FiO2 06/19/17 23:09 06/19/17 20:28 71 16 Room Air 06/19/17 20:25 96 06/19/17 19:16 98.6 Orders Orders Complete Blood Count With Diff (06/19/17 19:35) Comprehensive Metabolic Panel (06/19/17 19:35) Urinalysis - C+S If Indicated (06/19/17 19:35) Blood Gas Venous (Vbg) (06/19/17 19:35) Blood Glucose (06/19/17 19:35) Ecg Monitoring (06/19/17 19:35) Iv Access Insert/Monitor (06/19/17 19:35) Oximetry (06/19/17 19:35) NPO (06/19/17 19:35) Sodium Chloride 0.9% Flush (Ns Flush) (06/19/17 19:45) Sodium Chlor 0.9% 1000 Ml Inj (Ns 1000 M (06/19/17 19:45) Shoulder, Limited(2vws) (06/19/17 ) Insulin Human Regular Inj (Novolin R Inj (06/19/17 21:00) Acetamin-Hydrocod 325-5 Mg ([place] 5-325 (06/19/17 21:15) Ed Discharge Order (06/19/17 22:36) Labs Laboratory Tests Test 06/19/17 19:30 06/19/17 19:38 06/19/17 19:40 Urine Color LIGHT-YELLOW Urine Turbidity CLEAR Urine pH 5.5 Urine Specific [place] 1.033 Urine Protein NEG mg/dL Urine Glucose (UA) 1000 mg/dL Urine Ketones NEG mg/dL Urine Occult Blood NEG Urine Nitrite NEG Urine Bilirubin NEG Urine Urobilinogen LESS THAN 2.0 MG/DL Urine Leukocyte Esterase NEG Urine RBC LESS THAN 1 /hpf Urine WBC 1 /hpf Microscopic Urinalysis Comment CULT NOT INDICATED Blood Gas Puncture Site Blood Gas Patient Temperature 98.6 Venous Blood pH 7.38 Venous Blood Partial Pressure CO2 52 mmHg Venous Blood Partial Pressure O2 29 mmHg Venous Blood HCO3 30 mmol/L Venous Blood Oxygen Saturation 51 % Venous Blood Oxygen Content 10.4 Vol % Venous Blood Base Excess 4.7 mmol/L Blood Gas Inspired Oxygen 21 % White Blood Count 7.3 TH/MM3 Red Blood Count 4.78 MIL/MM3 Hemoglobin 14.4 GM/DL Hematocrit 42.9 % Mean Corpuscular Volume 89.7 FL Mean Corpuscular Hemoglobin 30.1 PG Mean Corpuscular Hemoglobin Concent 33.6 % Red Cell Distribution Width 13.3 % Platelet Count 152 TH/MM3 Mean Platelet Volume 11.2 FL Neutrophils (%) (Auto) 76.9 % Lymphocytes (%) (Auto) 17.1 % Monocytes (%) (Auto) 3.6 % Eosinophils (%) (Auto) 1.9 % Basophils (%) (Auto) 0.5 % Neutrophils # (Auto) 5.6 TH/MM3 Lymphocytes # (Auto) 1.2 TH/MM3 Monocytes # (Auto) 0.3 TH/MM3 Eosinophils # (Auto) 0.1 TH/MM3 Basophils # (Auto) 0.0 TH/MM3 CBC Comment DIFF FINAL Differential Comment Blood Urea Nitrogen 12 MG/DL Creatinine 1.19 MG/DL Random Glucose 682 MG/DL Total Protein 9.0 GM/DL Albumin 3.4 GM/DL Calcium Level 9.0 MG/DL Alkaline Phosphatase 218 U/L Aspartate Amino Transf (AST/SGOT) 93 U/L Alanine Aminotransferase (ALT/SGPT) 136 U/L Total Bilirubin 0.6 MG/DL Sodium Level 122 MEQ/L Potassium Level 4.2 MEQ/L Chloride Level 84 MEQ/L Carbon Dioxide Level 29.2 MEQ/L Anion Gap 9 MEQ/L Estimat Glomerular Filtration Rate 46 ML/MIN MDM Medical Decision Making Medical Screen Exam Complete: Yes Emergency Medical Condition: Yes Differential Diagnosis Chronic left humeral fracture, DKA, hyperglycemia, poor social circumstance. Narrative Course Patient roomed emergency department, she stated "I don't want any pain pills and i'm just here because i'm still in pain." She was offered pain medicine and initially declined and then was asking for pain medication. Patient has chronic left humerus fracture, no indication for further adjustment at this time an needs to follow up outpatient. She is hyperglycemic with a sodium corrects well for her level of hyperglycemia. No evidence for DKA. Labs otherwise reassuring. X-ray of her left upper extremity shows no change from previous. She is given a liter of normal saline as well as 10 units of IV insulin, and on reassessment she is calm and cooperative, urged her to follow- up with a primary care physician or the [facility] as well as an orthopedic surgeon. She is stable for discharge at this time. I discussed with the patient that given that she is on methadone her pain will be hard to control. 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 I'm disinclined to treat her chronic pain from her left shoulder fracture at this time. Diagnosis Primary Impression: Hyperglycemia Additional Impression: Shoulder fracture, left Qualified Codes: S42.92XD - Fracture of left shoulder girdle, part unspecified , subsequent encounter for fracture with routine healing Referrals: Kofi Ochoa MD [facility] Patient Assistance Program Disposition: 01 DISCHARGE HOME Condition: Stable Eliu Riggs MD Jun 19, 2017 19:30
[2017-06-19 19:36] VITALS: BP 164/90; PULSE 90; RESP 16; O2SAT 98
[2017-06-19] MEDS ORDERED: SODIUM CHLORIDE 0.9% FLUSH 10 ML FLUSH IVF PRN (19:45)
[2017-06-19] MEDS ORDERED: SODIUM CHLOR 0.9% 1000 ML INJ 1,000 ML IV ONE (19:45)
[2017-06-19 19:49] LABS: BLOOD GAS VENOUS BASE EXCESS 4.7 mmol/L (-2-2); BLOOD GAS VENOUS HCO3 30 mmol/L (22-26); BLOOD GAS VENOUS O2 CONTENT 10.4 Vol % (9.0-17.0); BLOOD GAS VENOUS O2 HGB SAT 51 % (70-76); BLOOD GAS VENOUS PCO2 52 mmHg (44-48); BLOOD GAS VENOUS PO2 29 mmHg (35-40); BLOOD GAS VENOUS pH 7.38 (7.360-7.400); TEMP CORR TO 98.6
[2017-06-19 19:51] LABS: CRITICAL VALUE YES; FIO2 21 %; STAT YES
[2017-06-19 20:07] LABS: AUTOMATED NEUTROPHIL # 5.6 TH/MM3 (1.8-7.7); BASOPHIL % 0.5 % (0.0-2.0); EOSINOPHIL # 0.1 TH/MM3 (0-0.4); EOSINOPHIL % 1.9 % (0.0-4.0); HEMATOCRIT 42.9 % (35.0-46.0); HEMO FLAGS DIFF FINAL; LYMPH % 17.1 % (9.0-44.0); LYMPHOCYTE # 1.2 TH/MM3 (1.0-4.8); MEAN CELL VOLUME 89.7 FL (80.0-100.0); MEAN CORPUSCULAR HEMOGLOBIN 30.1 PG (27.0-34.0); MEAN CORPUSCULAR HGB CONC 33.6 % (32.0-36.0); MONO % 3.6 % (0.0-8.0); NEUT % 76.9 % (16.0-70.0); PLATELET COUNT 152 TH/MM3 (150-450); RED BLOOD COUNT 4.78 MIL/MM3 (4.00-5.30); RED CELL DISTRIBUTION WIDTH 13.3 % (11.6-17.2); WHITE BLOOD COUNT 7.3 TH/MM3 (4.0-11.0)
--- NOTE | 2017-06-19 20:15 | RADRPT ---
EXAM DATE/TIME: 06/19/2017 20:00 [place] COMPARISON: CHEST SINGLE AP, June 08, 2017, 18:01. INDICATIONS : Pain post fall- evaluate for dislocation. MEDICAL HISTORY : None. SURGICAL HISTORY : None. ENCOUNTER: Initial ACUITY: 3 weeks PAIN SCORE: 8/10 LOCATION: Left Shoulder. FINDINGS: There is a subcapital fracture of the humerus with no evidence of dislocation. CONCLUSION: Subcapital fracture proximal humerus. No dislocation identified Sarabjit Gallo MD on June 19, 2017 at 20:12 Board Certified Radiologist. This report was verified electronically.
[2017-06-19 20:25] VITALS: O2SAT 96
[2017-06-19 20:27] LABS: BLOOD, URINE NEG (NEG); COMMENT (UR) CULT NOT INDICATED; CULTURE IF INDICATED CULT NOT INDICATED; GLUCOSE,URINE 1000 mg/dL (NEG); KETONE, URINE NEG (NEG); NITRITE,URINE NEG (NEG); PH, URINE 5.5 (5.0-8.5); URINE COLOR LIGHT-YELLOW (YELLW/STRAW)
[2017-06-19 20:28] VITALS: BP 199/93; PULSE 71; RESP 16
[2017-06-19 20:38] LABS: ALKALINE PHOSPHATASE 218 U/L (45-117); ALT (GPT) 136 U/L (10-53); ANION GAP 9 MEQ/L (5-15); AST (GOT) 93 U/L (15-37); BICARBONATE 29.2 MEQ/L (21.0-32.0); BLOOD UREA NITROGEN 12 MG/DL (7-18); CHLORIDE 84 MEQ/L (98-107); GLOMERULAR FILTRATION RATE 46 ML/MIN (>89); POTASSIUM 4.2 MEQ/L (3.5-5.1); TOTAL BILIRUBIN ADULT 0.6 MG/DL (0.2-1.0)
[2017-06-19 20:48] LABS: SODIUM (NA) 122 MEQ/L (136-145)
[2017-06-19] MEDS ORDERED: INSULIN HUMAN REGULAR 1,000 UNITS/10 ML VIAL IV PUSH ONE (21:00)
[2017-06-19] MEDS ORDERED: ACETAMINOPHEN/HYDROcodone 325 MG/5 MG TAB PO ONE (21:15)
== END 2017-06-19 23:10 | disposition home or self-care (01) ==
LOC: NEPE 19:10
DX: E11.65 Type 2 diabetes mellitus with hyperglycemia (principal); S42.92XD Fracture of left shoulder girdle, part unspecified, subsequent encounter for fracture with routine healing; R53.1 Weakness; H53.8 Other visual disturbances; J44.9 Chronic obstructive pulmonary disease, unspecified; I10 Essential (primary) hypertension; X58.XXXD Exposure to other specified factors, subsequent encounter; Z72.0 Tobacco use
CPT/HCPCS: 73030; 80053; 81001; 82805; 85025; 96361; 96374; 99284; J1815; J7030

== ENCOUNTER 2017-08-17 12:34 | Emergency (ER) | payer SELFPAY ==
[~2017-08-17] VITALS: Ht 165.1 cm; Wt 91.0 kg
[2017-08-17 12:35] VITALS: BP 144/99; PULSE 84; RESP 18; TEMP 98.6; O2SAT 98
[2017-08-17] MEDS ORDERED: SODIUM CHLOR 0.9% 1000 ML INJ 1,000 ML IV ONE ×2 (13:30→14:45)
[2017-08-17 13:35] VITALS: BP 136/82; PULSE 74; RESP 18; O2SAT 98
--- NOTE | 2017-08-17 13:36 | PD ---
HPI Chief Complaint: Diabetic Time Seen by Provider: 13:33 Travel History International Travel<30 days: No Contact w/Intl Traveler<30days: No Traveled to known affect area: No History of Present Illness HPI 62-year-old female presents to the emergency department for evaluation not feeling well, hyperglycemia. She states that she is on NovoLog and Levemir insulin. However, she ran out of this 5 days ago. She was seen Dr. Zabala in the [facility], but since that has closed, she has not followed up at the [facility]. The patient states that her blood sugar glucose has been running high for 5 days. She thought should be able to manage it with eating well, but has not. Patient reports not feeling well, worsening neuropathy, abdominal pain. If this is how she typically feels when her blood glucose is high. She is also out of her gabapentin. Moderate severity. She also complains of chronic left arm pain since she broke her left arm. Moderate severity. No exacerbating or alleviating factors. PFSH Past Medical History Hx Anticoagulant Therapy: No Arthritis: Yes Blood Disorders: No Anxiety: Yes Depression: Yes Cancer: No Cardiovascular Problems: Yes High Cholesterol: Yes Chemotherapy: No Chest Pain: Yes COPD: Yes Cerebrovascular Accident: No Diabetes: Yes Diminished Hearing: Yes Deep Vein Thrombosis: Yes Endocrine: Yes Gastrointestinal Disorders: Yes Genitourinary: Yes Hepatitis: Yes (B/C) Hiatal Hernia: Yes Hypertension: Yes Immune Disorder: No Implanted Vascular Access Dvce: No Musculoskeletal: Yes Neurologic: Yes Psychiatric: Yes Reproductive: No Respiratory: No Integumentary: Yes (IVDA) Pneumonia: Yes Thyroid Disease: No Ulcer: Yes Menopausal: Yes : 3 Para: 2 Miscarriage: 1 Past Surgical History Body Medical Devices: NONE Gynecologic Surgery: Yes Hysterectomy: No Oral Surgery: Yes (EGD) Pacemaker: No Thoracic Surgery: Yes (GRISELDA BREAST REDUCTION) Other Surgery: Yes (bladder repair and breast reduction) Social History Alcohol Use: No Tobacco Use: Yes (1/2 ppd) Substance Use: No Allergies-Medications (Allergen,Severity, Reaction): Coded Allergies: erythromycin base (Verified Allergy, Severe, Rash, 08/17/17) ketorolac (Verified Allergy, Severe, Shortness of Breath, 08/17/17) Reported Meds & Prescriptions Reported Meds & Active Scripts Active Glucocom Test Strips (Blood Glucose Test Strips) 1 Roseline Roseline Ea .ROUTE DIRECTED Insulin Syringe/U-100/31G X 01/14" 1 ml 31 Gauge X 01/14" Mis Ea .ROUTE DIRECTED Novolog Inj (Insulin Aspart) 1,000 Unit/10 Ml Vial 20 Units SQ TIDAC 30 Days Give 1 month Supply Neurontin (Gabapentin) 300 Mg Cap 600 Mg PO TID Novolog Inj (Insulin Aspart) 1,000 Unit/10 Ml Vial 1-9 Units SQ ACHS sugars less than 70,(0)units; sugars 150-199,(1) unit; sugars 200-249,(3) units; sugars 250-299,(5) units; sugars 300-349,(7) units; sugars > 349,(9) units Reported Levemir Inj (Insulin Detemir) 1,000 unit/ 10 ML Vial 45 Units SQ BID Do not mix with any other Insulin. Methadone (Methadone HCl) 40 Mg Tab 100 Mg PO DAILY Review of Systems Except as stated in HPI: all other systems reviewed are Neg Physical Exam Narrative GENERAL: Well-nourished, well-developed female patient, afebrile. SKIN: Focused skin assessment warm/dry. HEAD: Normocephalic. Atraumatic. EYES: No scleral icterus. No injection or drainage. NECK: Supple, trachea midline. No JVD or lymphadenopathy. CARDIOVASCULAR: Regular rate and rhythm without murmurs, gallops, or rubs. RESPIRATORY: Breath sounds equal bilaterally. No accessory muscle use. Lungs sounds are clear to auscultation. GASTROINTESTINAL: Abdomen soft, non-tender, nondistended. MUSCULOSKELETAL: No cyanosis, or edema. BACK: Nontender without obvious deformity. No CVA tenderness. Data Data Last Documented VS Vital Signs Date Time Temp Pulse Resp B/P (MAP) Pulse Ox O2 Delivery O2 Flow Rate FiO2 08/17/17 16:00 68 18 139/71 (93) 98 Room Air 08/17/17 12:35 98.6 Orders Orders Complete Blood Count With Diff (08/17/17 13:23) Comprehensive Metabolic Panel (08/17/17 13:23) Sodium Chlor 0.9% 1000 Ml Inj (Ns 1000 M (08/17/17 13:30) Resp Blood Gas Venous (08/17/17 ) Blood Gas Venous (Vbg) (08/17/17 13:32) Sodium Chlor 0.9% 1000 Ml Inj (Ns 1000 M (08/17/17 14:45) Insulin Human Regular Inj (Novolin R Inj (08/17/17 14:45) Insulin Human Regular Inj (Novolin R Inj (08/17/17 16:00) Labs Laboratory Tests Test 08/17/17 13:32 08/17/17 13:54 Blood Gas Patient Temperature 98.6 Venous Blood pH 7.37 Venous Blood Partial Pressure CO2 51 mmHg Venous Blood Partial Pressure O2 29 mmHg Venous Blood HCO3 29 mmol/L Venous Blood Oxygen Saturation 49 % Venous Blood Oxygen Content 10.3 Vol % Venous Blood Base Excess 3.7 mmol/L Blood Gas Inspired Oxygen 21 % White Blood Count 7.7 TH/MM3 Red Blood Count 5.05 MIL/MM3 Hemoglobin 14.9 GM/DL Hematocrit 44.5 % Mean Corpuscular Volume 88.0 FL Mean Corpuscular Hemoglobin 29.5 PG Mean Corpuscular Hemoglobin Concent 33.5 % Red Cell Distribution Width 13.3 % Platelet Count 114 TH/MM3 Mean Platelet Volume 11.4 FL Neutrophils (%) (Auto) 81.1 % Lymphocytes (%) (Auto) 12.6 % Monocytes (%) (Auto) 4.3 % Eosinophils (%) (Auto) 1.5 % Basophils (%) (Auto) 0.5 % Neutrophils # (Auto) 6.3 TH/MM3 Lymphocytes # (Auto) 1.0 TH/MM3 Monocytes # (Auto) 0.3 TH/MM3 Eosinophils # (Auto) 0.1 TH/MM3 Basophils # (Auto) 0.0 TH/MM3 CBC Comment DIFF FINAL Differential Comment Blood Urea Nitrogen 12 MG/DL Creatinine 1.24 MG/DL Random Glucose 695 MG/DL Total Protein 8.2 GM/DL Albumin 3.5 GM/DL Calcium Level 8.9 MG/DL Alkaline Phosphatase 165 U/L Aspartate Amino Transf (AST/SGOT) 126 U/L Alanine Aminotransferase (ALT/SGPT) 198 U/L Total Bilirubin 0.7 MG/DL Sodium Level 122 MEQ/L Potassium Level 4.8 MEQ/L Chloride Level 86 MEQ/L Carbon Dioxide Level 28.7 MEQ/L Anion Gap 7 MEQ/L Estimat Glomerular Filtration Rate 44 ML/MIN MDM Medical Decision Making Medical Screen Exam Complete: Yes Emergency Medical Condition: Yes Medical Record Reviewed: Yes Differential Diagnosis Hyperglycemia versus DKA versus electrolyte abnormality Narrative Course 62-year-old female presents having high blood sugars for the past 5 days since being out of her insulin. IV access established. CBC, CMP, VBG are ordered and pending. Patient is given normal saline 1 L IV bolus. CBC shows no acute abnormality. CMP shows hyponatremia 122, glucose 695 of a liver enzymes with an AST 127, ALT 198, alkaline phosphatase 165. VBG shows normal pH of 7.37, bicarbonate 51. Corrected sodium for hyperglycemia would make a sodium of 136. Patient is given second liter normal saline, 10 units regular insulin IV. Recheck of blood glucose is 428. Patient is given 7 units Regular Insulin IV. Recheck blood glucose is 284. Patient states she cannot afford her insulin. I spoke to case management who reviewed her chart. Patient is instructed to call his clinic first thing in the morning and follow-up with them. She will be given prescriptions for her Levemir Novolog insulin. She is also requesting refill of her gabapentin. She is return here for any acute worsening of symptoms. Diagnosis Primary Impression: Hyperglycemia Additional Impression: Type II diabetes mellitus Qualified Codes: E11.8 - Type 2 diabetes mellitus with unspecified complications; Z79.4 - exterminator (current) use of insulin Referrals: [facility] 1 day Patient Instructions: Diabetic Hyperglycemia (ED), General Instructions Additional Instructions: Take insulin as directed. Follow-up with the [facility] tomorrow. Return to the emergency department for any acute worsening of symptoms. Med/Other Pt SpecificInfo: Prescription(s) given Scripts Insulin Syringe/U-100/31G X 5/16" 1 ml (Insulin Syringe/U-100/31G X 5/16" 1 ml) 31 Gauge X 5/16" Mis EA .ROUTE DIRECTED for Blood Sugar Management, #1 0 Refills Prov: Mary Henley 08/17/17 Insulin Detemir Inj (Levemir Inj) 1,000 unit/ 10 ML Vial 45 UNITS SQ BID for Blood Sugar Management, #1 VIAL 0 Refills Do not mix with any other Insulin. Prov: Mary Henley 08/17/17 Gabapentin (Neurontin) 300 Mg Cap 600 MG PO TID for Neuropathy, #90 CAP Prov: Mary Henley 08/17/17 Insulin Aspart Inj (Novolog Inj) 1,000 Unit/10 Ml Vial 1-9 UNITS [facility] for Blood Sugar Management, #10 ML 0 Refills sugars less than 70,(0)units; sugars 150-199,(1) unit; sugars 200-249,(3) units; sugars 250-299,(5) units; sugars 300-349,(7) units; sugars > 349,(9) units Prov: Mary Henley 08/17/17 Mary Henley Aug 17, 2017 13:36
[2017-08-17 14:10] LABS: AUTOMATED NEUTROPHIL # 6.3 TH/MM3 (1.8-7.7); BASOPHIL % 0.5 % (0.0-2.0); EOSINOPHIL # 0.1 TH/MM3 (0-0.4); EOSINOPHIL % 1.5 % (0.0-4.0); HEMATOCRIT 44.5 % (35.0-46.0); HEMOGLOBIN 14.9 GM/DL (11.6-15.3); LYMPH % 12.6 % (9.0-44.0); MEAN CORPUSCULAR HEMOGLOBIN 29.5 PG (27.0-34.0); MEAN CORPUSCULAR HGB CONC 33.5 % (32.0-36.0); MEAN PLATELET VOLUME 11.4 FL (7.0-11.0); MONO % 4.3 % (0.0-8.0); MONOCYTE # 0.3 TH/MM3 (0-0.9); NEUT % 81.1 % (16.0-70.0); PLATELET COUNT 114 TH/MM3 (150-450); RED BLOOD COUNT 5.05 MIL/MM3 (4.00-5.30); RED CELL DISTRIBUTION WIDTH 13.3 % (11.6-17.2); WHITE BLOOD COUNT 7.7 TH/MM3 (4.0-11.0)
[2017-08-17 14:36] LABS: ALBUMIN 3.5 GM/DL (3.4-5.0); ALKALINE PHOSPHATASE 165 U/L (45-117); ALT (GPT) 198 U/L (10-53); AST (GOT) 126 U/L (15-37); BICARBONATE 28.7 MEQ/L (21.0-32.0); BLOOD UREA NITROGEN 12 MG/DL (7-18); CALCIUM 8.9 MG/DL (8.5-10.1); CHLORIDE 86 MEQ/L (98-107); CREATININE 1.24 MG/DL (0.50-1.00); GLOMERULAR FILTRATION RATE 44 ML/MIN (>89); TOTAL BILIRUBIN ADULT 0.7 MG/DL (0.2-1.0); TOTAL PROTEIN 8.2 GM/DL (6.4-8.2)
[2017-08-17 14:38] LABS: GLUCOSE,RANDOM 695 MG/DL (74-106)
[2017-08-17 14:39] LABS: SODIUM (NA) 122 MEQ/L (136-145)
[2017-08-17] MEDS ORDERED: INSULIN HUMAN REGULAR 1,000 UNITS/10 ML VIAL IV PUSH ONE ×2 (14:45→16:00)
[2017-08-17 14:55] VITALS: BP 133/59; PULSE 73; RESP 18; O2SAT 99
[2017-08-17 16:00] VITALS: BP 139/71; PULSE 68; RESP 18; O2SAT 98
[2017-08-17] MEDS ORDERED: NOVOLOGP2 SQ (17:01)
[2017-08-17] MEDS ORDERED: INSU1MIS15 ×2 (17:01→17:03)
[2017-08-17] MEDS ORDERED: LEVEMIR SQ (17:02)
[2017-08-17] MEDS ORDERED: NEUR300C PO (17:02)
== END 2017-08-17 18:15 | disposition home or self-care (01) ==
LOC: NEPC 12:34
DX: E11.65 Type 2 diabetes mellitus with hyperglycemia (principal); E87.1 Hypo-osmolality and hyponatremia; M79.602 Pain in left arm; G89.29 Other chronic pain; F41.9 Anxiety disorder, unspecified; F32.9 Major depressive disorder, single episode, unspecified; E78.00 Pure hypercholesterolemia, unspecified; J44.9 Chronic obstructive pulmonary disease, unspecified; F17.200 Nicotine dependence, unspecified, uncomplicated
CPT/HCPCS: 80053; 82805; 85025; 96361; 96374; 96375; 99284; J1815; J7030

== ENCOUNTER 2017-10-27 10:09 | Emergency (ER) | payer SELFPAY ==
[~2017-10-27 10:09] MED LIST changes: -FAMO20TA2 PO; -OXYC-392 PO
[2017-10-27 11:12] VITALS: BP 149/71; PULSE 73; RESP 16; TEMP 98.3; O2SAT 98
--- NOTE | 2017-10-27 11:23 | PD ---
HPI Chief Complaint: Diabetic Time Seen by Provider: 11:20 Travel History International Travel<30 days: No Contact w/Intl Traveler<30days: No Traveled to known affect area: No History of Present Illness HPI 62-year-old female came to the emergency room with history of hyperglycemia. Patient says that her sugar has been running in 600s for past 2 weeks. She has been occasionally vomiting and just not feeling good. There is polyuria and polydipsia. She was given a new primary care physician and she was waiting to see the new Primary care physician which she saw him last Friday. Patient was given a prescription for a injectable pen which patient did not know how to use and ended up not getting any insulin for more than 24 hours. She is awake and answering questions appropriately. Her vital signs are stable. She appears to be moderate distress. [facility] Past Medical History Narrative Medical List of her past medical, surgical, social and family history is reviewed from the nursing note. Hx Anticoagulant Therapy: No Arthritis: Yes Blood Disorders: No Anxiety: Yes Depression: Yes Cancer: No Cardiovascular Problems: Yes High Cholesterol: Yes Chemotherapy: No Chest Pain: Yes COPD: Yes Cerebrovascular Accident: No Diabetes: Yes Diminished Hearing: Yes Deep Vein Thrombosis: Yes Endocrine: Yes Gastrointestinal Disorders: Yes Genitourinary: Yes Hepatitis: Yes (B/C) Hiatal Hernia: Yes Hypertension: Yes Immune Disorder: No Implanted Vascular Access Dvce: No Musculoskeletal: Yes Neurologic: Yes Psychiatric: Yes Reproductive: No Respiratory: No Integumentary: Yes (IVDA) Pneumonia: Yes Thyroid Disease: No Ulcer: Yes Menopausal: Yes : 3 Para: 2 Miscarriage: 1 Past Surgical History Body Medical Devices: NONE Gynecologic Surgery: Yes Hysterectomy: No Oral Surgery: Yes (EGD) Pacemaker: No Thoracic Surgery: Yes (GRISELDA BREAST REDUCTION) Other Surgery: Yes (bladder repair and breast reduction) Social History Alcohol Use: No Tobacco Use: Yes (1/2 ppd) Substance Use: No Allergies-Medications (Allergen,Severity, Reaction): Coded Allergies: erythromycin base (Verified Allergy, Severe, Rash, 08/17/17) ketorolac (Verified Allergy, Severe, Shortness of Breath, 08/17/17) Comments List of allergies reviewed from the nursing note. Reported Meds & Prescriptions Reported Meds & Active Scripts Active Reported Methadone (Methadone HCl) 40 Mg Tab 100 Mg PO DAILY Narrative Medication List of her home medications reviewed from the nursing note. Review of Systems Except as stated in HPI: all other systems reviewed are Neg Gastrointestinal: Positive: Nausea, Vomiting Endocrine: Positive: Polyuria, Polydipsia Physical Exam Narrative GENERAL: Awake, alert, moderate distress SKIN: Focused skin assessment warm/dry. HEAD: Atraumatic. Normocephalic. EYES: Pupils equal and round. No scleral icterus. No injection or drainage. ENT: No nasal bleeding or discharge. Dry mucous membrane, coated tongue NECK: Trachea midline. No JVD. CARDIOVASCULAR: Regular rate and rhythm. No murmur appreciated. RESPIRATORY: No accessory muscle use. Clear to auscultation. Breath sounds equal bilaterally. GASTROINTESTINAL: Abdomen soft, non-tender, nondistended. Hepatic and splenic margins not palpable. MUSCULOSKELETAL: No obvious deformities. No clubbing. No cyanosis. No edema. NEUROLOGICAL: Awake and alert. No obvious cranial nerve deficits. Motor grossly within normal limits. Normal speech. PSYCHIATRIC: Appropriate mood and affect; insight and judgment normal. Data Data Last Documented VS Vital Signs Date Time Temp Pulse Resp B/P (MAP) Pulse Ox O2 Delivery O2 Flow Rate FiO2 10/27/17 12:07 73 18 97 Room Air 10/27/17 12:07 98.3 157/83 (107) Orders Orders Electrocardiogram (10/27/17 11:20) Complete Blood Count With Diff (10/27/17 11:20) Basic Metabolic Panel (Bmp) (10/27/17 11:20) Urinalysis - C+S If Indicated (10/27/17 11:20) Ecg Monitoring (10/27/17 11:20) Iv Access Insert/Monitor (10/27/17 11:20) Oximetry (10/27/17 11:20) Sodium Chloride 0.9% Flush (Ns Flush) (10/27/17 11:30) Blood Gas Venous (Vbg) (10/27/17 11:29) Beta Hydroxybutyrate (Acetone) (10/27/17 11:29) Sodium Chlor 0.9% 1000 Ml Inj (Ns 1000 M (10/27/17 11:30) Insulin Human Regular Inj (Novolin R Inj (10/27/17 12:15) Chest, Single Ap (10/27/17 ) Insulin Human Regular Inj (Novolin R Inj (10/27/17 13:30) Blood Glucose (10/27/17 13:21) Ed Discharge Order (10/27/17 15:36) Labs Laboratory Tests Test 10/27/17 11:46 10/27/17 11:55 10/27/17 11:58 Blood Gas Puncture Site LINE Blood Gas Patient Temperature 98.6 Venous Blood pH 7.38 Venous Blood Partial Pressure CO2 50 mmHg Venous Blood Partial Pressure O2 44 mmHg Venous Blood HCO3 29 mmol/L Venous Blood Oxygen Saturation 77 % Venous Blood Oxygen Content 16.7 Vol % Venous Blood Base Excess 4.1 mmol/L White Blood Count 8.0 TH/MM3 Red Blood Count 4.97 MIL/MM3 Hemoglobin 15.1 GM/DL Hematocrit 44.4 % Mean Corpuscular Volume 89.3 FL Mean Corpuscular Hemoglobin 30.5 PG Mean Corpuscular Hemoglobin Concent 34.1 % Red Cell Distribution Width 13.7 % Platelet Count 105 TH/MM3 Mean Platelet Volume 11.9 FL Neutrophils (%) (Auto) 80.0 % Lymphocytes (%) (Auto) 13.4 % Monocytes (%) (Auto) 4.1 % Eosinophils (%) (Auto) 2.0 % Basophils (%) (Auto) 0.5 % Neutrophils # (Auto) 6.4 TH/MM3 Lymphocytes # (Auto) 1.1 TH/MM3 Monocytes # (Auto) 0.3 TH/MM3 Eosinophils # (Auto) 0.2 TH/MM3 Basophils # (Auto) 0.0 TH/MM3 CBC Comment DIFF FINAL Differential Comment Blood Urea Nitrogen 11 MG/DL Creatinine 1.18 MG/DL Random Glucose 691 MG/DL Calcium Level 8.9 MG/DL Sodium Level 123 MEQ/L Potassium Level 5.2 MEQ/L Chloride Level 87 MEQ/L Carbon Dioxide Level 27.0 MEQ/L Anion Gap 9 MEQ/L Estimat Glomerular Filtration Rate 46 ML/MIN B-Hydroxybutyrate 0.18 MMOL/L Urine Color LIGHT-YELLOW Urine Turbidity CLEAR Urine pH 6.5 Urine Specific [place] 1.031 Urine Protein NEG mg/dL Urine Glucose (UA) 1000 mg/dL Urine Ketones NEG mg/dL Urine Occult Blood NEG Urine Nitrite NEG Urine Bilirubin NEG Urine Urobilinogen LESS THAN 2.0 MG/DL Urine Leukocyte Esterase NEG Urine RBC LESS THAN 1 /hpf Urine WBC LESS THAN 1 /hpf Urine Squamous Epithelial Cells <1 /hpf Microscopic Urinalysis Comment CULT NOT INDICATED MDM Medical Decision Making Medical Screen Exam Complete: Yes Emergency Medical Condition: Yes Medical Record Reviewed: Yes Interpretation(s) Twelve-lead EKG was reviewed by me. Normal sinus rhythm, left axis deviation, old inferior ND, non-specific ST-T wave changes. Heart rate of 67 bpm Differential Diagnosis DKA,HONK, hyperglycemia with dehydration Narrative Course 11:58 AM awaiting for blood test results. Have ordered 2 L of IV fluid bolus with subcutaneous 10 units of insulin. 2:04 PM blood test results are back. Patient is not in DKA. Appears to be HONK. She was given an additional 8 units of insulin IV since the repeat blood sugar was 560. Awaiting for a repeat glucose check. 3:37 PM blood sugar is down to 403. Patient was taught how to use her insulin pen. She is comfortable at this point and I'm okay discharging her home. She is to follow-up with her primary care. Procedures EKG Prior to Arrival: No Diagnosis Primary Impression: Hyperglycemia Additional Impressions: Dehydration Noncompliance with medication regimen Referrals: Primary Care Physician Additional Instructions: Please eat a diet that is approved for diabetes by [place] [employer]. You should be under 2000 dylan consumption a day. Continue taking her insulin like you're supposed to resume was demonstrated to you in the emergency room. Follow-up with your primary care in next couple days. Return to ER if condition worsens or any other new concerns. Med/Other Pt SpecificInfo: No Change to Meds Disposition: 01 DISCHARGE HOME Condition: Stable Aniya Franklin MD Oct 27, 2017 11:23
[2017-10-27] MEDS ORDERED: SODIUM CHLORIDE 0.9% FLUSH 10 ML FLUSH IVF PRN (11:30)
[2017-10-27] MEDS ORDERED: SODIUM CHLOR 0.9% 1000 ML INJ 1,000 ML IV ONE (11:30)
[2017-10-27 12:00] VITALS: RESP 18; O2SAT 98
[2017-10-27 12:06] LABS: AUTOMATED NEUTROPHIL # 6.4 TH/MM3 (1.8-7.7); BASOPHIL % 0.5 % (0.0-2.0); EOSINOPHIL # 0.2 TH/MM3 (0-0.4); HEMATOCRIT 44.4 % (35.0-46.0); HEMOGLOBIN 15.1 GM/DL (11.6-15.3); LYMPH % 13.4 % (9.0-44.0); LYMPHOCYTE # 1.1 TH/MM3 (1.0-4.8); MEAN CELL VOLUME 89.3 FL (80.0-100.0); MEAN CORPUSCULAR HEMOGLOBIN 30.5 PG (27.0-34.0); MEAN CORPUSCULAR HGB CONC 34.1 % (32.0-36.0); MEAN PLATELET VOLUME 11.9 FL (7.0-11.0); MONO % 4.1 % (0.0-8.0); MONOCYTE # 0.3 TH/MM3 (0-0.9); PLATELET COUNT 105 TH/MM3 (150-450); RED BLOOD COUNT 4.97 MIL/MM3 (4.00-5.30); RED CELL DISTRIBUTION WIDTH 13.7 % (11.6-17.2)
[2017-10-27 12:07] VITALS: BP 157/83; PULSE 74; RESP 18; TEMP 98.3; O2SAT 96
[2017-10-27] MEDS ORDERED: INSULIN HUMAN REGULAR 1,000 UNITS/10 ML VIAL SQ ONE (12:15)
[2017-10-27 12:28] LABS: CALCIUM 8.9 MG/DL (8.5-10.1); CREATININE 1.18 MG/DL (0.50-1.00)
[2017-10-27 12:37] LABS: BILIRUBIN, URINE NEG (NEG); BLOOD, URINE NEG (NEG); GLUCOSE,URINE 1000 mg/dL (NEG); KETONE, URINE NEG (NEG); NITRITE,URINE NEG (NEG); PH, URINE 6.5 (5.0-8.5); SQUAMOUS EPITHELIAL CELL URINE <1 /hpf (0-5); URINE COLOR LIGHT-YELLOW (YELLW/STRAW); URINE LEUKOCYTE ESTERASE NEG (NEG)
[2017-10-27] MEDS ORDERED: INSULIN HUMAN REGULAR 1,000 UNITS/10 ML VIAL IV PUSH ONE (13:30)
--- NOTE | 2017-10-27 14:06 | RADRPT ---
EXAM DATE/TIME: 10/27/2017 11:53 [facility] COMPARISON: CHEST SINGLE AP, June 08, 2017, 18:01. INDICATIONS : Dizziness. MEDICAL HISTORY : Hypertension. Chronic obstructive pulmonary disease. Diabetes mellitus type II. SURGICAL HISTORY : None. ENCOUNTER: Initial ACUITY: 1 day PAIN SCORE: 0/10 LOCATION: Bilateral chest FINDINGS: A single view of the chest demonstrates the lungs to be symmetrically aerated without evidence of mas s, infiltrate or effusion. The cardiomediastinal contours are unremarkable. Osseous structures are intact. CONCLUSION: No evidence of acute cardiopulmonary process. Maikel Demarco MD on October 27, 2017 at 12:25 Board Certified Radiologist. This report was verified electronically.
--- NOTE | 2017-10-28 22:54 | EKG ---
Date Performed: 10/27/2017 Time Performed: 11:33:45 PTAGE: 62 years EKG: Sinus rhythm LOW QRS VOLTAGE IN PRECORDIAL LEADS INFERIOR MYOCARDIAL INFARCTION ABNORMAL ECG Since the prior trac ing, there has been no significant change DOCTOR: Belen Oneill Interpretating Date/Time 10/28/2017 22:51:55
== END 2017-10-27 16:05 | disposition home or self-care (01) ==
LOC: NEPE 10:09
DX: E11.65 Type 2 diabetes mellitus with hyperglycemia (principal); E86.0 Dehydration; F17.200 Nicotine dependence, unspecified, uncomplicated
CPT/HCPCS: 71045; 80048; 81001; 82010; 82805; 85025; 93005; 96372; 96374; 99284; J1815; J7030

== ENCOUNTER 2017-12-22 12:15 | Emergency (ER) | payer SELFPAY ==
[~2017-12-22] VITALS: Ht 167.6 cm; Wt 86.4 kg
[~2017-12-22 12:15] MED LIST changes: -GLUCTES12; -INSU1MIS15; -LEVEMIR SQ; -NEUR300C PO; -NOVOLOGP2 SQ
[2017-12-22 12:29] VITALS: BP 161/115; PULSE 62; RESP 18; TEMP 97.7; O2SAT 98
[2017-12-22 13:13] LABS: BILIRUBIN, URINE NEG (NEG); BLOOD, URINE NEG (NEG); GLUCOSE,URINE 1000 mg/dL (NEG); KETONE, URINE NEG (NEG); NITRITE,URINE NEG (NEG); PH, URINE 6.5 (5.0-8.5); URINE COLOR COLORLESS (YELLW/STRAW); URINE LEUKOCYTE ESTERASE NEG (NEG)
--- NOTE | 2017-12-22 13:21 | RADRPT ---
EXAM DATE/TIME: 12/22/2017 13:05 [facility] COMPARISON: FOOT RIGHT COMPLETE ([id number]), December 17, 2015, 17:16. INDICATIONS : Injured right foot yesterday, 4th and 5th digits are bruised and painful MEDICAL HISTORY : Diabetes mellitus type II. SURGICAL HISTORY : None. ENCOUNTER: Initial ACUITY: 2 days PAIN SCORE: 10/10 LOCATION: Right foot FINDINGS: Three view examination of the right foot demonstrates a no acute fracture or malalignment. There is m ild soft tissue swelling over the fourth and fifth digits. The tarsal bones appear intact. The inter phalangeal and metatarsophalangeal joints are intact with mild degenerative change. The calcaneus is intact. There is mild osteopenia. There is a small spur off the inferior calcaneus. CONCLUSION: 1. Mild soft tissue swelling with no acute fracture or malalignment. 2. Mild osteopenia and degenerative change. Dyllan Mas MD on December 22, 2017 at 13:17 Board Certified Radiologist. This report was verified electronically.
--- NOTE | 2017-12-22 21:21 | PD ---
Physical Exam Date Seen by Provider: Dec 22, 2017 Time Seen by Provider: 14:55 Narrative 62 year old female presents to the emergency department for hyperglycemia. She states her blood glucose has been over 600 for over a month. She reports associated vomiting and blurry vision. she states she was told by her PCP to come to the emergency department. She also states she recently injured her right 5th toe. Blood glucose is reading high in triage. Moderate severity. Current pain is 10/10. Data Data Last Documented VS Vital Signs Date Time Temp Pulse Resp B/P (MAP) Pulse Ox O2 Delivery O2 Flow Rate FiO2 12/22/17 12:29 97.7 62 18 161/115 (130) 98 Orders Orders Complete Blood Count With Diff (12/22/17 12:33) Comprehensive Metabolic Panel (12/22/17 12:33) Prothrombin Time / Inr (Pt) (12/22/17 12:33) Act Partial Throm Time (Ptt) (12/22/17 12:33) Urinalysis - C+S If Indicated (12/22/17 12:33) Beta Hydroxybutyrate (Acetone) (12/22/17 12:33) Foot, Complete ([id number]) (12/22/17 ) Labs Laboratory Tests Test 12/22/17 12:45 Urine Color COLORLESS Urine Turbidity CLEAR Urine pH 6.5 Urine Specific [place] 1.032 Urine Protein NEG mg/dL Urine Glucose (UA) 1000 mg/dL Urine Ketones NEG mg/dL Urine Occult Blood NEG Urine Nitrite NEG Urine Bilirubin NEG Urine Urobilinogen LESS THAN 2.0 MG/DL Urine Leukocyte Esterase NEG Urine WBC LESS THAN 1 /hpf Microscopic Urinalysis Comment CULT NOT INDICATED MDM Supervised Visit with [facility]: No Narrative Course 62 year old female presents to the emergency department for evaluation of hyperglycemia and foot pain. She is initially seen in triage. She left AMA before she could be moved to a medical bed. Diagnosis Primary Impression: Left against medical advice Disposition: 07 AGAINST MEDICAL ADVICE Mary Henley Dec 22, 2017 21:21
== END 2017-12-22 15:05 | disposition left against medical advice (07) ==
LOC: NED 12:15
DX: R73.9 Hyperglycemia, unspecified (principal); M79.671 Pain in right foot; Z53.21 Procedure and treatment not carried out due to patient leaving prior to being seen by health care provider
CPT/HCPCS: 73630; 81001; 99284

== ENCOUNTER 2017-12-27 20:32 | Emergency (ER) | payer SELFPAY ==
[~2017-12-27] VITALS: Ht 160 cm; Wt 88.0 kg
[2017-12-27 21:20] VITALS: BP 149/70; PULSE 78; RESP 20; TEMP 98.2; O2SAT 97
[2017-12-27] MEDS ORDERED: insulin (21:41)
[2017-12-27] MEDS ORDERED: NEUR600T PO (21:41)
[2017-12-27] MEDS ORDERED: SODIUM CHLOR 0.9% 1000 ML INJ 1,000 ML IV ONE ×2 (21:43→22:13)
[2017-12-27] MEDS ORDERED: SODIUM CHLORIDE 0.9% FLUSH 10 ML FLUSH IVF PRN (21:45)
[2017-12-27] MEDS ORDERED: INSULIN HUMAN REGULAR 1,000 UNITS/10 ML VIAL SQ ONE (21:45)
--- NOTE | 2017-12-27 21:52 | PD ---
HPI Chief Complaint: Diabetic Time Seen by Provider: 21:26 Travel History International Travel<30 days: No Contact w/Intl Traveler<30days: No Traveled to known affect area: No History of Present Illness HPI 62-year-old female with a history of diabetes and hyperglycemia presents emergency department for evaluation of hyperglycemia that is been present for several months. Patient states that she decided to come in today because she called her primary care physician office Friday and advised to come here because of her blurred vision and elevated blood sugars. Patient says that she has felt increasingly weak but again is been present for several months. Patient states that she has not taken her insulin for 2 days because she felt nauseous and did not want to take his insulin "feeling the way she did". Patient says she did not come to the emergency department Friday because her son was involved in an incident and was in the emergency department as well. This occurred 1-1/2 weeks ago. She denies fever, chills, chest pain, shortness of breath, abdominal pain, leg pain. She is a history of chronic low back pain and takes methadone has been on this medication for 3 years. She also has diabetic neuropathy and takes Neurontin. She denies alcohol use. States she does smoke tobacco. Denies illicit drug use. PFSH Past Medical History Hx Anticoagulant Therapy: No Arthritis: Yes Blood Disorders: No Anxiety: Yes Depression: Yes Cancer: No Cardiovascular Problems: Yes High Cholesterol: Yes Chemotherapy: No Chest Pain: Yes COPD: Yes Cerebrovascular Accident: No Diabetes: Yes Patient Takes Glucophage: No Diminished Hearing: Yes Deep Vein Thrombosis: Yes Endocrine: Yes Gastrointestinal Disorders: Yes Genitourinary: Yes Hepatitis: Yes (B/C) Hiatal Hernia: Yes Hypertension: Yes Immune Disorder: No Implanted Vascular Access Dvce: No Musculoskeletal: Yes Neurologic: Yes Psychiatric: Yes Reproductive: No Respiratory: No Integumentary: Yes (IVDA) Pneumonia: Yes Thyroid Disease: No Ulcer: Yes Tetanus Vaccination: < 5 Years Influenza Vaccination: No ?: Not LMP: menpause Menopausal: Yes : 3 Para: 2 Miscarriage: 1 Past Surgical History Body Medical Devices: NONE Gynecologic Surgery: Yes Hysterectomy: No Oral Surgery: Yes (EGD) Pacemaker: No Thoracic Surgery: Yes (GRISELDA BREAST REDUCTION) Other Surgery: Yes (bladder repair and breast reduction) Social History Alcohol Use: No Tobacco Use: Yes (1/2 ppd) Substance Use: Yes (Hx of IV drug abuse, quit 20 yrs ago) Allergies-Medications (Allergen,Severity, Reaction): Coded Allergies: erythromycin base (Verified Allergy, Severe, Rash, 12/27/17) ketorolac (Verified Allergy, Severe, Shortness of Breath, 12/27/17) Reported Meds & Prescriptions Reported Meds & Active Scripts Active Reported [insulin] Neurontin (Gabapentin) 600 Mg Tab 600 Mg PO TID Methadone (Methadone HCl) 40 Mg Tab 100 Mg PO DAILY Review of Systems Except as stated in HPI: all other systems reviewed are Neg Physical Exam Narrative GENERAL: Alert, well-nourished SKIN: Focused skin assessment warm/dry. Bilateral upper and lower extremities with multiple scarring, possibly old track iy from IVDU HEAD: Atraumatic. Normocephalic. EYES: Pupils equal and round. No scleral icterus. No injection or drainage. ENT: No nasal bleeding or discharge. Mucous membranes pink and moist. NECK: Trachea midline. No JVD. No lymphadenopathy CARDIOVASCULAR: Regular rate and rhythm. No murmur appreciated. RESPIRATORY: No accessory muscle use. Clear to auscultation. Breath sounds equal bilaterally. GASTROINTESTINAL: Abdomen soft, non-tender, nondistended. No CVA tenderness MUSCULOSKELETAL: No obvious deformities. No clubbing. No cyanosis. No edema. NEUROLOGICAL: Awake and alert. No obvious cranial nerve deficits. Motor grossly within normal limits. Normal speech. PSYCHIATRIC: Appropriate mood and affect; insight and judgment normal. Data Data Last Documented VS Vital Signs Date Time Temp Pulse Resp B/P (MAP) Pulse Ox O2 Delivery O2 Flow Rate FiO2 12/27/17 21:20 98.2 78 20 149/70 (96) 97 Orders Orders Complete Blood Count With Diff (12/27/17 21:43) Comprehensive Metabolic Panel (12/27/17 21:43) Beta Hydroxybutyrate (Acetone) (12/27/17 21:43) Urinalysis - C+S If Indicated (12/27/17 21:43) Blood Glucose (12/27/17 21:43) Blood Glucose (12/27/17 22:43) Ecg Monitoring (12/27/17 21:43) Iv Access Insert/Monitor (12/27/17 21:43) Oximetry (12/27/17 21:43) Sodium Chlor 0.9% 1000 Ml Inj (Ns 1000 M (12/27/17 21:43) Sodium Chlor 0.9% 1000 Ml Inj (Ns 1000 M (12/27/17 22:13) Sodium Chloride 0.9% Flush (Ns Flush) (12/27/17 21:45) Blood Gas Venous (Vbg) (12/27/17 21:43) Insulin Human Regular Inj (Novolin R Inj (12/27/17 21:45) Troponin I (12/27/17 21:50) Lipase (12/27/17 21:50) Insulin Human Regular Inj (Novolin R Inj (12/28/17 00:00) Acetaminophen (Tylenol) (12/28/17 01:45) Ed Discharge Order (12/28/17 02:04) Labs Laboratory Tests Test 12/27/17 22:10 12/27/17 22:15 White Blood Count 6.0 TH/MM3 Red Blood Count 4.57 MIL/MM3 Hemoglobin 13.5 GM/DL Hematocrit 40.1 % Mean Corpuscular Volume 87.8 FL Mean Corpuscular Hemoglobin 29.6 PG Mean Corpuscular Hemoglobin Concent 33.7 % Red Cell Distribution Width 13.4 % Platelet Count 100 TH/MM3 Mean Platelet Volume 11.5 FL Neutrophils (%) (Auto) 69.5 % Lymphocytes (%) (Auto) 22.2 % Monocytes (%) (Auto) 5.0 % Eosinophils (%) (Auto) 2.9 % Basophils (%) (Auto) 0.4 % Neutrophils # (Auto) 4.1 TH/MM3 Lymphocytes # (Auto) 1.3 TH/MM3 Monocytes # (Auto) 0.3 TH/MM3 Eosinophils # (Auto) 0.2 TH/MM3 Basophils # (Auto) 0.0 TH/MM3 CBC Comment DIFF FINAL Differential Comment Urine Color LIGHT-YELLOW Urine Turbidity CLEAR Urine pH 6.0 Urine Specific [place] 1.030 Urine Protein NEG mg/dL Urine Glucose (UA) 1000 mg/dL Urine Ketones NEG mg/dL Urine Occult Blood NEG Urine Nitrite NEG Urine Bilirubin NEG Urine Urobilinogen LESS THAN 2.0 MG/DL Urine Leukocyte Esterase NEG Urine RBC 1 /hpf Urine WBC 2 /hpf Urine Squamous Epithelial Cells 1 /hpf Urine Bacteria RARE /hpf Urine Yeast (Budding) RARE Microscopic Urinalysis Comment CULT NOT INDICATED Blood Urea Nitrogen 12 MG/DL Creatinine 1.33 MG/DL Random Glucose 712 MG/DL Total Protein 7.7 GM/DL Albumin 3.1 GM/DL Calcium Level 8.7 MG/DL Alkaline Phosphatase 159 U/L Aspartate Amino Transf (AST/SGOT) 118 U/L Alanine Aminotransferase (ALT/SGPT) 166 U/L Total Bilirubin 0.7 MG/DL Sodium Level 126 MEQ/L Potassium Level 4.4 MEQ/L Chloride Level 88 MEQ/L Carbon Dioxide Level 26.2 MEQ/L Anion Gap 12 MEQ/L Estimat Glomerular Filtration Rate 40 ML/MIN Troponin I LESS THAN 0.02 NG/ML Lipase 59 U/L B-Hydroxybutyrate 0.27 MMOL/L Blood Gas Puncture Site DRAWN BY RN Blood Gas Patient Temperature 98.6 Venous Blood pH 7.38 Venous Blood Partial Pressure CO2 50 mmHg Venous Blood Partial Pressure O2 40 mmHg Venous Blood HCO3 29 mmol/L Venous Blood Oxygen Saturation 70 % Venous Blood Oxygen Content 13.2 Vol % Venous Blood Base Excess 3.7 mmol/L Oxygen Delivery Device ROOM AIR Blood Gas Inspired Oxygen 21 % [facility] Medical Decision Making Medical Screen Exam Complete: Yes Emergency Medical Condition: Yes Differential Diagnosis DKA, HHS, hyperglycemia, medication noncompliance Narrative Course 62-year-old female with a history of diabetes and hyperglycemia presents emergency department for evaluation of hypoglycemia that is been present for several months. Patient states that she decided to come in today because she called her primary care physician office Friday and advised to come here because of her blurred vision and elevated blood sugars. Patient says that she has felt increasingly weak but again is been present for several months. Patient states that she has not taken her insulin for 2 days because she felt nauseous and did not want to take his insulin "feeling the way she did". Patient says she did not come to the emergency department Friday because her son was involved in an incident and was in the emergency department as well. This occurred 1-1/2 weeks ago. She denies fever, chills, chest pain, shortness of breath, abdominal pain, leg pain. She is a history of chronic low back pain and takes methadone has been on this medication for 3 years. She also has diabetic neuropathy and takes Neurontin. She denies alcohol use. States she does smoke tobacco. Denies illicit drug use. Patient says she would like to be admitted because she does not feel like she can go home. Says that she feels like she is going to . She requests an A1c test. I explained her that this would not change my treatment and therefore I would not order this lab value. Vital signs are stable. Labs ordered for further evaluation. Insulin 15 units SQ administered. IV fluids 2 L administered. Complete labs pending as of transfer care to Dr. Medina. Please see his notes for further information and dyspo. Diagnosis Primary Impression: Hyperglycemia Additional Impressions: Glycosuria Noncompliance with medication regimen Condition: Stable Shazia Velez Dec 27, 2017 21:52
[2017-12-27 22:30] LABS: AUTOMATED NEUTROPHIL # 4.1 TH/MM3 (1.8-7.7); BASOPHIL % 0.4 % (0.0-2.0); EOSINOPHIL # 0.2 TH/MM3 (0-0.4); EOSINOPHIL % 2.9 % (0.0-4.0); HEMATOCRIT 40.1 % (35.0-46.0); HEMOGLOBIN 13.5 GM/DL (11.6-15.3); LYMPH % 22.2 % (9.0-44.0); LYMPHOCYTE # 1.3 TH/MM3 (1.0-4.8); MEAN CELL VOLUME 87.8 FL (80.0-100.0); MEAN CORPUSCULAR HEMOGLOBIN 29.6 PG (27.0-34.0); MEAN CORPUSCULAR HGB CONC 33.7 % (32.0-36.0); MEAN PLATELET VOLUME 11.5 FL (7.0-11.0); MONOCYTE # 0.3 TH/MM3 (0-0.9); NEUT % 69.5 % (16.0-70.0); PLATELET COUNT 100 TH/MM3 (150-450); RED BLOOD COUNT 4.57 MIL/MM3 (4.00-5.30); RED CELL DISTRIBUTION WIDTH 13.4 % (11.6-17.2)
[2017-12-27 22:43] LABS: BACTERIA, URINE RARE /hpf; BILIRUBIN, URINE NEG (NEG); BLOOD, URINE NEG (NEG); GLUCOSE,URINE 1000 mg/dL (NEG); KETONE, URINE NEG (NEG); NITRITE,URINE NEG (NEG); SQUAMOUS EPITHELIAL CELL URINE 1 /hpf (0-5); URINE COLOR LIGHT-YELLOW (YELLW/STRAW); URINE LEUKOCYTE ESTERASE NEG (NEG)
[2017-12-27 22:51] LABS: TROPONIN I LESS THAN 0.02 NG/ML (0.02-0.05)
[2017-12-27 23:04] LABS: ALBUMIN 3.1 GM/DL (3.4-5.0); ALKALINE PHOSPHATASE 159 U/L (45-117); ALT (GPT) 166 U/L (10-53); AST (GOT) 118 U/L (15-37); BICARBONATE 26.2 MEQ/L (21.0-32.0); BLOOD UREA NITROGEN 12 MG/DL (7-18); CALCIUM 8.7 MG/DL (8.5-10.1); CHLORIDE 88 MEQ/L (98-107); CREATININE 1.33 MG/DL (0.50-1.00); GLOMERULAR FILTRATION RATE 40 ML/MIN (>89); SODIUM (NA) 126 MEQ/L (136-145); TOTAL BILIRUBIN ADULT 0.7 MG/DL (0.2-1.0); TOTAL PROTEIN 7.7 GM/DL (6.4-8.2)
[2017-12-27 23:16] LABS: GLUCOSE,RANDOM 712 MG/DL (74-106)
--- NOTE | 2017-12-27 23:45 | PD ---
Physical Exam Narrative GENERAL: [-] SKIN: Focused skin assessment warm/dry. HEAD: Atraumatic. Normocephalic. EYES: Pupils equal and round. No scleral icterus. No injection or drainage. ENT: No nasal bleeding or discharge. Mucous membranes pink and moist. NECK: Trachea midline. No JVD. CARDIOVASCULAR: Regular rate and rhythm. No murmur appreciated. RESPIRATORY: No accessory muscle use. Clear to auscultation. Breath sounds equal bilaterally. GASTROINTESTINAL: Abdomen soft, non-tender, nondistended. MUSCULOSKELETAL: No obvious deformities. No clubbing. No cyanosis. No edema. NEUROLOGICAL: Awake and alert. No obvious cranial nerve deficits. Motor grossly within normal limits. Normal speech. PSYCHIATRIC: Appropriate mood and affect; insight and judgment normal. Data Data Last Documented VS Vital Signs Date Time Temp Pulse Resp B/P (MAP) Pulse Ox O2 Delivery O2 Flow Rate FiO2 12/27/17 21:20 98.2 78 20 149/70 (96) 97 Orders Orders Complete Blood Count With Diff (12/27/17 21:43) Comprehensive Metabolic Panel (12/27/17 21:43) Beta Hydroxybutyrate (Acetone) (12/27/17 21:43) Urinalysis - C+S If Indicated (12/27/17 21:43) Blood Glucose (12/27/17 21:43) Blood Glucose (12/27/17 22:43) Ecg Monitoring (12/27/17 21:43) Iv Access Insert/Monitor (12/27/17 21:43) Oximetry (12/27/17 21:43) Sodium Chlor 0.9% 1000 Ml Inj (Ns 1000 M (12/27/17 21:43) Sodium Chlor 0.9% 1000 Ml Inj (Ns 1000 M (12/27/17 22:13) Sodium Chloride 0.9% Flush (Ns Flush) (12/27/17 21:45) Blood Gas Venous (Vbg) (12/27/17 21:43) Insulin Human Regular Inj (Novolin R Inj (12/27/17 21:45) Troponin I (12/27/17 21:50) Lipase (12/27/17 21:50) Insulin Human Regular Inj (Novolin R Inj (12/28/17 00:00) Acetaminophen (Tylenol) (12/28/17 01:45) Ed Discharge Order (12/28/17 02:04) Labs Laboratory Tests Test 12/27/17 22:10 12/27/17 22:15 White Blood Count 6.0 TH/MM3 Red Blood Count 4.57 MIL/MM3 Hemoglobin 13.5 GM/DL Hematocrit 40.1 % Mean Corpuscular Volume 87.8 FL Mean Corpuscular Hemoglobin 29.6 PG Mean Corpuscular Hemoglobin Concent 33.7 % Red Cell Distribution Width 13.4 % Platelet Count 100 TH/MM3 Mean Platelet Volume 11.5 FL Neutrophils (%) (Auto) 69.5 % Lymphocytes (%) (Auto) 22.2 % Monocytes (%) (Auto) 5.0 % Eosinophils (%) (Auto) 2.9 % Basophils (%) (Auto) 0.4 % Neutrophils # (Auto) 4.1 TH/MM3 Lymphocytes # (Auto) 1.3 TH/MM3 Monocytes # (Auto) 0.3 TH/MM3 Eosinophils # (Auto) 0.2 TH/MM3 Basophils # (Auto) 0.0 TH/MM3 CBC Comment DIFF FINAL Differential Comment Urine Color LIGHT-YELLOW Urine Turbidity CLEAR Urine pH 6.0 Urine Specific [place] 1.030 Urine Protein NEG mg/dL Urine Glucose (UA) 1000 mg/dL Urine Ketones NEG mg/dL Urine Occult Blood NEG Urine Nitrite NEG Urine Bilirubin NEG Urine Urobilinogen LESS THAN 2.0 MG/DL Urine Leukocyte Esterase NEG Urine RBC 1 /hpf Urine WBC 2 /hpf Urine Squamous Epithelial Cells 1 /hpf Urine Bacteria RARE /hpf Urine Yeast (Budding) RARE Microscopic Urinalysis Comment CULT NOT INDICATED Blood Urea Nitrogen 12 MG/DL Creatinine 1.33 MG/DL Random Glucose 712 MG/DL Total Protein 7.7 GM/DL Albumin 3.1 GM/DL Calcium Level 8.7 MG/DL Alkaline Phosphatase 159 U/L Aspartate Amino Transf (AST/SGOT) 118 U/L Alanine Aminotransferase (ALT/SGPT) 166 U/L Total Bilirubin 0.7 MG/DL Sodium Level 126 MEQ/L Potassium Level 4.4 MEQ/L Chloride Level 88 MEQ/L Carbon Dioxide Level 26.2 MEQ/L Anion Gap 12 MEQ/L Estimat Glomerular Filtration Rate 40 ML/MIN Troponin I LESS THAN 0.02 NG/ML Lipase 59 U/L B-Hydroxybutyrate 0.27 MMOL/L Blood Gas Puncture Site DRAWN BY RN Blood Gas Patient Temperature 98.6 Venous Blood pH 7.38 Venous Blood Partial Pressure CO2 50 mmHg Venous Blood Partial Pressure O2 40 mmHg Venous Blood HCO3 29 mmol/L Venous Blood Oxygen Saturation 70 % Venous Blood Oxygen Content 13.2 Vol % Venous Blood Base Excess 3.7 mmol/L Oxygen Delivery Device ROOM AIR Blood Gas Inspired Oxygen 21 % MDM Medical Record Reviewed: Yes Supervised Visit with ARTUR: Yes Narrative Course CBC shows no leukocytosis, no anemia, no left shift. The patient does have relatively low platelet count of 100,000. Venous blood gas 7.38 pH Urinalysis negative for any UTI, negative for ketonuria, however positive for glucosuria Beta hydroxybutyrate is only 0.27 which is negative for any ketosis. Pseudohyponatremia of 126 due to the hyperglycemia of 712. Normal potassium chloride normal anion gap creatinine of 1.33 and a GFR of 40. AST ALT mildly elevated at 118 at 166 with a normal total bilirubin, negative troponin, normal pancreatic enzymes. This is significant for hyperglycemia secondary to noncompliance, there is no major evidence of of any complications causing the hyperglycemia. The patient' s hyperglycemia was managed with IV fluids 2 L, 15 units of regular insulin subcu, and currently the repeat patient's glucose is 315, just prior to discharge. advised to call her pcp for further refills of her medications and avoid running out of medicine. medical care is a two way care, patient engagement as well as provider engagement, i stated to her that i did my part by providing her with excellent medical care, and now it is her turn to be an active participant in her medical care to avoid getting to this level/ hyperglycemia...patient's son admitted that his mother drinks a lot of sugary drinks and does not take her medications regularly and only seeks care when she doesn't feel well, but not as maintenance.. Diagnosis Primary Impression: Hyperglycemia Additional Impressions: Glycosuria Noncompliance with medication regimen Patient Instructions: Diabetic Hyperglycemia (ED), General Instructions Disposition: 01 DISCHARGE HOME Condition: Stable Cesar Medina MD Dec 27, 2017 23:45
[2017-12-28] MEDS ORDERED: INSULIN HUMAN REGULAR 1,000 UNITS/10 ML VIAL IV PUSH ONE
[2017-12-28] MEDS ORDERED: ACETAMINOPHEN 325 MG TAB PO ONE (01:45)
== END 2017-12-28 03:14 | disposition home or self-care (01) ==
LOC: NEPC 20:32
DX: E11.65 Type 2 diabetes mellitus with hyperglycemia (principal); E11.40 Type 2 diabetes mellitus with diabetic neuropathy, unspecified; R81 Glycosuria; F17.200 Nicotine dependence, unspecified, uncomplicated; Z79.4 Long term (current) use of insulin; Z91.14 Patient's other noncompliance with medication regimen
CPT/HCPCS: 80053; 81001; 82010; 82805; 83690; 84484; 85025; 96361; 96372; 96374; 99284; J1815; J7030

== ENCOUNTER 2018-01-04 16:06 | Inpatient (IN) | payer SELFPAY ==
[~2018-01-04] VITALS: Ht 165.1 cm; Wt 91.7 kg
[2018-01-04] VITALS (7 sets, daily range): BP systolic 124–165; BP diastolic 60–92; PULSE 60–82; RESP 17–22; TEMP 98–98.1; O2SAT 95–100
[~2018-01-04 16:06] MED LIST changes: +NEUR600T PO; +insulin
[2018-01-04] MEDS ORDERED: SODIUM CHLOR 0.9% 1000 ML INJ 1,000 ML IV ONE (16:23)
[2018-01-04] MEDS ORDERED: ONDANSETRON HCL 4 MG/2 ML VIAL IV PUSH ONE (16:30)
[2018-01-04] MEDS ORDERED: SODIUM CHLORIDE 0.9% FLUSH 10 ML FLUSH IVF PRN (16:30)
[2018-01-04 16:56] LABS: AUTOMATED NEUTROPHIL # 4.3 TH/MM3 (1.8-7.7); BASOPHIL % 0.2 % (0.0-2.0); EOSINOPHIL # 0.1 TH/MM3 (0-0.4); HEMATOCRIT 42.1 % (35.0-46.0); LYMPH % 17.4 % (9.0-44.0); MEAN CELL VOLUME 90.2 FL (80.0-100.0); MEAN CORPUSCULAR HGB CONC 33.3 % (32.0-36.0); MEAN PLATELET VOLUME 11.2 FL (7.0-11.0); MONO % 4.7 % (0.0-8.0); MONOCYTE # 0.3 TH/MM3 (0-0.9); NEUT % 75.7 % (16.0-70.0); PLATELET COUNT 82 TH/MM3 (150-450); RED BLOOD COUNT 4.67 MIL/MM3 (4.00-5.30); RED CELL DISTRIBUTION WIDTH 13.6 % (11.6-17.2); WHITE BLOOD COUNT 5.7 TH/MM3 (4.0-11.0)
--- NOTE | 2018-01-04 16:58 | PD ---
HPI Chief Complaint: Diabetic Time Seen by Provider: 16:46 Travel History International Travel<30 days: No Contact w/Intl Traveler<30days: No Traveled to known affect area: No History of Present Illness HPI 62-year-old female patient with history of diabetes, had ran out of her diabetes medications last week because she could not pay for it, here because she has having fairly elevated blood sugars in the 600s, has been nauseous, vomiting, and having blurry vision. She was seen several times because of elevated blood sugars for similar reasons. She states that she has trouble paying for her medications because she does not have insurance and does not have Medicaid. She denies any fevers or other issues. Modifying Factors: None Associated Signs & Symptoms: Elevated blood sugars, nausea and vomiting Risk Factors: Diabetic, ran out of insulin PFSH Past Medical History Hx Anticoagulant Therapy: No Arthritis: Yes Blood Disorders: No Anxiety: Yes Depression: Yes Cancer: No Cardiovascular Problems: Yes High Cholesterol: Yes Chemotherapy: No Chest Pain: Yes COPD: Yes Cerebrovascular Accident: No Diabetes: Yes Patient Takes Glucophage: No Diminished Hearing: Yes Deep Vein Thrombosis: Yes Endocrine: Yes Gastrointestinal Disorders: Yes Genitourinary: Yes Hepatitis: Yes (B/C) Hiatal Hernia: Yes Hypertension: Yes Immune Disorder: No Implanted Vascular Access Dvce: No Musculoskeletal: Yes Neurologic: Yes Psychiatric: Yes Reproductive: No Respiratory: No Integumentary: Yes (IVDA) Pneumonia: Yes Thyroid Disease: No Ulcer: Yes Menopausal: Yes : 3 Para: 2 Miscarriage: 1 Past Surgical History Body Medical Devices: NONE Gynecologic Surgery: Yes Hysterectomy: No Oral Surgery: Yes (EGD) Pacemaker: No Thoracic Surgery: Yes (GRISELDA BREAST REDUCTION) Other Surgery: Yes (bladder repair and breast reduction) Social History Alcohol Use: No Tobacco Use: Yes (1/2 ppd) Substance Use: Yes (Hx of IV drug abuse, quit 20 yrs ago) Allergies-Medications (Allergen,Severity, Reaction): Coded Allergies: erythromycin base (Verified Allergy, Severe, Rash, 01/04/18) ketorolac (Verified Allergy, Severe, Shortness of Breath, 01/04/18) Reported Meds & Prescriptions Reported Meds & Active Scripts Active Reported [insulin] Neurontin (Gabapentin) 600 Mg Tab 600 Mg PO TID Methadone (Methadone HCl) 40 Mg Tab 110 Mg PO DAILY Review of Systems Except as stated in HPI: all other systems reviewed are Neg Physical Exam Narrative GENERAL: Well-developed elderly female patient currently in mild distress. Awake and oriented 3. SKIN: Focused skin assessment warm/dry. HEAD: Atraumatic. Normocephalic. EYES: Pupils equal and round. No scleral icterus. No injection or drainage. ENT: No nasal bleeding or discharge. Mucous membranes pink and moist. NECK: Trachea midline. No JVD. Supple. CARDIOVASCULAR: Regular rate and rhythm. No murmur appreciated. RESPIRATORY: No accessory muscle use. Clear to auscultation. Breath sounds equal bilaterally. GASTROINTESTINAL: Abdomen soft, non-tender, nondistended. Hepatic and splenic margins not palpable. MUSCULOSKELETAL: No obvious deformities. No clubbing. No cyanosis. No edema. NEUROLOGICAL: Awake and alert. No obvious cranial nerve deficits. Motor grossly within normal limits. Normal speech. PSYCHIATRIC: Appropriate mood and affect; insight and judgment normal. Data Data Last Documented VS Vital Signs Date Time Temp Pulse Resp B/P (MAP) Pulse Ox O2 Delivery O2 Flow Rate FiO2 01/04/18 16:37 82 22 138/68 (91) 97 Room Air 01/04/18 16:10 98.0 Orders Orders Complete Blood Count With Diff (01/04/18 16:23) Comprehensive Metabolic Panel (01/04/18 16:23) Magnesium (Mg) (01/04/18 16:23) Phosphorus (Po4) (01/04/18 16:23) Beta Hydroxybutyrate (Acetone) (01/04/18 16:23) Urinalysis - C+S If Indicated (01/04/18 16:23) Ecg Monitoring (01/04/18 16:23) Iv Access Insert/Monitor (01/04/18 16:23) Oximetry (01/04/18 16:23) NPO (01/04/18 16:23) Sodium Chloride 0.9% Flush (Ns Flush) (01/04/18 16:30) Sodium Chlor 0.9% 1000 Ml Inj (Ns 1000 M (01/04/18 16:23) Lipase (01/04/18 16:23) Ondansetron Inj (Zofran Inj) (01/04/18 16:30) Insulin Human Regular Inj (Novolin R Inj (01/04/18 18:15) Us Abdomen Gallbladder (01/04/18 18:05) Admit Order (Ed Use Only) (01/04/18 18:23) Labs Laboratory Tests Test 01/04/18 16:44 01/04/18 17:05 White Blood Count 5.7 TH/MM3 Red Blood Count 4.67 MIL/MM3 Hemoglobin 14.0 GM/DL Hematocrit 42.1 % Mean Corpuscular Volume 90.2 FL Mean Corpuscular Hemoglobin 30.0 PG Mean Corpuscular Hemoglobin Concent 33.3 % Red Cell Distribution Width 13.6 % Platelet Count 82 TH/MM3 Mean Platelet Volume 11.2 FL Neutrophils (%) (Auto) 75.7 % Lymphocytes (%) (Auto) 17.4 % Monocytes (%) (Auto) 4.7 % Eosinophils (%) (Auto) 2.0 % Basophils (%) (Auto) 0.2 % Neutrophils # (Auto) 4.3 TH/MM3 Lymphocytes # (Auto) 1.0 TH/MM3 Monocytes # (Auto) 0.3 TH/MM3 Eosinophils # (Auto) 0.1 TH/MM3 Basophils # (Auto) 0.0 TH/MM3 CBC Comment AUTO DIFF Differential Comment AUTO DIFF CONFIRMED Blood Urea Nitrogen 10 MG/DL Creatinine 1.33 MG/DL Random Glucose 777 MG/DL Total Protein 8.0 GM/DL Albumin 3.2 GM/DL Calcium Level 8.6 MG/DL Phosphorus Level 3.8 MG/DL Magnesium Level 1.9 MG/DL Alkaline Phosphatase 177 U/L Aspartate Amino Transf (AST/SGOT) 121 U/L Alanine Aminotransferase (ALT/SGPT) 170 U/L Total Bilirubin 0.7 MG/DL Sodium Level 123 MEQ/L Potassium Level 5.1 MEQ/L Chloride Level 84 MEQ/L Carbon Dioxide Level 27.2 MEQ/L Anion Gap 12 MEQ/L Estimat Glomerular Filtration Rate 40 ML/MIN Lipase 66 U/L B-Hydroxybutyrate 0.17 MMOL/L Urine Color STRAW Urine Turbidity CLEAR Urine pH 5.0 Urine Specific [place] 1.027 Urine Protein NEG mg/dL Urine Glucose (UA) 1000 mg/dL Urine Ketones NEG mg/dL Urine Occult Blood NEG Urine Nitrite NEG Urine Bilirubin NEG Urine Urobilinogen LESS THAN 2.0 MG/DL Urine Leukocyte Esterase NEG Urine RBC LESS THAN 1 /hpf Urine WBC LESS THAN 1 /hpf Urine Squamous Epithelial Cells 1 /hpf Microscopic Urinalysis Comment CULT NOT INDICATED MDM Medical Decision Making Medical Screen Exam Complete: Yes Emergency Medical Condition: Yes Medical Record Reviewed: Yes Interpretation(s) Laboratory Tests Test 01/04/18 16:44 01/04/18 17:05 Platelet Count 82 TH/MM3 (150-450) Mean Platelet Volume 11.2 FL (7.0-11.0) Neutrophils (%) (Auto) 75.7 % (16.0-70.0) Creatinine 1.33 MG/DL (0.50-1.00) Random Glucose 777 MG/DL (74-106) Albumin 3.2 GM/DL (3.4-5.0) Alkaline Phosphatase 177 U/L (45-117) Aspartate Amino Transf (AST/SGOT) 121 U/L (15-37) Alanine Aminotransferase (ALT/SGPT) 170 U/L (10-53) Sodium Level 123 MEQ/L (136-145) Chloride Level 84 MEQ/L (98-107) Estimat Glomerular Filtration Rate 40 ML/MIN (>89) Lipase 66 U/L (73-393) Urine Glucose (UA) 1000 mg/dL (NEG) Differential Diagnosis DKA versus hyperglycemia versus electrolyte abnormalities versus dehydration versus gastroenteritis versus other acute intra-abdominal processes Narrative Course Lab work shows significant glucose elevation with low sodium of 123, likely pseudohyponatremia especially with a glucose of 700. Ketones were negative. Anion gap was 12. At this point, IV fluids and insulin were initiated. My plan would be to admit the patient for further treatment. Case is discussed with Dr. Mcclendon for admission. Ultrasound also ordered for mildly elevated liver enzymes. Diagnosis Primary Impression: Hyperglycemia Additional Impressions: Opioid abuse Hyponatremia Admitting Information Admitting Physician Requests: it Shweta Florentino MD January 04, 2018 16:58
[2018-01-04 17:18] LABS: ALBUMIN 3.2 GM/DL (3.4-5.0); ALKALINE PHOSPHATASE 177 U/L (45-117); ALT (GPT) 170 U/L (10-53); AST (GOT) 121 U/L (15-37); BICARBONATE 27.2 MEQ/L (21.0-32.0); BLOOD UREA NITROGEN 10 MG/DL (7-18); CALCIUM 8.6 MG/DL (8.5-10.1); CHLORIDE 84 MEQ/L (98-107); CREATININE 1.33 MG/DL (0.50-1.00); GLOMERULAR FILTRATION RATE 40 ML/MIN (>89); MAGNESIUM 1.9 MG/DL (1.5-2.5); PHOSPHORUS 3.8 MG/DL (2.5-4.9); TOTAL BILIRUBIN ADULT 0.7 MG/DL (0.2-1.0)
[2018-01-04 17:21] LABS: BILIRUBIN, URINE NEG (NEG); BLOOD, URINE NEG (NEG); GLUCOSE,URINE 1000 mg/dL (NEG); KETONE, URINE NEG (NEG); NITRITE,URINE NEG (NEG); SQUAMOUS EPITHELIAL CELL URINE 1 /hpf (0-5); URINE LEUKOCYTE ESTERASE NEG (NEG)
[2018-01-04 17:21] LABS: GLUCOSE,RANDOM 777 MG/DL (74-106); SODIUM (NA) 123 MEQ/L (136-145)
[2018-01-04 17:25] LABS: URINE COLOR STRAW (YELLW/STRAW)
[2018-01-04] MEDS ORDERED: INSULIN HUMAN REGULAR 1,000 UNITS/10 ML VIAL IV PUSH ONE (18:15)
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
[2018-01-04] MEDS ORDERED: NALOXONE HCL 0.4 MG/ML AMP IV PUSH PRN (18:45)
[2018-01-04] MEDS ORDERED: MAGNESIUM HYDROXIDE SUSP 30 ML CUP PO PRN (18:45)
[2018-01-04] MEDS ORDERED: SENNOSIDES 8.6 MG TAB PO PRN (18:45)
[2018-01-04] MEDS ORDERED: LACTULOSE SYRUP 20 GM/30 ML CUP PO PRN (18:45)
[2018-01-04] MEDS ORDERED: BISACODYL 10 MG SUPP RECTAL PRN (18:45)
[2018-01-04] MEDS ORDERED: SODIUM CHLORIDE 0.9% FLUSH 10 ML FLUSH IV FLUSH PRN (18:45)
[2018-01-04] MEDS ORDERED: GLUCAGON 1 MG/ML VIAL OTHER PRN (19:00)
[2018-01-04] MEDS ORDERED: DEXTROSE 50% IN WATER 50 ML VIAL(D50) IV PUSH PRN (19:00)
[2018-01-04] MEDS: SODIUM CHLOR 0.9% 1000 ML INJ 1,000 ML IV SCH (19:33)
[2018-01-04] MEDS: METHADONE HCL 10 MG TAB PO SCH (19:33)
--- NOTE | 2018-01-04 19:42 | RADRPT ---
EXAM DATE/TIME: 01/04/2018 18:35 [place] COMPARISON: US ABDOMEN - GALLBLADDER, July 22, 2016, 8:04. INDICATIONS : Nausea and vomiting. MEDICAL HISTORY : Hypercholesterolemia. Hypertension. Hepatitis B. Tremors. Headache. Chest pain. Deep vein thrombosis. COPD. Pneumonia. Ulcers. Hiatal hernia. Heartburn. Weight loss. Urinary freque ncy. Arthritis. Diabetes. Anxiety. Depression. Hepatitis C. SURGICAL HISTORY : Bilateral breast reduction. Bladder repair. ENCOUNTER: Initial ACUITY: 2 days PAIN SCORE: 0/10 LOCATION: Right upper quadrant MEASUREMENTS: LIVER: 23.0 cm length COMMON DUCT: 4 mm RIGHT KIDNEY: 11.0 x 4.4 x 4.3 cm FINDINGS: LIVER: Liver is enlarged and demonstrates increased echogenicity suggesting fatty infiltration or diffuse hepatocellular disease. No focal mass is noted. No biliary ductal dilatation is noted. Hepat opetal flow is noted within the portal vein. COMMON DUCT: No intraluminal mass or stone visualized. GALLBLADDER: Contains no stones, demonstrates no wall thickening or pericholecystic fluid. PANCREAS: There is limited visualization of pancreas due to shadowing bowel gas. RIGHT KIDNEY: No evidence of hydronephrosis, stone, or mass. CONCLUSION: Enlarged echogenic liver suggesting fatty infiltration or diffuse hepatocellular dise ase. Eliu Cartagena MD on January 04, 2018 at 19:38 Board Certified Radiologist. This report was verified electronically.
[2018-01-04] MEDS: DOCUSATE SODIUM 50 MG/SENNA 8.6 MG TAB PO SCH (21:00)
[2018-01-04] MEDS: HEPARIN SODIUM - SQ 10,000 UNITS/ML VIAL SQ SCH (21:52)
[2018-01-04] MEDS: SODIUM CHLORIDE 0.9% FLUSH 10 ML FLUSH IV FLUSH SCH (21:52)
[2018-01-04] MEDS: INSULIN DETEMIR 100 UNITS/ML VIAL SQ SCH (21:52)
[2018-01-04] MEDS: INSULIN ASPART SUPPLEMENTAL SCALE SQ SCH (21:53)
[2018-01-05] VITALS (7 sets, daily range): BP systolic 105–141; BP diastolic 57–93; PULSE 54–69; RESP 16–18; TEMP 97.6–98.2; O2SAT 92–98
[2018-01-05] MEDS: SODIUM CHLOR 0.9% 1000 ML INJ 1,000 ML IV SCH ×3 (01:24→17:21)
[2018-01-05] MEDS: ACETAMINOPHEN 325 MG TAB PO PRN ×3 (03:30→17:43)
[2018-01-05] MEDS: GABAPENTIN 300 MG CAP PO SCH ×3 (08:03→17:21)
[2018-01-05] MEDS: ONDANSETRON HCL 4 MG/2 ML VIAL IVP PRN ×2 (08:03→17:43)
[2018-01-05] MEDS: INSULIN ASPART SUPPLEMENTAL SCALE SQ SCH ×4 (08:03→20:35)
[2018-01-05] MEDS: HEPARIN SODIUM - SQ 10,000 UNITS/ML VIAL SQ SCH ×2 (08:03→20:33)
[2018-01-05] MEDS: INSULIN DETEMIR 100 UNITS/ML VIAL SQ SCH ×2 (08:04→20:34)
[2018-01-05] MEDS: METHADONE HCL 10 MG TAB PO SCH (08:04)
[2018-01-05] MEDS: SODIUM CHLORIDE 0.9% FLUSH 10 ML FLUSH IV FLUSH SCH ×2 (08:04→20:34)
[2018-01-05] MEDS: DOCUSATE SODIUM 50 MG/SENNA 8.6 MG TAB PO SCH ×2 (08:04→20:33)
[2018-01-05 08:23] LABS: AUTOMATED NEUTROPHIL # 3.3 TH/MM3 (1.8-7.7); BASOPHIL % 0.6 % (0.0-2.0); EOSINOPHIL # 0.2 TH/MM3 (0-0.4); EOSINOPHIL % 3.7 % (0.0-4.0); HEMATOCRIT 37.4 % (35.0-46.0); HEMOGLOBIN 12.9 GM/DL (11.6-15.3); LYMPH % 24.8 % (9.0-44.0); LYMPHOCYTE # 1.2 TH/MM3 (1.0-4.8); MEAN CELL VOLUME 86.1 FL (80.0-100.0); MEAN CORPUSCULAR HEMOGLOBIN 29.8 PG (27.0-34.0); MEAN CORPUSCULAR HGB CONC 34.6 % (32.0-36.0); MEAN PLATELET VOLUME 10.9 FL (7.0-11.0); MONO % 5.6 % (0.0-8.0); MONOCYTE # 0.3 TH/MM3 (0-0.9); NEUT % 65.3 % (16.0-70.0); PLATELET COUNT 82 TH/MM3 (150-450); RED BLOOD COUNT 4.34 MIL/MM3 (4.00-5.30); RED CELL DISTRIBUTION WIDTH 13.4 % (11.6-17.2)
[2018-01-05 08:58] LABS: ALBUMIN 2.8 GM/DL (3.4-5.0); ALKALINE PHOSPHATASE 122 U/L (45-117); ALT (GPT) 158 U/L (10-53); AST (GOT) 160 U/L (15-37); BICARBONATE 27.5 MEQ/L (21.0-32.0); BLOOD UREA NITROGEN 8 MG/DL (7-18); CALCIUM 8.3 MG/DL (8.5-10.1); CHLORIDE 97 MEQ/L (98-107); CREATININE 0.81 MG/DL (0.50-1.00); GLOMERULAR FILTRATION RATE 72 ML/MIN (>89); GLUCOSE,RANDOM 240 MG/DL (74-106); SODIUM (NA) 136 MEQ/L (136-145); TOTAL BILIRUBIN ADULT 0.6 MG/DL (0.2-1.0); TOTAL PROTEIN 6.9 GM/DL (6.4-8.2)
--- NOTE | 2018-01-05 12:57 | HHI.PR ---
Subjective Remarks Patient reported feeling stomach pain and pounding headache She told me she had hepatitis B and C however our records indicated only hepatitis C No fever or chills, her blood sugar improved Gallbladder ultrasound showed fatty liver with possible lesions, Objective Vitals Vital Signs Date Time Temp Pulse Resp B/P (MAP) Pulse Ox O2 Delivery O2 Flow Rate FiO2 01/05/18 12:02 98.2 66 18 125/66 (85) 95 01/05/18 08:06 97 21 01/05/18 08:01 97.7 60 17 105/64 (78) 98 01/05/18 04:00 98.0 57 16 107/57 (74) 95 01/05/18 00:00 97.9 66 16 122/72 (89) 92 01/04/18 20:43 01/04/18 20:00 98.1 73 17 145/86 (105) 95 01/04/18 19:12 68 20 134/92 (106) 98 Room Air 01/04/18 18:00 60 20 145/68 (93) 98 Room Air 01/04/18 17:15 64 22 124/60 (81) 95 Room Air 01/04/18 16:37 82 22 138/68 (91) 97 Room Air 01/04/18 16:36 97 Room Air 01/04/18 16:10 98.0 74 22 165/79 (107) 100 I/O 01/04/18 01/04/18 01/04/18 01/05/18 01/05/18 01/05/18 07:00 15:00 23:00 07:00 15:00 23:00 Intake Total 1000 ml 460 ml Balance 1000 ml 460 ml Intake Oral 460 ml IV Total 1000 ml # Voids 2 Result Diagram: 01/05/18 0600 01/05/18 0600 Objective Remarks GENERAL: This is a well-nourished, well-developed patient, in no apparent distress. CARDIOVASCULAR: RRR, no gallops, or rubs. RESPIRATORY: Fair air entry bilaterally. No W, R, or R GASTROINTESTINAL: Abdomen soft, non-tender, nondistended. Positive bowel sounds MUSCULOSKELETAL: Extremities without clubbing, cyanosis, or edema. Pedal pulses appreciated NEUROLOGICAL: Awake and alert. Moves all extremity. Normal speech.no focal neurological deficit A/P Problem List: (1) Hyperglycemia ICD Code: R73.9 - Hyperglycemia, unspecified (2) Noncompliance ICD Code: Z91.19 - Patient's noncompliance with other medical treatment and regimen (3) Elevated LFTs ICD Code: R79.89 - Other specified abnormal findings of blood chemistry Assessment and Plan 62 year old female with insulin-dependent diabetes, history of PE, and neuropathy admitted for severe symptomatic hyperglycemia. 1. HHS>> improved - Glucose elevated to >700 on admission - 10 units insulin provided in ED - Bolused 2L in the ED - Start Levemir 10 units BID - SSI per protocol -Noted A1c - Case management consulted to assist with obtaining insulin - Consult clinical unit educator and purification director 2. Pseudohyponatremia>> improved - Sodium corrects to normal when accounting for hyperglycemic 3. Elevated LFTs - Review shows LFTs have been elevated for at least several years - RUQ U/S showing enlarged echogenic liver suggestive of fatty infiltration or hepatocellular disease -Patient reported having hepatitis C and B, however previous record confirmed hepatitis C only, will be rechecked hepatitis panel, -CT abdomen ordered to assess for any hepatocellular malignancy, consult GI - Avoid hepatotoxic agents 4. Chronic pain - Continue methadone 5. History of PE - Unclear whether PE was unprovoked or not but patient not on anticoagulation and likely a poor candidate secondary to noncompliance 6. Neuropathy - Continue home Neurontin DVT prophylaxis: Heparin 5000 units Q12H Sarah Colbert MD January 05, 2018 12:57
--- NOTE | 2018-01-05 15:03 | PD.CONS ---
HPI History of Present Illness This is a 62 year old female with hx hep C, IDDM, on methadone who presented with n/v and was found to have hyperglycemia. Reportedly she had not taken her insulin in 1 week. GI consulted for elevated LFTs, which appears to be chronic since 2014. She says she was told she had hep B and C in 1999 when she was "really sick" and had jaundice. Later she was told she had just hep C. Tx naive. She says she had EGD and colonoscopy "years ago" by a Dr Tinoco and was normal per pt. She denies any abd pain, jaundice, n/v, blood in stool, black tarry stool at this time. (Marjorie Sam) PFSH Past Medical History Insulin dependent diabetes mellitus Chronic pain on methadone Pulmonary embolism (was on Coumadin x 6 months) Hepatitis C History of IVDU in remote past Past Surgical History Bladder repair Breast reduction (Marjorie Sam) Coded Allergies: erythromycin base (Verified Allergy, Severe, Rash, 01/04/18) ketorolac (Verified Allergy, Severe, Shortness of Breath, 01/04/18) Family History Mother , had diabetes and Parkinson's Father alive, healthy Social History Lives with son Unemployed, applied for disability EtOH: denies Tobacco: 1 PPD x 5 years Illicit drugs: denies current use, reports h/o IVDU >20 years ago (Marjorie Sam) Review of Systems Constitutional: DENIES: Fever Endocrine: DENIES: Polydipsia Eyes: DENIES: Blurred vision Ears, nose, mouth, throat: DENIES: Hearing loss Respiratory: DENIES: Cough Cardiovascular: DENIES: Chest pain Gastrointestinal: DENIES: Abdominal pain, Black stools, Bloody stools, Nausea, Vomiting, Hematemesis Genitourinary: DENIES: Hematuria Musculoskeletal: DENIES: Muscle aches Integumentary: DENIES: Jaundice Hematologic/lymphatic: DENIES: Bruising Immunologic/allergic: DENIES: Eczema Neurologic: COMPLAINS OF: Abnormal gait Psychiatric: DENIES: Confusion (Marjorie Sam) GI Exam Vitals I&O Vital Signs Date Time Temp Pulse Resp B/P (MAP) Pulse Ox O2 Delivery O2 Flow Rate FiO2 01/05/18 12:02 98.2 66 18 125/66 (85) 95 01/05/18 08:06 97 21 01/05/18 08:01 97.7 60 17 105/64 (78) 98 01/05/18 04:00 98.0 57 16 107/57 (74) 95 01/05/18 00:00 97.9 66 16 122/72 (89) 92 01/04/18 20:43 01/04/18 20:00 98.1 73 17 145/86 (105) 95 01/04/18 19:12 68 20 134/92 (106) 98 Room Air 01/04/18 18:00 60 20 145/68 (93) 98 Room Air 01/04/18 17:15 64 22 124/60 (81) 95 Room Air 01/04/18 16:37 82 22 138/68 (91) 97 Room Air 01/04/18 16:36 97 Room Air 01/04/18 16:10 98.0 74 22 165/79 (107) 100 I/O 01/04/18 01/04/18 01/04/18 01/05/18 01/05/18 01/05/18 06:59 14:59 22:59 06:59 14:59 22:59 Intake Total 1000 ml 460 ml Balance 1000 ml 460 ml Intake Oral 460 ml IV Total 1000 ml # Voids 2 Imaging Last Impressions Gall Bladder Ultrasound 01/04/18 180 Signed Impressions: Service Date/Time: Thursday, January 04, 2018 18:35 - CONCLUSION: Enlarged echogenic liver suggesting fatty infiltration or diffuse hepatocellular disease. Eliu Cartagena MD Laboratory Test 01/04/18 16:44 01/04/18 17:05 01/05/18 06:00 White Blood Count 5.7 TH/MM3 5.0 TH/MM3 Red Blood Count 4.67 MIL/MM3 4.34 MIL/MM3 Hemoglobin 14.0 GM/DL 12.9 GM/DL Hematocrit 42.1 % 37.4 % Mean Corpuscular Volume 90.2 FL 86.1 FL Mean Corpuscular Hemoglobin 30.0 PG 29.8 PG Mean Corpuscular Hemoglobin Concent 33.3 % 34.6 % Red Cell Distribution Width 13.6 % 13.4 % Platelet Count 82 TH/MM3 82 TH/MM3 Mean Platelet Volume 11.2 FL 10.9 FL Neutrophils (%) (Auto) 75.7 % 65.3 % Lymphocytes (%) (Auto) 17.4 % 24.8 % Monocytes (%) (Auto) 4.7 % 5.6 % Eosinophils (%) (Auto) 2.0 % 3.7 % Basophils (%) (Auto) 0.2 % 0.6 % Neutrophils # (Auto) 4.3 TH/MM3 3.3 TH/MM3 Lymphocytes # (Auto) 1.0 TH/MM3 1.2 TH/MM3 Monocytes # (Auto) 0.3 TH/MM3 0.3 TH/MM3 Eosinophils # (Auto) 0.1 TH/MM3 0.2 TH/MM3 Basophils # (Auto) 0.0 TH/MM3 0.0 TH/MM3 CBC Comment AUTO DIFF AUTO DIFF Differential Comment AUTO DIFF CONFIRMED AUTO DIFF CONFIRMED Blood Urea Nitrogen 10 MG/DL 8 MG/DL Creatinine 1.33 MG/DL 0.81 MG/DL Random Glucose 777 MG/DL 240 MG/DL Total Protein 8.0 GM/DL 6.9 GM/DL Albumin 3.2 GM/DL 2.8 GM/DL Calcium Level 8.6 MG/DL 8.3 MG/DL Phosphorus Level 3.8 MG/DL Magnesium Level 1.9 MG/DL Alkaline Phosphatase 177 U/L 122 U/L Aspartate Amino Transf (AST/SGOT) 121 U/L 160 U/L Alanine Aminotransferase (ALT/SGPT) 170 U/L 158 U/L Total Bilirubin 0.7 MG/DL 0.6 MG/DL Sodium Level 123 MEQ/L 136 MEQ/L Potassium Level 5.1 MEQ/L 3.6 MEQ/L Chloride Level 84 MEQ/L 97 MEQ/L Carbon Dioxide Level 27.2 MEQ/L 27.5 MEQ/L Anion Gap 12 MEQ/L 12 MEQ/L Estimat Glomerular Filtration Rate 40 ML/MIN 72 ML/MIN Lipase 66 U/L B-Hydroxybutyrate 0.17 MMOL/L Urine Color STRAW Urine Turbidity CLEAR Urine pH 5.0 Urine Specific [place] 1.027 Urine Protein NEG mg/dL Urine Glucose (UA) 1000 mg/dL Urine Ketones NEG mg/dL Urine Occult Blood NEG Urine Nitrite NEG Urine Bilirubin NEG Urine Urobilinogen LESS THAN 2.0 MG/DL Urine Leukocyte Esterase NEG Urine RBC LESS THAN 1 /hpf Urine WBC LESS THAN 1 /hpf Urine Squamous Epithelial Cells 1 /hpf Microscopic Urinalysis Comment CULT NOT INDICATED Platelet Estimate LOW Platelet Morphology Comment ENLARGED Tumor Marker Alpha Fetoprotein 4.2 NG/ML Hepatitis A IgM Antibody NONREACTIVE Hepatitis B Surface Antigen NONREACTIVE Hepatitis B Core IgM Antibody NONREACTIVE Hepatitis C IgG Antibody REACTIVE Physical Examination HEENT: PERRL; normocephalic; atraumatic; no jaundice. CHEST: CTA CARDIAC: RRR ABDOMEN: Soft, obese, nontender; no hepatosplenomegaly; bowel sounds are present in all four quadrants. EXTREMITIES: No clubbing, cyanosis, or edema. SKIN: Normal; no rash; no jaundice. FEED HOUSE SUPERVISOR: No focal deficits; alert and oriented times three. (Marjorie Sam) Assessment and Plan Plan ASSESSMENT - elevated LFTs - chronic since 2014 per EMR. hx hep C. hcv ab reactive. hep b neg. US showed fatty liver vs hepatocellular dz. AFP 4.2. CT is pending PLAN - liver w/u - await CT abd - if tx for hep C needed, will be done on outpt basis - mediterrean diet - further recs to follow pt seen by myself and Dr Sams and this note is on his behalf (Marjorie Sam) Physician Comments Seen and examined with Tera AC C fulton in progress. Await CT scan. Will follow, thank you (Chery Sams MD) Marjorie Sam January 05, 2018 15:03 Chery Sams MD January 05, 2018 16:02
--- NOTE | 2018-01-05 15:13 | RADRPT ---
EXAM DATE/TIME: 01/05/2018 14:49 [facility] COMPARISON: No previous studies available for comparison. INDICATIONS : Assess liver lesion ORAL CONTRAST: No oral contrast ingested. RADIATION DOSE: 15.39 CTDIvol (mGy) MEDICAL HISTORY : Hypertension. Chronic obstructive pulmonary disease. Diabetes mellitus type 1.Hep B and C, hiatal her leonardo SURGICAL HISTORY : None. ENCOUNTER: Initial ACUITY: 1 day PAIN SCALE: 3/10 LOCATION: Right upper quadrant TECHNIQUE: Volumetric scanning of the abdomen was performed. Using automated exposure control and adjustment of the mA and/or kV according to patient size, radiation dose was kept as low as reasonably achievable to obtain optimal diagnostic quality images. DICOM format image data is available electronically for review and comparison. FINDINGS: Lower lungs are clear. There is no discrete mass in the liver on this noncontrast exam. There is no significant fatty infil tration. Spleen is unremarkable Pancreas and adrenals appear normal Small 1 cm cyst right kidney Left kidney is unremarkable There is no ascites or adenopathy Cecum and colon visualized is unremarkable. Mild degenerative changes lumbar spine. CONCLUSION: There is no discrete liver lesion identified. Solid masses can't be excluded without intravenous con trast. There is no significant fatty infiltration. Chaitanya Adams MD FACR on January 05, 2018 at 15:08 Board Certified Radiologist. This report was verified electronically.
[2018-01-05 16:28] LABS: HEMOGLOBIN A1C 14.7 % (4.3-6.0)
[2018-01-05] MEDS: TEMAZEPAM 15 MG CAP PO PRN (20:40)
[2018-01-06] VITALS: BP 123/66; PULSE 56; RESP 16; TEMP 97.5; O2SAT 93
[2018-01-06 04:00] VITALS: BP 112/55; PULSE 58; RESP 18; TEMP 97.7; O2SAT 94
[2018-01-06] MEDS: SODIUM CHLOR 0.9% 1000 ML INJ 1,000 ML IV SCH ×2 (04:05→17:24)
[2018-01-06] MEDS: DOCUSATE SODIUM 50 MG/SENNA 8.6 MG TAB PO SCH ×2 (07:59→20:21)
[2018-01-06] MEDS: HEPARIN SODIUM - SQ 10,000 UNITS/ML VIAL SQ SCH ×2 (07:59→20:21)
[2018-01-06] MEDS: GABAPENTIN 300 MG CAP PO SCH ×3 (07:59→17:24)
[2018-01-06 08:00] VITALS: BP 128/90; PULSE 75; RESP 20; TEMP 98.7; O2SAT 94
[2018-01-06] MEDS: INSULIN DETEMIR 100 UNITS/ML VIAL SQ SCH ×2 (08:00→20:22)
[2018-01-06] MEDS: METHADONE HCL 10 MG TAB PO SCH (08:00)
[2018-01-06] MEDS: SODIUM CHLORIDE 0.9% FLUSH 10 ML FLUSH IV FLUSH SCH ×2 (08:00→20:22)
[2018-01-06] MEDS: INSULIN ASPART SUPPLEMENTAL SCALE SQ SCH ×4 (08:00→20:22)
[2018-01-06 08:05] LABS: % SATURATION IRON PROFILE 17.9 % (20-50); IRON (FE) 57 MCG/DL (50-170); TOTAL IRON BINDING CAPACITY 318 MCG/DL (250-450)
[2018-01-06 08:09] LABS: FERRITIN 149 NG/ML (8-252)
[2018-01-06 12:00] VITALS: BP 133/74; PULSE 69; RESP 20; TEMP 98; O2SAT 91
--- NOTE | 2018-01-06 14:59 | HHI.GIFU ---
Subjective Remarks Pt resting in bed, talking on phone. No GI complaints. Says she is fatigued. (CecyMarjoriegorge AC) Objective Vitals I&O Vital Signs Date Time Temp Pulse Resp B/P (MAP) Pulse Ox O2 Delivery O2 Flow Rate FiO2 01/06/18 12:00 98.0 69 20 133/74 (93) 91 01/06/18 08:00 98.7 75 20 128/90 (103) 94 01/06/18 04:00 97.7 58 18 112/55 (74) 94 01/06/18 00:00 97.5 56 16 123/66 (85) 93 01/05/18 20:48 21 01/05/18 20:00 97.6 69 18 141/93 (109) 94 01/05/18 16:01 98.1 54 18 138/70 (92) 95 I/O 01/05/18 01/05/18 01/05/18 01/06/18 01/06/18 01/06/18 07:00 15:00 23:00 07:00 15:00 23:00 Intake Total 460 ml 720 ml 240 ml Balance 460 ml 720 ml 240 ml Intake Oral 460 ml 720 ml 240 ml # Voids 2 5 4 # Bowel Movements 0 0 Laboratory Laboratory Tests Test 01/06/18 07:15 Iron Level 57 Total Iron Binding Capacity 318 Percent Iron Saturation 17.9 Ferritin 149 Imaging Last Impressions Abdomen CT 01/05/18 0000 Signed Impressions: Service Date/Time: Friday, January 05, 2018 14:49 - CONCLUSION: There is no discrete liver lesion identified. Solid masses can't be excluded without intravenous contrast. There is no significant fatty infiltration. Chaitanya Adams MD FACR Gall Bladder Ultrasound 01/04/18 1805 Signed Impressions: Service Date/Time: Thursday, January 04, 2018 18:35 - CONCLUSION: Enlarged echogenic liver suggesting fatty infiltration or diffuse hepatocellular disease. Eliu Cartagena MD Physical Exam HEENT: PERRL; normocephalic; atraumatic; no jaundice. CHEST: CTA CARDIAC: RRR ABDOMEN: Soft, obese, nontender; no hepatosplenomegaly; bowel sounds are present in all four quadrants. EXTREMITIES: No clubbing, cyanosis, or edema. SKIN: Normal; no rash; no jaundice. UNIVERSITY ADMINISTRATIVE ASSISTANT: No focal deficits; alert and oriented times three. (Marjorie Sam) Assessment and Plan Plan ASSESSMENT - elevated LFTs - chronic since 2014 per EMR. hx hep C. hcv ab reactive. hep b neg. US showed fatty liver vs hepatocellular dz. AFP 4.2. CT is pending 01/06/18 CT abd with contrast is pending. liver w/u pending. AFP 4.2 PLAN - await rest of liver w/u - await CT abd with contrast - if tx for hep C needed, will be done on outpt basis - mediterrean diet - can f/u as outpt for results liver w/u pt seen by myself and Dr Sams and this note is on his behalf (Marjorie Sam) Physician Comments Seen and examined by OSORIO, Repeat CT pending. If -ve dc home with gi fu to proceed with treatment recs for Hep C. Will sign off. Thank you (Chery Sams MD) Marjorie Sam January 06, 2018 14:59 Chery Sams MD January 06, 2018 16:20
--- NOTE | 2018-01-06 15:01 | HHI.PR ---
Subjective Remarks Patient reported feeling very fatigued and tired, she is very concerned about going home today Also reported blurry vision, her A1c is 14.2 I explained to her that she needs to work harder on controlling her blood sugar and she will need to follow-up with product distribution specialist once a year CT abdomen without contrast did not reveal liver lesion however it does not exclude solid tumor Objective Vitals Vital Signs Date Time Temp Pulse Resp B/P (MAP) Pulse Ox O2 Delivery O2 Flow Rate FiO2 01/06/18 12:00 98.0 69 20 133/74 (93) 91 01/06/18 08:00 98.7 75 20 128/90 (103) 94 01/06/18 04:00 97.7 58 18 112/55 (74) 94 01/06/18 00:00 97.5 56 16 123/66 (85) 93 01/05/18 20:48 21 01/05/18 20:00 97.6 69 18 141/93 (109) 94 01/05/18 16:01 98.1 54 18 138/70 (92) 95 I/O 01/05/18 01/05/18 01/05/18 01/06/18 01/06/18 01/06/18 07:00 15:00 23:00 07:00 15:00 23:00 Intake Total 460 ml 720 ml 240 ml Balance 460 ml 720 ml 240 ml Intake Oral 460 ml 720 ml 240 ml # Voids 2 5 4 # Bowel Movements 0 0 Result Diagram: 01/05/18 0600 01/05/18 0600 Objective Remarks GENERAL: This is a well-nourished, well-developed patient, in no apparent distress. CARDIOVASCULAR: RRR, no gallops, or rubs. RESPIRATORY: Fair air entry bilaterally. No W, R, or R GASTROINTESTINAL: Abdomen soft, non-tender, nondistended. Positive bowel sounds MUSCULOSKELETAL: Extremities without clubbing, cyanosis, or edema. Pedal pulses appreciated NEUROLOGICAL: Awake and alert. Moves all extremity. Normal speech.no focal neurological deficit A/P Problem List: (1) Hyperglycemia ICD Code: R73.9 - Hyperglycemia, unspecified (2) Noncompliance ICD Code: Z91.19 - Patient's noncompliance with other medical treatment and regimen (3) Elevated LFTs ICD Code: R79.89 - Other specified abnormal findings of blood chemistry Assessment and Plan 62 year old female with insulin-dependent diabetes, history of PE, and neuropathy admitted for severe symptomatic hyperglycemia. 01/06: Uncontrolled diabetes mellitus adjust Levemir and add preprandial, patient reported blurry vision, her A1c is 14.2 I explained to her that she needs to work harder on controlling her blood sugar and she will need to follow-up with product distribution specialist once a year CT abdomen without contrast did not reveal liver lesion however it does not exclude solid tumor, will proceed with CT abdomen with contrast, appreciate GI follow-up for liver workup, reviewed hepatitis panel positive for hepatitis C but not hepatitis B Discussed with pillowcase sewer she graciously will work on helping patient with her insulin otherwise it is high risk for readmission with uncontrolled blood sugar A/P: 1. HHS>> improved - Glucose elevated to >700 on admission -Increase Levemir to 20 units twice daily, NovoLog preprandial 2 units 3 times daily, sliding scale - SSI per protocol -Noted A1c 14.2 - Case management consulted to assist with obtaining insulin - Consult medical geneticist and barrow worker 2. Pseudohyponatremia>> improved - Sodium corrects to normal when accounting for hyperglycemic 3. Elevated LFTs - Review shows LFTs have been elevated for at least several years - RUQ U/S showing enlarged echogenic liver suggestive of fatty infiltration or hepatocellular disease -Patient reported having hepatitis C and B, however previous record confirmed hepatitis C only, will be rechecked hepatitis panel, -CT abdomen ordered to assess for any hepatocellular malignancy, consult GI - Avoid hepatotoxic agents 4. Chronic pain - Continue methadone 5. History of PE - Unclear whether PE was unprovoked or not but patient not on anticoagulation and likely a poor candidate secondary to noncompliance 6. Neuropathy - Continue home Neurontin DVT prophylaxis: Heparin 5000 units Q12H Discharge Planning In a.m. if CT abdomen with contrast unremarkable Discussed with pillowcase sewer she graciously will work on helping patient with her insulin otherwise it is high risk for readmission with uncontrolled blood sugar Sarah Colbert MD January 06, 2018 15:00
[2018-01-06 16:00] VITALS: BP 131/84; PULSE 67; RESP 20; TEMP 97.9; O2SAT 93
[2018-01-06] MEDS: INSULIN HUMAN NPH 1,000 UNITS/10 ML VIAL SQ SCH (17:24)
[2018-01-06] MEDS ORDERED: IOHEXOL 350 MG/ML 10 ML VIAL (for RAD DIAG) IVCONTRAST ONE (19:35)
[2018-01-06 20:00] VITALS: BP 153/76; PULSE 63; RESP 17; TEMP 98; O2SAT 94
[2018-01-06] MEDS: TEMAZEPAM 15 MG CAP PO PRN (20:20)
--- NOTE | 2018-01-06 21:07 | RADRPT ---
EXAM DATE/TIME: 01/06/2018 20:07 [facility] COMPARISON: CT ABDOMEN & PELVIS W CONTRAST, May 02, 2017, 16:35. INDICATIONS : Abdomen pain, Assess for hepatocellular tumor. IV CONTRAST: 75 cc Omnipaque 350 (iohexol) IV ORAL CONTRAST: No oral contrast ingested. RADIATION DOSE: 16.22 CTDIvol (mGy) MEDICAL HISTORY : Hernia, hiatal. Ulcers. Hypertension. Chronic obstructive pulmonary disease. Diabetes mellitus type 1 . Hep B and C. SURGICAL HISTORY : None. ENCOUNTER: Initial ACUITY: 1 day PAIN SCALE: 3/10 LOCATION: Right upper quadrant TECHNIQUE: Volumetric scanning of the abdomen was performed. Using automated exposure control and adjustment of the mA and/or kV according to patient size, radiation dose was kept as low as reasonably achievable to obtain optimal diagnostic quality images. DICOM format image data is available electronically for review and comparison. FINDINGS: LOWER LUNGS: The visualized lower lungs are clear. LIVER: The liver appears prominent. It is mildly decreased in density. No focal hepatic lesion is seen. The gallbladder is unremarkable. SPLEEN: The spleen is diffusely enlarged. PANCREAS: Within normal limits. KIDNEYS: Normal in size and shape. There is no stone, or hydronephrosis. Small right renal cysts are seen. The re is a 2 cm cyst at the superior medial left kidney. ADRENAL GLANDS: Within normal limits. AORTA/RETROPERITONEAL: There is no aneurysm or lymphadenopathy. BOWEL/MESENTERY: The stomach and visualized small and large bowel demonstrate no abnormality. ABDOMINAL WALL: Within normal limits. MUSCULOSKELETAL: There is degenerative change in the lumbar spine. There is a concave deformity of the superior aspect of T12 representing a mild compression deformity. This was present on the prior CT examination. POST CONTRAST: No abnormal areas of enhancement are seen. CONCLUSION: 1. Hepatic steatosis. 2. A focal hepatic mass is not seen. 3. Splenomegaly. 4. Bilateral renal cysts. Hima Richard MD on January 06, 2018 at 20:58 Board Certified Radiologist. This report was verified electronically.
[2018-01-07] VITALS: BP 121/69; PULSE 60; RESP 19; TEMP 97.7; O2SAT 93
[2018-01-07 04:00] VITALS: BP 129/72; PULSE 62; RESP 16; TEMP 97.7; O2SAT 95
[2018-01-07] MEDS: SODIUM CHLOR 0.9% 1000 ML INJ 1,000 ML IV SCH (06:14)
[2018-01-07 08:00] VITALS: BP 141/75; PULSE 68; RESP 20; TEMP 97.8; O2SAT 97
[2018-01-07] MEDS: SODIUM CHLORIDE 0.9% FLUSH 10 ML FLUSH IV FLUSH SCH (09:00)
[2018-01-07] MEDS: HEPARIN SODIUM - SQ 10,000 UNITS/ML VIAL SQ SCH (09:35)
[2018-01-07] MEDS: METHADONE HCL 10 MG TAB PO SCH (09:36)
[2018-01-07] MEDS: GABAPENTIN 300 MG CAP PO SCH ×3 (09:37→17:46)
[2018-01-07] MEDS: DOCUSATE SODIUM 50 MG/SENNA 8.6 MG TAB PO SCH (09:37)
[2018-01-07] MEDS: INSULIN ASPART SUPPLEMENTAL SCALE SQ SCH (09:41)
[2018-01-07] MEDS: INSULIN DETEMIR 100 UNITS/ML VIAL SQ SCH (09:42)
[2018-01-07] MEDS: INSULIN HUMAN NPH 1,000 UNITS/10 ML VIAL SQ SCH ×3 (09:42→17:00)
[2018-01-07 11:26] LABS: ALPHA-1-ANTITRYPSIN 147 mg/dL (100 - 190)
[2018-01-07 12:00] VITALS: BP 140/74; PULSE 81; RESP 20; TEMP 97.3; O2SAT 95
[2018-01-07] MEDS ORDERED: LEVEMIR SQ (12:06)
[2018-01-07] MEDS ORDERED: NOVONP2 SQ (12:06)
[2018-01-07] MEDS ORDERED: NOVOLOGSS SQ (12:06)
[2018-01-07] MEDS ORDERED: BLOO1KIT65 (12:09)
[2018-01-07] MEDS ORDERED: GLUCTES27 (12:11)
[2018-01-07] MEDS: INSULIN NovoLIN REGULAR SUPPLEMENTAL SCALE SQ SCH ×2 (13:00→16:20)
[2018-01-07 14:25] LABS: SMOOTH MUSCLE TOTAL AUTOABS Negative (Negative)
[2018-01-07 16:00] VITALS: BP 135/62; PULSE 60; RESP 20; TEMP 97.7; O2SAT 97
--- NOTE | 2018-01-07 18:07 | HHI.PR ---
Objective Vitals Vital Signs Date Time Temp Pulse Resp B/P (MAP) Pulse Ox O2 Delivery O2 Flow Rate FiO2 01/07/18 12:00 97.3 81 20 140/74 (96) 95 01/07/18 08:00 97.8 68 20 141/75 (97) 97 01/07/18 04:00 97.7 62 16 129/72 (91) 95 01/07/18 00:00 97.7 60 19 121/69 (86) 93 01/06/18 20:00 98.0 63 17 153/76 (101) 94 I/O 01/06/18 01/06/18 01/06/18 01/07/18 01/07/18 01/07/18 07:00 15:00 23:00 07:00 15:00 23:00 Intake Total 240 ml 480 ml 240 ml Balance 240 ml 480 ml 240 ml Intake Oral 240 ml 480 ml 240 ml # Voids 4 4 4 # Bowel Movements 0 0 0 Result Diagram: 01/05/18 0601/05/18 06 Objective Remarks GENERAL: This is a well-nourished, well-developed patient, in no apparent distress. CARDIOVASCULAR: RRR, no gallops, or rubs. RESPIRATORY: Fair air entry bilaterally. No W, R, or R GASTROINTESTINAL: Abdomen soft, non-tender, nondistended. Positive bowel sounds MUSCULOSKELETAL: Extremities without clubbing, cyanosis, or edema. Pedal pulses appreciated NEUROLOGICAL: Awake and alert. Moves all extremity. Normal speech.no focal neurological deficit A/P Problem List: (1) Hyperglycemia ICD Code: R73.9 - Hyperglycemia, unspecified (2) Noncompliance ICD Code: Z91.19 - Patient's noncompliance with other medical treatment and regimen (3) Elevated LFTs ICD Code: R79.89 - Other specified abnormal findings of blood chemistry Assessment and Plan 62 year old female with insulin-dependent diabetes, history of PE, and neuropathy admitted for severe symptomatic hyperglycemia. 01/06: Uncontrolled diabetes mellitus adjust Levemir and add preprandial, patient reported blurry vision, her A1c is 14.2 I explained to her that she needs to work harder on controlling her blood sugar and she will need to follow-up with medical transcription supervisor once a year CT abdomen without contrast did not reveal liver lesion however it does not exclude solid tumor, will proceed with CT abdomen with contrast, appreciate GI follow-up for liver workup, reviewed hepatitis panel positive for hepatitis C but not hepatitis B Discussed with wrapper caser she graciously will work on helping patient with her insulin otherwise it is high risk for readmission with uncontrolled blood sugar A/P: 1. HHS>> improved - Glucose elevated to >700 on admission -Increase Levemir to 20 units twice daily, NovoLog preprandial 2 units 3 times daily, sliding scale - SSI per protocol -Noted A1c 14.2 - Case management consulted to assist with obtaining insulin - Consult employment supervisor and ski production supervisor 2. Pseudohyponatremia>> improved - Sodium corrects to normal when accounting for hyperglycemic 3. Elevated LFTs - Review shows LFTs have been elevated for at least several years - RUQ U/S showing enlarged echogenic liver suggestive of fatty infiltration or hepatocellular disease -Patient reported having hepatitis C and B, however previous record confirmed hepatitis C only, will be rechecked hepatitis panel, -CT abdomen ordered to assess for any hepatocellular malignancy, consult GI - Avoid hepatotoxic agents 4. Chronic pain - Continue methadone 5. History of PE - Unclear whether PE was unprovoked or not but patient not on anticoagulation and likely a poor candidate secondary to noncompliance 6. Neuropathy - Continue home Neurontin DVT prophylaxis: Heparin 5000 units Q12H Discharge Planning In a.m. if CT abdomen with contrast unremarkable Discussed with wrapper caser she graciously will work on helping patient with her insulin otherwise it is high risk for readmission with uncontrolled blood sugar Sarah Colbert MD January 07, 2018 18:07
[2018-01-07] MEDS ORDERED: GABA600T PO (19:37)
[2018-01-07] MEDS ORDERED: INSULIN SYRINGE1 M10 (19:57)
[2018-01-07] MEDS ORDERED: INSULIN DETEMIR 100 UNITS/ML VIAL SQ SCH (21:00)
[2018-01-08 19:52] LABS: CERULOPLASMIN 29 mg/dL (18-53)
[2018-01-08 23:54] LABS: MITOCHONDRIAL ABS LESS THAN 20.0 U (<=20.0)
[2018-01-09 03:49] LABS: HCV RNA PCR IU/ML 3100000 IU/mL (Not Detected)
== END 2018-01-07 20:26 | disposition home or self-care (01) | DRG 638 ==
LOC: NEPE 16:06 → NEDA 18:55 → N04A 20:49 → N04B 20:49
PROVIDERS: ADMIT Family Medicine; ATTEND Family Medicine
DX: E11.65 Type 2 diabetes mellitus with hyperglycemia (principal); E87.1 Hypo-osmolality and hyponatremia; E11.40 Type 2 diabetes mellitus with diabetic neuropathy, unspecified; K76.0 Fatty (change of) liver, not elsewhere classified; B19.20 Unspecified viral hepatitis C without hepatic coma; I10 Essential (primary) hypertension; E78.00 Pure hypercholesterolemia, unspecified; J44.9 Chronic obstructive pulmonary disease, unspecified; H91.90 Unspecified hearing loss, unspecified ear; R79.89 Other specified abnormal findings of blood chemistry; H53.8 Other visual disturbances; G89.29 Other chronic pain; M19.90 Unspecified osteoarthritis, unspecified site; F11.10 Opioid abuse, uncomplicated; F17.210 Nicotine dependence, cigarettes, uncomplicated; Z79.4 Long term (current) use of insulin; Z86.711 Personal history of pulmonary embolism; Z91.19 Patient's noncompliance with other medical treatment and regimen; Z79.891 Long term (current) use of opiate analgesic; Z83.3 Family history of diabetes mellitus; Z82.0 Family history of epilepsy and other diseases of the nervous system
CPT/HCPCS: 74150; 74160; 76705; 80053; 80074; 81001; 82010; 82103; 82105; 82390; 82728; 82948; 83036; 83520; 83540; 83550; 83690; 83735; 84100; 85025; 86038; 86255; 87522; 87902; 96361; 96374; J1644; J1815; J2405; J7030; Q9967

== ENCOUNTER 2018-03-24 12:34 | Observation (INO) ==
[2018-03-24] MEDS ORDERED: Potassium Chlor 20 mEq Premix 20 MEQ/100 ML PIGGYBACK IV.SIG PRN ×6 (13:09)
[2018-03-24] MEDS ORDERED: Potassium Chlor 40 mEq Premix 40 MEQ/100 ML PIGGYBACK IV.SIG PRN ×2 (13:09)
[2018-03-24] MEDS ORDERED: Sod Chloride 0.9% Inj 1,000 ML IV.SIG ONE ×2 (13:09→15:50)
[2018-03-24] MEDS ORDERED: Sodium Phosphate Inj 15 MMOL in Sodium Chlor 0.9% Inj 100 ML IV.SIG PRN (13:09)
[2018-03-24] MEDS ORDERED: Dextrose 5%/NaCl 0.9% Inj 1,000 ML IV.CONT SCH (13:15)
--- NOTE | 2018-03-24 13:33 | ED ---
HPI General Chief Complaint: Recheck/Abnormal Lab/Rx Stated Complaint: Diabetic Issue Time Seen by Provider: 03/24/18 12:47 Source: patient Mode of arrival: ambulatory Limitations: no limitations History of Present Illness HPI narrative: The patient is a 62-year-old female who presents to the emergency department via EMS for hyperglycemia. The patient was noted to have a blood sugar greater than 600. The patient has a history of insulin- dependent diabetes and has been out of her insulin for the last 3 days. The patient states she is currently disabled and on Social Security, she is unable to afford her medications. The patient states she stopped her insulin 3 days ago when she ran out of her medications. The patient does note that she has had polyuria, polydipsia, and polyphagia. She now complains of diffuse weakness , has had previous episodes similar to this secondary to elevated blood glucose levels. The patient denies any significant headache, chest pain, or shortness of breath. She does complain of mild nausea without any vomiting, diarrhea, or abdominal pain. The patient denies any dysuria. Related Data Home Medications Medication Instructions Recorded Confirmed methadone 10 mg PO DAILY 03/24/18 03/24/18 Allergies Allergy/AdvReac Type Severity Reaction Status Date / Time erythromycin base Allergy Severe Rash Verified 01/04/18 16:36 ketorolac Allergy Severe Shortness Verified 01/04/18 16:36 of Breath Review of Systems Except as stated in HPI: all other systems reviewed are negative Constitutional Denies fever(s) ENT Denies dizziness Cardiovascular Denies chest pain Respiratory Denies dyspnea Gastrointestinal Denies abdominal pain, Denies nausea and Denies vomiting Musculoskeletal Reports muscle weakness Endocrine Reports fatigue, Reports polyphagia, Reports polydipsia and Reports polyuria [facility] Medical History Medical History Diabetes (Acute) Social History Social History Substance History: No History of Abuse Smoking Status: Current every day smoker Tobacco Type: Cigarettes How Often Do You Have a Drink Containing Alcohol: Never Recent Travel in [place] within the Last 8 Weeks: No Recent Out of Country Travel within the Last 8 Weeks: No Immunization History Tetanus Immunization: <5 Years Exam Narrative Exam Narrative: GENERAL: Awake somewhat lethargic 62-year-old female who appears older than her stated age. No acute respiratory distress. SKIN: Focused skin assessment warm/dry. HEAD: Atraumatic. Normocephalic. EYES: Pupils equal and round. 4 mm bilateral and reactive. ENT: No nasal bleeding or discharge. Dry mucous membranes. NECK: Trachea midline. No JVD. CARDIOVASCULAR: Regular, tachycardic with a heart rate of 100. RESPIRATORY: No accessory muscle use. Clear to auscultation. Breath sounds equal bilaterally. GASTROINTESTINAL: Abdomen soft, non-tender, nondistended. MUSCULOSKELETAL: No obvious deformities. No clubbing. No cyanosis. No edema. NEUROLOGICAL: Awake, lethargic, no acute obvious cranial nerve deficits. Nonfocal. PSYCHIATRIC: Slightly agitated. Course Initial Documented Vital Signs Temperature 98.5 F 03/24/18 12:39 Pulse Rate 101 H 03/24/18 12:39 Respiratory Rate 18 03/24/18 12:39 Blood Pressure 154/75 H 03/24/18 12:39 Pulse Oximetry 98 03/24/18 12:39 Last Documented Vital Signs Temperature 98.5 F 03/24/18 12:39 Pulse Rate 75 03/24/18 16:00 Respiratory Rate 15 03/24/18 16:00 Blood Pressure 119/58 L 03/24/18 16:00 Pulse Oximetry 98 03/24/18 16:00 Medical Decision Making [facility] Narrative Medical decision making narrative: IV was established, labs are drawn and sent, and the patient was placed on cardiac telemetry monitoring and continuous pulse oximetry monitoring. EKG was ordered and interpreted. The patient was administered IV fluids, VBG was obtained. PH on VBG is 7.3. The patient's anion gap is normal. Patient was administered 2 L of fluid, her sugar came down to 463. The patient was then administered 10 units of insulin subcutaneously. The patient will be a 23 hour observation to the medical service, may benefit from case management consultation to receive her meds so the patient does not have repetitive visits to the emergency department for her noncompliance, dehydration, and hyperglycemia. Discussed the patient with June mid-level provider, who agrees with [address] Concepcion. Differential Diagnosis Differential Diagnosis: Differential diagnosis includes hyperglycemia, DKA, hyperosmolar non-ketosis, dehydration, acute kidney injury, STEMI, sepsis, UTI, noncompliance. Medical Records Medical records reviewed: Yes I reviewed the patient's medical records. I reviewed the patient's EMR, she has had a previous admission for hyperglycemia and noncompliance. Lab Data Lab results reviewed: Yes I reviewed the patient's lab results. Lab results narrative: Hemoglobin and hematocrit are elevated secondary to hemoconcentration from dehydration. Creatinine is elevated, glucose elevated at 646. Result diagrams: 03/24/18 15:15 03/24/18 12:45 Lab Results 03/24/18 03/24/18 03/24/18 Range/Units 12:45 14:32 15:15 WBC 7.4 (4.0-11.0) th/mm3 RBC 5.36 H (4.00-5.30) mil/mm3 Hgb 16.1 H (11.6-15.3) gm/dL Hct 47.4 H (35.0-46.0) % MCV 88.4 (80.0-100.0) fL MCH 30.0 (27.0-34.0) pg MCHC 33.9 (32.0-36.0) % RDW 13.4 (11.6-17.2) % Plt Count 144 L (150-450) th/mm3 MPV 11.8 H (7.0-11.0) fL Neut % (Auto) 73.1 H (16.0-70.0) % Lymph % (Auto) 19.0 (9.0-44.0) % [place] % (Auto) 4.6 (0.0-8.0) % Eos % (Auto) 2.1 (0.0-4.0) % Baso % (Auto) 1.2 (0.0-2.0) % Neut # (Auto) 5.4 (1.8-7.7) th/mm3 Lymph # (Auto) 1.4 (1.0-4.8) th/mm3 [place] # (Auto) 0.3 (0.0-0.9) th/mm3 Eos # (Auto) 0.2 (0.0-0.4) th/mm3 Baso # (Auto) 0.1 (0.0-0.2) th/mm3 WBC Differential . Differential Comment Auto diff final Puncture Site Vein Patient Temperature 98.6 VBG pH 7.37 (7.360-7.400) VBG pCO2 50 H (44-48) mmHG VBG pO2 36 (35-40) mmHG VBG HCO3 28 H (22-26) mmol/L VBG O2 Saturation 62 L (70-76) % VBG O2 Content 14.4 (9.0-17.0) Vol % VBG Base Excess 3.5 H (-2-2) mmol/L VBG Carboxyhemoglobin 2.9 (0-4) % VBG Methemoglobin 0.8 (0-2) % Hemoglobin 16.4 H (12.0-16.0) G/DL O2 Delivery Device Room aira Inspired O2 21 % Critical Value No Sodium 130 L (136-145) meq/L Potassium 4.5 (3.5-5.1) meq/L Chloride 93 L (98-107) meq/L Carbon Dioxide 26.2 (21.0-32.0) meq/L Anion Gap 11 (5-15) meq/L BUN 19 H (7-18) mg/dL Creatinine 1.34 H (0.50-1.00) mg/dL Estimated GFR 40 L (>89) mL/min Random Glucose 646 H* (74-106) mg/dL Calcium 8.7 (8.5-10.1) mg/dL Total Bilirubin 0.8 (0.2-1.0) mg/dL AST 222 H (15-37) U/L ALT 242 H (10-53) U/L Alkaline Phosphatase 168 H (45-117) U/L Total Protein 8.6 H (6.4-8.2) g/dL Albumin 3.4 (3.4-5.0) g/dL Beta-Hydroxybutyric Acd 0.50 H (0.00-0.39) mmol/L Discharge Plan Discharge Disposition Patient Disposition: 30 Still Patient Discharge Condition Condition: Stable Discharge Details Diagnosis: Acute hyperglycemia, Acute dehydration Physicians Team ED Provider: Yony Pedraza Primary Care Provider: Ying Camacho Rxs /Orders / Referrals /Forms Prescriptions: No Action methadone 10 mg Tablet 10 mg PO DAILY RF: 0 Status ED Status: Admitted Observation Patient
[2018-03-24 14:36] LABS: VBG Base Excess 3.5 mmol/L (-2-2); VBG Blood Gas Oxygen Content 14.4 Vol % (9.0-17.0); VBG PCO2 50 mmHG (44-48); VBG PH 7.37 (7.360-7.400); VBG PO2 36 mmHG (35-40)
[2018-03-24 14:51] LABS: Anion Gap 11 meq/L (5-15); Blood Urea Nitrogen 19 mg/dL (7-18); Carbon Dioxide 26.2 meq/L (21.0-32.0); Chloride 93 meq/L (98-107); Glomerular Filtration Rate 40 mL/min (>89); Potassium 4.5 meq/L (3.5-5.1); Sodium 130 meq/L (136-145)
[2018-03-24 15:08] LABS: Glucose,Random 646 mg/dL (74-106)
[2018-03-24 15:09] LABS: Alanine Aminotransferase 242 U/L (10-53); Albumin 3.4 g/dL (3.4-5.0); Alkaline Phosphatase 168 U/L (45-117); Aspartate Aminotransferase 222 U/L (15-37); Calcium 8.7 mg/dL (8.5-10.1); Total Protein 8.6 g/dL (6.4-8.2)
[2018-03-24 16:20] LABS: Baso # (Auto) 0.1 th/mm3 (0.0-0.2); Baso % (Auto) 1.2 % (0.0-2.0); Eos # (Auto) 0.2 th/mm3 (0.0-0.4); Eos % (Auto) 2.1 % (0.0-4.0); Hematocrit 47.4 % (35.0-46.0); Hemoglobin 16.1 gm/dL (11.6-15.3); Lymph # (Auto) 1.4 th/mm3 (1.0-4.8); Mean Corpuscular HGB Conc 33.9 % (32.0-36.0); Mean Corpuscular Volume 88.4 fL (80.0-100.0); Mean Platelet Volume 11.8 fL (7.0-11.0); Mono # (Auto) 0.3 th/mm3 (0.0-0.9); Mono % (Auto) 4.6 % (0.0-8.0); Neut # (Auto) 5.4 th/mm3 (1.8-7.7); Neut % (Auto) 73.1 % (16.0-70.0); Platelet Count 144 th/mm3 (150-450); Red Blood Count 5.36 mil/mm3 (4.00-5.30); Red Cell Distribution Width 13.4 % (11.6-17.2); White Blood Count 7.4 th/mm3 (4.0-11.0)
[2018-03-24] MEDS: Sod Chloride 0.9% Inj 1,000 ML IV.CONT SCH ×2 (16:44→21:12)
[2018-03-24] MEDS ORDERED: Bisacodyl 10 MG Supp RECTAL PRN (17:22)
[2018-03-24] MEDS ORDERED: Temazepam 15 MG Capsule PO PRN (17:22)
[2018-03-24] MEDS ORDERED: Dextrose 50% in Water 50 ML Vial IV.PUSH PRN (17:24)
--- NOTE | 2018-03-24 17:27 | P.HP ---
History of Present Illness Primary Care Physician: Ying Camacho DO Chief Complaint: Elevated glucose History of Present Illness: This is a 62-year-old female patient with a known medical history of insulin- dependent diabetes. She states that she ran out of her insulin 3 days ago, has had nausea and vomiting as well as inability to eat for 3 days without vomiting. She is on SSI, currently disabled and unable to afford her medications. Patient states she does not have a primary care doctor anyone to follow-up with. She does admit to generalized weakness, with nausea, vomiting, lightheadedness and dizziness. She also does admit to polyuria and polydipsia. Patient denies any recent fever, chills, cough, shortness of breath, abdominal pain, nausea, vomiting, diarrhea dysuria. Patient does admit to smoking 1 pack per day cigarettes 5 years. Denies any alcohol or drug use. Family history significant for diabetes. Random glucose on presentation was 646. H&H elevated secondary to hemoconcentration. VBG obtained. Patient is not in DKA according to lab work, was given insulin IV in ED. We will continue IV fluids and monitor blood sugars closely. Patient does live at home alone. Review of Systems All other systems reviewed negative except as stated in HPI [facility] - History History Provided By: Patient - Medical History Medical History: Medical History (Last Updated 03/24/18 @ 17:57 by June Waters) Diabetes Hepatitis C - Surgical History Surgical History: Surgical History (Last Updated 03/24/18 @ 17:44 by June Waters) No history of previous surgery - Family History Family History: Family History (Last Updated 03/24/18 @ 17:44 by June Waters) Other Diabetes mellitus - Tobacco History Tobacco Use In Past 30 Days: Yes Smoking Status: Current every day smoker Tobacco Type: Cigarettes - Alcohol History How Often Do You Have a Drink Containing Alcohol: Never - Substance Use History Substance History: No History of Abuse - Travel History Recent Travel in the [place] Within the Last 8 Weeks: No Recent Travel Out of the Country Within the Last 8 Weeks: No - Immunization History Tetanus Immunization: <5 Years Medications and Allergies Active Medications: Active Medications Al Hydroxide/Mg Hydroxide (Milk Of Magnkarlos Liq) 30 ml PO Q12H PRN PRN Reason: Mild Constipation Bisacodyl (Dulcolax Supp) 10 mg RECTAL DAILY PRN PRN Reason: SEVERE CONSITIPATION Chlorhexidine Gluconate (Chlorhexidine 2% Cloth) 3 pack TOPICAL DAILY@0400 KRISTIN Stop: 03/30/18 03:59 Chlorhexidine Gluconate (Chlorhexidine 2% Cloth) 3 pack TOPICAL DAILY@0400 PRN PRN Reason: Extra cloth needed Stop: 03/30/18 03:59 Dextrose (D50w Vial) 50 ml IV.PUSH UNSCH PRN PRN Reason: PER HYPOGLYCEMIA PROTOCOL Glucagon (Glucagon Inj) 1 mg OTHER PRN PRN PRN Reason: for Hypoglycemia Protocol Dextrose/Sodium Chloride (D5w/Normal Saline Inj) 1,000 mls @ 200 mls/hr IV.CONT .Q5H KRISTIN Potassium Chloride (Kcl 20 Meq Premix Inj) 20 meq in 100 mls @ 100 mls/hr IV.SIG Q1H PRN PRN Reason: for K+ 4.5 to 5 Potassium Chloride (Kcl 20 Meq Premix Inj) 20 meq in 100 mls @ 50 mls/hr IV.SIG Q2H PRN PRN Reason: for K+ 4.5 to 5 Potassium Chloride (Kcl 20 Meq Premix Inj) 20 meq in 100 mls @ 100 mls/hr IV.SIG Q1H PRN PRN Reason: for K+ 3.5 to 4.4 Potassium Chloride (Kcl 20 Meq Premix Inj) 20 meq in 100 mls @ 50 mls/hr IV.SIG Q2H PRN PRN Reason: for K+ 3.5 to 4.4 Potassium Chloride (Kcl 20 Meq Premix Inj) 20 meq in 100 mls @ 50 mls/hr IV.SIG Q2H PRN PRN Reason: for Initial K+ ONLY < 3.5 Potassium Chloride (Kcl 20 Meq Premix Inj) 20 meq in 100 mls @ 50 mls/hr IV.SIG Q2H PRN PRN Reason: for Subsequent K+ < 3.5 Potassium Chloride (Kcl 40 Meq Premix Inj) 40 meq in 100 mls @ 50 mls/hr IV.SIG Q2H PRN PRN Reason: for Subsequent K+ < 3.5 Sodium Chloride (Ns Inj) 1,000 mls @ 250 mls/hr IV.CONT .Q4H KRISTIN Last Admin: 03/24/18 16:44 Dose: 250 mls/hr Sodium Phosphate 15 mmol/ (Sodium Chloride) 105 mls @ 25 mls/hr IV.SIG UNSCH PRN PRN Reason: for Phosphate Level < 1.0 Potassium Chloride (Kcl 40 Meq Premix Inj) 40 meq in 100 mls @ 100 mls/hr IV.SIG Q1H PRN PRN Reason: for Initial K+ ONLY < 3.5 Insulin Aspart (Novolog Insulin Correctional Sugar Inj) 0 unit SQ ACHS KRISTIN; Protocol Lactulose (Lactulose Liq) 30 ml PO DAILY PRN PRN Reason: SEVERE CONSITIPATION Senna/Docusate Sodium (Eun-Colace) 1 tab PO BID KRISTIN Sennosides (Senokot) 17.2 mg PO Q12H PRN PRN Reason: Moderate Constipation Sodium Bicarbonate (Sodium Bicarbonate 8.4% Inj) 100 meq IV.PUSH UNSCH PRN PRN Reason: for pH less than 6.9 Sodium Bicarbonate (Sodium Bicarbonate 8.4% Inj) 50 meq IV.PUSH UNSCH PRN PRN Reason: for pH 6.9 to 7.0 Temazepam (Restoril) 15 mg PO HS PRN PRN Reason: INSOMNIA Allergies Allergy/AdvReac Type Severity Reaction Status Date / Time erythromycin base Allergy Severe Rash Verified 01/04/18 16:36 ketorolac Allergy Severe Shortness Verified 01/04/18 16:36 of Breath Home Medications Medication Instructions Recorded Confirmed Type methadone 110 mg PO DAILY 03/24/18 03/25/18 History gabapentin [Neurontin] 600 mg PO TID 03/25/18 03/25/18 History Exam Vital signs: Vital Signs 03/24/18 12:39 03/24/18 16:00 Temperature 98.5 F Pulse Rate 101 H 75 Respiratory Rate 18 15 Blood Pressure 154/75 H 119/58 L Pulse Oximetry 98 98 Intake & Output 03/23/18 03/24/18 03/24/18 18:59 06:59 18:59 Weight 81.647 kg Narrative: GENERAL: Well-developed, well-nourished patient in NAD, disheveled. SKIN: Warm and dry. No rash. HEAD: Normocephalic. Atraumatic. EYES: Pupils equal and round. No scleral icterus. No injection or drainage. ENT: No nasal bleeding or discharge. Mucous membranes pink and moist. NECK: Supple. Trachea midline. CARDIOVASCULAR: Regular rate and rhythm. S1, S2 noted. No murmur appreciated. RESPIRATORY: No accessory muscle use. Clear to auscultation. Breath sounds equal bilaterally. GASTROINTESTINAL: Abdomen soft, non-tender, nondistended. Normoactive bowel sounds x4. MUSCULOSKELETAL: No obvious deformities. Extremities without clubbing, cyanosis , or edema. NEUROLOGICAL: Awake and alert. No obvious cranial nerve deficits. Motor grossly within normal limits. 5/5 muscle strength in bilateral upper and lower extremities. Normal speech. Results - Labs CBC & Chem 7: 03/24/18 15:15 03/27/18 06:46 Labs: Laboratory Results - last 24 hr 03/24/18 03/24/18 03/24/18 12:45 14:32 15:15 WBC 7.4 RBC 5.36 H Hgb 16.1 H Hct 47.4 H MCV 88.4 MCH 30.0 MCHC 33.9 RDW 13.4 Plt Count 144 L MPV 11.8 H Neut % (Auto) 73.1 H Lymph % (Auto) 19.0 Calvert % (Auto) 4.6 Eos % (Auto) 2.1 Baso % (Auto) 1.2 Neut # (Auto) 5.4 Lymph # (Auto) 1.4 Calvert # (Auto) 0.3 Eos # (Auto) 0.2 Baso # (Auto) 0.1 WBC Differential . Differential Comment Auto diff final Puncture Site Vein Patient Temperature 98.6 VBG pH 7.37 VBG pCO2 50 H VBG pO2 36 VBG HCO3 28 H VBG O2 Saturation 62 L VBG O2 Content 14.4 VBG Base Excess 3.5 H VBG Carboxyhemoglobin 2.9 VBG Methemoglobin 0.8 Hemoglobin 16.4 H O2 Delivery Device Room aira Inspired O2 21 Critical Value No Sodium 130 L Potassium 4.5 Chloride 93 L Carbon Dioxide 26.2 Anion Gap 11 BUN 19 H Creatinine 1.34 H Estimated GFR 40 L Random Glucose 646 H* Calcium 8.7 Total Bilirubin 0.8 AST 222 H ALT 242 H Alkaline Phosphatase 168 H Total Protein 8.6 H Albumin 3.4 Beta-Hydroxybutyric Acd 0.50 H Caprini VTE Risk Assessment Caprini VTE Risk Assessment: Moderate/High Risk (score >= 2) Caprini Risk Assessment Model: Point Value = 1 Point Value = 2 Point Value = 3 Point Value = 5 Age 41-60 Minor surgery BMI > 25 kg/m2 Swollen legs Varicose veins or History of unexplained or recurrent spontaneous Oral contraceptives or hormone replacement Sepsis (< 1 month) Serious lung disease, including pneumonia (< 1 month) Abnormal pulmonary function Acute myocardial infarction Congestive heart failure (< 1 month) History of inflammatory bowel disease Medical patient at bed rest Age 61-74 Arthroscopic surgery Major open surgery (> 45 min) Laparoscopic surgery (> 45 min) Malignancy Confined to bed (> 72 hours) Immobilizing plaster cast Central venous access Age >= 75 History of VTE Family history of VTE Factor V Leiden Prothrombin [id number] Lupus anticoagulant Anticardiolipin antibodies Elevated serum homocysteine Heparin-induced thrombocytopenia Other congenital or acquired thrombophilia Stroke (< 1 month) Elective arthroplasty Hip, pelvis, or leg fracture Acute spinal cord injury (< 1 month) Prophylaxis Regimen: Total Risk Factor Score Risk Level Prophylaxis Regimen 0-1 Low Early ambulation 2 Moderate Order ONE of the following: *Sequential Compression Device (SCD) *Heparin 5000 units SQ BID 3-4 Higher Order ONE of the following medications: *Heparin 5000 units SQ TID *Enoxaparin/Lovenox 40 mg SQ daily (WT < 150 kg, CrCl > 30 mL/min) *Enoxaparin/Lovenox 30 mg SQ daily (WT < 150 kg, CrCl > 10-29 mL/min) *Enoxaparin/Lovenox 30 mg SQ BID (WT < 150 kg, CrCl > 30 mL/min) AND/OR *Sequential Compression Device (SCD) 5 or more Highest Order ONE of the following medications: *Heparin 5000 units SQ TID (Preferred with Epidurals) *Enoxaparin/Lovenox 40 mg SQ daily (WT < 150 kg, CrCl > 30 mL/min) *Enoxaparin/Lovenox 30 mg SQ daily (WT < 150 kg, CrCl > 10-29 mL/min) *Enoxaparin/Lovenox 30 mg SQ BID (WT < 150 kg, CrCl > 30 mL/min) AND *Sequential Compression Device (SCD) Assessment and Plan - Plan 62 year old female with insulin-dependent diabetes, history of PE, and neuropathy admitted for severe symptomatic hyperglycemia. Severe symptomatic hyperglycemia - With complaints of nausea, vomiting and dizziness x 3 days. - Glucose elevated to 646 on admission. - 10 units IV insulin provided in ED. - Bolused 2L in the ED - Start Levemir 10 units BID - SSI per protocol. - Case management consulted to assist with obtaining insulin. - Consult community health educator and chips screen tender. Elevated LFTs History of untreated Hepatitis C, diagnosed in December 2017. - Review shows LFTs have been elevated for at least several years. - RUQ U/S from 01/16 showing enlarged echogenic liver suggestive of fatty infiltration or hepatocellular disease. - Abdominal CT showing no mass. - Patient denies ever getting follow up for treatment of hepatitis C outpatient , was diagnosed in December 2017. Followed by GI last admission. - Avoid hepatotoxic agents. - Recheck LFTs in am. Chronic pain - Continue methadone. Neuropathy - Continue home Neurontin. DVT prophylaxis: SCDs.
[2018-03-24 21:16] LABS: Calcium 7.6 mg/dL (8.5-10.1); Carbon Dioxide 26.2 meq/L (21.0-32.0); Potassium 3.8 meq/L (3.5-5.1)
[2018-03-24] MEDS: Insulin Detemir Inj 1,000 UNIT/10 ML Vial SQ SCH (21:30)
[2018-03-24] MEDS: Insulin NovoLOG Aspart Correctional Sugar Inj SQ SCH (22:16)
[2018-03-25] MEDS: Senna/Docusate Sodium 8.6/50 MG Tablet PO SCH ×3 (00:50→21:40)
[2018-03-25] MEDS: Sod Chloride 0.9% Inj 1,000 ML IV.CONT SCH ×2 (01:01→04:56)
[2018-03-25 03:38] LABS: Calcium 7.3 mg/dL (8.5-10.1); Carbon Dioxide 27.1 meq/L (21.0-32.0); Potassium 4.2 meq/L (3.5-5.1)
[2018-03-25 03:50] LABS: Total Protein 6.8 g/dL (6.4-8.2)
[2018-03-25] MEDS ORDERED: Chlorhexidine Gluconate 2% 1 Pack (2 Cloths) TOPICAL PRN (04:00)
[2018-03-25] MEDS ORDERED: Methadone 10 MG Tablet PO SCH ×2 (09:00→13:00)
[2018-03-25] MEDS: Insulin NovoLOG Aspart Correctional Sugar Inj SQ SCH ×4 (09:44→21:40)
[2018-03-25] MEDS ORDERED: Methadone 10 MG Tablet PO ONE (13:15)
[2018-03-25] MEDS: Insulin Detemir Inj 1,000 UNIT/10 ML Vial SQ SCH ×2 (13:33→21:40)
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
[2018-03-25 16:12] LABS: Calcium 7.6 mg/dL (8.5-10.1)
[2018-03-25 16:13] LABS: Albumin 2.5 g/dL (3.4-5.0); Total Protein 6.3 g/dL (6.4-8.2)
--- NOTE | 2018-03-25 17:34 | CT ---
EXAM DATE: 03/25/2018 5:15 PM EDT AGE/SEX: 62 years / Female INDICATIONS: Headaches with vision loss of left eye. CLINICAL DATA: This is the patient's initial encounter. Patient reports that signs and symptoms have been present for 1 day and indicates a pain score of 7/10. MEDICAL/SURGICAL HISTORY: Diabetes mellitus type II. Hepatitis C. None. RADIATION DOSE: 36.42 CTDI (mGy) [place] [facility] [place]. . TECHNIQUE: CT of the head without contrast. Using automated exposure control and adjustment of the mA and/or kV according to patient size, radiation dose was kept as low as reasonably achievable to ob tain optimal diagnostic quality images. DICOM format image data is available electronically for revi ew and comparison. FINDINGS: Noncontrast axial head CT demonstrates the ventricles to be normal in size and configuration with a n ormal sulcal pattern. No acute intracranial hemorrhage, acute cortical infarction, mass or midline sh ift is seen. Posterior fossa structures are unremarkable. Bone windows are unremarkable. No evidence of acute intracranial pathology. No masses are identified. . Electronically signed by: Francis Ardon MD 03/25/2018 5:32 PM EDT
[2018-03-25 18:29] LABS: Hemoglobin A1c 15.8 % (4.3-6.0)
[2018-03-25] MEDS: Gabapentin 300 MG Capsule PO SCH ×2 (19:03→21:40)
[2018-03-25] MEDS: Chlorhexidine Gluconate 2% 1 Pack (2 Cloths) TOPICAL SCH (19:56)
[2018-03-26] MEDS: Gabapentin 300 MG Capsule PO SCH ×4 (06:40→23:26)
[2018-03-26] MEDS: Chlorhexidine Gluconate 2% 1 Pack (2 Cloths) TOPICAL SCH (06:53)
[2018-03-26] MEDS: Senna/Docusate Sodium 8.6/50 MG Tablet PO SCH ×2 (09:38→20:37)
[2018-03-26] MEDS: Insulin Detemir Inj 1,000 UNIT/10 ML Vial SQ SCH ×2 (09:39→20:40)
[2018-03-26] MEDS: Methadone 10 MG Tablet PO SCH (09:39)
[2018-03-26] MEDS: Insulin NovoLOG Aspart Correctional Sugar Inj SQ SCH ×4 (09:39→20:41)
--- NOTE | 2018-03-26 17:04 | P.PN ---
Subjective Interval history: Follow up for hyperglycemia. Blood sugars remain very uncontrolled today, 260- 378. She reports continued polyuria. The patient is still very concerned her left eye is going blind. She consistently falls asleep during conversation, has a friend at bedside. Denies any other medical complaints. Physical Exam Vital signs: Vital Signs 03/25/18 19:53 03/26/18 04:00 03/26/18 07:49 Temperature 97.9 F 97.7 F Pulse Rate 70 65 61 Respiratory Rate 20 16 16 Blood Pressure 145/69 H 118/66 112/59 L Pulse Oximetry 97 93 L 96 03/26/18 08:00 03/26/18 13:16 Temperature 97.8 F Pulse Rate 74 Respiratory Rate 16 16 Blood Pressure 124/77 Pulse Oximetry Intake & Output 03/25/18 03/26/18 03/26/18 18:59 06:59 18:59 Other: Date of Last Bowel Movement 03/23/18 03/23/18 Narrative: GENERAL: Well-nourished, well-developed female patient in [facility]. Drowsy today, falling asleep during examination. SKIN: Warm and dry. No rash. HEENT: Normocephalic. Atraumatic. Pupils equal and round. EOMI. Mucous membranes pink and moist. NECK: Supple. Trachea midline. CARDIOVASCULAR: Regular rate and rhythm. No murmur appreciated. RESPIRATORY: No accessory muscle use. Clear to auscultation. Breath sounds equal bilaterally. GASTROINTESTINAL: Abdomen soft, non-tender, nondistended. Normoactive bowel sounds x4. MUSCULOSKELETAL: No obvious deformities. Extremities without clubbing, cyanosis , or edema. NEUROLOGICAL: Awake and alert. No obvious cranial nerve deficits. Motor grossly within normal limits. Moving all extremities spontaneously. Normal speech. Results - Labs CBC & Chem 7: 03/24/18 15:15 03/25/18 14:30 Laboratory Results - last 24 hr 03/25/18 03/25/18 03/25/18 14:30 18:32 21:22 POC Glucose 367 H 390 H Hemoglobin A1c 15.8 H 03/26/18 03/26/18 03/26/18 04:17 09:32 13:20 POC Glucose 260 H 260 H 378 H Hemoglobin A1c - Imaging Impressions Head CT 03/25/18 00:00 CONCLUSION: Assessment and Plan - Plan 62 year old female with insulin-dependent diabetes, history of PE, and neuropathy admitted for severe symptomatic hyperglycemia. Severe symptomatic hyperglycemia: with insulin dependent diabetes. Complaints of nausea, vomiting and dizziness x 3 days. Ran out of medications, unable to afford refills. - Glucose elevated to 646 on admission, s/p 10 units IV insulin and 2L IVF bolus provided in ED. - Restart patient's Levemir 20u bid, now increased to 25u bid - Monitor Accu-checks and cover with SSI, increased to high dose SSI - Case management consulted to assist with obtaining insulin. - Consult tobacco educator and explosive ordnance disposal manager; however patient declined to discuss education - HgbA1c 15.8 - BG slowly improving, not yet ready for discharge Elevated LFTs: History of untreated Hepatitis C, diagnosed in December 2017. - Review shows LFTs have been elevated for at least several years. - RUQ U/S from 01/16 showing enlarged echogenic liver suggestive of fatty infiltration or hepatocellular disease. - Abdominal CT showing no mass. - Patient denies ever getting follow up for treatment of hepatitis C outpatient, was diagnosed in December 2017. Followed by GI last admission. - Avoid hepatotoxic agents. - outpatient f/up, patient is established with [facility], encouraged to see farm specialist Drowsiness: patient falling asleep during exam. - Head CT reviewed and unremarkable - check UDS and UA - check ammonia Chronic pain - Continue patient's methadone 110mg daily (verified by HYDROMETEOROLOGIST who contacted [facility]) Neuropathy - Continue home Neurontin, hold if sedated/drowsy Insomnia - continue restoril prn while in the hospital Visual Changes: suspect secondary to severely uncontrolled diabetes, however patient very concerned her left eye is going blind. - Head CT reviewed and unremarkable - consult ophthalmology DVT prophylaxis: SCDs. Discharge Planning: Discharge pending further blood glucose control.
[2018-03-26] MEDS: Sod Chloride 0.9% Inj 1,000 ML IV.CONT SCH ×2 (19:20→19:21)
[2018-03-26 20:29] VITALS: RESP 18
[2018-03-26 21:47] LABS: Amphetamine Screen,Urine Neg (Neg); Barbiturate Screen,Urine Neg (Neg); Cannabinoid Screen,Urine Neg (Neg); Cocaine Screen,Urine Neg (Neg)
[2018-03-26 21:49] LABS: Bilirubin,Urine Negative (Negative); Clarity,Urine Clear (Clear); Color,Urine Yellow (Yellw/Straw); Glucose,Urine (UA) 500 or Greater mg/dL (Negative); Leukocyte Esterase,Urine Negative (Negative); Nitrite,Urine Negative (Negative); Specific Gravity,Urine 1.025 (1.002-1.035); Squamous Epithelial Cell,Urine 1 /hpf (0-5)
[2018-03-26 21:51] LABS: Opiate Screen,Urine Neg (Neg)
[2018-03-27 04:59] VITALS: O2SAT 95
[2018-03-27] MEDS: Chlorhexidine Gluconate 2% 1 Pack (2 Cloths) TOPICAL SCH (06:13)
[2018-03-27] MEDS: Gabapentin 300 MG Capsule PO SCH (07:11)
--- NOTE | 2018-03-27 08:34 | P.DS ---
Date of admission: 03/24/18 17:36 Primary care physician: Ying Camacho DO Anticipated date of discharge: 03/27/18 Brief History from admission: This is a 62-year-old female patient with a known medical history of insulin- dependent diabetes. She states that she ran out of her insulin 3 days ago, has had nausea and vomiting as well as inability to eat for 3 days without vomiting. She is on SSI, currently disabled and unable to afford her medications. Patient states she does not have a primary care doctor anyone to follow-up with. She does admit to generalized weakness, with nausea, vomiting, lightheadedness and dizziness. She also does admit to polyuria and polydipsia. Patient denies any recent fever, chills, cough, shortness of breath, abdominal pain, nausea, vomiting, diarrhea dysuria. Patient does admit to smoking 1 pack per day cigarettes 5 years. Denies any alcohol or drug use. Family history significant for diabetes. Random glucose on presentation was 646. H&H elevated secondary to hemoconcentration. VBG obtained. Patient is not in DKA according to lab work, was given insulin IV in ED. We will continue IV fluids and monitor blood sugars closely. Patient does live at home alone. DS: Diagnosis - Discharge Diagnosis (1) Acute hyperglycemia Status: Acute (2) Acute dehydration Status: Acute (3) Visual changes Status: Acute DS: Medications - Discharge Medications Prescriptions: blood sugar diagnostic [Advanced Gluc Meter Test Strip] #1 box blood sugar diagnostic [Contour Test Strips] #1 box gabapentin [Neurontin] 600 mg PO Q8HR 30 Days #180 cap insulin aspart U-100 1 sliding scale dose SUB-Q UD #100 ml insulin detemir U-100 [Levemir U-100 Insulin] 25 unit SUB-Q BID 30 Days #30 ml insulin syringes (disposable) #1 box DS: Summary Hospital Course: 62 year old female with insulin-dependent diabetes, history of PE, and neuropathy admitted for severe symptomatic hyperglycemia. Severe symptomatic hyperglycemia: with insulin dependent diabetes. Complaints of nausea, vomiting and dizziness x 3 days. Ran out of medications, unable to afford refills. Glucose elevated to 646 on admission, s/p 10 units IV insulin and 2L IVF bolus provided in ED. Restart patient's Levemir 20u bid, however still uncontrolled, now increased to 25u bid. Monitor Accu-checks and cover with SSI, increased to high dose SSI. HgbA1c 15.8 Consult clinical unit educator and senior software qa analyst; however patient declined to discuss education. Case management consulted, filled prescriptions for levemir, novolog, test strips, and syringes prior to discharge. Blood sugars much improved at discharge, 126-176. Elevated LFTs: History of untreated Hepatitis C, diagnosed in December 2017. Review shows LFTs have been elevated for at least several years. RUQ U/S from 01/16 showing enlarged echogenic liver suggestive of fatty infiltration or hepatocellular disease. Abdominal CT showing no mass. Patient denies ever getting follow up for treatment of hepatitis C outpatient, was diagnosed in December 2017. Followed by GI last admission. Avoid hepatotoxic agents. Outpatient f/up, patient is established with [facility], strongly encouraged to see senior safety management consultant. Drowsiness: patient falling asleep during exam. Head CT reviewed and unremarkable. UDS with benzos. UA unremarkable. Ammonia wnl. Patient improved. Chronic pain: Continue patient's methadone 110mg daily (verified by PSYCHOLOGIST ENGINEERING who contacted [facility]) Neuropathy: Continue home Neurontin, hold if sedated/drowsy, counseled patient to talk with PCP to consider decreasing dose of this, however patient very adamant about remaining at current dose. Insomnia: Continue restoril prn while in the hospital. Visual Changes: suspect secondary to severely uncontrolled diabetes, however patient very concerned her left eye is going blind. Head CT reviewed and unremarkable. Consulted ophthalmology, recommends follow up in the office for dilated eye exam. - Time Spent with Patient Total time spent providing and/or coordinating discharge services: Greater than 30 minutes - Quality: VTE Deep Vein Thrombosis/Pulmonary Embolism Present on Admission: Yes Exam Vital signs: Vital Signs 03/26/18 13:16 03/26/18 16:00 03/26/18 20:00 Temperature 97.8 F 98.1 F 98.8 F Pulse Rate 74 74 80 Respiratory Rate 16 16 18 Blood Pressure 124/77 142/69 H 129/86 Pulse Oximetry 94 L 93 L 03/27/18 04:00 Temperature 97.3 F L Pulse Rate 70 Respiratory Rate 18 Blood Pressure 109/56 L Pulse Oximetry 95 Intake & Output 03/26/18 03/27/18 03/27/18 18:59 06:59 18:59 Intake Total 1100 / 1100 Balance 1100 / 1100 Intake: IV 1100 / 1100 Other: Date of Last Bowel Movement 03/23/18 03/23/18 Narrative: GENERAL: Well-nourished, well-developed female patient in NAD. SKIN: Warm and dry. No rash. HEENT: Normocephalic. Atraumatic. Pupils equal and round. EOMI. Mucous membranes pink and moist. NECK: Supple. Trachea midline. CARDIOVASCULAR: Regular rate and rhythm. No murmur appreciated. RESPIRATORY: No accessory muscle use. Clear to auscultation. Breath sounds equal bilaterally. GASTROINTESTINAL: Abdomen soft, non-tender, nondistended. Normoactive bowel sounds x4. MUSCULOSKELETAL: No obvious deformities. Extremities without clubbing, cyanosis , or edema. NEUROLOGICAL: Awake and alert. No obvious cranial nerve deficits. Motor grossly within normal limits. Moving all extremities spontaneously. Normal speech. Results Procedures completed during hospitalization: None. Labs on day of discharge: Labs from last 24 hours 03/27/18 03/27/18 03/27/18 07:46 06:46 00:36 Sodium Pending Potassium Pending Chloride Pending Carbon Dioxide Pending Anion Gap Pending BUN Pending Creatinine Pending POC Glucose 176 H 126 H Random Glucose Pending Calcium Pending Total Bilirubin Pending AST Pending ALT Pending Alkaline Phosphatase Pending Ammonia Total Protein Pending Albumin Pending Urine Color Urine Clarity Urine pH Ur Specific [place] Urine Protein Urine Glucose (UA) Urine Ketones Urine Occult Blood Urine Nitrate Urine Bilirubin Urine Urobilinogen Ur Leukocyte Esterase Urine RBC Urine WBC Ur Squamous Epith Cells Micro UA Comment Urine Culture Comments Urine Opiates Screen Ur Barbiturates Screen Ur Amphetamines Screen U Benzodiazepines Scrn Urine Cocaine Screen U Cannabinoids Screen 03/26/18 03/26/18 03/26/18 20:34 19:53 19:53 Sodium Potassium Chloride Carbon Dioxide Anion Gap BUN Creatinine POC Glucose 231 H Random Glucose Calcium Total Bilirubin AST ALT Alkaline Phosphatase Ammonia Total Protein Albumin Urine Color Yellow Urine Clarity Clear Urine pH 5.0 Ur Specific [place] 1.025 Urine Protein Negative Urine Glucose (UA) 500 or greater Urine Ketones Negative Urine Occult Blood Negative Urine Nitrate Negative Urine Bilirubin Negative Urine Urobilinogen Less than 2 Ur Leukocyte Esterase Negative Urine RBC 1 Urine WBC 3 Ur Squamous Epith Cells 1 Micro UA Comment Culture not ind Urine Culture Comments Culture not ind Urine Opiates Screen Neg Ur Barbiturates Screen Neg Ur Amphetamines Screen Neg U Benzodiazepines Scrn Pos H Urine Cocaine Screen Neg U Cannabinoids Screen Neg 03/26/18 03/26/18 03/26/18 19:53 17:56 13:20 Sodium Potassium Chloride Carbon Dioxide Anion Gap BUN Creatinine POC Glucose 351 H 378 H Random Glucose Calcium Total Bilirubin AST ALT Alkaline Phosphatase Ammonia 13 Total Protein Albumin Urine Color Urine Clarity Urine pH Ur Specific [place] Urine Protein Urine Glucose (UA) Urine Ketones Urine Occult Blood Urine Nitrate Urine Bilirubin Urine Urobilinogen Ur Leukocyte Esterase Urine RBC Urine WBC Ur Squamous Epith Cells Micro UA Comment Urine Culture Comments Urine Opiates Screen Ur Barbiturates Screen Ur Amphetamines Screen U Benzodiazepines Scrn Urine Cocaine Screen U Cannabinoids Screen 03/26/18 09:32 Sodium Potassium Chloride Carbon Dioxide Anion Gap BUN Creatinine POC Glucose 260 H Random Glucose Calcium Total Bilirubin AST ALT Alkaline Phosphatase Ammonia Total Protein Albumin Urine Color Urine Clarity Urine pH Ur Specific [place] Urine Protein Urine Glucose (UA) Urine Ketones Urine Occult Blood Urine Nitrate Urine Bilirubin Urine Urobilinogen Ur Leukocyte Esterase Urine RBC Urine WBC Ur Squamous Epith Cells Micro UA Comment Urine Culture Comments Urine Opiates Screen Ur Barbiturates Screen Ur Amphetamines Screen U Benzodiazepines Scrn Urine Cocaine Screen U Cannabinoids Screen - Impressions ITS Impressions Head CT 03/25/18 00:00 CONCLUSION: Discharge Plan - Discharge Disposition Patient Disposition: 01 Discharge Home - Discharge Condition Condition: Stable - Discharge Order Discharge Orders: Discharge Order (Routine); Ordered 03/27/18 Ordered By: Louise Meneses - Discharge Details Anticipated Discharge Date: 03/27/18 Discharge Comment: Ok to discharge if blood glucose remains between 100-250. Case management to assist with meds. - Physicians Team Primary Care Provider: Ying Camacho Attending Provider: Clovis Lacey Other Providers: Josefina Horan MD
[2018-03-27 08:36] VITALS: BP 130/60; PULSE 68; TEMP 97.9
[2018-03-27 08:41] LABS: Alanine Aminotransferase 188 U/L (10-53); Albumin 2.3 g/dL (3.4-5.0); Alkaline Phosphatase 122 U/L (45-117); Anion Gap 7 meq/L (5-15); Blood Urea Nitrogen 18 mg/dL (7-18); Calcium 8.6 mg/dL (8.5-10.1); Carbon Dioxide 30.1 meq/L (21.0-32.0); Chloride 103 meq/L (98-107); Glomerular Filtration Rate 68 mL/min (>89); Glucose,Random 177 mg/dL (74-106); Sodium 140 meq/L (136-145); Total Protein 6.4 g/dL (6.4-8.2)
[2018-03-27 08:42] LABS: Aspartate Aminotransferase 185 U/L (15-37); Potassium 4.1 meq/L (3.5-5.1)
--- NOTE | 2018-03-27 09:13 | P.CON ---
History of Present Illness Service: Ophthalmology Reason for Consult: left eye blurry vision Primary Care Provider: Ying Camacho DO Family Provider: Ying Camacho DO Chief Complaint: Elevated glucose History of Present Illness: 62 yo F with h/o insulin-dependent diabetes and unable to afford her medications. She ran out of her insulin 3 days prior to presenting to ED with weakness, nausea, vomiting, lightheadedness and dizziness. Ophthalmology called to evaluate left eye. Pt states she noticed her left eye gradually getting blurry over 6 weeks ago. No pain, no flashes, no floaters. Pt states she has never seen an eye doctor. [facility] - History History Provided By: Patient - Medical History Medical History: Medical History (Last Updated 03/24/18 @ 17:57 by June Waters) Diabetes Hepatitis C - Surgical History Surgical History: Surgical History (Last Updated 03/24/18 @ 17:44 by June Waters) No history of previous surgery - Family History Family History: Family History (Last Updated 03/24/18 @ 17:44 by June Waters) Other Diabetes mellitus - Tobacco History Second Hand Smoke Exposure: No Tobacco Use In Past 30 Days: Yes (smokes 1 PPD) Smoking Status: Current every day smoker Tobacco Type: Cigarettes - Alcohol History How Often Do You Have a Drink Containing Alcohol: Never - Substance Use History Substance History: No History of Abuse - Travel History Recent Travel in the [place] Within the Last 8 Weeks: No Recent Travel Out of the Country Within the Last 8 Weeks: No - Immunization History Tetanus Immunization: <5 Years Medications and Allergies Active Medications: Active Medications Al Hydroxide/Mg Hydroxide (Milk Of Hiral Liq) 30 ml PO Q12H PRN PRN Reason: Mild Constipation Bisacodyl (Dulcolax Supp) 10 mg RECTAL DAILY PRN PRN Reason: SEVERE CONSITIPATION Chlorhexidine Gluconate (Chlorhexidine 2% Cloth) 3 pack TOPICAL DAILY@0400 [facility] Stop: 03/30/18 03:59 Last Admin: 03/27/18 06:13 Dose: Not Given Chlorhexidine Gluconate (Chlorhexidine 2% Cloth) 3 pack TOPICAL DAILY@0400 PRN PRN Reason: Extra cloth needed Stop: 03/30/18 03:59 Dextrose (D50w Vial) 50 ml IV.PUSH UNSCH PRN PRN Reason: PER HYPOGLYCEMIA PROTOCOL Gabapentin (Neurontin) 600 mg PO Q8HR [facility] Last Admin: 03/27/18 07:11 Dose: 600 mg Glucagon (Glucagon Inj) 1 mg OTHER UNSCH PRN PRN Reason: for Hypoglycemia Protocol Insulin Aspart (Novolog Insulin Correctional Sugar Inj) 0 unit SQ ACHS [facility]; Protocol Last Admin: 03/26/18 20:41 Dose: 10 unit Insulin Detemir (Levemir Inj) 25 unit SQ BID [facility] Last Admin: 03/26/18 20:40 Dose: 25 unit Lactulose (Lactulose Liq) 30 ml PO DAILY PRN PRN Reason: SEVERE CONSITIPATION Methadone HCl (Dolophine) 110 mg PO DAILY [facility] Last Admin: 03/26/18 09:39 Dose: 110 mg Senna/Docusate Sodium (Eun-Colace) 1 tab PO BID [facility] Last Admin: 03/26/18 20:37 Dose: 1 tab Sennosides (Senokot) 17.2 mg PO Q12H PRN PRN Reason: Moderate Constipation Temazepam (Restoril) 15 mg PO HS PRN PRN Reason: INSOMNIA Last Admin: 03/25/18 21:40 Dose: 15 mg Allergies Allergy/AdvReac Type Severity Reaction Status Date / Time erythromycin base Allergy Severe Rash Verified 01/04/18 16:36 ketorolac Allergy Severe Shortness Verified 01/04/18 16:36 of Breath Home Medications Medication Instructions Recorded Confirmed Type methadone 110 mg PO DAILY 03/24/18 03/25/18 History gabapentin [Neurontin] 600 mg PO TID 03/25/18 03/25/18 History Physical Exam Vital signs: Vital Signs 03/26/18 13:16 03/26/18 16:00 03/26/18 20:00 Temperature 97.8 F 98.1 F 98.8 F Pulse Rate 74 74 80 Respiratory Rate 16 16 18 Blood Pressure 124/77 142/69 H 129/86 Pulse Oximetry 94 L 93 L 03/27/18 04:00 03/27/18 08:00 Temperature 97.3 F L 97.9 F Pulse Rate 70 68 Respiratory Rate 18 18 Blood Pressure 109/56 L 130/60 Pulse Oximetry 95 Intake & Output 03/26/18 03/27/18 03/27/18 18:59 06:59 18:59 Intake Total 1100 / 1100 Balance 1100 / 1100 Intake: IV 1100 / 1100 Other: Date of Last Bowel Movement 03/23/18 03/23/18 - Detailed Eye Exam Comments: Va cc at near OD 20/50, OS 20/400 EOM full OU, no diplopia CVF full OD unable OS Pupils 2-1 no APD OU IOP normal to palpation OU Anterior exam OD - normal eyelid, C/S W&Q, K clear, AC deep, pupil round, lens clear OS - normal eyelid, C/S W&Q, K clear, AC deep, pupil round, lens clear Assessment and Plan - Assessment (1) Decreased vision Code(s): H54.7 - Unspecified visual loss Status: Acute Plan: Chronic - has been going on for over 6 weeks. Follow up as outpatient for full dilated exam.
[2018-03-27] MEDS: Insulin Detemir Inj 1,000 UNIT/10 ML Vial SQ SCH (09:17)
[2018-03-27] MEDS: Senna/Docusate Sodium 8.6/50 MG Tablet PO SCH (09:18)
[2018-03-27] MEDS: Methadone 10 MG Tablet PO SCH (09:18)
[2018-03-27] MEDS: Insulin NovoLOG Aspart Correctional Sugar Inj SQ SCH (09:30)
== END 2018-03-27 12:47 | disposition home or self-care (01) ==
LOC: NEDA 12:34 → NEPC 12:34 → NEPFCDU 12:34 → NEDH 03-25 06:17 → NEPFCDU 03-25 11:33
PROVIDERS: ADMIT Internal Medicine; ATTEND Internal Medicine

== ENCOUNTER 2018-04-02 07:29 | Inpatient (IN) ==
[2018-04-02] MEDS ORDERED: Morphine Sulfate Inj 8 MG/ML Vial IV.PUSH ONE (08:04)
--- NOTE | 2018-04-02 09:14 | ED ---
HPI General Chief Complaint: Fall Stated Complaint: Fall Time Seen by Provider: 04/02/18 08:04 History of Present Illness HPI Narrative: The is a 62-year-old female with a history of and IV drug use presenting to the emergency department for the end of follow-up and states that yesterday evening she fell out of her wheelchair and the EMS personnel was able to ambulate her back home. She reports that later that night while at home she tripped over her roommates roman and fell a second time. Following the second fall she was unable to ambulate. Following the second fall she laid on the ground for about 8 hours until the morning when her roommate called the ambulance for her. She denies any loss of consciousness. She reports that despite tripping, she felt dizzy as she fell to the ground. She currently endorses left leg pain, chest wall pain, and left eye pain. She endorses a mild headache since the fall. She was recently discharged from the hospital last week for hyperglycemia and reports that she is pretty uncontrolled with her diabetes. Fall witnessed: yes, by family Loss of consciousness: none Prolonged down time: yes Symptoms prior to fall: lightheadedness and dizziness Context: tripped/slipped Location of injury - extremities: Left: lower leg and ankle Severity: severe Severity scale (1-10): 8 Quality: throbbing Associated symptoms (after fall): headache Related Data Home Medications Medication Instructions Recorded Confirmed methadone 110 mg PO DAILY 03/24/18 04/02/18 gabapentin [Neurontin] 600 mg PO TID 03/25/18 04/02/18 Previous Rx's Medication Instructions Recorded blood sugar diagnostic [Advanced #1 box 03/27/18 Gluc Meter Test Strip] blood sugar diagnostic [Contour #1 box 03/27/18 Test Strips] gabapentin [Neurontin] 600 mg PO Q8HR 30 Days #180 cap 03/27/18 insulin aspart U-100 1 sliding scale dose SUB-Q UD #100 03/27/18 ml insulin detemir U-100 [Levemir 25 unit SUB-Q BID 30 Days #30 ml 03/27/18 U-100 Insulin] insulin syringes (disposable) #1 box 03/27/18 Allergies Allergy/AdvReac Type Severity Reaction Status Date / Time erythromycin base Allergy Severe Rash Verified 01/04/18 16:36 ketorolac Allergy Severe Shortness Verified 01/04/18 16:36 of Breath Review of Systems Constitutional Denies chills and Denies fever(s) Eyes Denies blurry vision and Denies photophobia PMFSH Family History Family History Other Diabetes mellitus Social History Social History Substance History: Past History Second Hand Smoke Exposure: No Smoking Status: Current every day smoker Tobacco Type: Cigarettes How Often Do You Have a Drink Containing Alcohol: Never Recent Travel in [facility] within the Last 8 Weeks: No Recent Out of Country Travel within the Last 8 Weeks: No Immunization History Tetanus Immunization: <5 Years Hx Influenza Vaccine This Season: No Exam Narrative Exam Narrative: GENERAL: Well-developed and well-nourished female appearing anxious but in no acute respiratory distress SKIN: Focused skin assessment warm/dry. Lower leg from ankle to mid [place] is erythematous and edematous bilaterally. HEAD: Atraumatic. Normocephalic. EYES: Pupils equal and round, 3 mm bilaterally. No scleral icterus. No injection or drainage. Ecchymosis and severe tenderness noted over the left eyelid. ENT: No nasal bleeding or discharge. Mucous membranes pink and moist. NECK: Trachea midline. No JVD. CARDIOVASCULAR: Regular rate and rhythm. No murmur appreciated. RESPIRATORY: No accessory muscle use. Clear to auscultation. Breath sounds equal bilaterally. GASTROINTESTINAL: Abdomen soft, non-tender, nondistended. Hepatic and splenic margins not palpable. MUSCULOSKELETAL: 1+ edema in the lower legs bilaterally with erythema from the ankle to the mid chacon, obvious deformity of the left leg, left leg is shortened and externally rotated. The left leg is severely tender with very limited range of motion. Distal pulses are 2+ bilaterally. Unable to test strength in the left leg, strength is 4/5 in the right leg. No obvious deformity or limited range of motion in the right leg. NEUROLOGICAL: Awake and alert. No obvious cranial nerve deficits. Motor grossly within normal limits except for the left leg secondary to injury. Normal speech. Course Initial Documented Vital Signs Temperature 97.7 F 04/02/18 07:41 Pulse Rate 75 04/02/18 07:41 Respiratory Rate 18 04/02/18 07:41 Blood Pressure 169/79 H 04/02/18 07:41 Pulse Oximetry 94 L 04/02/18 07:41 Last Documented Vital Signs Temperature 97.7 F 04/02/18 07:57 Pulse Rate 82 04/02/18 11:30 Respiratory Rate 18 04/02/18 11:30 Blood Pressure 182/86 H 04/02/18 11:30 Pulse Oximetry 96 04/02/18 11:30 Medical Decision Making MDM Narrative Medical decision making narrative: 62-year-old female with a history of diabetes mellitus, previous IV drug use who is currently on methadone, presented with complaints of left hip pain after mechanical fall. Patient states she fell yesterday and when EMS came they helped her back into her chair. She states that she was feeling fine and last night when she went to get up to use the restroom, she tripped on her roommates close. She states she fell and was unable to get up secondary to pain in her left hip. The patient states she has been taking her diabetes mellitus and medicine as prescribed. Her blood sugar was greater than 500 per EMS. The patient has obvious left intertrochanteric hip fracture. Patient also has what appears to be cellulitis to her left lower extremity. She has been started with IV fluids. She is also been started on Zosyn for probable cellulitis. Case was discussed with Dr. Magno Bai, orthopedic surgeon, who was made aware of the other medical issues. There is a call out to the [facility] hospitalist for admission. Differential Diagnosis Differential Diagnosis: Hip fracture versus contusion versus metabolic derangement versus cellulitis versus dehydration Lab Data Result diagrams: 04/02/18 10:03 04/02/18 10:03 Lab Results 04/02/18 04/02/18 04/02/18 Range/Units 10:03 10:03 10:03 WBC (4.0-11.0) th/mm3 RBC (4.00-5.30) mil/mm3 Hgb (11.6-15.3) gm/dL Hct (35.0-46.0) % MCV (80.0-100.0) fL MCH (27.0-34.0) pg MCHC (32.0-36.0) % RDW (11.6-17.2) % Plt Count (150-450) th/mm3 MPV (7.0-11.0) fL Neut % (Auto) (16.0-70.0) % Lymph % (Auto) (9.0-44.0) % [place] % (Auto) (0.0-8.0) % Eos % (Auto) (0.0-4.0) % Baso % (Auto) (0.0-2.0) % Neut # (Auto) (1.8-7.7) th/mm3 Lymph # (Auto) (1.0-4.8) th/mm3 [place] # (Auto) (0.0-0.9) th/mm3 Eos # (Auto) (0.0-0.4) th/mm3 Baso # (Auto) (0.0-0.2) th/mm3 WBC Differential Differential Comment PT 10.8 (9.8-11.6) sec INR 1.1 Ratio APTT (24.3-30.1) sec Sodium (136-145) meq/L Potassium (3.5-5.1) meq/L Chloride (98-107) meq/L Carbon Dioxide (21.0-32.0) meq/L Anion Gap (5-15) meq/L BUN (7-18) mg/dL Creatinine (0.50-1.00) mg/dL Estimated GFR (>89) mL/min Random Glucose (74-106) mg/dL Calcium (8.5-10.1) mg/dL Total Bilirubin (0.2-1.0) mg/dL AST (15-37) U/L ALT (10-53) U/L Alkaline Phosphatase (45-117) U/L Total Creatine Kinase 692 H (26-192) U/L CK-MB (CK-2) 1.9 (0.5-3.6) ng/mL CK-MB (CK-2) % 0.3 (0.0-4.0) % Troponin I (0.02-0.05) ng/mL Total Protein (6.4-8.2) g/dL Albumin (3.4-5.0) g/dL Blood Type A Positive Blood Type Recheck Not needed Antibody Screen Negative 04/02/18 04/02/18 04/02/18 Range/Units 10:03 10:03 10:03 WBC 8.0 (4.0-11.0) th/mm3 RBC 4.87 (4.00-5.30) mil/mm3 Hgb 14.3 (11.6-15.3) gm/dL Hct 41.7 (35.0-46.0) % MCV 85.5 (80.0-100.0) fL MCH 29.3 (27.0-34.0) pg MCHC 34.3 (32.0-36.0) % RDW 13.5 (11.6-17.2) % Plt Count 104 L (150-450) th/mm3 MPV 10.4 (7.0-11.0) fL Neut % (Auto) 80.9 H (16.0-70.0) % Lymph % (Auto) 13.0 (9.0-44.0) % [place] % (Auto) 4.3 (0.0-8.0) % Eos % (Auto) 1.2 (0.0-4.0) % Baso % (Auto) 0.6 (0.0-2.0) % Neut # (Auto) 6.5 (1.8-7.7) th/mm3 Lymph # (Auto) 1.0 (1.0-4.8) th/mm3 [place] # (Auto) 0.3 (0.0-0.9) th/mm3 Eos # (Auto) 0.1 (0.0-0.4) th/mm3 Baso # (Auto) 0.0 (0.0-0.2) th/mm3 WBC Differential . Differential Comment Auto diff final PT (9.8-11.6) sec INR Ratio APTT 21.7 L (24.3-30.1) sec Sodium 134 L (136-145) meq/L Potassium 4.2 (3.5-5.1) meq/L Chloride 97 L (98-107) meq/L Carbon Dioxide 28.6 (21.0-32.0) meq/L Anion Gap 8 (5-15) meq/L BUN 13 (7-18) mg/dL Creatinine 0.99 (0.50-1.00) mg/dL Estimated GFR 57 L (>89) mL/min Random Glucose 396 H (74-106) mg/dL Calcium 8.7 (8.5-10.1) mg/dL Total Bilirubin 1.0 (0.2-1.0) mg/dL AST 123 H (15-37) U/L ALT 159 H (10-53) U/L Alkaline Phosphatase 131 H (45-117) U/L Total Creatine Kinase (26-192) U/L CK-MB (CK-2) (0.5-3.6) ng/mL CK-MB (CK-2) % (0.0-4.0) % Troponin I Less than 0.02 L (0.02-0.05) ng/mL Total Protein 8.0 D (6.4-8.2) g/dL Albumin 3.1 L (3.4-5.0) g/dL Blood Type Blood Type Recheck Antibody Screen Imaging Data Radiologist's impression: Chest X-Ray 04/02/18 08:04 CONCLUSION: 1. No acute abnormality or significant interval change. Femur X-Ray 04/02/18 08:04 CONCLUSION: Angulated oblique fracture through the trochanteric region of the proximal left femur. Hand X-Ray 04/02/18 08:04 CONCLUSION: 1. No acute fracture or dislocation. Head CT 04/02/18 08:04 CONCLUSION: 1. No focal or acute intracranial hemorrhage. 2. Stable CT scan of the brain compared to the prior study. 3. Soft tissue swelling over the left for head. . Pelvis X-Ray 04/02/18 08:04 CONCLUSION: 1. Left femoral intertrochanteric fracture. Venous Doppler Study 04/02/18 08:11 CONCLUSION: 1. No evidence of DVT. Discharge Plan Discharge Disposition Patient Disposition: 30 Still Patient Discharge Details Diagnosis: Closed fracture of left hip requiring operative repair, Uncontrolled diabetes mellitus, Rhabdomyolysis Physicians Team ED Provider: Anil Grigsby Primary Care Provider: Ying Camacho Other Providers: Magno Bai Rxs /Orders / Referrals /Forms Prescriptions: No Action methadone 10 mg Tablet 110 mg PO DAILY RF: 0 gabapentin [Neurontin] 600 mg Tablet 600 mg PO TID RF: 0 insulin detemir U-100 [Levemir U-100 Insulin] 100 unit/mL Solution 25 unit Sub-Q BID 30 Days Qty: 30 RF: 3 insulin aspart U-100 100 unit/mL Cartridge 1 sliding scale dose SUB-Q UD Qty: 100 RF: 0 gabapentin [Neurontin] 300 mg Capsule 600 mg PO Q8HR 30 Days Qty: 180 RF: 0 blood sugar diagnostic [Advanced Gluc Meter Test Strip] Strip Qty: 1 RF: 0 blood sugar diagnostic [Contour Test Strips] Strip Qty: 1 RF: 0 insulin syringes (disposable) 1 mL Syringe Qty: 1 RF: 0 Discharge Interventions Interventions: Vital Signs Last Done: 04/02/18 11:30 Status ED Status: With Doctor
--- NOTE | 2018-04-02 09:32 | XR ---
EXAM DATE: 04/02/2018 9:23 AM EDT AGE/SEX: 62 years / Female INDICATIONS: Chest pain after fall. CLINICAL DATA: This is the patient's initial encounter. Patient reports that signs and symptoms have been present for 2 days and indicates a pain score of 2/10. MEDICAL/SURGICAL HISTORY: . Diabetes mellitus type II. Hepatitis C. None. COMPARISON: [facility] – [place], CHEST SINGLE AP, 10/27/2017. . FINDINGS: Mild diffuse interstitial prominence. No new focal pleural or parenchymal opacities. The cardiomedias tinal contours are unremarkable given portable technique. Osseous structures are intact. CONCLUSION: 1. No acute abnormality or significant interval change. Electronically signed by: Cricket Gay MD 04/02/2018 9:31 AM EDT
--- NOTE | 2018-04-02 09:33 | XR ---
EXAM DATE: 04/02/2018 9:25 AM EDT AGE/SEX: 62 years / Female INDICATIONS: Left pelvic pain after fall. CLINICAL DATA: This is the patient's initial encounter. Patient reports that signs and symptoms have been present for 2 days and indicates a pain score of 10/10. MEDICAL/SURGICAL HISTORY: . Diabetes mellitus type II. Hepatitis C. None. COMPARISON: [facility] – [place], [place] ABDOMEN & PELVIS W CONTRAST, 05/02/2017. . FINDINGS: Intertrochanteric fracture of the left femur with cephalad angulation of the distal fragment. Degener ative changes about the hips bilaterally. Remaining osseous structures are intact. Soft tissues are u nremarkable. CONCLUSION: 1. Left femoral intertrochanteric fracture. Electronically signed by: Cricket Gay MD 04/02/2018 9:31 AM EDT
--- NOTE | 2018-04-02 09:35 | XR ---
EXAM DATE: 04/02/2018 9:32 AM EDT AGE/SEX: 62 years / Female INDICATIONS: Left hand, fourth and fifth digit pain and bruising after fall. CLINICAL DATA: This is the patient's initial encounter. Patient reports that signs and symptoms have been present for 2 days and indicates a pain score of 6/10. MEDICAL/SURGICAL HISTORY: . Diabetes mellitus type II. Hepatitis C. None. COMPARISON: No prior exams available for comparison. FINDINGS: Bony structures are intact and in normal alignment. Osseous density is normal. Soft tissues are unre markable. No radiopaque foreign bodies seen. CONCLUSION: 1. No acute fracture or dislocation. Electronically signed by: Cricket Gay MD 04/02/2018 9:34 AM EDT
--- NOTE | 2018-04-02 09:41 | XR ---
EXAM DATE: 04/02/2018 9:33 AM EDT AGE/SEX: 62 years / Female INDICATIONS: Left hip/femur pain after fall. CLINICAL DATA: This is the patient's initial encounter. Patient reports that signs and symptoms have been present for 2 days and indicates a pain score of 10/10. MEDICAL/SURGICAL HISTORY: . Diabetes mellitus type II. Hepatitis C. None. [place] [facility] [place]. . FINDINGS: There is a angulated oblique fracture through the trochanteric region of the proximal left femur. The femoral head remains within the acetabulum. The visualized portion of the pelvis is grossly intact. CONCLUSION: Angulated oblique fracture through the trochanteric region of the proximal left femur. Electronically signed by: Sourav Cruz MD 04/02/2018 9:40 AM EDT
[2018-04-02] MEDS ORDERED: HYDROmorphone PF Inj 2 MG/ML Vial IV.PUSH ONE ×3 (10:12→12:03)
[2018-04-02 10:14] LABS: Baso % (Auto) 0.6 % (0.0-2.0); Eos # (Auto) 0.1 th/mm3 (0.0-0.4); Eos % (Auto) 1.2 % (0.0-4.0); Hematocrit 41.7 % (35.0-46.0); Hemoglobin 14.3 gm/dL (11.6-15.3); Mean Corpuscular HGB Conc 34.3 % (32.0-36.0); Mean Corpuscular Hemoglobin 29.3 pg (27.0-34.0); Mean Corpuscular Volume 85.5 fL (80.0-100.0); Mean Platelet Volume 10.4 fL (7.0-11.0); Mono # (Auto) 0.3 th/mm3 (0.0-0.9); Mono % (Auto) 4.3 % (0.0-8.0); Neut # (Auto) 6.5 th/mm3 (1.8-7.7); Neut % (Auto) 80.9 % (16.0-70.0); Platelet Count 104 th/mm3 (150-450); Red Blood Count 4.87 mil/mm3 (4.00-5.30); Red Cell Distribution Width 13.5 % (11.6-17.2)
[2018-04-02 10:22] LABS: INR 1.1 Ratio; Prothrombin Time 10.8 sec (9.8-11.6)
--- NOTE | 2018-04-02 10:32 | US ---
EXAM DATE: 04/02/2018 10:29 AM EDT AGE/SEX: 62 years / Female INDICATIONS: Left leg swelling and pain. CLINICAL DATA: This is the patient's subsequent encounter. Patient reports that signs and symptoms h ave been present for 1 day and indicates a pain score of 10/10. MEDICAL/SURGICAL HISTORY: Hepatitis C. Diabetes. None. COMPARISON: [facility] [place] LEG BILATERAL VENOUS DOPPLER, 05/05/2017. . TECHNIQUE: Venous ultrasound of both lower extremities was performed from the inguinal ligament to t he proximal calf. Real-time, color Doppler and spectral tracing, compression and augmentation techni ques were used. FINDINGS: Normal compression of the deep venous system from the inguinal region to the proximal calf . No echogenic clot is seen. Normal response of the venous system to augmentation and respiration. No significant change compared to the prior study. CONCLUSION: 1. No evidence of DVT. Electronically signed by: Sourav Cruz MD 04/02/2018 10:31 AM EDT
[2018-04-02 10:38] LABS: Alanine Aminotransferase 159 U/L (10-53); Albumin 3.1 g/dL (3.4-5.0); Anion Gap 8 meq/L (5-15); Aspartate Aminotransferase 123 U/L (15-37); Blood Urea Nitrogen 13 mg/dL (7-18); Calcium 8.7 mg/dL (8.5-10.1); Carbon Dioxide 28.6 meq/L (21.0-32.0); Chloride 97 meq/L (98-107); Glomerular Filtration Rate 57 mL/min (>89); Glucose,Random 396 mg/dL (74-106); Potassium 4.2 meq/L (3.5-5.1); Sodium 134 meq/L (136-145)
[2018-04-02 10:41] LABS: Alkaline Phosphatase 131 U/L (45-117)
--- NOTE | 2018-04-02 10:51 | CT ---
EXAM DATE: 04/02/2018 10:47 AM EDT AGE/SEX: 62 years / Female INDICATIONS: Fall. Patient found on floor. CLINICAL DATA: This is the patient's initial encounter. Patient reports that signs and symptoms have been present for 1 day and indicates a pain score of 9/10. MEDICAL/SURGICAL HISTORY: Diabetes. Hepatitis C. None. RADIATION DOSE: 37.71 CTDI (mGy) COMPARISON: [facility] – [place], CT HEAD W/O CONTRAST, 03/25/2018. . TECHNIQUE: CT of the head without contrast. Using automated exposure control and adjustment of the mA and/or kV according to patient size, radiation dose was kept as low as reasonably achievable to ob tain optimal diagnostic quality images. DICOM format image data is available electronically for revi ew and comparison. FINDINGS: Cerebrum: The ventricles are normal for age. There is stable bilateral cortical atrophy characterist ic for patient's age. No evidence of midline shift, mass lesion, hemorrhage or acute infarction. No extraaxial fluid collections are seen. Posterior Fossa: The cerebellum and brainstem are intact. The 4th ventricle is midline. The cerebe llopontine angle is unremarkable. Extracranial: The visualized portion of the orbits is intact. There is soft tissue swelling over the left for head. Skull: The calvaria is intact. No evidence of skull fracture. Stable exam compared to the prior study. CONCLUSION: 1. No focal or acute intracranial hemorrhage. 2. Stable CT scan of the brain compared to the prior study. 3. Soft tissue swelling over the left for head. . Electronically signed by: Sourav Cruz MD 04/02/2018 10:50 AM EDT
[2018-04-02 10:59] LABS: CKMB Percent 0.3 % (0.0-4.0); Creatine Kinase MB 1.9 ng/mL (0.5-3.6)
[2018-04-02] MEDS ORDERED: Piperacil/Tazo 3.375 GM Premix 50 ML IV.SIG ONE (12:25)
[2018-04-02] MEDS ORDERED: Dextrose 50% in Water 50 ML Vial IV.PUSH PRN (13:15)
[2018-04-02] MEDS ORDERED: Bisacodyl 10 MG Supp RECTAL PRN (13:20)
[2018-04-02] MEDS ORDERED: HYDROmorphone PF Inj 0.5 MG/0.5 ML Syringe IV.PUSH PRN (13:59)
[2018-04-02] MEDS ORDERED: Vancomycin Consult Pharmacy 1 EACH OTHER SCH (14:06)
[2018-04-02] MEDS: Gabapentin 300 MG Capsule PO SCH ×2 (14:47→21:13)
--- NOTE | 2018-04-02 16:32 | ECG ---
Date Performed: 04/02/2018 Time Performed: 07:51:41 PTAGE: 62 years EKG: Sinus rhythm POSSIBLE LEFT ATRIAL ENLARGEMENT INFERIOR INFARCT,age indeterminate BORDERLINE ECG PREVIOUS TRACING :10/27/2017 @11.33 DOCTOR: Ronen Dahl Interpretating Date/Time 04/02/2018 16:30:44
[2018-04-02] MEDS: Vancomycin Inj 1,500 MG in Sodium Chlor 0.9% Inj 500 ML IV.SIG SCH (17:00)
[2018-04-02] MEDS: Piperacil/Tazo 4.5 GM Premix 4.5 GM/100 ML BAG IV.SIG SCH ×2 (17:43→23:31)
[2018-04-02] MEDS ORDERED: HYDROmorphone PF Inj 2 MG/ML Vial IV.PUSH PRN (17:45)
[2018-04-02] MEDS: Insulin NovoLOG Aspart Correctional Sugar Inj SQ SCH ×2 (18:09→23:38)
--- NOTE | 2018-04-02 18:48 | P.CONOP ---
[facility] Orthopedics Consult Note - [facility] Consult date: 04/02/18 Consult reason: fracture (Intratrochanteric fracture left proximal femur) Chief complaint: Left hip fracture, uncontrolled diabetes mellitus, Narrative: The is a 62-year-old female with a history of and IV drug use presenting to the emergency department for the end of follow-up and states that yesterday evening she fell out of her wheelchair and the EMS personnel was able to ambulate her back home. She reports that later that night while at home she tripped over her roommates roman and fell a second time. Following the second fall she was unable to ambulate. Following the second fall she laid on the ground for about 8 hours until the morning when her roommate called the ambulance for her. She denies any loss of consciousness. She reports that despite tripping, she felt dizzy as she fell to the ground. She currently endorses left leg pain, chest wall pain, and left eye pain. She endorses a mild headache since the fall. She was recently discharged from the hospital last week for hyperglycemia and reports that she is pretty uncontrolled with her diabetes. Fall witnessed: yes, by family Loss of consciousness: none Prolonged down time: yes Symptoms prior to fall: lightheadedness and dizziness Context: tripped/slipped Location of injury - extremities: Left: lower leg and ankle Severity: severe Severity scale (1-10): 8 Quality: throbbing Associated symptoms (after fall): headache X-rays in the emergency department revealed an intertrochanteric fracture of the left proximal femur. She was admitted to the medical service with orthopedic consultation requested. She currently is not cleared medically to proceed with surgical management. Review of Systems All other systems reviewed negative except as stated in [facility] PMFSH - History History Provided By: Patient, Stable Hand / EMT - Medical History Medical History: Medical History (Last Reviewed 04/02/18 @ 07:49 by Anila Riojas) Diabetes Hepatitis C - Surgical History Surgical History: Surgical History (Last Reviewed 04/02/18 @ 07:49 by Anila Riojas) No history of previous surgery - Family History Family History: Family History (Last Updated 03/24/18 @ 17:44 by June Waters) Other Diabetes mellitus - Tobacco History Second Hand Smoke Exposure: No Tobacco Use In Past 30 Days: Yes Smoking Status: Current every day smoker Tobacco Type: Cigarettes - Alcohol History How Often Do You Have a Drink Containing Alcohol: Never - Substance Use History Substance History: Past History - Travel History Recent Travel in the [place] Within the Last 8 Weeks: No Recent Travel Out of the Country Within the Last 8 Weeks: No - Immunization History Tetanus Immunization: <5 Years Hx Influenza Vaccine This Season: No Medications and Allergies Active Medications: Active Medications Al Hydroxide/Mg Hydroxide (Milk Of Magnesia Liq) 30 ml PO Q12H PRN PRN Reason: Mild Constipation Bisacodyl (Dulcolax Supp) 10 mg RECTAL DAILY PRN PRN Reason: SEVERE CONSITIPATION Dextrose (D50w Vial) 50 ml IV.PUSH UNSCH PRN PRN Reason: PER HYPOGLYCEMIA PROTOCOL Gabapentin (Neurontin) 600 mg PO Q8HR KRISTIN Last Admin: 04/02/18 14:47 Dose: 600 mg Glucagon (Glucagon Inj) 1 mg OTHER UNSCH PRN PRN Reason: for Hypoglycemia Protocol Hydromorphone HCl (Dilaudid Pf Inj) 1 mg IV.PUSH Q4H PRN PRN Reason: PAIN > 4 Last Admin: 04/02/18 17:46 Dose: 1 mg Sodium Chloride (Ns Inj) 1,000 mls @ 100 mls/hr IV.CONT .Q10H KRISTIN Vancomycin HCl 1,500 mg/ (Sodium Chloride) 515 mls @ 250 mls/hr IV.SIG Q24H KRISTIN Piperacillin/Tazobactam/Dextrose (Zosyn 4.5 Gm Premix) 4.5 gm in 100 mls @ 200 mls/hr IV.SIG Q8H KRISTIN Last Admin: 04/02/18 17:43 Dose: 200 mls/hr Pharmacy Profile Note (Vancomycin Consult Pharmacy) 0 mls @ 0 mls/hr OTHER UNSCH KRISTIN Insulin Aspart (Novolog Insulin Correctional Sugar Inj) 0 unit SQ Q6HR KRISTIN; Protocol Last Admin: 04/02/18 18:09 Dose: 9 unit Lactulose (Lactulose Liq) 30 ml PO DAILY PRN PRN Reason: SEVERE CONSITIPATION Metoclopramide HCl (Reglan Inj) 5 mg IV.PUSH Q6HR PRN; Protocol PRN Reason: NAUSEA OR VOMITING Miscellaneous Information ([facility] [place] [facility] Ordered Lab Info) 0 each OTHER ONCE ONE Stop: 04/05/18 14:46 Senna/Docusate Sodium (Eun-Colace) 1 tab PO BID KRISTIN Sennosides (Senokot) 17.2 mg PO Q12H PRN PRN Reason: Moderate Constipation Sodium Chloride (Ns Flush) 2 ml IV.FLUSH PRN PRN PRN Reason: FLUSH AFTER USING IV ACCESS Temazepam (Restoril) 15 mg PO HS PRN PRN Reason: INSOMNIA Allergies Allergy/AdvReac Type Severity Reaction Status Date / Time erythromycin base Allergy Severe Rash Verified 01/04/18 16:36 ketorolac Allergy Severe Shortness Verified 01/04/18 16:36 of Breath Home Medications Medication Instructions Recorded Confirmed Type methadone 110 mg PO DAILY 03/24/18 04/02/18 History gabapentin [Neurontin] 600 mg PO TID 03/25/18 04/02/18 History Exam Vital signs: Vital Signs 04/02/18 07:41 04/02/18 07:57 04/02/18 08:47 Temperature 97.7 F 97.7 F Pulse Rate 75 76 84 Respiratory Rate 18 18 Blood Pressure 169/79 H 169/79 H Pulse Oximetry 94 L 98 98 04/02/18 11:30 04/02/18 16:00 Temperature 97.8 F Pulse Rate 82 80 Respiratory Rate 18 17 Blood Pressure 182/86 H 136/86 Pulse Oximetry 96 93 L Intake & Output 04/01/18 04/02/18 04/02/18 18:59 06:59 18:59 Intake Total 480 / 480 Balance 480 / 480 Weight 83.915 kg Intake: Oral 480 / 480 Other: # Voids 1 - Routine Extremities Exam Comments: The patient's examination is limited secondary to pain in the left hip region. She is unable to move the left lower extremity secondary to pain. She does move her toes and ankle. She has good capillary refill and sensation. There are no other localizing signs of extremity injury. She does have periorbital ecchymosis on the left. Results - Labs Result Diagrams: 04/02/18 10:03 04/02/18 10:03 Labs: Laboratory Results - last 24 hr 04/02/18 04/02/18 04/02/18 10:03 10:03 10:03 WBC RBC Hgb Hct MCV MCH MCHC RDW Plt Count MPV Neut % (Auto) Lymph % (Auto) [place] % (Auto) Eos % (Auto) Baso % (Auto) Neut # (Auto) Lymph # (Auto) [place] # (Auto) Eos # (Auto) Baso # (Auto) WBC Differential Differential Comment PT 10.8 INR 1.1 APTT Sodium Potassium Chloride Carbon Dioxide Anion Gap BUN Creatinine Estimated GFR POC Glucose Random Glucose Calcium Total Bilirubin AST ALT Alkaline Phosphatase Total Creatine Kinase 692 H CK-MB (CK-2) 1.9 CK-MB (CK-2) % 0.3 Troponin I Total Protein Albumin Blood Type A Positive Blood Type Recheck Not needed Antibody Screen Negative 04/02/18 04/02/18 04/02/18 10:03 10:03 10:03 WBC 8.0 RBC 4.87 Hgb 14.3 Hct 41.7 MCV 85.5 MCH 29.3 MCHC 34.3 RDW 13.5 Plt Count 104 L MPV 10.4 Neut % (Auto) 80.9 H Lymph % (Auto) 13.0 [place] % (Auto) 4.3 Eos % (Auto) 1.2 Baso % (Auto) 0.6 Neut # (Auto) 6.5 Lymph # (Auto) 1.0 [place] # (Auto) 0.3 Eos # (Auto) 0.1 Baso # (Auto) 0.0 WBC Differential . Differential Comment Auto diff final PT INR APTT 21.7 L Sodium 134 L Potassium 4.2 Chloride 97 L Carbon Dioxide 28.6 Anion Gap 8 BUN 13 Creatinine 0.99 Estimated GFR 57 L POC Glucose Random Glucose 396 H Calcium 8.7 Total Bilirubin 1.0 AST 123 H ALT 159 H Alkaline Phosphatase 131 H Total Creatine Kinase CK-MB (CK-2) CK-MB (CK-2) % Troponin I Less than 0.02 L Total Protein 8.0 D Albumin 3.1 L Blood Type Blood Type Recheck Antibody Screen 04/02/18 17:42 WBC RBC Hgb Hct MCV MCH MCHC RDW Plt Count MPV Neut % (Auto) Lymph % (Auto) [place] % (Auto) Eos % (Auto) Baso % (Auto) Neut # (Auto) Lymph # (Auto) [place] # (Auto) Eos # (Auto) Baso # (Auto) WBC Differential Differential Comment PT INR APTT Sodium Potassium Chloride Carbon Dioxide Anion Gap BUN Creatinine Estimated GFR POC Glucose 489 H* Random Glucose Calcium Total Bilirubin AST ALT Alkaline Phosphatase Total Creatine Kinase CK-MB (CK-2) CK-MB (CK-2) % Troponin I Total Protein Albumin Blood Type Blood Type Recheck Antibody Screen - Diagnostic results Imaging: Impressions Chest X-Ray 04/02/18 08:04 CONCLUSION: 1. No acute abnormality or significant interval change. Femur X-Ray 04/02/18 08:04 CONCLUSION: Angulated oblique fracture through the trochanteric region of the proximal left femur. Hand X-Ray 04/02/18 08:04 CONCLUSION: 1. No acute fracture or dislocation. Head CT 04/02/18 08:04 CONCLUSION: 1. No focal or acute intracranial hemorrhage. 2. Stable CT scan of the brain compared to the prior study. 3. Soft tissue swelling over the left for head. . Pelvis X-Ray 04/02/18 08:04 CONCLUSION: 1. Left femoral intertrochanteric fracture. Venous Doppler Study 04/02/18 08:11 CONCLUSION: 1. No evidence of DVT. Hip x-ray: image reviewed Assessment and Plan - Problem List (1) Intertrochanteric fracture of left femur Code(s): S72.142A - Displaced intertrochanteric fracture of left femur, initial encounter for closed fracture Status: Acute Qualifiers: Encounter type: initial encounter Fracture type: closed Fracture alignment: displaced Qualified Code(s): S72.142A - Displaced intertrochanteric fracture of left femur, initial encounter for closed fracture - Assessment and Plan The findings were discussed. Recommendations are for surgical fixation of the left proximal femur fracture for mobilization and pain control. This will be pending medical clearance. The nature of the procedure, the risks, expected benefits, as well as the postoperative expectations were discussed with her in detail. In addition, the alternatives to treatment and risks of same were discussed. She acknowledges full understanding.
[2018-04-02] MEDS: Sod Chloride 0.9% Inj 1,000 ML IV.CONT SCH (18:49)
--- NOTE | 2018-04-02 19:30 | P.HP ---
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 She reports that later that night while at home she tripped over her roommates pashaniquemas and fell a second time. Following the second fall she was unable to ambulate. Following the second fall she laid on the ground for about 8 hours until the morning when her roommate called the ambulance for her. She denies any loss of consciousness. She reports that despite tripping, she felt dizzy as she fell to the ground. She currently endorses left leg pain, chest wall pain, and left eye pain. She endorses a mild headache since the fall. She was recently discharged from the hospital last week for hyperglycemia and reports that she is pretty uncontrolled with her diabetes. Inpatient Certification: I certify that the inpatient services were ordered in accordance with Medicare regulations governing the order. This includes certification that hospital inpatient services are reasonable and necessary and in the case of services not specified as inpatient-only under 42 CFR 419.22(n), that they are appropriately provided as inpatient services in accordance to with the 2-midnight benchmark under 43 CFR 412.3(e) Estimated Total Length of Stay (Days): 5 Plans for Post Hospital Care: Not yet determined Review of Systems All other systems reviewed negative except as stated in [facility] PMFSH - History History Provided By: Patient, Cook Syrup Maker / EMT - Medical History Medical History: Medical History (Last Reviewed 04/02/18 @ 19:41 by Beatriz Yadav MD) Diabetes Hepatitis C - Surgical History Surgical History: Surgical History (Last Reviewed 04/02/18 @ 19:41 by Beatriz Yadav MD) No history of previous surgery - Family History Family History: Family History (Last Reviewed 04/02/18 @ 19:41 by Beatriz Yadav MD) Other Diabetes mellitus - Tobacco History Second Hand Smoke Exposure: No Tobacco Use In Past 30 Days: Yes Smoking Status: Current every day smoker Tobacco Type: Cigarettes - Alcohol History How Often Do You Have a Drink Containing Alcohol: Never - Substance Use History Substance History: Past History - Travel History Recent Travel in the [facility] Within the Last 8 Weeks: No Recent Travel Out of the Country Within the Last 8 Weeks: No - Immunization History Tetanus Immunization: <5 Years Hx Influenza Vaccine This Season: No Medications and Allergies Active Medications: Active Medications Al Hydroxide/Mg Hydroxide (Milk Of Magnesia Liq) 30 ml PO Q12H PRN PRN Reason: Mild Constipation Bisacodyl (Dulcolax Supp) 10 mg RECTAL DAILY PRN PRN Reason: SEVERE CONSITIPATION Dextrose (D50w Vial) 50 ml IV.PUSH UNSCH PRN PRN Reason: PER HYPOGLYCEMIA PROTOCOL Gabapentin (Neurontin) 600 mg PO Q8HR KRISTIN Last Admin: 04/02/18 14:47 Dose: 600 mg Glucagon (Glucagon Inj) 1 mg OTHER UNSCH PRN PRN Reason: for Hypoglycemia Protocol Hydromorphone HCl (Dilaudid Pf Inj) 1 mg IV.PUSH Q4H PRN PRN Reason: PAIN > 4 Last Admin: 04/02/18 17:46 Dose: 1 mg Sodium Chloride (Ns Inj) 1,000 mls @ 100 mls/hr IV.CONT .Q10H KRISTIN Last Admin: 04/02/18 18:49 Dose: 100 mls/hr Vancomycin HCl 1,500 mg/ (Sodium Chloride) 515 mls @ 250 mls/hr IV.SIG Q24H KRISTIN Piperacillin/Tazobactam/Dextrose (Zosyn 4.5 Gm Premix) 4.5 gm in 100 mls @ 200 mls/hr IV.SIG Q8H KRISTIN Last Admin: 04/02/18 17:43 Dose: 200 mls/hr Pharmacy Profile Note (Vancomycin Consult Pharmacy) 0 mls @ 0 mls/hr OTHER UNSCH KRISTIN Insulin Aspart (Novolog Insulin Correctional Sugar Inj) 0 unit SQ Q6HR KRISTIN; Protocol Last Admin: 04/02/18 18:09 Dose: 9 unit Lactulose (Lactulose Liq) 30 ml PO DAILY PRN PRN Reason: SEVERE CONSITIPATION Metoclopramide HCl (Reglan Inj) 5 mg IV.PUSH Q6HR PRN; Protocol PRN Reason: NAUSEA OR VOMITING Miscellaneous Information [place] Ordered Lab Info) 0 each OTHER ONCE ONE Stop: 04/05/18 14:46 Senna/Docusate Sodium (Eun-Colace) 1 tab PO BID KRISTIN Sennosides (Senokot) 17.2 mg PO Q12H PRN PRN Reason: Moderate Constipation Sodium Chloride (Ns Flush) 2 ml IV.FLUSH PRN PRN PRN Reason: FLUSH AFTER USING IV ACCESS Temazepam (Restoril) 15 mg PO HS PRN PRN Reason: INSOMNIA Allergies Allergy/AdvReac Type Severity Reaction Status Date / Time erythromycin base Allergy Severe Rash Verified 01/04/18 16:36 ketorolac Allergy Severe Shortness Verified 01/04/18 16:36 of Breath Home Medications Medication Instructions Recorded Confirmed Type methadone 110 mg PO DAILY 03/24/18 04/02/18 History gabapentin [Neurontin] 600 mg PO TID 03/25/18 04/02/18 History Exam Vital signs: Vital Signs 04/02/18 07:41 04/02/18 07:57 04/02/18 08:47 Temperature 97.7 F 97.7 F Pulse Rate 75 76 84 Respiratory Rate 18 18 Blood Pressure 169/79 H 169/79 H Pulse Oximetry 94 L 98 98 04/02/18 11:30 04/02/18 16:00 Temperature 97.8 F Pulse Rate 82 80 Respiratory Rate 18 17 Blood Pressure 182/86 H 136/86 Pulse Oximetry 96 93 L Intake & Output 04/02/18 04/02/18 04/03/18 06:59 18:59 06:59 Intake Total 480 / 480 Balance 480 / 480 Weight 83.915 kg Intake: Oral 480 / 480 Other: # Voids 1 Narrative: GENERAL: 62 yo F with ecchymoses over right side of her face SKIN: Lower leg from ankle to mid chacon is erythematous and edematous bilaterally , painful and warm to touch. HEAD: Atraumatic. Normocephalic. EYES: Pupils equal and round. Ecchymosis and severe tenderness noted over the left eyelid. ENT: No nasal bleeding or discharge. Mucous membranes pink and moist. NECK: Trachea midline. No JVD. CARDIOVASCULAR: Regular rate and rhythm. RESPIRATORY: No accessory muscle use. Clear to auscultation. Breath sounds equal bilaterally. GASTROINTESTINAL: Abdomen soft, non-tender, nondistended. Hepatic and splenic margins not palpable. MUSCULOSKELETAL: 1+ edema in the lower legs bilaterally with erythema from the ankle to the mid [place], obvious deformity of the left leg, left leg is shortened and externally rotated. The left leg is severely tender with very limited range of motion. Distal pulses are 2+ bilaterally. Unable to test strength in the left leg, strength is 4/5 in the right leg. No obvious deformity or limited range of motion in the right leg. NEUROLOGICAL: Awake and alert. Motor grossly within normal limits except for the left leg secondary to injury. Normal speech. PSYCHIATRIC: Appropriate mood and affect; insight and judgment normal. Results - Labs CBC & Chem 7: 04/02/18 10:03 04/02/18 10:03 Labs: Laboratory Results - last 24 hr 04/02/18 04/02/18 04/02/18 10:03 10:03 10:03 WBC RBC Hgb Hct MCV MCH MCHC RDW Plt Count MPV Neut % (Auto) Lymph % (Auto) [place] % (Auto) Eos % (Auto) Baso % (Auto) Neut # (Auto) Lymph # (Auto) [place] # (Auto) Eos # (Auto) Baso # (Auto) WBC Differential Differential Comment PT 10.8 INR 1.1 APTT Sodium Potassium Chloride Carbon Dioxide Anion Gap BUN Creatinine Estimated GFR POC Glucose Random Glucose Calcium Total Bilirubin AST ALT Alkaline Phosphatase Total Creatine Kinase 692 H CK-MB (CK-2) 1.9 CK-MB (CK-2) % 0.3 Troponin I Total Protein Albumin Blood Type A Positive Blood Type Recheck Not needed Antibody Screen Negative 04/02/18 04/02/18 04/02/18 10:03 10:03 10:03 WBC 8.0 RBC 4.87 Hgb 14.3 Hct 41.7 MCV 85.5 MCH 29.3 MCHC 34.3 RDW 13.5 Plt Count 104 L MPV 10.4 Neut % (Auto) 80.9 H Lymph % (Auto) 13.0 [place] % (Auto) 4.3 Eos % (Auto) 1.2 Baso % (Auto) 0.6 Neut # (Auto) 6.5 Lymph # (Auto) 1.0 [place] # (Auto) 0.3 Eos # (Auto) 0.1 Baso # (Auto) 0.0 WBC Differential . Differential Comment Auto diff final PT INR APTT 21.7 L Sodium 134 L Potassium 4.2 Chloride 97 L Carbon Dioxide 28.6 Anion Gap 8 BUN 13 Creatinine 0.99 Estimated GFR 57 L POC Glucose Random Glucose 396 H Calcium 8.7 Total Bilirubin 1.0 AST 123 H ALT 159 H Alkaline Phosphatase 131 H Total Creatine Kinase CK-MB (CK-2) CK-MB (CK-2) % Troponin I Less than 0.02 L Total Protein 8.0 D Albumin 3.1 L Blood Type Blood Type Recheck Antibody Screen 04/02/18 17:42 WBC RBC Hgb Hct MCV MCH MCHC RDW Plt Count MPV Neut % (Auto) Lymph % (Auto) [place] % (Auto) Eos % (Auto) Baso % (Auto) Neut # (Auto) Lymph # (Auto) [place] # (Auto) Eos # (Auto) Baso # (Auto) WBC Differential Differential Comment PT INR APTT Sodium Potassium Chloride Carbon Dioxide Anion Gap BUN Creatinine Estimated GFR POC Glucose 489 H* Random Glucose Calcium Total Bilirubin AST ALT Alkaline Phosphatase Total Creatine Kinase CK-MB (CK-2) CK-MB (CK-2) % Troponin I Total Protein Albumin Blood Type Blood Type Recheck Antibody Screen - Imaging Impressions Chest X-Ray 04/02/18 08:04 CONCLUSION: 1. No acute abnormality or significant interval change. Femur X-Ray 04/02/18 08:04 CONCLUSION: Angulated oblique fracture through the trochanteric region of the proximal left femur. Hand X-Ray 04/02/18 08:04 CONCLUSION: 1. No acute fracture or dislocation. Head CT 04/02/18 08:04 CONCLUSION: 1. No focal or acute intracranial hemorrhage. 2. Stable CT scan of the brain compared to the prior study. 3. Soft tissue swelling over the left for head. . Pelvis X-Ray 04/02/18 08:04 CONCLUSION: 1. Left femoral intertrochanteric fracture. Venous Doppler Study 04/02/18 08:11 CONCLUSION: 1. No evidence of DVT. Caprini VTE Risk Assessment Caprini VTE Risk Assessment: Moderate/High Risk (score >= 2) Caprini Risk Assessment Model: Point Value = 1 Point Value = 2 Point Value = 3 Point Value = 5 Age 41-60 Minor surgery BMI > 25 kg/m2 Swollen legs Varicose veins or History of unexplained or recurrent spontaneous Oral contraceptives or hormone replacement Sepsis (< 1 month) Serious lung disease, including pneumonia (< 1 month) Abnormal pulmonary function Acute myocardial infarction Congestive heart failure (< 1 month) History of inflammatory bowel disease Medical patient at bed rest Age 61-74 Arthroscopic surgery Major open surgery (> 45 min) Laparoscopic surgery (> 45 min) Malignancy Confined to bed (> 72 hours) Immobilizing plaster cast Central venous access Age >= 75 History of VTE Family history of VTE Factor V Leiden Prothrombin [id number] Lupus anticoagulant Anticardiolipin antibodies Elevated serum homocysteine Heparin-induced thrombocytopenia Other congenital or acquired thrombophilia Stroke (< 1 month) Elective arthroplasty Hip, pelvis, or leg fracture Acute spinal cord injury (< 1 month) Prophylaxis Regimen: Total Risk Factor Score Risk Level Prophylaxis Regimen 0-1 Low Early ambulation 2 Moderate Order ONE of the following: *Sequential Compression Device (SCD) *Heparin 5000 units SQ BID 3-4 Higher Order ONE of the following medications: *Heparin 5000 units SQ TID *Enoxaparin/Lovenox 40 mg SQ daily (WT < 150 kg, CrCl > 30 mL/min) *Enoxaparin/Lovenox 30 mg SQ daily (WT < 150 kg, CrCl > 10-29 mL/min) *Enoxaparin/Lovenox 30 mg SQ BID (WT < 150 kg, CrCl > 30 mL/min) AND/OR *Sequential Compression Device (SCD) 5 or more Highest Order ONE of the following medications: *Heparin 5000 units SQ TID (Preferred with Epidurals) *Enoxaparin/Lovenox 40 mg SQ daily (WT < 150 kg, CrCl > 30 mL/min) *Enoxaparin/Lovenox 30 mg SQ daily (WT < 150 kg, CrCl > 10-29 mL/min) *Enoxaparin/Lovenox 30 mg SQ BID (WT < 150 kg, CrCl > 30 mL/min) AND *Sequential Compression Device (SCD) Assessment and Plan - Plan Cellulitis left leg . No sepsis. Diabetic patient Blood cultures obtained in ED Wound cultures ordered if obtainable Start IV abx vanco and zosyn. Monitor kidney function S/p fall mechanical Closed fracture of left hip requiring operative repair Pain X ray reviewed shows Left femoral intertrochanteric fracture. Ortho consulted Bai plans for surgery tomorrow . keep NPO after midnight CT head reviewed no acute findings Pain control with dilaudid IV Rhabdomyolysis monitor CPK. Started on IVF . Monitor kidney function Chronic pain will call methadone clinic to verify and will re-start , takes methadone 110 mg PO DAILY. Continue gabapentin 600 mg PO TID IDDM. Hold detemir . ISS low, Accuckecks Patient will be NPO after midnight On NS IVF DVT ppx SCD/TEDS , chemical ppx per surgeon Discussed Condition With: pt, nurse, Dr Grigsby ER physician
[2018-04-02] MEDS: Senna/Docusate Sodium 8.6/50 MG Tablet PO SCH (21:13)
[2018-04-02] MEDS: Temazepam 15 MG Capsule PO PRN (21:13)
[2018-04-03] MEDS ORDERED: HYDROmorphone PF Inj 2 MG/ML Vial IV.PUSH ONE (00:31)
[2018-04-03] MEDS: HYDROmorphone PF Inj 2 MG/ML Vial IV.PUSH PRN ×4 (03:50→21:22)
[2018-04-03] MEDS ORDERED: Chlorhexidine Gluconate 2% 1 Pack (2 Cloths) TOPICAL SCH (04:00)
[2018-04-03] MEDS ORDERED: Metoprolol Tartrate 25 MG Tablet PO SCH (04:00)
[2018-04-03] MEDS ORDERED: Sodium Chlor 0.9% Inj 500 ML IV.SIG SCH (04:00)
[2018-04-03] MEDS: Gabapentin 300 MG Capsule PO SCH ×2 (05:36→13:36)
[2018-04-03] MEDS: Piperacil/Tazo 4.5 GM Premix 4.5 GM/100 ML BAG IV.SIG SCH ×4 (05:38→23:16)
[2018-04-03 06:12] LABS: Baso # (Auto) 0.1 th/mm3 (0.0-0.2); Baso % (Auto) 0.7 % (0.0-2.0); Eos # (Auto) 0.2 th/mm3 (0.0-0.4); Eos % (Auto) 3.1 % (0.0-4.0); Hematocrit 41.9 % (35.0-46.0); Hemoglobin 14.3 gm/dL (11.6-15.3); Lymph # (Auto) 1.6 th/mm3 (1.0-4.8); Lymph % (Auto) 21.7 % (9.0-44.0); Mean Corpuscular HGB Conc 34.1 % (32.0-36.0); Mean Corpuscular Hemoglobin 29.7 pg (27.0-34.0); Mean Corpuscular Volume 87.1 fL (80.0-100.0); Mean Platelet Volume 10.4 fL (7.0-11.0); Mono # (Auto) 0.4 th/mm3 (0.0-0.9); Mono % (Auto) 5.4 % (0.0-8.0); Neut # (Auto) 5.2 th/mm3 (1.8-7.7); Neut % (Auto) 69.1 % (16.0-70.0); Platelet Count 109 th/mm3 (150-450); Red Blood Count 4.81 mil/mm3 (4.00-5.30); Red Cell Distribution Width 13.6 % (11.6-17.2); White Blood Count 7.5 th/mm3 (4.0-11.0)
[2018-04-03] MEDS: Insulin NovoLOG Aspart Correctional Sugar Inj SQ SCH ×5 (06:39→23:25)
[2018-04-03 06:47] LABS: Calcium 7.9 mg/dL (8.5-10.1); Carbon Dioxide 25.3 meq/L (21.0-32.0); Potassium 3.5 meq/L (3.5-5.1)
[2018-04-03 07:18] LABS: CKMB Percent 0.2 % (0.0-4.0); Creatine Kinase MB 0.8 ng/mL (0.5-3.6)
[2018-04-03] MEDS: Sod Chloride 0.9% Inj 1,000 ML IV.CONT SCH ×3 (07:53→22:11)
[2018-04-03] MEDS: Senna/Docusate Sodium 8.6/50 MG Tablet PO SCH ×2 (08:02→21:02)
--- NOTE | 2018-04-03 10:51 | P.PN ---
Physical Exam Vital signs: Vital Signs 04/02/18 11:30 04/02/18 16:00 04/02/18 20:00 Temperature 97.8 F 100.4 F H Pulse Rate 82 80 81 Respiratory Rate 18 17 18 Blood Pressure 182/86 H 136/86 155/70 H Pulse Oximetry 96 93 L 94 L 04/03/18 00:00 04/03/18 01:13 04/03/18 03:15 Temperature 98.0 F Pulse Rate 88 84 Respiratory Rate 18 18 Blood Pressure 137/62 Pulse Oximetry 93 L 04/03/18 04:00 04/03/18 04:09 04/03/18 07:48 Temperature 98.4 F Pulse Rate 78 Respiratory Rate 17 18 18 Blood Pressure 157/85 H Pulse Oximetry 93 L 04/03/18 08:00 04/03/18 08:35 Temperature 98.2 F Pulse Rate 72 Respiratory Rate 18 18 Blood Pressure 140/88 Pulse Oximetry 99 Intake & Output 04/02/18 04/03/18 04/03/18 18:59 06:59 18:59 Intake Total 580 / 580 100 / 100 Balance 580 / 580 100 / 100 Weight 83.915 kg 84 kg Intake: IV 100 / 100 100 / 100 Zosyn 4.5 GM Premix 4.5 gm In 100 / 100 100 / 100 100 ml @ 200 mls/hr IV.SIG Q8H [facility] Rx#:[id number] Oral 480 / 480 Other: # Voids 1 3 Date of Last Bowel Movement 04/01/18 04/01/18 04/01/18 Narrative: Subjective: In bed says he is in pain. Nurse spoke with methadone clinic and patient is taking methadone 110 mg daily, will restart. No fever or chills. No n/v/d/c. Physical exam: GENERAL: 62 yo F with ecchymoses over right side of her face SKIN: Lower leg from ankle to mid chacon erythema and edema improved. EYES: Pupils equal and round. Ecchymosis and severe tenderness noted over the left eyelid. CARDIOVASCULAR: Regular rate and rhythm. RESPIRATORY: No accessory muscle use. Clear to auscultation. Breath sounds equal bilaterally. GASTROINTESTINAL: Abdomen soft, non-tender, nondistended. Hepatic and splenic margins not palpable. MUSCULOSKELETAL: 1+ edema in the lower legs bilaterally with erythema from the ankle to the mid chacon improving. Distal pulses are 2+ bilaterally. Strength grossly normal. No obvious deformity or limited range of motion in the right leg. NEUROLOGICAL: Awake and alert. Motor grossly within normal limits except for the left leg secondary to injury. Normal speech. Assessment and Plan Cellulitis left leg . Improved. No sepsis. Diabetic patient Blood cultures obtained in ED Wound cultures ordered if obtainable Cont IV abx vanco and zosyn. Monitor kidney function S/p fall mechanical Closed fracture of left hip requiring operative repair Pain X ray reviewed shows Left femoral intertrochanteric fracture. Ortho consulted Bhumika s/p Closed reduction with trochanteric nail fixation left proximal femur fracture by Dr Bai 04/03/18. CT head reviewed no acute findings Pain control with dilaudid IV Nurse spoke wit methadone clinic Rhabdomyolysis monitor CPK. Improving. Started on IVF. Monitor kidney function Chronic pain will call methadone clinic to verify and will re-start , takes methadone 110 mg PO DAILY. Nurse spoke with methadone clinic and patient is taking methadone 110 mg daily, restarted. Continue gabapentin 600 mg PO TID IDDM. Hold detemir . ISS low, Accuckecks Patient will be NPO after midnight On NS IVF DVT ppx SCD/TEDS , chemical ppx per surgeon Discussed Condition With: pt, nurse - Urinary Catheter Management Indwelling Urethral Catheter Cath placed during this visit: yes Reason for continuing: Other continuation reason Insertion date: 04/03/18 Insertion time: 11:22 Results - Labs CBC & Chem 7: 04/03/18 05:42 04/03/18 05:42 Laboratory Results - last 24 hr 04/02/18 04/02/18 04/02/18 10:03 17:42 23:26 WBC RBC Hgb Hct MCV MCH MCHC RDW Plt Count MPV Neut % (Auto) Lymph % (Auto) [place] % (Auto) Eos % (Auto) Baso % (Auto) Neut # (Auto) Lymph # (Auto) [place] # (Auto) Eos # (Auto) Baso # (Auto) WBC Differential Differential Comment Sodium Potassium Chloride Carbon Dioxide Anion Gap BUN Creatinine Estimated GFR POC Glucose 489 H* 366 H Random Glucose Calcium Total Creatine Kinase CK-MB (CK-2) 1.9 CK-MB (CK-2) % 0.3 04/03/18 04/03/18 04/03/18 05:42 05:42 05:47 WBC 7.5 RBC 4.81 Hgb 14.3 Hct 41.9 MCV 87.1 MCH 29.7 MCHC 34.1 RDW 13.6 Plt Count 109 L MPV 10.4 Neut % (Auto) 69.1 Lymph % (Auto) 21.7 [place] % (Auto) 5.4 Eos % (Auto) 3.1 Baso % (Auto) 0.7 Neut # (Auto) 5.2 Lymph # (Auto) 1.6 [place] # (Auto) 0.4 Eos # (Auto) 0.2 Baso # (Auto) 0.1 WBC Differential . Differential Comment Auto diff final Sodium 135 L Potassium 3.5 Chloride 101 Carbon Dioxide 25.3 Anion Gap 9 BUN 12 Creatinine 0.83 Estimated GFR 70 L POC Glucose 257 H Random Glucose 274 H D Calcium 7.9 L D Total Creatine Kinase 434 H CK-MB (CK-2) 0.8 CK-MB (CK-2) % 0.2 - Imaging Impressions Head CT 04/02/18 08:04 CONCLUSION: 1. No focal or acute intracranial hemorrhage. 2. Stable CT scan of the brain compared to the prior study. 3. Soft tissue swelling over the left for head. . Assessment and Plan - Plan Cellulitis left leg . No sepsis. Diabetic patient Blood cultures obtained in ED Wound cultures ordered if obtainable Start IV abx vanco and zosyn. Monitor kidney function S/p fall mechanical Closed fracture of left hip requiring operative repair Pain X ray reviewed shows Left femoral intertrochanteric fracture. Ortho consulted Bai plans for surgery tomorrow . keep NPO after midnight CT head reviewed no acute findings Pain control with dilaudid IV Rhabdomyolysis monitor CPK. Started on IVF . Monitor kidney function Chronic pain will call methadone clinic to verify and will re-start , takes methadone 110 mg PO DAILY. Continue gabapentin 600 mg PO TID IDDM. Hold detemir . ISS low, Accuckecks Patient will be NPO after midnight On NS IVF DVT ppx SCD/TEDS , chemical ppx per surgeon
[2018-04-03] MEDS: Methadone 10 MG Tablet PO SCH (11:28)
[2018-04-03] MEDS ORDERED: Lidocaine PF 1% Inj 5 ML Syringe INFILTRATN ONE (12:00)
[2018-04-03] MEDS: Vancomycin Inj 1,500 MG in Sodium Chlor 0.9% Inj 500 ML IV.SIG SCH (16:23)
[2018-04-03] MEDS ORDERED: ceFAZolin 2 GM Premix Inj 2 GM/50 ML PIGGYBACK IV.SIG ONE (17:13)
--- NOTE | 2018-04-03 18:25 | P.OP ---
- Preoperative Diagnosis (1) Intertrochanteric fracture of left femur - Postoperative Diagnosis (1) Intertrochanteric fracture of left femur Date of procedure: 04/03/18 Procedure: Closed reduction with trochanteric nail fixation left proximal femur fracture Implants: Synthes 11 x 130 trochanteric nail Anesthesia: DEVANTE Surgeon: Magno Bai MD Disc Recordist: OR staff Estimated blood loss (mL): 200 Pathology: none sent Operation and Findings: Procedure and findings: The patient was taken to the operative suite and after undergoing an adequate level of general anesthesia was placed supine on the fracture table. The left lower extremity was positioned in skin traction and the preoperative reduction checked in both the AP and lateral planes with the C- arm. It was then prepped and draped in usual sterile fashion with alcohol and Hibiclens. Preoperative antibiotic consisted of Ancef 2 g IV. An incision was made over the lateral aspect of the hip extending from the greater trochanter for distance approximately 3 cm. This was carried down to skin and subcutaneous tense tissue with a knife. Hemostasis was obtained electrocautery. The muscular fascia was incised and split longitudinally. An entry point was selected at the tip of the greater trochanter. This was entered with a threaded guidepin. The position was checked in both the AP and lateral planes with the C-arm. It was subsequently overdrilled. An 11 x 130 Synthes trochanteric nail was then impacted in the place. Utilizing the outrigger device an additional incision was made distally. A threaded guidepin was advanced through the lateral cortex, across the nail, into the femoral neck and seated in the subchondral bone of the femoral head. The position was checked in both the AP and lateral planes with the C-arm. A measurement was then made. A 95 helical blade was selected. The lateral cortex was overdrilled. The helical blade was then impacted in the place. The locking mechanism was then seated proximally. Utilizing the outrigger device a percutaneous incision was made distally. A trocar was placed against the lateral cortex. The distal interlocking screw hole was drilled and the appropriate length screw placed. The position of the fracture reduction and placement of the internal fixation were checked in both the AP and lateral planes with the C-arm. The wounds were then thoroughly irrigated. They were closed in layers utilizing 0 Vicryl suture on the muscular fascia, 2-0 Vicryl suture on the subcutaneous tense tissue and amos on the skin. Sterile dressings were applied, the patient was awakened, transferred to the hospital bed and taken to the recovery room in stable condition.
[2018-04-03] MEDS ORDERED: Povidone Iodine 10% Top Soln 118 ML Bottle TOPICAL PRN (18:26)
[2018-04-03] MEDS ORDERED: Post-op Orders (for Pharmacy) OTHER STA (18:26)
[2018-04-03] MEDS ORDERED: *Meperidine Inj 25 MG/ML Vial PERIprocedural Use ONLY ONE (18:42)
--- NOTE | 2018-04-03 18:43 | XR ---
EXAM DATE: 04/03/2018 6:25 PM EDT AGE/SEX: 62 years / Female INDICATIONS: ORIF lt hip CLINICAL DATA: This is the patient's subsequent encounter. Patient reports that signs and symptoms h ave been present for 1 day and indicates a pain score of Nonresponsive. MEDICAL/SURGICAL HISTORY: Non-responsive. Non-responsive. COMPARISON: No prior exams available for comparison. FINDINGS: There is elton fixation across an intertrochanteric fracture proximal left femur with near-anatomic ali gnment. No dislocation. CONCLUSION: Left femur fracture fixation. Electronically signed by: Sebastian Allred MD 04/03/2018 6:42 PM EDT
[2018-04-03] MEDS ORDERED: INSULIN ASPART SQ SCH (18:45)
[2018-04-03] MEDS ORDERED: fentaNYL Citrate Inj 100 MCG/2 ML Ampul ONE (18:49)
[2018-04-03 18:55] LABS: Bilirubin,Urine Negative (Negative); Clarity,Urine Clear (Clear); Color,Urine Yellow (Yellw/Straw); Glucose,Urine (UA) 500 or Greater mg/dL (Negative); Leukocyte Esterase,Urine Negative (Negative); Nitrite,Urine Negative (Negative); Specific Gravity,Urine 1.021 (1.002-1.035); Squamous Epithelial Cell,Urine <1 /hpf (0-5)
[2018-04-03] MEDS ORDERED: ceFAZolin Inj 2,000 MG in Sodium Chlor 0.9% Inj 80 ML IV.SIG SCH (19:00)
[2018-04-03] MEDS: Insulin Detemir Inj 1,000 UNIT/10 ML Vial SQ SCH (21:05)
[2018-04-04] MEDS: HYDROmorphone PF Inj 2 MG/ML Vial IV.PUSH PRN ×5 (01:07→20:08)
[2018-04-04] MEDS: ceFAZolin 2 GM/NS 100 ML IV; Q8H IV.SIG SCH ×6 (01:26→16:03)
[2018-04-04] MEDS: Insulin NovoLOG Aspart Correctional Sugar Inj SQ SCH ×3 (05:38→17:45)
[2018-04-04] MEDS: Piperacil/Tazo 4.5 GM Premix 4.5 GM/100 ML BAG IV.SIG SCH ×3 (06:23→23:16)
[2018-04-04 07:16] LABS: Hematocrit 32.2 % (35.0-46.0); Hemoglobin 10.9 gm/dL (11.6-15.3)
--- NOTE | 2018-04-04 08:06 | P.PNOP ---
Subjective Interval history: The patient is on chronic pain medication and is complaining of severe pain to the left hip. Physical Exam Vital signs: Vital Signs 04/03/18 08:00 04/03/18 08:35 04/03/18 11:37 Temperature 98.2 F Pulse Rate 72 Respiratory Rate 18 18 18 Blood Pressure 140/88 Pulse Oximetry 99 04/03/18 11:58 04/03/18 12:00 04/03/18 16:00 Temperature 97.8 F 98 F Pulse Rate 72 75 Respiratory Rate 18 18 16 Blood Pressure 149/99 H 154/84 H Pulse Oximetry 94 L 97 04/03/18 18:37 04/03/18 18:45 04/03/18 19:00 Temperature 98.1 F Pulse Rate 93 H 101 H 87 Respiratory Rate 16 14 14 Blood Pressure 174/94 H 167/78 H 149/77 H Pulse Oximetry 93 L 93 L 94 L 04/03/18 19:15 04/03/18 19:30 04/03/18 19:45 Temperature 98.7 F Pulse Rate 88 87 90 Respiratory Rate 18 18 18 Blood Pressure 149/69 H 143/74 H 136/80 Pulse Oximetry 92 L 97 95 04/03/18 21:58 04/03/18 22:47 04/03/18 23:54 Temperature 98.0 F Pulse Rate 90 90 90 Respiratory Rate 18 Blood Pressure 134/65 Pulse Oximetry 96 04/04/18 00:00 04/04/18 01:37 04/04/18 04:00 Temperature 98.1 F 97.1 F L Pulse Rate 101 H 76 Respiratory Rate 18 18 18 Blood Pressure 99/55 L 129/87 Pulse Oximetry 94 L 94 L 04/04/18 05:00 04/04/18 05:36 Temperature Pulse Rate Respiratory Rate 18 18 Blood Pressure Pulse Oximetry Intake & Output 04/03/18 04/04/18 04/04/18 18:59 06:59 18:59 Intake Total 1650 / 1650 200 / 200 Output Total 1200 / 1200 675 / 675 Balance 450 / 450 -475 / -475 Weight 84 kg Intake: IV 1650 / 1650 100 / 100 NS Inj 1,000 ML @ 100 mls/hr IV 1500 / 1500 .CONT .Q10H [facility] Rx#:[id number] Zosyn 4.5 GM Premix 4.5 gm In 100 / 100 100 / 100 100 ml @ 200 mls/hr IV.SIG Q8H [facility] Rx#:[id number] Ancef 2 GM Premix Inj 2 gm In 50 / 50 50 ml @ 0 mls/hr IV.SIG .STK- [facility] Rx#:[id number] Anesthesia Amount 100 / 100 Output: Urine 475 / 475 Estimated Blood Loss 200 / 200 Urine Amount (Catheter) 1000 / 1000 200 / 200 Indwelling Urethral Catheter 1000 / 1000 200 / 200 Other: Date of Last Bowel Movement 04/01/18 04/01/18 Narrative: Dressing to the left hip is C/D/I. EHL/TA/G intact. 2+ pedal pulse. Calf is soft and nontender. + SILT distally. - Urinary Catheter Management Indwelling Urethral Catheter Cath placed during this visit: yes Reason for continuing: Other continuation reason Insertion date: 04/03/18 Insertion time: 11:22 Results - Labs CBC & Chem 7: 04/04/18 05:43 04/03/18 05:42 Laboratory Results - last 24 hr 04/03/18 04/03/18 04/03/18 11:09 11:20 16:25 Hgb Hct POC Glucose 322 H 471 H* Total Creatine Kinase Urine Color Yellow Urine Clarity Clear Urine pH 6.0 Ur Specific [place] 1.021 Urine Protein Negative Urine Glucose (UA) 500 or greater Urine Ketones 20 Urine Occult Blood Negative Urine Nitrate Negative Urine Bilirubin Negative Urine Urobilinogen 2.0 H Ur Leukocyte Esterase Negative Urine RBC 1 Urine WBC Less than 1 Ur Squamous Epith Cells <1 Micro UA Comment Cath-culture not ind Urine Culture Comments Cath-cult not ind 04/03/18 04/03/18 04/03/18 16:26 18:49 23:21 Hgb Hct POC Glucose 277 H 366 H 329 H Total Creatine Kinase Urine Color Urine Clarity Urine pH Ur Specific [place] Urine Protein Urine Glucose (UA) Urine Ketones Urine Occult Blood Urine Nitrate Urine Bilirubin Urine Urobilinogen Ur Leukocyte Esterase Urine RBC Urine WBC Ur Squamous Epith Cells Micro UA Comment Urine Culture Comments 04/04/18 04/04/18 04/04/18 05:26 05:43 05:43 Hgb 10.9 L D Hct 32.2 L POC Glucose 272 H Total Creatine Kinase 319 H Urine Color Urine Clarity Urine pH Ur Specific [place] Urine Protein Urine Glucose (UA) Urine Ketones Urine Occult Blood Urine Nitrate Urine Bilirubin Urine Urobilinogen Ur Leukocyte Esterase Urine RBC Urine WBC Ur Squamous Epith Cells Micro UA Comment Urine Culture Comments Microbiology 04/02/18 13:15 Blood - Peripheral Aerobic Blood Culture - Preliminary No growth in 1 day 04/02/18 13:15 Blood - Peripheral Anaerobic Blood Culture - Preliminary No growth in 1 day 04/02/18 13:31 Blood - Peripheral Aerobic Blood Culture - Preliminary No growth in 1 day 04/02/18 13:31 Blood - Peripheral Anaerobic Blood Culture - Preliminary No growth in 1 day - Imaging Impressions Hip X-Ray 04/03/18 00:00 CONCLUSION: Left femur fracture fixation. Assessment and Plan - Problem List (1) Intertrochanteric fracture of left femur Code(s): S72.142A - Displaced intertrochanteric fracture of left femur, initial encounter for closed fracture Status: Acute Qualifiers: Encounter type: initial encounter Fracture type: closed Fracture alignment: displaced Qualified Code(s): S72.142A - Displaced intertrochanteric fracture of left femur, initial encounter for closed fracture - Assessment and Plan POD #1: Left hip IMN 1. Unsure of WB status on LLE. F/U with Dr. Bai on Friday. 2. ASA 81 mg BID for DVT prophylaxis 3. Ice to the left hip PRN 4. Change dressing to left hip POD #2 and then daily thereafter. 5. F/U with Dr. Bai in 1-2 weeks.
[2018-04-04] MEDS: Senna/Docusate Sodium 8.6/50 MG Tablet PO SCH ×2 (08:10→20:07)
[2018-04-04] MEDS: Methadone 10 MG Tablet PO SCH (08:10)
[2018-04-04] MEDS: Gabapentin 300 MG Capsule PO SCH ×3 (08:10→17:45)
[2018-04-04] MEDS: Multivitamin/Minerals Therapeutic Tablet PO SCH (08:10)
[2018-04-04 08:11] LABS: CKMB Percent 0.7 % (0.0-4.0); Creatine Kinase MB 2.3 ng/mL (0.5-3.6)
[2018-04-04] MEDS: Insulin Detemir Inj 1,000 UNIT/10 ML Vial SQ SCH ×2 (08:11→21:03)
[2018-04-04] MEDS: Sod Chloride 0.9% Inj 1,000 ML IV.CONT SCH ×2 (08:11→16:38)
--- NOTE | 2018-04-04 09:20 | P.PN ---
Physical Exam Vital signs: Vital Signs 04/03/18 11:37 04/03/18 11:58 04/03/18 12:00 Temperature 97.8 F Pulse Rate 72 Respiratory Rate 18 18 18 Blood Pressure 149/99 H Pulse Oximetry 94 L 04/03/18 16:00 04/03/18 18:37 04/03/18 18:45 Temperature 98 F 98.1 F Pulse Rate 75 93 H 101 H Respiratory Rate 16 16 14 Blood Pressure 154/84 H 174/94 H 167/78 H Pulse Oximetry 97 93 L 93 L 04/03/18 19:00 04/03/18 19:15 04/03/18 19:30 Temperature Pulse Rate 87 88 87 Respiratory Rate 14 18 18 Blood Pressure 149/77 H 149/69 H 143/74 H Pulse Oximetry 94 L 92 L 97 04/03/18 19:45 04/03/18 21:58 04/03/18 22:47 Temperature 98.7 F 98.0 F Pulse Rate 90 90 90 Respiratory Rate 18 18 Blood Pressure 136/80 134/65 Pulse Oximetry 95 96 04/03/18 23:54 04/04/18 00:00 04/04/18 01:37 Temperature 98.1 F Pulse Rate 90 101 H Respiratory Rate 18 18 Blood Pressure 99/55 L Pulse Oximetry 94 L 04/04/18 04:00 04/04/18 05:00 04/04/18 05:36 Temperature 97.1 F L Pulse Rate 76 Respiratory Rate 18 18 18 Blood Pressure 129/87 Pulse Oximetry 94 L 04/04/18 08:46 Temperature Pulse Rate 84 Respiratory Rate Blood Pressure Pulse Oximetry Intake & Output 04/03/18 04/04/18 04/04/18 18:59 06:59 18:59 Intake Total 1650 / 1650 300 / 300 Output Total 1200 / 1200 675 / 675 Balance 450 / 450 -375 / -375 Weight 84 kg Intake: IV 1650 / 1650 200 / 200 NS Inj 1,000 ML @ 100 mls/hr IV 1500 / 1500 .CONT .Q10H [facility] Rx#:[id number] Zosyn 4.5 GM Premix 4.5 gm In 100 / 100 100 / 100 100 ml @ 200 mls/hr IV.SIG Q8H [facility] Rx#:[id number] Ancef 2 GM Premix Inj 2 gm In 50 / 50 50 ml @ 0 mls/hr IV.SIG .STK- [facility] Rx#:[id number] Ancef Inj 2,000 MG In NS Inj 80 100 / 100 ML @ 200 mls/hr IV.SIG Q8H [facility] Rx#:[id number] Anesthesia Amount 100 / 100 Output: Urine 475 / 475 Estimated Blood Loss 200 / 200 Urine Amount (Catheter) 1000 / 1000 200 / 200 Indwelling Urethral Catheter 1000 / 1000 200 / 200 Other: Date of Last Bowel Movement 04/01/18 04/01/18 Narrative: Subjective: Says has pain in her legs No fever or chills. No n/v/d/c. Physical exam: GENERAL: 62 yo F with ecchymoses over right side of her face SKIN: Lower leg from ankle to mid chacon erythema and edema improved. EYES: Pupils equal and round. Ecchymosis and severe tenderness noted over the left eyelid. CARDIOVASCULAR: Regular rate and rhythm. RESPIRATORY: No accessory muscle use. Clear to auscultation. Breath sounds equal bilaterally. GASTROINTESTINAL: Abdomen soft, non-tender, nondistended. Hepatic and splenic margins not palpable. MUSCULOSKELETAL: 1+ edema in the lower legs bilaterally with erythema from the ankle to the mid chacon improving. Distal pulses are 2+ bilaterally. Strength grossly normal. No obvious deformity or limited range of motion in the right leg. NEUROLOGICAL: Awake and alert. Motor grossly within normal limits except for the left leg secondary to injury. Normal speech. Assessment and Plan Cellulitis left leg . Improved. No sepsis. Diabetic patient Blood cultures obtained in ED Wound cultures ordered if obtainable Cont IV abx vanco and zosyn. Monitor kidney function S/p fall mechanical Closed fracture of left hip requiring operative repair Pain X ray reviewed shows Left femoral intertrochanteric fracture. Ortho consulted Bhumika s/p Closed reduction with trochanteric nail fixation left proximal femur fracture by Dr Bai 04/03/18. CT head reviewed no acute findings Pain control with dilaudid IV continue to taper down Nurse spoke wit methadone clinic , restarted methadone Rhabdomyolysis monitor CPK. Improving. Started on IVF. Monitor kidney function Chronic pain will call methadone clinic to verify and will re-start , takes methadone 110 mg PO DAILY. Nurse spoke with methadone clinic and patient is taking methadone 110 mg daily, restarted. Continue gabapentin 600 mg PO TID IDDM. Hold detemir . ISS low, Accuckecks Patient will be NPO after midnight On NS IVF DVT ppx SCD/TEDS , chemical ppx per surgeon Discussed Condition With: pt, nurse - Urinary Catheter Management Indwelling Urethral Catheter Cath placed during this visit: yes Reason for continuing: Other continuation reason Insertion date: 04/03/18 Insertion time: 11:22 Results - Labs CBC & Chem 7: 04/04/18 05:43 04/03/18 05:42 Laboratory Results - last 24 hr 04/03/18 04/03/18 04/03/18 11:09 11:20 16:25 Hgb Hct POC Glucose 322 H 471 H* Total Creatine Kinase CK-MB (CK-2) CK-MB (CK-2) % Urine Color Yellow Urine Clarity Clear Urine pH 6.0 Ur Specific [place] 1.021 Urine Protein Negative Urine Glucose (UA) 500 or greater Urine Ketones 20 Urine Occult Blood Negative Urine Nitrate Negative Urine Bilirubin Negative Urine Urobilinogen 2.0 H Ur Leukocyte Esterase Negative Urine RBC 1 Urine WBC Less than 1 Ur Squamous Epith Cells <1 Micro UA Comment Cath-culture not ind Urine Culture Comments Cath-cult not ind 04/03/18 04/03/18 04/03/18 16:26 18:49 23:21 Hgb Hct POC Glucose 277 H 366 H 329 H Total Creatine Kinase CK-MB (CK-2) CK-MB (CK-2) % Urine Color Urine Clarity Urine pH Ur Specific [place] Urine Protein Urine Glucose (UA) Urine Ketones Urine Occult Blood Urine Nitrate Urine Bilirubin Urine Urobilinogen Ur Leukocyte Esterase Urine RBC Urine WBC Ur Squamous Epith Cells Micro UA Comment Urine Culture Comments 04/04/18 04/04/18 04/04/18 05:26 05:43 05:43 Hgb 10.9 L D Hct 32.2 L POC Glucose 272 H Total Creatine Kinase 319 H CK-MB (CK-2) 2.3 CK-MB (CK-2) % 0.7 Urine Color Urine Clarity Urine pH Ur Specific [place] Urine Protein Urine Glucose (UA) Urine Ketones Urine Occult Blood Urine Nitrate Urine Bilirubin Urine Urobilinogen Ur Leukocyte Esterase Urine RBC Urine WBC Ur Squamous Epith Cells Micro UA Comment Urine Culture Comments 04/04/18 08:08 Hgb Hct POC Glucose 338 H Total Creatine Kinase CK-MB (CK-2) CK-MB (CK-2) % Urine Color Urine Clarity Urine pH Ur Specific [place] Urine Protein Urine Glucose (UA) Urine Ketones Urine Occult Blood Urine Nitrate Urine Bilirubin Urine Urobilinogen Ur Leukocyte Esterase Urine RBC Urine WBC Ur Squamous Epith Cells Micro UA Comment Urine Culture Comments Microbiology 04/02/18 13:15 Blood - Peripheral Aerobic Blood Culture - Preliminary No growth in 1 day 04/02/18 13:15 Blood - Peripheral Anaerobic Blood Culture - Preliminary No growth in 1 day 04/02/18 13:31 Blood - Peripheral Aerobic Blood Culture - Preliminary No growth in 1 day 04/02/18 13:31 Blood - Peripheral Anaerobic Blood Culture - Preliminary No growth in 1 day - Imaging Impressions Hip X-Ray 04/03/18 00:00 CONCLUSION: Left femur fracture fixation. Assessment and Plan - Plan Cellulitis left leg . No sepsis. Diabetic patient Blood cultures obtained in ED Wound cultures ordered if obtainable Start IV abx vanco and zosyn. Monitor kidney function S/p fall mechanical Closed fracture of left hip requiring operative repair Pain X ray reviewed shows Left femoral intertrochanteric fracture. Ortho consulted Bai plans for surgery tomorrow . keep NPO after midnight CT head reviewed no acute findings Pain control with dilaudid IV Rhabdomyolysis monitor CPK. Started on IVF . Monitor kidney function Chronic pain will call methadone clinic to verify and will re-start , takes methadone 110 mg PO DAILY. Continue gabapentin 600 mg PO TID IDDM. Hold detemir . ISS low, Accuckecks Patient will be NPO after midnight On NS IVF DVT ppx SCD/TEDS , chemical ppx per surgeon
--- NOTE | 2018-04-04 11:26 | XR ---
EXAM DATE: 04/04/2018 11:24 AM EDT AGE/SEX: 62 years / Female INDICATIONS: Pain. CLINICAL DATA: This is the patient's subsequent encounter. Patient reports that signs and symptoms h ave been present for 2 days and indicates a pain score of Nonresponsive. MEDICAL/SURGICAL HISTORY: . Diabetes mellitus type II. Hepatitis C None. COMPARISON: [facility] [place], FOOT LEFT LIMITED (2VWS), 07/17/2016. . FINDINGS: Bony structures are intact and in normal alignment. Joints are intact without dislocation or signifi cant arthropathy. Osseous density is normal. Soft tissues are unremarkable. No radiopaque foreign bodies seen. CONCLUSION: Negative examination Electronically signed by: Danielle Chávez MD 04/04/2018 11:25 AM EDT
[2018-04-04] MEDS: Vancomycin Inj 1,500 MG in Sodium Chlor 0.9% Inj 500 ML IV.SIG SCH (16:37)
[2018-04-05] MEDS: Insulin NovoLOG Aspart Correctional Sugar Inj SQ SCH ×4 (00:03→18:16)
[2018-04-05] MEDS: HYDROmorphone PF Inj 2 MG/ML Vial IV.PUSH PRN ×4 (00:07→18:16)
[2018-04-05] MEDS: Sod Chloride 0.9% Inj 1,000 ML IV.CONT SCH ×4 (01:04→23:04)
[2018-04-05] MEDS: Piperacil/Tazo 4.5 GM Premix 4.5 GM/100 ML BAG IV.SIG SCH ×3 (06:24→23:04)
[2018-04-05 07:41] LABS: CKMB Percent 1.4 % (0.0-4.0); Creatine Kinase MB 3.1 ng/mL (0.5-3.6)
[2018-04-05] MEDS: Gabapentin 300 MG Capsule PO SCH ×3 (08:54→18:16)
[2018-04-05] MEDS: Insulin Detemir Inj 1,000 UNIT/10 ML Vial SQ SCH ×2 (08:54→20:31)
[2018-04-05] MEDS: Methadone 10 MG Tablet PO SCH (08:54)
[2018-04-05] MEDS: Senna/Docusate Sodium 8.6/50 MG Tablet PO SCH ×2 (08:54→20:27)
[2018-04-05] MEDS: Multivitamin/Minerals Therapeutic Tablet PO SCH (08:54)
--- NOTE | 2018-04-05 09:02 | P.PNOP ---
Subjective Interval history: Patient resting in bed with continued c/o pain to the left hip and mild pain to the left ankle. Patient denies tingling or numbness to the LLE. Physical Exam Vital signs: Vital Signs 04/04/18 12:00 04/04/18 12:20 04/04/18 16:00 Temperature 98.3 F 99.4 F Pulse Rate 80 85 Respiratory Rate 16 18 Blood Pressure 83/53 L 107/54 L Pulse Oximetry 95 96 98 04/04/18 20:00 04/04/18 20:06 04/04/18 20:27 Temperature 98.6 F Pulse Rate 94 H 95 H Respiratory Rate 18 Blood Pressure 100/51 L Pulse Oximetry 95 98 04/05/18 00:00 04/05/18 01:10 04/05/18 04:00 Temperature 100 F H 100.4 F H Pulse Rate 94 H 93 H 88 Respiratory Rate 18 18 Blood Pressure 97/52 L 119/57 L Pulse Oximetry 94 L 95 Intake & Output 04/04/18 04/05/18 04/05/18 18:59 06:59 18:59 Intake Total 1200 / 1200 1431 / 1431 100 / 100 Output Total 475 / 475 Balance 1200 / 1200 956 / 956 100 / 100 Weight 92.9 kg Intake: IV 1200 / 1200 1031 / 1031 100 / 100 NS Inj 1,000 ML @ 100 mls/hr IV 1000 / 1000 931 / 931 .CONT .Q10H KRISTIN Rx#:[id number] Zosyn 4.5 GM Premix 4.5 gm In 100 / 100 100 / 100 100 / 100 100 ml @ 200 mls/hr IV.SIG Q8H KRISTIN Rx#:[id number] Ancef Inj 2,000 MG In NS Inj 80 100 / 100 ML @ 200 mls/hr IV.SIG Q8H KRISTIN Rx#:[id number] Oral 400 / 400 Output: Urine 475 / 475 Other: Date of Last Bowel Movement 04/01/18 Narrative: Dressing to the left hip is C/D/I. EHL/TA/G intact. 2+ pedal pulse. Calf is soft and nontender. + SILT distally. Mild tenderness and swelling to the left ankle. Patient has good AROM of left ankle. I reviewed the XRs of the left ankle as well as the radiologist's report. I agree with the radiologist report of no fractures. - Constitutional moderate distress - Routine HEENT Exam Head: Present: normocephalic Eye: Present: PERRL ENT: Present: mucous membranes moist - Routine Neck Exam Present: supple - Urinary Catheter Management Indwelling Urethral Catheter Cath placed during this visit: yes, but has since been removed by the nurse Reason for continuing: Other continuation reason Insertion date: 04/03/18 Insertion time: 11:22 Removal date: 04/05/18 Removal time: 06:45 Results - Labs CBC & Chem 7: 04/04/18 05:43 04/05/18 06:23 Laboratory Results - last 24 hr 04/04/18 04/04/18 04/04/18 11:09 16:40 21:01 Creatinine Estimated GFR POC Glucose 253 H 212 H 339 H Total Creatine Kinase CK-MB (CK-2) CK-MB (CK-2) % 04/04/18 04/05/18 04/05/18 23:58 05:59 06:23 Creatinine 0.87 Estimated GFR 66 L POC Glucose 319 H 298 H Total Creatine Kinase 221 H CK-MB (CK-2) 3.1 CK-MB (CK-2) % 1.4 Microbiology 04/02/18 13:15 Blood - Peripheral Aerobic Blood Culture - Preliminary No growth in 2 days 04/02/18 13:15 Blood - Peripheral Anaerobic Blood Culture - Preliminary No growth in 2 days 04/02/18 13:31 Blood - Peripheral Aerobic Blood Culture - Preliminary No growth in 2 days 04/02/18 13:31 Blood - Peripheral Anaerobic Blood Culture - Preliminary No growth in 2 days - Imaging Impressions Ankle X-Ray 04/04/18 10:29 CONCLUSION: Negative examination Assessment and Plan - Problem List (1) Intertrochanteric fracture of left femur Code(s): S72.142A - Displaced intertrochanteric fracture of left femur, initial encounter for closed fracture Status: Acute Qualifiers: Encounter type: initial encounter Fracture type: closed Fracture alignment: displaced Qualified Code(s): S72.142A - Displaced intertrochanteric fracture of left femur, initial encounter for closed fracture - Assessment and Plan POD #2: Left hip IMN 1. Unsure of WB status on LLE. F/U with Dr. Bai on Friday. 2. ASA 81 mg BID for DVT prophylaxis 3. Ice to the left hip PRN 4. Change dressing to left hip POD #2 and then daily thereafter. 5. F/U with Dr. Bai in 1-2 weeks. 6. XR of left ankle negative for fracture
--- NOTE | 2018-04-05 09:22 | P.PN ---
Physical Exam Vital signs: Vital Signs 04/04/18 12:00 04/04/18 12:20 04/04/18 16:00 Temperature 98.3 F 99.4 F Pulse Rate 80 85 Respiratory Rate 16 18 Blood Pressure 83/53 L 107/54 L Pulse Oximetry 95 96 98 04/04/18 20:00 04/04/18 20:06 04/04/18 20:27 Temperature 98.6 F Pulse Rate 94 H 95 H Respiratory Rate 18 Blood Pressure 100/51 L Pulse Oximetry 95 98 04/05/18 00:00 04/05/18 01:10 04/05/18 04:00 Temperature 100 F H 100.4 F H Pulse Rate 94 H 93 H 88 Respiratory Rate 18 18 Blood Pressure 97/52 L 119/57 L Pulse Oximetry 94 L 95 Intake & Output 04/04/18 04/05/18 04/05/18 18:59 06:59 18:59 Intake Total 1200 / 1200 1431 / 1431 100 / 100 Output Total 475 / 475 Balance 1200 / 1200 956 / 956 100 / 100 Weight 92.9 kg Intake: IV 1200 / 1200 1031 / 1031 100 / 100 NS Inj 1,000 ML @ 100 mls/hr IV 1000 / 1000 931 / 931 .CONT .Q10H KRISTIN Rx#:[id number] Zosyn 4.5 GM Premix 4.5 gm In 100 / 100 100 / 100 100 / 100 100 ml @ 200 mls/hr IV.SIG Q8H KRISTIN Rx#:[id number] Ancef Inj 2,000 MG In NS Inj 80 100 / 100 ML @ 200 mls/hr IV.SIG Q8H KRISTIN Rx#:[id number] Oral 400 / 400 Output: Urine 475 / 475 Other: Date of Last Bowel Movement 04/01/18 Narrative: Subjective: The patient is in bed sleepy. Says has pain in her leg at the surgical site however the patient did nto appear in distress or pain when I entered the room. Will continue to taper down dilaudid. Also patient asking for more dialudid despite being in bed and sleeping most of the time. Will continue to taper pain meds. Also at bedise in the chair sleepy another female, who is also demanding that the patient to receive dilaudid. No fever or chills. No n/v/d/c. Physical exam: GENERAL: 62 yo F with ecchymoses over right side of her face SKIN: Lower leg from ankle to mid chacon erythema and edema improved. EYES: Pupils equal and round. Ecchymosis and severe tenderness noted over the left eyelid. CARDIOVASCULAR: Regular rate and rhythm. RESPIRATORY: No accessory muscle use. Clear to auscultation. Breath sounds equal bilaterally. GASTROINTESTINAL: Abdomen soft, non-tender, nondistended. Hepatic and splenic margins not palpable. MUSCULOSKELETAL: 1+ edema in the lower legs bilaterally with erythema from the ankle to the mid chacon improving. Distal pulses are 2+ bilaterally. Strength grossly normal. No obvious deformity or limited range of motion in the right leg. NEUROLOGICAL: Awake and alert. Motor grossly within normal limits except for the left leg secondary to injury. Normal speech. Assessment and Plan Cellulitis left leg . Improved. No sepsis. Diabetic patient Blood cultures obtained in ED Wound cultures ordered if obtainable Cont IV abx vanco and zosyn. Monitor kidney function S/p fall mechanical Closed fracture of left hip requiring operative repair Pain X ray reviewed shows Left femoral intertrochanteric fracture. Ortho consulted Bhumika s/p Closed reduction with trochanteric nail fixation left proximal femur fracture by Dr Bai 04/03/18. CT head reviewed no acute findings Pain control with patient methadone, dilaudid IV continue to taper down Nurse spoke wit methadone clinic , restarted methadone Rhabdomyolysis monitor CPK. Improving. Started on IVF. Monitor kidney function Chronic pain called methadone clinic to verify l re-start , takes methadone 110 mg PO DAILY. Nurse spoke with methadone clinic and patient is taking methadone 110 mg daily, restarted. Continue gabapentin 600 mg PO TID IDDM. Hold detemir . ISS low, Accuckecks On NS IVF DVT ppx SCD/TEDS , chemical ppx per surgeon Discussed Condition With: pt, nurse - Urinary Catheter Management Indwelling Urethral Catheter Cath placed during this visit: yes, but has since been removed by the nurse Reason for continuing: Other continuation reason Insertion date: 04/03/18 Insertion time: 11:22 Removal date: 04/05/18 Removal time: 06:45 Results - Labs CBC & Chem 7: 04/04/18 05:43 04/05/18 06:23 Laboratory Results - last 24 hr 04/04/18 04/04/18 04/04/18 11:09 16:40 21:01 Creatinine Estimated GFR POC Glucose 253 H 212 H 339 H Total Creatine Kinase CK-MB (CK-2) CK-MB (CK-2) % 04/04/18 04/05/18 04/05/18 23:58 05:59 06:23 Creatinine 0.87 Estimated GFR 66 L POC Glucose 319 H 298 H Total Creatine Kinase 221 H CK-MB (CK-2) 3.1 CK-MB (CK-2) % 1.4 Microbiology 04/02/18 13:15 Blood - Peripheral Aerobic Blood Culture - Preliminary No growth in 2 days 04/02/18 13:15 Blood - Peripheral Anaerobic Blood Culture - Preliminary No growth in 2 days 04/02/18 13:31 Blood - Peripheral Aerobic Blood Culture - Preliminary No growth in 2 days 04/02/18 13:31 Blood - Peripheral Anaerobic Blood Culture - Preliminary No growth in 2 days - Imaging Impressions Ankle X-Ray 04/04/18 10:29 CONCLUSION: Negative examination Assessment and Plan - Plan Cellulitis left leg . No sepsis. Diabetic patient Blood cultures obtained in ED Wound cultures ordered if obtainable Start IV abx vanco and zosyn. Monitor kidney function S/p fall mechanical Closed fracture of left hip requiring operative repair Pain X ray reviewed shows Left femoral intertrochanteric fracture. Ortho consulted Bai plans for surgery tomorrow . keep NPO after midnight CT head reviewed no acute findings Pain control with dilaudid IV Rhabdomyolysis monitor CPK. Started on IVF . Monitor kidney function Chronic pain will call methadone clinic to verify and will re-start , takes methadone 110 mg PO DAILY. Continue gabapentin 600 mg PO TID IDDM. Hold detemir . ISS low, Accuckecks Patient will be NPO after midnight On NS IVF DVT ppx SCD/TEDS , chemical ppx per surgeon
[2018-04-05] MEDS ORDERED: HYDROmorphone PF Inj 2 MG/ML Vial IV.PUSH PRN (11:04)
[2018-04-05] MEDS ORDERED: Pharmacy Ordered Lab Info OTHER ONE (14:45)
[2018-04-06] MEDS: Temazepam 15 MG Capsule PO PRN (01:01)
[2018-04-06] MEDS: Insulin NovoLOG Aspart Correctional Sugar Inj SQ SCH ×4 (06:03→18:01)
[2018-04-06] MEDS: Piperacil/Tazo 4.5 GM Premix 4.5 GM/100 ML BAG IV.SIG SCH ×3 (06:04→23:41)
[2018-04-06] MEDS: HYDROmorphone PF Inj 2 MG/ML Vial IV.PUSH PRN ×2 (06:04)
[2018-04-06] MEDS: Methadone 10 MG Tablet PO SCH (08:30)
[2018-04-06] MEDS: Multivitamin/Minerals Therapeutic Tablet PO SCH (08:30)
[2018-04-06] MEDS: Gabapentin 300 MG Capsule PO SCH ×3 (08:30→18:01)
[2018-04-06] MEDS: Insulin Detemir Inj 1,000 UNIT/10 ML Vial SQ SCH ×2 (08:31→21:26)
[2018-04-06] MEDS: Senna/Docusate Sodium 8.6/50 MG Tablet PO SCH ×2 (08:32→21:26)
--- NOTE | 2018-04-06 09:20 | P.PN ---
Physical Exam Vital signs: Vital Signs 04/05/18 12:00 04/05/18 16:00 04/05/18 20:00 Temperature 98.6 F 98.6 F 98.3 F Pulse Rate 86 86 82 Respiratory Rate 18 20 18 Blood Pressure 108/54 L 104/55 L 126/57 L Pulse Oximetry 93 L 93 L 95 04/06/18 00:00 04/06/18 04:00 04/06/18 05:03 Temperature 98.3 F 98.5 F Pulse Rate 81 75 73 Respiratory Rate 18 18 Blood Pressure 106/53 L 116/57 L Pulse Oximetry 94 L 94 L 04/06/18 06:40 04/06/18 08:00 Temperature 97.9 F Pulse Rate 72 Respiratory Rate 8 L 18 Blood Pressure 131/63 Pulse Oximetry 95 Intake & Output 04/05/18 04/06/18 04/06/18 18:59 06:59 18:59 Intake Total 1200 / 1200 1580 / 1580 Balance 1200 / 1200 1580 / 1580 Weight 92.9 kg Intake: IV 1200 / 1200 1100 / 1100 NS Inj 1,000 ML @ 100 mls/hr IV 1000 / 1000 1000 / 1000 .CONT .Q10H KRISTIN Rx#:[id number] Zosyn 4.5 GM Premix 4.5 gm In 200 / 200 100 / 100 100 ml @ 200 mls/hr IV.SIG Q8H KRISTIN Rx#:[id number] Oral 480 / 480 Other: # Voids 2 # Incontinent Voids 2 Date of Last Bowel Movement 04/01/18 04/01/18 Narrative: Subjective: The patient is in bed she. Taper Dilaudid and discontinued. Patient was noted more awake and alert. With drug seeking behavior No fever or chills. No n/v/d/c. Physical exam: GENERAL: 62 yo F with ecchymoses over right side of her face SKIN: Lower leg from ankle to mid chacon erythema and edema improved. EYES: Pupils equal and round. Ecchymosis and severe tenderness noted over the left eyelid. CARDIOVASCULAR: Regular rate and rhythm. RESPIRATORY: No accessory muscle use. Clear to auscultation. Breath sounds equal bilaterally. GASTROINTESTINAL: Abdomen soft, non-tender, nondistended. Hepatic and splenic margins not palpable. MUSCULOSKELETAL: 1+ edema in the lower legs bilaterally with erythema from the ankle to the mid chacon improving. Distal pulses are 2+ bilaterally. Strength grossly normal. No obvious deformity or limited range of motion in the right leg. NEUROLOGICAL: Awake and alert. Motor grossly within normal limits except for the left leg secondary to injury. Normal speech. Assessment and Plan Cellulitis left leg . Improved. No sepsis. Diabetic patient Blood cultures obtained in ED Wound cultures ordered if obtainable On IV abx vanco and zosyn. Monitor kidney function Erythema and edema improved significantly S/p fall mechanical Closed fracture of left hip requiring operative repair Pain X ray reviewed shows Left femoral intertrochanteric fracture. Ortho consulted Bhumika s/p Closed reduction with trochanteric nail fixation left proximal femur fracture by Dr Bai 04/03/18. CT head reviewed no acute findings Pain control with patient methadone, dilaudid IV continue to taper down and DCd Nurse spoke wit methadone clinic , and verified dosage, restarted methadone Rhabdomyolysis monitor CPK. Improving. Started on IVF. Monitor kidney function Chronic pain called methadone clinic to verify l re-started , takes methadone 110 mg PO DAILY. Nurse spoke with methadone clinic and patient is taking methadone 110 mg daily, restarted. Continue gabapentin 600 mg PO TID. IDDM. Hold detemir . ISS low, Accuckecks On NS IVF DVT ppx SCD/TEDS , chemical ppx per surgeon Discussed Condition With: pt, nurse Note patient with drug seeking behavior and manipulative. On methadone for pain - Urinary Catheter Management Indwelling Urethral Catheter Cath placed during this visit: yes, but has since been removed by the nurse Reason for continuing: Other continuation reason Insertion date: 04/03/18 Insertion time: 11:22 Removal date: 04/05/18 Removal time: 06:45 Results - Labs CBC & Chem 7: 04/07/18 16:00 04/07/18 16:00 Laboratory Results - last 24 hr 04/05/18 04/05/18 04/05/18 12:40 15:07 18:09 POC Glucose 262 H 379 H Vancomycin Trough 7.9 04/05/18 04/05/18 04/06/18 20:30 23:48 05:58 POC Glucose 308 H 306 H 257 H Vancomycin Trough 04/06/18 08:38 POC Glucose 120 H Vancomycin Trough Microbiology 04/02/18 13:15 Blood - Peripheral Aerobic Blood Culture - Preliminary No growth in 3 days 08/02/18 13:15 Blood - Peripheral Anaerobic Blood Culture - Preliminary No growth in 3 days 04/02/18 13:31 Blood - Peripheral Aerobic Blood Culture - Preliminary No growth in 3 days 04/02/18 13:31 Blood - Peripheral Anaerobic Blood Culture - Preliminary No growth in 3 days - Imaging Impressions Hip X-Ray 04/03/18 00:00 CONCLUSION: Left femur fracture fixation. Ankle X-Ray 04/04/18 10:29 CONCLUSION: Negative examination Assessment and Plan - Plan Cellulitis left leg . No sepsis. Diabetic patient Blood cultures obtained in ED Wound cultures ordered if obtainable Start IV abx vanco and zosyn. Monitor kidney function S/p fall mechanical Closed fracture of left hip requiring operative repair Pain X ray reviewed shows Left femoral intertrochanteric fracture. Ortho consulted Bai plans for surgery tomorrow . keep NPO after midnight CT head reviewed no acute findings Pain control with dilaudid IV Rhabdomyolysis monitor CPK. Started on IVF . Monitor kidney function Chronic pain will call methadone clinic to verify and will re-start , takes methadone 110 mg PO DAILY. Continue gabapentin 600 mg PO TID IDDM. Hold detemir . ISS low, Accuckecks Patient will be NPO after midnight On NS IVF DVT ppx SCD/TEDS , chemical ppx per surgeon
[2018-04-06] MEDS: Vancomycin Inj 750 MG in Sodium Chlor 0.9% Inj 250 ML IV.SIG SCH (18:34)
[2018-04-07] MEDS: Insulin NovoLOG Aspart Correctional Sugar Inj SQ SCH ×4 (00:08→18:12)
--- NOTE | 2018-04-07 07:50 | P.PNOP ---
Subjective Interval history: POD #4 Closed reduction with trochanteric nail fixation left proximal femur fracture Pt laying in bed, admits in left leg pain is controlled. Has questions. RN at bedside. No other orthopedic complaints. Physical Exam Vital signs: Vital Signs 04/06/18 08:00 04/06/18 10:50 04/06/18 12:00 Temperature 97.9 F 97.9 F Pulse Rate 72 76 Respiratory Rate 18 18 Blood Pressure 131/63 133/67 Pulse Oximetry 95 98 95 04/06/18 16:00 04/06/18 20:00 04/06/18 20:41 Temperature 97.3 F L 98.1 F Pulse Rate 75 88 Respiratory Rate 18 18 Blood Pressure 132/65 162/65 H Pulse Oximetry 94 L 97 98 04/07/18 00:00 04/07/18 04:00 Temperature 98.7 F 97.2 F L Pulse Rate 82 73 Respiratory Rate 18 18 Blood Pressure 166/79 H 128/63 Pulse Oximetry 96 95 Intake & Output 04/06/18 04/07/18 04/07/18 18:59 06:59 18:59 Intake Total 1400 / 1400 357.5 / 357.5 Output Total 6 / 6 Balance 1394 / 1394 357.5 / 357.5 Intake: IV 200 / 200 357.5 / 357.5 Zosyn 4.5 GM Premix 4.5 gm In 200 / 200 100 / 100 100 ml @ 200 mls/hr IV.SIG Q8H KRISTIN Rx#:[id number] Vancomycin Inj 750 MG In NS Inj 257.5 / 257.5 250 ML @ 250 mls/hr IV.SIG Q12H KRISTIN Rx#:[id number] Oral 1200 / 1200 Output: Urine 4 / 4 Stool 2 / 2 Other: # Voids 2 Date of Last Bowel Movement 04/06/18 04/06/18 Narrative: Dressing dry and intact. Tender to palpation with mild swelling around incision site. Appropriate range of motion expected post operatively. Freely able to move distal digits. No calf pain. Negative Lisa's sign. Good cap refill. 2+ pedal pulses. Neurovascular intact. - Urinary Catheter Management Indwelling Urethral Catheter Cath placed during this visit: yes, but has since been removed by the nurse Reason for continuing: Other continuation reason Insertion date: 04/03/18 Insertion time: 11:22 Removal date: 04/05/18 Removal time: 06:45 Results - Labs CBC & Chem 7: 04/04/18 05:43 04/05/18 06:23 Laboratory Results - last 24 hr 04/06/18 04/06/18 04/06/18 08:38 13:13 17:28 POC Glucose 120 H 201 H 272 H 04/06/18 04/06/18 04/07/18 21:24 23:58 06:19 POC Glucose 323 H 301 H 155 H Microbiology 04/02/18 13:15 Blood - Peripheral Aerobic Blood Culture - Preliminary No growth in 4 days 04/02/18 13:15 Blood - Peripheral Anaerobic Blood Culture - Preliminary No growth in 4 days 04/02/18 13:31 Blood - Peripheral Aerobic Blood Culture - Preliminary No growth in 4 days 04/02/18 13:31 Blood - Peripheral Anaerobic Blood Culture - Preliminary No growth in 4 days - Procedures Closed reduction with trochanteric nail fixation left proximal femur fracture 04/03/18 Assessment and Plan - Ortho Post Op Day # 4 - Problem List (1) Intertrochanteric fracture of left femur Code(s): S72.142A - Displaced intertrochanteric fracture of left femur, initial encounter for closed fracture Status: Acute Qualifiers: Encounter type: initial encounter Fracture type: closed Fracture alignment: displaced Qualified Code(s): S72.142A - Displaced intertrochanteric fracture of left femur, initial encounter for closed fracture - Assessment and Plan POD #4: Closed reduction with trochanteric nail fixation left proximal femur fracture 1. WBAT LLE 2. ASA 81 mg BID for DVT prophylaxis 3. Ice to the left hip PRN 4. Daily dressing changes 5. F/U with Dr. Bai or myself in 1-2 weeks. 6. XR of left ankle negative for fracture 7. No evidence of cellulitis from clinical standpoint, cultures negative 8. Clear for discharge from an orthopedic standpoint 9. Rehab/HHC RN to d/c amos POD #8, cleanse with alcohol, apply steris.
[2018-04-07] MEDS: Vancomycin Inj 750 MG in Sodium Chlor 0.9% Inj 250 ML IV.SIG SCH (08:18)
[2018-04-07] MEDS: Piperacil/Tazo 4.5 GM Premix 4.5 GM/100 ML BAG IV.SIG SCH (08:20)
--- NOTE | 2018-04-07 08:39 | P.PNIM ---
Subjective Interval history: Follow-up for chest pain, left hip surgery Afebrile, complaining of chest pain, sharp, she thinks it may be from anxiety. Nonradiating, right in the middle in the sternal area. No dizziness, lightheadedness or palpitations. Afebrile. Physical Exam Vital signs: Vital Signs 04/06/18 10:50 04/06/18 12:00 04/06/18 16:00 Temperature 97.9 F 97.3 F L Pulse Rate 76 75 Respiratory Rate 18 18 Blood Pressure 133/67 132/65 Pulse Oximetry 98 95 94 L 04/06/18 20:00 04/06/18 20:41 04/07/18 00:00 Temperature 98.1 F 98.7 F Pulse Rate 88 82 Respiratory Rate 18 18 Blood Pressure 162/65 H 166/79 H Pulse Oximetry 97 98 96 04/07/18 04:00 Temperature 97.2 F L Pulse Rate 73 Respiratory Rate 18 Blood Pressure 128/63 Pulse Oximetry 95 Intake & Output 04/06/18 04/07/18 04/07/18 18:59 06:59 18:59 Intake Total 1400 / 1400 357.5 / 357.5 Output Total 6 / 6 Balance 1394 / 1394 357.5 / 357.5 Intake: IV 200 / 200 357.5 / 357.5 Zosyn 4.5 GM Premix 4.5 gm In 200 / 200 100 / 100 100 ml @ 200 mls/hr IV.SIG Q8H KRISTIN Rx#:[id number] Vancomycin Inj 750 MG In NS Inj 257.5 / 257.5 250 ML @ 250 mls/hr IV.SIG Q12H KRISTIN Rx#:[id number] Oral 1200 / 1200 Output: Urine 4 / 4 Stool 2 / 2 Other: # Voids 2 Date of Last Bowel Movement 04/06/18 04/06/18 Narrative: In mild distress, anxious Ecchymosis right side of her face Regular rate and rhythm, no murmurs, no reproducible tenderness Clear breath sounds Abdomen soft nontender 1+ edema left lower extremity, almost resolved, erythema improved. Decreased range of motion, poor effort. Awake alert and oriented, no focal deficits. Normal speech. - Urinary Catheter Management Indwelling Urethral Catheter Cath placed during this visit: yes, but has since been removed by the nurse Reason for continuing: Other continuation reason Insertion date: 04/03/18 Insertion time: 11:22 Removal date: 04/05/18 Removal time: 06:45 Results - Labs CBC & Chem 7: 04/04/18 05:43 04/05/18 06:23 Laboratory Results - last 24 hr 04/06/18 04/06/18 04/06/18 08:38 13:13 17:28 POC Glucose 120 H 201 H 272 H 04/06/18 04/06/18 04/07/18 21:24 23:58 06:19 POC Glucose 323 H 301 H 155 H Microbiology 04/02/18 13:15 Blood - Peripheral Aerobic Blood Culture - Preliminary No growth in 4 days 04/02/18 13:15 Blood - Peripheral Anaerobic Blood Culture - Preliminary No growth in 4 days 04/02/18 13:31 Blood - Peripheral Aerobic Blood Culture - Preliminary No growth in 4 days 04/02/18 13:31 Blood - Peripheral Anaerobic Blood Culture - Preliminary No growth in 4 days - Procedures Closed reduction with trochanteric nail fixation left proximal femur fracture 04/03/18 Assessment and Plan - Plan 60-year-old female with history of IV drug use and methadone, IDDM, chronic pain presenting to the emergency department after falling off her wheelchair and able to ambulate. Cellulitis left leg . No sepsis. Diabetic patient -Blood cultures negative to date, on vancomycin and Zosyn, no leukocytosis. Infection seems to have resolved, switch to Augmentin. S/p fall mechanical , Closed fracture of left hip requiring operative repair - X ray reviewed shows Left femoral intertrochanteric fracture, Ortho consulted , s/p Closed reduction with trochanteric nail fixation left proximal femur fracture 04/03/18, continue pain control, on methadone. Will start NSAIDs. CT head reviewed no acute findings Rhabdomyolysis-monitor CPK. Continue IVF. Awaiting labs for today Chronic pain-verified on methadone 110 mg daily, continue methadone, continue home dose of gabapentin, start NSAIDs. Chest pain-likely secondary to anxiety, check EKG serially and troponin, if negative, may start Ativan. Continue aspirin. IDDM-restart Levemir, Accu-Cheks. DVT ppx SCD/TEDS , chemical ppx with aspirin per surgeon
[2018-04-07] MEDS: Methadone 10 MG Tablet PO SCH (09:07)
[2018-04-07] MEDS: Multivitamin/Minerals Therapeutic Tablet PO SCH (09:09)
[2018-04-07] MEDS: Gabapentin 300 MG Capsule PO SCH ×3 (09:09→18:12)
[2018-04-07] MEDS: Senna/Docusate Sodium 8.6/50 MG Tablet PO SCH ×3 (09:09→22:11)
[2018-04-07] MEDS: Insulin Detemir Inj 1,000 UNIT/10 ML Vial SQ SCH ×2 (09:12→22:11)
[2018-04-07] MEDS: ALPRAZolam 0.25 MG Tablet PO PRN ×2 (11:59→19:57)
[2018-04-07] MEDS: Meloxicam 7.5 MG Tablet PO PRN (12:00)
[2018-04-07 17:20] LABS: Hematocrit 26.6 % (35.0-46.0); Hemoglobin 8.9 gm/dL (11.6-15.3); Mean Corpuscular HGB Conc 33.5 % (32.0-36.0); Mean Corpuscular Hemoglobin 29.6 pg (27.0-34.0); Mean Corpuscular Volume 88.2 fL (80.0-100.0); Mean Platelet Volume 11.1 fL (7.0-11.0); Platelet Count 134 th/mm3 (150-450); Red Blood Count 3.01 mil/mm3 (4.00-5.30); White Blood Count 7.2 th/mm3 (4.0-11.0)
[2018-04-07 17:34] LABS: Anion Gap 9 meq/L (5-15); Blood Urea Nitrogen 10 mg/dL (7-18); Calcium 7.6 mg/dL (8.5-10.1); Carbon Dioxide 27.2 meq/L (21.0-32.0); Chloride 100 meq/L (98-107); Glomerular Filtration Rate 78 mL/min (>89); Glucose,Random 289 mg/dL (74-106); Magnesium 1.7 mg/dL (1.5-2.5); Potassium 3.9 meq/L (3.5-5.1); Sodium 136 meq/L (136-145)
[2018-04-07 17:38] LABS: Creatine Kinase 132 U/L (26-192)
[2018-04-07] MEDS: Amoxicillin/Clavulanate 875/125 MG Tablet PO SCH (22:11)
--- NOTE | 2018-04-07 23:03 | ECG ---
Date Performed: 04/07/2018 Time Performed: 10:07:56 PTAGE: 62 years EKG: Sinus rhythm LOW QRS VOLTAGE IN PRECORDIAL LEADS ABNORMAL ECG INTERPRETATION BASED ON A DEFAULT AGE OF 40 YEARS PREVIOUS TRACING : 04/02/2018 07.51 Since the previous tracing, no significant change not ed DOCTOR: Marquise Hurley Interpretating Date/Time 04/07/2018 23:01:25
[2018-04-08] MEDS: Insulin NovoLOG Aspart Correctional Sugar Inj SQ SCH ×4 (01:18→18:18)
[2018-04-08] MEDS: ALPRAZolam 0.25 MG Tablet PO PRN ×2 (04:42→20:59)
[2018-04-08] MEDS ORDERED: Pharmacy Ordered Lab Info OTHER SCH (04:45)
[2018-04-08] MEDS: Gabapentin 300 MG Capsule PO SCH ×3 (09:29→18:18)
[2018-04-08] MEDS: Amoxicillin/Clavulanate 875/125 MG Tablet PO SCH ×2 (09:29→20:59)
[2018-04-08] MEDS: Multivitamin/Minerals Therapeutic Tablet PO SCH (09:30)
[2018-04-08] MEDS: Methadone 10 MG Tablet PO SCH (09:30)
[2018-04-08] MEDS: Senna/Docusate Sodium 8.6/50 MG Tablet PO SCH ×2 (09:34→21:02)
[2018-04-08] MEDS: Insulin Detemir Inj 1,000 UNIT/10 ML Vial SQ SCH ×2 (13:44→21:16)
--- NOTE | 2018-04-08 15:25 | P.PNIM ---
Subjective Interval history: Patient still complaining of chest pain, mostly when she takes a deep breath. Not short of breath. She does not appear to be anxious. When I walked into the room, she was sleeping very comfortably. When he woke her up, she started complaining of substernal chest pain especially with movement. She also endorses history of pulmonary embolism years ago diagnosed with a CT scan of the chest. Physical Exam Vital signs: Vital Signs 04/07/18 20:00 04/08/18 00:00 04/08/18 08:00 Temperature 98.6 F 97.7 F 98.1 F Pulse Rate 81 82 76 Respiratory Rate 16 20 18 Blood Pressure 133/74 153/79 H 129/84 Pulse Oximetry 95 95 94 L 04/08/18 11:57 Temperature 98.2 F Pulse Rate 77 Respiratory Rate 18 Blood Pressure 129/82 Pulse Oximetry 94 L Intake & Output 04/07/18 04/08/18 04/08/18 18:59 06:59 18:59 Intake Total 2350 / 2350 720 / 720 Output Total 800 / 800 Balance 2350 / 2350 -80 / -80 Weight 92.9 kg Intake: IV 850 / 850 NS Inj 1,000 ML @ 100 mls/hr IV 850 / 850 .CONT .Q10H KRISTIN Rx#:[id number] Oral 1500 / 1500 720 / 720 Output: Urine 800 / 800 Other: # Voids 7 0 Date of Last Bowel Movement 04/07/18 04/07/18 # Bowel Movements 3 Narrative: GENERAL: 62 yo F with ecchymoses over right side of her face, appears to be in pain. SKIN: Lower leg from ankle to mid chacon erythema and edema improved. EYES: Pupils equal and round. Ecchymosis and severe tenderness noted over the left eyelid. CARDIOVASCULAR: Regular rate and rhythm. Tenderness on palpation of the sternal area. RESPIRATORY: No accessory muscle use. Clear to auscultation. Breath sounds equal bilaterally. GASTROINTESTINAL: Abdomen soft, non-tender, nondistended. Hepatic and splenic margins not palpable. MUSCULOSKELETAL: 1+ edema in the lower legs bilaterally with erythema from the ankle to the mid chacon improving. Distal pulses are 2+ bilaterally. Strength grossly normal. No obvious deformity or limited range of motion in the right leg. NEUROLOGICAL: Awake and alert. Motor grossly within normal limits except for the left leg secondary to injury. Normal speech. - Urinary Catheter Management Indwelling Urethral Catheter Cath placed during this visit: yes, but has since been removed by the nurse Reason for continuing: Other continuation reason Insertion date: 04/03/18 Insertion time: 11:22 Removal date: 04/05/18 Removal time: 06:45 Results - Labs CBC & Chem 7: 04/07/18 16:00 04/07/18 16:00 Laboratory Results - last 24 hr 04/07/18 04/07/18 04/07/18 16:00 16:00 16:00 WBC 7.2 RBC 3.01 L Hgb 8.9 L Hct 26.6 L MCV 88.2 MCH 29.6 MCHC 33.5 RDW 14.0 Plt Count 134 L MPV 11.1 H Sodium 136 Potassium 3.9 Chloride 100 Carbon Dioxide 27.2 Anion Gap 9 BUN 10 Creatinine Cancelled 0.75 Estimated GFR Cancelled 78 L POC Glucose Random Glucose 289 H Calcium 7.6 L Magnesium 1.7 Total Creatine Kinase 132 Troponin I Less than 0.02 L 04/07/18 04/07/18 04/07/18 16:00 18:04 22:00 WBC RBC Hgb Hct MCV MCH MCHC RDW Plt Count MPV Sodium Potassium Chloride Carbon Dioxide Anion Gap BUN Creatinine Estimated GFR POC Glucose 293 H 337 H Random Glucose Calcium Magnesium Total Creatine Kinase Troponin I Cancelled 04/07/18 04/08/18 04/08/18 22:28 01:10 06:30 WBC RBC Hgb Hct MCV MCH MCHC RDW Plt Count MPV Sodium Potassium Chloride Carbon Dioxide Anion Gap BUN Creatinine Estimated GFR POC Glucose 391 H Random Glucose Calcium Magnesium Total Creatine Kinase Troponin I Less than 0.02 L Less than 0.02 L 04/08/18 14:08 WBC RBC Hgb Hct MCV MCH MCHC RDW Plt Count MPV Sodium Potassium Chloride Carbon Dioxide Anion Gap BUN Creatinine Estimated GFR POC Glucose 435 H Random Glucose Calcium Magnesium Total Creatine Kinase Troponin I - Procedures Closed reduction with trochanteric nail fixation left proximal femur fracture 04/03/18 Assessment and Plan - Plan 60-year-old female with history of IV drug use and methadone, IDDM, chronic pain presenting to the emergency department after falling off her wheelchair and able to ambulate. Cellulitis left leg . No sepsis. Diabetic patient -Blood cultures negative to date, on vancomycin and Zosyn, no leukocytosis. Cont Augmentin. S/p fall mechanical , Closed fracture of left hip requiring operative repair - X ray reviewed shows Left femoral intertrochanteric fracture, Ortho consulted , s/p Closed reduction with trochanteric nail fixation left proximal femur fracture 04/03/18, continue pain control, on methadone. Will start NSAIDs. CT head reviewed no acute findings Rhabdomyolysis-monitor CPK. Continue IVF. Awaiting labs for today Chronic pain-verified on methadone 110 mg daily, continue methadone, continue home dose of gabapentin, continue NSAIDs. Chest pain-EKG remained unremarkable, sinus rhythm, troponin negative 3. Likely from anxiety, stop Ativan. Continue aspirin. Per patient, the history of pulmonary embolism. Check CTA to rule out pulmonary embolism. IDDM-restart Levemir, Accu-Cheks. DVT ppx SCD/TEDS , chemical ppx with aspirin per surgeon
--- NOTE | 2018-04-08 16:34 | CT ---
EXAM DATE: 04/08/2018 4:28 PM EDT AGE/SEX: 62 years / Female INDICATIONS: Severe chest pain, post op hip surgery CLINICAL DATA: This is the patient's initial encounter. Patient reports that signs and symptoms have been present for 1 day and indicates a pain score of 7/10. MEDICAL/SURGICAL HISTORY: Diabetes. Hepatitis C. . Hip repair RADIATION DOSE: 10.62 CTDI (mGy) COMPARISON: [facility] [place], 04/25/2015. . TECHNIQUE: Volumetric scanning was performed using a multi-row detector CT scanner during bolus infu hai of 70 ml Omnipaque 350 (iohexol) nonionic water-soluble contrast as a single exam dose. The jenny a was post processed with a variety of visualization algorithms including full volume maximum intensi ty projection and sliding thin slab reformation. Using automated exposure control and adjustment of t he mA and/or kV according to patient size, radiation dose was kept as low as reasonably achievable to obtain optimal diagnostic quality images. DICOM format image data is available electronically for r eview and comparison. FINDINGS: Pulmonary Arteries: No filling defects are seen in the pulmonary arteries out to the subsegmental ve ssels. The left and right pulmonary arteries are normal in diameter. Lung: No confluent infiltrates. There is linear scarring and/or atelectasis in the right lower lobe. Effusion: None. Mediastinum: No evidence of mediastinal or hilar adenopathy. Coronary artery calcifications are agai n noted. Other: The axilla is unremarkable. CONCLUSION: 1. No evidence of pulmonary embolism. 2. Mild scarring and/or atelectasis in the right lower lobe. 3. Coronary artery calcifications. Electronically signed by: Dyllan Mas MD 04/08/2018 4:32 PM EDT
[2018-04-08] MEDS: Sod Chloride 0.9% Inj 1,000 ML IV.CONT SCH ×3 (18:00→20:59)
--- NOTE | 2018-04-08 22:25 | ECG ---
Date Performed: 04/07/2018 Time Performed: 21:43:30 PTAGE: 62 years EKG: Sinus rhythm NORMAL ECG PREVIOUS TRACING : 04/07/2018 15.32 Since the previous tracing, no significant change noted DOCTOR: Keith Palacios Interpretating Date/Time 04/08/2018 22:24:09
--- NOTE | 2018-04-08 22:38 | ECG ---
Date Performed: 04/07/2018 Time Performed: 15:32:51 PTAGE: 62 years EKG: Sinus rhythm LOW QRS VOLTAGE IN PRECORDIAL LEADS BORDERLINE ECG PREVIOUS TRACING : 04/07/2018 10.07 Since the previous tracing, no significant change noted DOCTOR: Keith Palacios Interpretating Date/Time 04/08/2018 22:36:28
[2018-04-09] MEDS: Insulin NovoLOG Aspart Correctional Sugar Inj SQ SCH ×4 (04:26→18:22)
[2018-04-09] MEDS: Methadone 10 MG Tablet PO SCH (09:17)
[2018-04-09] MEDS: Sod Chloride 0.9% Inj 1,000 ML IV.CONT SCH (09:18)
[2018-04-09] MEDS: Gabapentin 300 MG Capsule PO SCH ×3 (09:18→17:31)
[2018-04-09] MEDS: Senna/Docusate Sodium 8.6/50 MG Tablet PO SCH ×2 (09:18→20:19)
[2018-04-09] MEDS: Multivitamin/Minerals Therapeutic Tablet PO SCH (09:18)
[2018-04-09] MEDS: Amoxicillin/Clavulanate 875/125 MG Tablet PO SCH ×2 (09:18→17:31)
[2018-04-09] MEDS: ALPRAZolam 0.25 MG Tablet PO PRN (10:14)
--- NOTE | 2018-04-09 14:24 | P.PNIM ---
Subjective Interval history: still c/o of chest pain worse with movement, no sob, no fever. BGs are 290s- 420s. No motivation to participate with PT Physical Exam Vital signs: Vital Signs 04/08/18 16:00 04/08/18 19:53 04/08/18 20:00 Temperature 97.5 F L 98.1 F Pulse Rate 87 86 Respiratory Rate 17 16 18 Blood Pressure 146/72 H 116/61 Pulse Oximetry 95 95 04/09/18 00:00 04/09/18 00:10 04/09/18 04:00 Temperature 98.3 F 98.3 F Pulse Rate 83 82 Respiratory Rate 18 16 18 Blood Pressure 120/75 107/55 L Pulse Oximetry 93 L 94 L 04/09/18 08:00 04/09/18 09:00 Temperature 98 F Pulse Rate 75 75 Respiratory Rate 16 Blood Pressure 128/61 Pulse Oximetry 94 L Intake & Output 04/08/18 04/09/18 04/09/18 18:59 06:59 18:59 Intake Total 750 / 750 Balance 750 / 750 Weight 92.9 kg Intake: Oral 750 / 750 Other: # Voids 4 3 Date of Last Bowel Movement 04/07/18 04/08/18 04/08/18 # Bowel Movements 1 Narrative: GENERAL: 62 yo F with ecchymoses over right side of her face CARDIOVASCULAR: Regular rate and rhythm. Tenderness on palpation of the sternal area. (+) tenderness on chest palpation RESPIRATORY: No accessory muscle use. Clear to auscultation. Breath sounds equal bilaterally. GASTROINTESTINAL: Abdomen soft, non-tender, nondistended. Hepatic and splenic margins not palpable. MUSCULOSKELETAL: Trace edema in the lower legs bilaterally, erythema resolved. Distal pulses are 2+ bilaterally. Strength grossly normal. No obvious deformity or limited range of motion in the right leg. NEUROLOGICAL: Awake and alert. Motor grossly within normal limits except for the left leg secondary to injury. Normal speech. - Urinary Catheter Management Indwelling Urethral Catheter Cath placed during this visit: yes, but has since been removed by the nurse Reason for continuing: Other continuation reason Insertion date: 04/03/18 Insertion time: 11:22 Removal date: 04/05/18 Removal time: 06:45 Results - Labs CBC & Chem 7: 04/07/18 16:00 04/07/18 16:00 Laboratory Results - last 24 hr 04/08/18 04/08/18 04/08/18 14:08 17:07 21:13 POC Glucose 435 H 397 H 321 H 04/09/18 04/09/18 04/09/18 00:56 05:48 09:16 POC Glucose 287 H 319 H 329 H 04/09/18 13:01 POC Glucose 419 H - Imaging Impressions Chest CTA 04/08/18 00:00 CONCLUSION: 1. No evidence of pulmonary embolism. 2. Mild scarring and/or atelectasis in the right lower lobe. 3. Coronary artery calcifications. - Procedures Closed reduction with trochanteric nail fixation left proximal femur fracture 04/03/18 Assessment and Plan - Plan 60-year-old female with history of IV drug use and methadone, IDDM, chronic pain presenting to the emergency department after falling off her wheelchair and able to ambulate. Cellulitis left leg . No sepsis. Diabetic patient -Blood cultures negative to date, on vancomycin and Zosyn, no leukocytosis. Cont Augmentin, finish 04/10 S/p fall mechanical , Closed fracture of left hip requiring operative repair - X ray reviewed shows Left femoral intertrochanteric fracture, Ortho consulted , s/p Closed reduction with trochanteric nail fixation left proximal femur fracture 04/03/18, continue pain control, on methadone. Rhabdomyolysis- CR 132, resolved, stop IVF Chronic pain-verified on methadone 110 mg daily, continue methadone, continue home dose of gabapentin, continue Mobic Chest pain-EKG remained unremarkable, sinus rhythm, troponin negative 3. Likely from anxiety, stop Xanax. Continue aspirin. CTA negative for PE. IDDM-uncontrolled, increase Levemir to 30 units twice a day with sliding scale insulin DVT ppx SCD/TEDS , chemical ppx with aspirin per surgeon Needs rehab, patient does not have a payer source, patient has poor motivation and not cooperating with physical therapy.
[2018-04-09] MEDS: Insulin Detemir Inj 1,000 UNIT/10 ML Vial SQ SCH ×2 (18:23→20:19)
[2018-04-10] MEDS: Insulin NovoLOG Aspart Correctional Sugar Inj SQ SCH ×4 (00:03→18:58)
[2018-04-10] MEDS: Insulin Detemir Inj 1,000 UNIT/10 ML Vial SQ SCH ×2 (00:20→10:27)
[2018-04-10] MEDS: Amoxicillin/Clavulanate 875/125 MG Tablet PO SCH ×2 (05:10→19:00)
[2018-04-10] MEDS: Methadone 10 MG Tablet PO SCH (10:26)
[2018-04-10] MEDS: Multivitamin/Minerals Therapeutic Tablet PO SCH (10:26)
[2018-04-10] MEDS: Gabapentin 300 MG Capsule PO SCH ×3 (10:26→18:57)
[2018-04-10] MEDS: Senna/Docusate Sodium 8.6/50 MG Tablet PO SCH (10:27)
--- NOTE | 2018-04-10 14:09 | P.PNIM ---
Subjective Interval history: Follow-up for hyperglycemia BGs in the 300s-550, allegedly compliant with diet, also complaining of bilateral lower extremity swelling, no shortness of breath, Physical Exam Vital signs: Vital Signs 04/09/18 20:00 04/09/18 21:30 04/09/18 22:07 Temperature 98.5 F Pulse Rate 79 Respiratory Rate 17 18 18 Blood Pressure 138/71 Pulse Oximetry 94 L 04/09/18 23:00 04/09/18 23:39 04/10/18 02:44 Temperature 98.8 F Pulse Rate 81 Respiratory Rate 18 18 18 Blood Pressure 135/64 Pulse Oximetry 93 L 04/10/18 04:00 04/10/18 08:00 04/10/18 11:41 Temperature 98.9 F 98 F Pulse Rate 79 81 Respiratory Rate 18 17 18 Blood Pressure 146/70 H 144/71 H Pulse Oximetry 95 94 L 04/10/18 12:00 Temperature 98.2 F Pulse Rate 76 Respiratory Rate 16 Blood Pressure 140/78 Pulse Oximetry 95 Intake & Output 04/09/18 04/10/18 04/10/18 18:59 06:59 18:59 Weight 92.9 kg Other: # Voids 3 2 Date of Last Bowel Movement 04/08/18 04/08/18 Narrative: GENERAL: 62 yo F with ecchymoses over right side of her face CARDIOVASCULAR: Regular rate and rhythm. Tenderness on palpation of the sternal area. (+) tenderness on chest palpation RESPIRATORY: No accessory muscle use. Clear to auscultation. Breath sounds equal bilaterally. GASTROINTESTINAL: Abdomen soft, non-tender, nondistended. Hepatic and splenic margins not palpable. MUSCULOSKELETAL: 1+ edema in the lower legs bilaterally, erythema resolved. Distal pulses are 2+ bilaterally. Strength grossly normal. NEUROLOGICAL: Awake and alert. Motor grossly within normal limits except for the left leg secondary to injury. Normal speech. - Urinary Catheter Management Indwelling Urethral Catheter Cath placed during this visit: yes, but has since been removed by the nurse Reason for continuing: Other continuation reason Insertion date: 04/03/18 Insertion time: 11:22 Removal date: 04/05/18 Removal time: 06:45 Results - Labs CBC & Chem 7: 04/07/18 16:00 04/09/18 21:20 Laboratory Results - last 24 hr 0804/09/18 04/09/18 17:30 21:20 21:25 Creatinine 0.94 Estimated GFR 60 L POC Glucose 551 H* 312 H 04/09/18 04/10/18 04/10/18 23:58 05:04 11:28 Creatinine Estimated GFR POC Glucose 365 H 316 H 421 H - Procedures Closed reduction with trochanteric nail fixation left proximal femur fracture 04/03/18 Assessment and Plan - Plan 60-year-old female with history of IV drug use and methadone, IDDM, chronic pain presenting to the emergency department after falling off her wheelchair and able to ambulate. Cellulitis left leg . No sepsis. Diabetic patient -Blood cultures negative to date, on vancomycin and Zosyn, no leukocytosis. Cont Augmentin, finish 04/10 S/p fall mechanical , Closed fracture of left hip requiring operative repair - X ray reviewed shows Left femoral intertrochanteric fracture, Ortho consulted , s/p Closed reduction with trochanteric nail fixation left proximal femur fracture 04/03/18, continue pain control, on methadone. Rhabdomyolysis- CR 132, resolved, stop IVF B LE swelling - will give a few doses of lasix, check BMP Chronic pain-verified on methadone 110 mg daily, continue methadone, continue home dose of gabapentin, continue Mobic Chest pain-EKG remained unremarkable, sinus rhythm, troponin negative 3. Continue aspirin. CTA negative for PE. IDDM-uncontrolled, increase Levemir to 35 units twice a day with sliding scale insulin, SSI about 16 U daily. DVT ppx SCD/TEDS , chemical ppx with aspirin per surgeon Needs rehab, patient does not have a payer source, patient has poor motivation and not cooperating with physical therapy.
[2018-04-10] MEDS: Furosemide 20 MG Tablet PO SCH ×2 (15:12→19:02)
[2018-04-11] MEDS: Amoxicillin/Clavulanate 875/125 MG Tablet PO SCH ×3 (05:00→23:05)
[2018-04-11] MEDS: Senna/Docusate Sodium 8.6/50 MG Tablet PO SCH ×3 (09:10→21:03)
[2018-04-11] MEDS: Insulin NovoLOG Aspart Correctional Sugar Inj SQ SCH ×3 (09:22→18:43)
[2018-04-11] MEDS: Methadone 10 MG Tablet PO SCH (09:37)
[2018-04-11] MEDS: Multivitamin/Minerals Therapeutic Tablet PO SCH (09:39)
[2018-04-11] MEDS: Gabapentin 300 MG Capsule PO SCH ×3 (09:39→18:43)
[2018-04-11] MEDS: Insulin Detemir Inj 1,000 UNIT/10 ML Vial SQ SCH ×2 (09:40→21:03)
[2018-04-11] MEDS: Furosemide 20 MG Tablet PO SCH ×2 (09:44→18:43)
--- NOTE | 2018-04-11 10:10 | P.PNIM ---
Subjective Interval history: Follow-up for hyperglycemia Be just more stable to 200-360s after increasing Levemir. Patient still constantly complaining of chest pain with movement but appears comfortable, no shortness of breath. She has not been participating with physical therapy, lacks motivation. I told her that if she refuses to participate, we will decrease and taper her methadone which could be giving her fatigue. Physical Exam Vital signs: Vital Signs 04/10/18 11:41 04/10/18 12:00 04/10/18 16:00 Temperature 98.2 F 98.3 F Pulse Rate 76 76 Respiratory Rate 18 16 16 Blood Pressure 140/78 138/68 Pulse Oximetry 95 98 04/10/18 20:00 04/11/18 00:00 04/11/18 04:00 Temperature 98.2 F 98.3 F 98.2 F Pulse Rate 78 77 76 Respiratory Rate 16 16 17 Blood Pressure 136/72 135/70 132/72 Pulse Oximetry 98 98 98 04/11/18 08:00 Temperature 98.1 F Pulse Rate 70 Respiratory Rate 18 Blood Pressure 125/62 Pulse Oximetry 93 L Intake & Output 04/10/18 04/11/18 04/11/18 18:59 06:59 18:59 Output Total Balance - / - Weight 93 kg Output: Stool Other: # Voids 3 Date of Last Bowel Movement 04/08/18 Narrative: GENERAL: 62 yo F with ecchymoses over right side of her face CARDIOVASCULAR: Regular rate and rhythm. Tenderness on palpation of the sternal area. (+) tenderness on chest palpation RESPIRATORY: No accessory muscle use. Clear to auscultation. Breath sounds equal bilaterally. GASTROINTESTINAL: Abdomen soft, non-tender, nondistended. Hepatic and splenic margins not palpable. MUSCULOSKELETAL: 1+ edema in the lower legs bilaterally, improving, erythema resolved. Distal pulses are 2+ bilaterally. Strength grossly normal. NEUROLOGICAL: Awake and alert. Motor grossly within normal limits except for the left leg secondary to injury. Normal speech. - Urinary Catheter Management Indwelling Urethral Catheter Cath placed during this visit: yes, but has since been removed by the nurse Reason for continuing: Other continuation reason Insertion date: 04/03/18 Insertion time: 11:22 Removal date: 04/05/18 Removal time: 06:45 Results - Labs CBC & Chem 7: 04/07/18 16:00 04/09/18 21:20 Laboratory Results - last 24 hr 04/10/18 04/10/18 04/11/18 11:28 17:38 01:10 POC Glucose 421 H 359 H 309 H 04/11/18 08:36 POC Glucose 206 H - Procedures Closed reduction with trochanteric nail fixation left proximal femur fracture 04/03/18 Assessment and Plan - Plan 60-year-old female with history of IV drug use and methadone, IDDM, chronic pain presenting to the emergency department after falling off her wheelchair and able to ambulate. Cellulitis left leg . No sepsis. Diabetic patient -Blood cultures negative to date, on vancomycin and Zosyn, no leukocytosis. Cont Augmentin, finished 04/10 S/p fall mechanical , Closed fracture of left hip requiring operative repair - X ray reviewed shows Left femoral intertrochanteric fracture, Ortho consulted , s/p Closed reduction with trochanteric nail fixation left proximal femur fracture 04/03/18, continue pain control, on methadone. No other narcotics. Rhabdomyolysis- CR 132, resolved B LE swelling - will give a few doses of lasix, BMP today pending, lower extremity swelling better, extend Lasix dosing if needed. Chronic pain-verified on methadone 110 mg daily, continue methadone, continue home dose of gabapentin, continue Mobic. She has not been participating with physical therapy, it appears that she lacks motivation. I told her that if she refuses to participate, we will decrease and taper her methadone which could be giving her fatigue. Chest pain-EKG remained unremarkable, sinus rhythm, troponin negative 3. Continue aspirin. CTA negative for PE. Likely musculoskeletal. IDDM-uncontrolled, increased Levemir to 35 units twice a day on 04/10, with sliding scale insulin DVT ppx SCD/TEDS , chemical ppx with aspirin per surgeon Needs rehab, patient does not have a payer source, patient has poor motivation and not cooperating with physical therapy. Continue physical therapy in-house while awaiting for possible jodi bed
[2018-04-11 14:00] LABS: Calcium 8.5 mg/dL (8.5-10.1); Carbon Dioxide 32.3 meq/L (21.0-32.0); Potassium 3.8 meq/L (3.5-5.1)
[2018-04-11] MEDS: ALPRAZolam 0.25 MG Tablet PO PRN (16:25)
[2018-04-11] MEDS: Temazepam 15 MG Capsule PO PRN (23:05)
[2018-04-11] MEDS: Meloxicam 7.5 MG Tablet PO PRN (23:22)
[2018-04-12] MEDS: Insulin NovoLOG Aspart Correctional Sugar Inj SQ SCH ×4 (02:46→17:47)
[2018-04-12] MEDS: ALPRAZolam 0.25 MG Tablet PO PRN ×3 (05:35→21:32)
[2018-04-12] MEDS: Methadone 10 MG Tablet PO SCH (09:04)
[2018-04-12] MEDS: Insulin Detemir Inj 1,000 UNIT/10 ML Vial SQ SCH ×2 (09:05→20:39)
[2018-04-12] MEDS: Gabapentin 300 MG Capsule PO SCH ×3 (09:05→17:47)
[2018-04-12] MEDS: Multivitamin/Minerals Therapeutic Tablet PO SCH (09:05)
--- NOTE | 2018-04-12 12:27 | P.PNIM ---
Subjective Interval history: Pt seem and examined for f/u L hip fracture and poorly controlled DM. Only complaint is severe pain everywhere but mostly over L hip. She is nine days post -op from closed reduction. Per RN, patient not motivated with PT and not always participating. Always complaining of pain but appears comfortable. No CP or SOB. Physical Exam Vital signs: Vital Signs 04/11/18 16:00 04/11/18 19:37 04/11/18 20:00 Temperature 97.8 F 98.2 F Pulse Rate 77 77 Respiratory Rate 18 18 18 Blood Pressure 118/61 105/53 L Pulse Oximetry 94 L 98 04/11/18 23:36 04/12/18 08:00 04/12/18 12:00 Temperature 98.5 F 98.1 F 98.1 F Pulse Rate 78 76 71 Respiratory Rate 18 17 18 Blood Pressure 113/59 L 112/57 L 105/62 Pulse Oximetry 97 93 L 93 L Intake & Output 04/11/18 04/12/18 04/12/18 18:59 06:59 18:59 Intake Total 960 / 960 480 / 480 Balance 960 / 960 480 / 480 Weight 93 kg Intake: Oral 960 / 960 480 / 480 Other: # Voids 3 # Incontinent Voids 2 3 Date of Last Bowel Movement 04/10/18 04/10/18 04/10/18 # Bowel Movements 1 0 Narrative: GENERAL: female sitting up in chair in NAD. Appears comfortable but complaining of severe pain. SKIN: Warm and dry. HEART: RRR no m/r/g. LUNGS: CTAB without wheezes or crackles. ABDOMEN: +BS, soft, NT, ND. EXTREMITIES: Dressing over L hip clean and dry. NEURO: Awake and alert. - Urinary Catheter Management Indwelling Urethral Catheter Cath placed during this visit: yes, but has since been removed by the nurse Reason for continuing: Other continuation reason Insertion date: 04/03/18 Insertion time: 11:22 Removal date: 04/05/18 Removal time: 06:45 Results - Labs CBC & Chem 7: 04/07/18 16:00 04/11/18 11:55 Laboratory Results - last 24 hr 04/11/18 04/11/18 04/11/18 11:55 17:41 20:56 Sodium 133 L Potassium 3.8 Chloride 93 L Carbon Dioxide 32.3 H Anion Gap 8 BUN 17 Creatinine 0.89 Estimated GFR 64 L POC Glucose 354 H 290 H Random Glucose 313 H Calcium 8.5 04/11/18 04/12/18 23:12 05:37 Sodium Potassium Chloride Carbon Dioxide Anion Gap BUN Creatinine Estimated GFR POC Glucose 268 H 221 H Random Glucose Calcium - Procedures Closed reduction with trochanteric nail fixation left proximal femur fracture 04/03/18 Assessment and Plan - Assessment (1) Closed fracture of left hip requiring operative repair Code(s): S72.002A - Fracture of unspecified part of neck of left femur, initial encounter for closed fracture Status: Acute (2) Uncontrolled diabetes mellitus Code(s): E11.65 - Type 2 diabetes mellitus with hyperglycemia Status: Acute - Plan 60 year old female with history of IVDU, chronic methadone maintenance , IDDM, and chronic pain admitted on 04/02 for L hip fracture after falling. 1. L hip fracture - Ortho consulted, s/p closed reduction with trochanteric nail fixation left proximal femur fracture 04/03 - Pain difficult to control given her chronic pain and history of opiate use - Continue methadone - Tylenol and Mobic PRN - Can consider Lidoderm patch if no improvement 2. LLE cellulitis - Resolved - Blood cultures negative - Finished antibiotics (vancomycin and Zosyn, switched to Augmentin and finished 04/10) 3. Rhabdo - Resolved 4. Chronic pain - Verified on methadone 110 mg daily which will be continued - Continue home gabapentin - Mobic PRN 5. Chest pain - Likely MSK - EKG unremarkable, CTA negative for PE - Troponins negative - Continue ASA 6. 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 She has poor motivation and not cooperating with physical therapy. Continue physical therapy in-house while awaiting for possible jodi bed (1) Closed fracture of left hip requiring operative repair Qualifiers: Encounter type: initial encounter Qualified Code(s): S72.002A - Fracture of unspecified part of neck of left femur, initial encounter for closed fracture (2) Uncontrolled diabetes mellitus Qualifiers: Diabetes mellitus type: type 2 Diabetes mellitus parts counterman insulin use: with senior care use Diabetes mellitus complication status: with unspecified complications Qualified Code(s): E11.8 - Type 2 diabetes mellitus with unspecified complications; E11.65 - Type 2 diabetes mellitus with hyperglycemia ; Z79.4 - halfway (current) use of insulin
[2018-04-12] MEDS: Senna/Docusate Sodium 8.6/50 MG Tablet PO SCH ×2 (13:09→20:31)
[2018-04-12] MEDS: Meloxicam 7.5 MG Tablet PO PRN (17:47)
[2018-04-12] MEDS ORDERED: Heparin - SQ 10,000 UNITS/ML Vial SQ SCH (21:00)
[2018-04-13] MEDS: Insulin NovoLOG Aspart Correctional Sugar Inj SQ SCH ×4 (01:05→18:19)
[2018-04-13] MEDS: ALPRAZolam 0.25 MG Tablet PO PRN ×2 (06:04→20:52)
[2018-04-13] MEDS: Senna/Docusate Sodium 8.6/50 MG Tablet PO SCH ×2 (09:06→20:50)
[2018-04-13] MEDS: Meloxicam 7.5 MG Tablet PO PRN (09:06)
[2018-04-13] MEDS: Gabapentin 300 MG Capsule PO SCH ×3 (09:06→18:19)
[2018-04-13] MEDS: Multivitamin/Minerals Therapeutic Tablet PO SCH (09:06)
[2018-04-13] MEDS: Methadone 10 MG Tablet PO SCH (09:07)
[2018-04-13] MEDS: Insulin Detemir Inj 1,000 UNIT/10 ML Vial SQ SCH ×2 (09:09→21:58)
--- NOTE | 2018-04-13 10:28 | P.PNIM ---
Subjective Interval history: Pt seen and examined for f/u L hip fracture, poorly controlled DM, and chronic pain. Reports she is in severe pain "all over." She states she is allergic to Ketoralac, NSAIDs and Tylenol do nothing, and the only thing that works is "Dilaudid, oxycodone, and Dilaudid." She has a history of IV narcotic use, last use about 4 years ago and has since been maintained on methadone. She is taking 110 mg daily and at one time tried to go down to 100 mg but "got sick." When I leave the room patient appears comfortable and goes about eating her breakfast. Physical Exam Vital signs: Vital Signs 04/12/18 12:00 04/12/18 16:00 04/12/18 20:00 Temperature 98.1 F 97.7 F Pulse Rate 71 65 Respiratory Rate 18 17 18 Blood Pressure 105/62 119/57 L Pulse Oximetry 93 L 94 L 04/12/18 20:15 04/12/18 23:10 Temperature 97.7 F 98.0 F Pulse Rate 79 76 Respiratory Rate 18 18 Blood Pressure 118/60 119/58 L Pulse Oximetry 98 93 L Intake & Output 04/12/18 04/13/18 04/13/18 18:59 06:59 18:59 Intake Total 360 / 360 Balance 360 / 360 Weight 93 kg Intake: Oral 360 / 360 Other: # Voids 6 5 Date of Last Bowel Movement 04/10/18 04/12/18 # Bowel Movements 1 0 Narrative: GENERAL: female sitting up in bed in [facility]. Appears comfortable but complaining of severe pain. SKIN: Warm and dry. HEART: RRR no m/r/g. LUNGS: CTAB without wheezes or crackles. ABDOMEN: +BS, soft, NT, ND. EXTREMITIES: Dressing over L hip clean and dry. NEURO: Awake and alert. - Urinary Catheter Management Indwelling Urethral Catheter Cath placed during this visit: yes, but has since been removed by the nurse Reason for continuing: Other continuation reason Insertion date: 04/03/18 Insertion time: 11:22 Removal date: 04/05/18 Removal time: 06:45 Results - Labs CBC & Chem 7: 04/07/18 16:00 04/11/18 11:55 Laboratory Results - last 24 hr 04/12/18 04/12/18 04/12/18 13:06 17:45 20:38 POC Glucose 338 H 280 H 285 H 04/13/18 04/13/18 00:51 06:07 POC Glucose 361 H 225 H - Procedures Closed reduction with trochanteric nail fixation left proximal femur fracture 04/03/18 Assessment and Plan - Assessment (1) Closed fracture of left hip requiring operative repair Code(s): S72.002A - Fracture of unspecified part of neck of left femur, initial encounter for closed fracture Status: Acute (2) Uncontrolled diabetes mellitus Code(s): E11.65 - Type 2 diabetes mellitus with hyperglycemia Status: Acute - Plan 60 year old female with history of IVDU, chronic methadone maintenance , IDDM, and chronic pain admitted on 04/02 for L hip fracture after falling. 1. L hip fracture - Ortho consulted, s/p closed reduction with trochanteric nail fixation left proximal femur fracture 04/03 - Pain difficult to control given her chronic pain and history of opiate use - Continue methadone - Tylenol and Mobic PRN - Lidoderm patch - Avoid narcotics given history of IV drug dependence 2. LLE cellulitis - Resolved - Blood cultures negative - Finished antibiotics (vancomycin and Zosyn, switched to Augmentin and finished 04/10) 3. Rhabdo - Resolved 4. Chronic pain - Verified on methadone 110 mg daily which will be continued - Continue home gabapentin - Mobic PRN - Flexeril PRN 5. Chest pain - Likely MSK - EKG unremarkable, CTA negative for PE - Troponins negative - Continue ASA 6. IDDM - Sugars are poorly controlled - Check A1c - SSI per protocol - Increase Levemir to 40 units BID DVT prophylaxis: ASA per ortho, SCDs Discharge Planning: Needs rehab, patient does not have a payer source. She has poor motivation and not cooperating with physical therapy. Continue physical therapy in-house while awaiting for possible jodi bed (1) Closed fracture of left hip requiring operative repair Qualifiers: Encounter type: initial encounter Qualified Code(s): S72.002A - Fracture of unspecified part of neck of left femur, initial encounter for closed fracture (2) Uncontrolled diabetes mellitus Qualifiers: Diabetes mellitus type: type 2 Diabetes mellitus half-way insulin use: with terminal makeup operator use Diabetes mellitus complication status: with unspecified complications Qualified Code(s): E11.8 - Type 2 diabetes mellitus with unspecified complications; E11.65 - Type 2 diabetes mellitus with hyperglycemia ; Z79.4 - terminal superintendent (current) use of insulin
[2018-04-13] MEDS: Lidocaine 5% Patch T-DERMAL SCH (12:39)
[2018-04-13 13:10] LABS: Hematocrit 32.3 % (35.0-46.0); Hemoglobin 10.7 gm/dL (11.6-15.3); Mean Corpuscular HGB Conc 33.3 % (32.0-36.0); Mean Corpuscular Hemoglobin 30.3 pg (27.0-34.0); Platelet Count 242 th/mm3 (150-450); Red Blood Count 3.54 mil/mm3 (4.00-5.30); Red Cell Distribution Width 15.9 % (11.6-17.2); White Blood Count 6.9 th/mm3 (4.0-11.0)
[2018-04-13 13:38] LABS: Calcium 8.6 mg/dL (8.5-10.1); Carbon Dioxide 34.5 meq/L (21.0-32.0); Potassium 4.6 meq/L (3.5-5.1)
[2018-04-13 16:28] LABS: Hemoglobin A1c 11.3 % (4.3-6.0)
[2018-04-14] MEDS: Insulin NovoLOG Aspart Correctional Sugar Inj SQ SCH ×4 (02:38→17:31)
[2018-04-14] MEDS: ALPRAZolam 0.25 MG Tablet PO PRN (07:03)
[2018-04-14] MEDS: Insulin Detemir Inj 1,000 UNIT/10 ML Vial SQ SCH ×2 (09:53→21:03)
[2018-04-14] MEDS: Methadone 10 MG Tablet PO SCH (09:55)
[2018-04-14] MEDS: Gabapentin 300 MG Capsule PO SCH ×3 (09:55→17:32)
[2018-04-14] MEDS: Lidocaine 5% Patch T-DERMAL SCH (09:55)
[2018-04-14] MEDS: Multivitamin/Minerals Therapeutic Tablet PO SCH (09:57)
[2018-04-14] MEDS: Senna/Docusate Sodium 8.6/50 MG Tablet PO SCH ×2 (09:57→21:02)
--- NOTE | 2018-04-14 11:51 | P.PNIM ---
Subjective Interval history: Complaining of left knee pain. Physical Exam Vital signs: Vital Signs 04/13/18 12:00 04/13/18 16:00 04/13/18 20:00 Temperature 98 F 98.4 F 98.5 F Pulse Rate 72 79 80 Respiratory Rate 20 20 15 Blood Pressure 128/71 123/60 146/69 H Pulse Oximetry 94 L 98 97 04/14/18 00:00 04/14/18 04:00 04/14/18 08:00 Temperature 99.1 F 99.5 F 98 F Pulse Rate 84 80 18 L Respiratory Rate 15 18 18 Blood Pressure 117/56 L 107/51 L 112/53 L Pulse Oximetry 94 L 93 L 96 04/14/18 10:25 Temperature Pulse Rate Respiratory Rate 18 Blood Pressure Pulse Oximetry Intake & Output 04/13/18 04/14/18 04/14/18 18:59 06:59 18:59 Intake Total 480 / 480 Balance 480 / 480 Weight 96.4 kg Intake: Oral 480 / 480 Other: # Voids 4 Date of Last Bowel Movement 04/13/18 04/13/18 # Bowel Movements 2 Narrative: GENERAL: female sitting up in bed in [facility]. Appears comfortable but complaining of severe pain. HEART: Regular rate and rhythm LUNGS: CTAB without wheezes or crackles. ABDOMEN: +BS, soft, NT, ND. EXTREMITIES: Dressing over L hip clean and dry. NEURO: Awake and alert. - Urinary Catheter Management Indwelling Urethral Catheter Cath placed during this visit: yes, but has since been removed by the nurse Reason for continuing: Other continuation reason Insertion date: 04/03/18 Insertion time: 11:22 Removal date: 04/05/18 Removal time: 06:45 Results - Labs CBC & Chem 7: 04/13/18 12:47 04/13/18 12:47 Laboratory Results - last 24 hr 04/13/18 04/13/18 04/13/18 12:34 12:47 12:47 WBC 6.9 RBC 3.54 L Hgb 10.7 L Hct 32.3 L MCV 91.0 MCH 30.3 MCHC 33.3 RDW 15.9 Plt Count 242 D MPV 11.0 Sodium Potassium Chloride Carbon Dioxide Anion Gap BUN Creatinine Estimated GFR POC Glucose 337 H Random Glucose Hemoglobin A1c 11.3 H Calcium 04/13/18 04/13/18 04/13/18 12:47 17:45 21:30 WBC RBC Hgb Hct MCV MCH MCHC RDW Plt Count MPV Sodium 135 L Potassium 4.6 Chloride 96 L Carbon Dioxide 34.5 H Anion Gap 5 BUN 18 Creatinine 0.89 Estimated GFR 64 L POC Glucose 254 H 257 H Random Glucose 311 H Hemoglobin A1c Calcium 8.6 04/14/18 08:20 WBC RBC Hgb Hct MCV MCH MCHC RDW Plt Count MPV Sodium Potassium Chloride Carbon Dioxide Anion Gap BUN Creatinine Estimated GFR POC Glucose 225 H Random Glucose Hemoglobin A1c Calcium - Procedures Closed reduction with trochanteric nail fixation left proximal femur fracture 04/03/18 Assessment and Plan - Assessment (1) Closed fracture of left hip requiring operative repair Code(s): S72.002A - Fracture of unspecified part of neck of left femur, initial encounter for closed fracture Status: Acute (2) Uncontrolled diabetes mellitus Code(s): E11.65 - Type 2 diabetes mellitus with hyperglycemia Status: Acute - Plan 60 year old female with history of IVDU, chronic methadone maintenance , IDDM, and chronic pain admitted on 04/02 for L hip fracture after falling. 1. L hip fracture - Ortho consulted, s/p closed reduction with trochanteric nail fixation left proximal femur fracture 04/03 - Pain difficult to control given her chronic pain and history of opiate use - Continue methadone, add Flexeril as needed for any spasms. - Tylenol and Mobic PRN - Lidoderm patch - Avoid narcotics given history of IV drug dependence 2. LLE cellulitis - Resolved - Blood cultures negative - Finished antibiotics (vancomycin and Zosyn, switched to Augmentin and finished 04/10) 3. Rhabdo - Resolved 4. Chronic pain - Verified on methadone 110 mg daily which will be continued - Continue home gabapentin - Mobic PRN - Flexeril PRN 5. Chest pain - Likely MSK - EKG unremarkable, CTA negative for PE - Troponins negative - Continue ASA 6. IDDM, - Sugars are poorly controlled - Check A1c - SSI per protocol - Increase Levemir to 45 units BID DVT prophylaxis: ASA per ortho, SCDs (1) Closed fracture of left hip requiring operative repair Qualifiers: Encounter type: initial encounter Qualified Code(s): S72.002A - Fracture of unspecified part of neck of left femur, initial encounter for closed fracture (2) Uncontrolled diabetes mellitus Qualifiers: Diabetes mellitus type: type 2 Diabetes mellitus detention insulin use: with ad terminal makeup operator use Diabetes mellitus complication status: with unspecified complications Qualified Code(s): E11.8 - Type 2 diabetes mellitus with unspecified complications; E11.65 - Type 2 diabetes mellitus with hyperglycemia ; Z79.4 - residential (current) use of insulin
[2018-04-15] MEDS: Insulin NovoLOG Aspart Correctional Sugar Inj SQ SCH ×6 (00:24→23:56)
[2018-04-15] MEDS: Methadone 10 MG Tablet PO SCH (09:44)
[2018-04-15] MEDS: Multivitamin/Minerals Therapeutic Tablet PO SCH (09:45)
[2018-04-15] MEDS: Gabapentin 300 MG Capsule PO SCH ×2 (09:45→17:11)
[2018-04-15] MEDS: Senna/Docusate Sodium 8.6/50 MG Tablet PO SCH ×2 (09:45→21:50)
[2018-04-15] MEDS: Insulin Detemir Inj 1,000 UNIT/10 ML Vial SQ SCH ×2 (09:45→21:51)
[2018-04-15] MEDS: Lidocaine 5% Patch T-DERMAL SCH (09:45)
--- NOTE | 2018-04-15 11:04 | P.PNIM ---
Subjective Interval history: Doing okay with no complaints. Trying to ambulate with physical therapy at this time.. Physical Exam Vital signs: Vital Signs 04/14/18 12:00 04/14/18 16:00 04/14/18 20:00 Temperature 98.2 F 98.1 F 97.3 F L Pulse Rate 76 82 76 Respiratory Rate 20 20 20 Blood Pressure 114/65 116/60 111/59 L Pulse Oximetry 95 94 L 97 04/15/18 00:00 04/15/18 04:00 04/15/18 08:00 Temperature 98.3 F 97.8 F 98.1 F Pulse Rate 81 77 Respiratory Rate 18 16 Blood Pressure 111/58 L 128/60 Pulse Oximetry 97 97 Intake & Output 04/14/18 04/15/18 04/15/18 18:59 06:59 18:59 Intake Total 450 / 450 Output Total 500 / 500 Balance -50 / -50 Weight 96.4 kg Intake: Other 450 / 450 Output: Urine 500 / 500 Other: # Voids 2 Date of Last Bowel Movement 04/14/18 Narrative: GENERAL: female sitting up in bed in NAD. Appears comfortable but complaining of severe pain. HEART: Regular rate and rhythm LUNGS: CTAB without wheezes or crackles. ABDOMEN: +BS, soft, NT, ND. EXTREMITIES: Dressing over L hip clean and dry. NEURO: Awake and alert. - Urinary Catheter Management Indwelling Urethral Catheter Cath placed during this visit: yes, but has since been removed by the nurse Reason for continuing: Other continuation reason Insertion date: 04/03/18 Insertion time: 11:22 Removal date: 04/05/18 Removal time: 06:45 Results - Labs CBC & Chem 7: 04/13/18 12:47 04/13/18 12:47 Laboratory Results - last 24 hr 04/14/18 04/14/18 04/15/18 12:10 17:07 00:17 POC Glucose 299 H 354 H 287 H 04/15/18 05:33 POC Glucose 266 H - Procedures Closed reduction with trochanteric nail fixation left proximal femur fracture 04/03/18 Assessment and Plan - Assessment (1) Closed fracture of left hip requiring operative repair Code(s): S72.002A - Fracture of unspecified part of neck of left femur, initial encounter for closed fracture Status: Acute (2) Uncontrolled diabetes mellitus Code(s): E11.65 - Type 2 diabetes mellitus with hyperglycemia Status: Acute - Plan 60 year old female with history of IVDU, chronic methadone maintenance , IDDM, and chronic pain admitted on 04/02 for L hip fracture after falling. 1. L hip fracture - Ortho consulted, s/p closed reduction with trochanteric nail fixation left proximal femur fracture 04/03 - Pain difficult to control given her chronic pain and history of opiate use - Continue methadone, add Flexeril as needed for any spasms. - Tylenol and Mobic PRN - Lidoderm patch - Avoid narcotics given history of IV drug dependence 2. LLE cellulitis - Resolved - Blood cultures negative - Finished antibiotics (vancomycin and Zosyn, switched to Augmentin and finished 04/10) 3. Rhabdo - Resolved 4. Chronic pain - Verified on methadone 110 mg daily which will be continued - Continue home gabapentin - Mobic PRN - Flexeril PRN 5. Chest pain - Likely MSK - EKG unremarkable, CTA negative for PE - Troponins negative - Continue ASA 6. IDDM, - Sugars are poorly controlled - Check A1c - SSI per protocol - Increase Levemir to 45 units BID Add preprandial insulin today DVT prophylaxis: ASA per ortho, SCDs Discharge Planning: No payor source for placement will need to rehab here prior to going home. 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
[2018-04-16] MEDS: Insulin NovoLOG Aspart Correctional Sugar Inj SQ SCH ×6 (06:48→17:39)
[2018-04-16] MEDS: Senna/Docusate Sodium 8.6/50 MG Tablet PO SCH ×2 (08:19→21:45)
[2018-04-16] MEDS: Methadone 10 MG Tablet PO SCH (08:19)
[2018-04-16] MEDS: Gabapentin 300 MG Capsule PO SCH ×3 (08:19→17:39)
[2018-04-16] MEDS: Multivitamin/Minerals Therapeutic Tablet PO SCH (08:19)
[2018-04-16] MEDS: Insulin Detemir Inj 1,000 UNIT/10 ML Vial SQ SCH ×2 (08:20→21:44)
[2018-04-16] MEDS: Lidocaine 5% Patch T-DERMAL SCH (08:27)
--- NOTE | 2018-04-16 12:28 | P.PNIM ---
Subjective Interval history: Trying to do physical therapy. Would like to have her niece back as a visitor since her niece helps her get the remote control brings water to her brings food to her Physical Exam Vital signs: Vital Signs 04/15/18 16:00 04/15/18 20:00 04/16/18 00:00 Temperature 98.5 F 98.2 F 98.4 F Pulse Rate 85 79 71 Respiratory Rate 21 18 18 Blood Pressure 125/67 118/58 L 115/55 L Pulse Oximetry 96 96 96 04/16/18 08:00 Temperature 97.7 F Pulse Rate 71 Respiratory Rate 20 Blood Pressure 111/51 L Pulse Oximetry 96 Intake & Output 04/15/18 04/16/18 04/16/18 18:59 06:59 18:59 Intake Total 770 / 770 Output Total 600 / 600 Balance 770 / 770 -600 / -600 Intake: Oral 770 / 770 Output: Urine 600 / 600 Other: # Voids 2 2 Date of Last Bowel Movement 04/14/18 04/16/18 # Bowel Movements 1 1 Narrative: GENERAL: female sitting up in bed in [facility]. Appears comfortable but complaining of severe pain. HEART: Regular rate and rhythm LUNGS: CTAB without wheezes or crackles. ABDOMEN: +BS, soft, NT, ND. EXTREMITIES: Dressing over L hip clean and dry. NEURO: Awake and alert. - Urinary Catheter Management Indwelling Urethral Catheter Cath placed during this visit: yes, but has since been removed by the nurse Reason for continuing: Other continuation reason Insertion date: 04/03/18 Insertion time: 11:22 Removal date: 04/05/18 Removal time: 06:45 Results - Labs CBC & Chem 7: 04/13/18 12:47 04/13/18 12:47 Laboratory Results - last 24 hr 04/15/18 04/15/18 04/15/18 16:42 19:27 23:47 POC Glucose 342 H 291 H 231 H 04/16/18 04/16/18 04/16/18 06:41 08:05 11:43 POC Glucose 280 H 231 H 196 H - Procedures Closed reduction with trochanteric nail fixation left proximal femur fracture 04/03/18 Assessment and Plan - Assessment (1) Closed fracture of left hip requiring operative repair Code(s): S72.002A - Fracture of unspecified part of neck of left femur, initial encounter for closed fracture Status: Acute (2) Uncontrolled diabetes mellitus Code(s): E11.65 - Type 2 diabetes mellitus with hyperglycemia Status: Acute - Plan 60 year old female with history of IVDU, chronic methadone maintenance , IDDM, and chronic pain admitted on 04/02 for L hip fracture after falling. 1. L hip fracture - Ortho consulted, s/p closed reduction with trochanteric nail fixation left proximal femur fracture 04/03 - Pain difficult to control given her chronic pain and history of opiate use - Continue methadone, add Flexeril as needed for any spasms. 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 2. LLE cellulitis - Resolved - Blood cultures negative - Finished antibiotics (vancomycin and Zosyn, switched to Augmentin and finished 04/10) 3. Rhabdo - Resolved 4. Chronic pain - Verified on methadone 110 mg daily which will be continued - Continue home gabapentin - Mobic PRN - Flexeril PRN 5. Chest pain - Likely MSK - EKG unremarkable, CTA negative for PE - Troponins negative - Continue ASA 6. IDDM, - Sugars are poorly controlled - Check A1c - SSI per protocol - Increase Levemir to 45 units BID and initiate preprandial insulin to 6 units subcu 3 times daily. In addition we will not have any further visitors as will monitor her food intake closely to be on ADA diet. Visitors were bringing her excesses food which was not conducive of ADA diet. Good glycemic control is essential for wound healing and postsurgical care. Explained this to the patient today. DVT prophylaxis: ASA per ortho, SCDs Discharge Planning: No payor source for placement will need to rehab here prior to going home. (1) Closed fracture of left hip requiring operative repair Qualifiers: Encounter type: initial encounter Qualified Code(s): S72.002A - Fracture of unspecified part of neck of left femur, initial encounter for closed fracture (2) Uncontrolled diabetes mellitus Qualifiers: Diabetes mellitus type: type 2 Diabetes mellitus rn long term care insulin use: with rn long term care use Diabetes mellitus complication status: with unspecified complications Qualified Code(s): E11.8 - Type 2 diabetes mellitus with unspecified complications; E11.65 - Type 2 diabetes mellitus with hyperglycemia ; Z79.4 - snf (current) use of insulin
[2018-04-17] MEDS: Insulin NovoLOG Aspart Correctional Sugar Inj SQ SCH ×7 (00:18→17:41)
[2018-04-17] MEDS: Insulin Detemir Inj 1,000 UNIT/10 ML Vial SQ SCH ×2 (08:06→22:32)
[2018-04-17] MEDS: Methadone 10 MG Tablet PO SCH (08:06)
[2018-04-17] MEDS: Gabapentin 300 MG Capsule PO SCH ×3 (08:06→17:40)
[2018-04-17] MEDS: Multivitamin/Minerals Therapeutic Tablet PO SCH (08:06)
[2018-04-17] MEDS: Lidocaine 5% Patch T-DERMAL SCH (08:06)
[2018-04-17] MEDS: Senna/Docusate Sodium 8.6/50 MG Tablet PO SCH ×2 (08:06→22:31)
--- NOTE | 2018-04-17 11:56 | P.PNIM ---
Subjective Interval history: Still would like to have visitors in her room. Is working with physical therapy. States that she stayed up the entire night and did not get enough sleep. That is why she is feeling sleepy this morning. Physical Exam Vital signs: Vital Signs 04/16/18 12:00 04/16/18 16:00 04/16/18 20:00 Temperature 98.3 F 97.7 F 98.5 F Pulse Rate 72 73 76 Respiratory Rate 19 20 16 Blood Pressure 106/58 L 123/58 L 114/59 L Pulse Oximetry 93 L 97 94 L 04/17/18 00:00 04/17/18 04:00 04/17/18 08:00 Temperature 98.2 F 97.8 F 97.7 F Pulse Rate 80 73 72 Respiratory Rate 16 18 16 Blood Pressure 142/73 H 133/62 123/58 L Pulse Oximetry 94 L 97 94 L Intake & Output 04/16/18 04/17/18 04/17/18 18:59 06:59 18:59 Intake Total 900 / 900 1200 / 1200 Output Total 600 / 600 300 / 300 Balance 300 / 300 900 / 900 Intake: Oral 900 / 900 1200 / 1200 Output: Urine 600 / 600 300 / 300 Other: # Voids 1 3 Date of Last Bowel Movement 04/16/18 04/16/18 04/16/18 # Bowel Movements 1 Narrative: GENERAL: female sitting up in bed in sleepy. LUNGS: CTAB without wheezes or crackles. ABDOMEN: +BS, soft, NT, ND. EXTREMITIES: Dressing over L hip clean and dry. NEURO: Awake and alert. - Urinary Catheter Management Indwelling Urethral Catheter Cath placed during this visit: yes, but has since been removed by the nurse Reason for continuing: Other continuation reason Insertion date: 04/03/18 Insertion time: 11:22 Removal date: 04/05/18 Removal time: 06:45 Results - Labs CBC & Chem 7: 04/13/18 12:47 04/13/18 12:47 Laboratory Results - last 24 hr 04/16/18 04/16/18 04/16/18 11:43 17:33 21:35 POC Glucose 196 H 189 H 200 H 04/17/18 04/17/18 04/17/18 00:12 06:05 08:01 POC Glucose 254 H 148 H 113 H - Procedures Closed reduction with trochanteric nail fixation left proximal femur fracture 04/03/18 Assessment and Plan - Assessment (1) Closed fracture of left hip requiring operative repair Code(s): S72.002A - Fracture of unspecified part of neck of left femur, initial encounter for closed fracture Status: Acute (2) Uncontrolled diabetes mellitus Code(s): E11.65 - Type 2 diabetes mellitus with hyperglycemia Status: Acute - Plan 60 year old female with history of IVDU, chronic methadone maintenance , IDDM, and chronic pain admitted on 04/02 for L hip fracture after falling. 1. L hip fracture - Ortho consulted, s/p closed reduction with trochanteric nail fixation left proximal femur fracture 04/03 - Pain difficult to control given her chronic pain and history of opiate use - Continue methadone, add Flexeril as needed for any spasms. 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 2. LLE cellulitis - Resolved - Blood cultures negative - Finished antibiotics (vancomycin and Zosyn, switched to Augmentin and finished 04/10) 3. Rhabdo - Resolved 4. Chronic pain - Verified on methadone 110 mg daily which will be continued - Continue home gabapentin - Mobic PRN - Flexeril PRN 5. Chest pain - Likely MSK - EKG unremarkable, CTA negative for PE - Troponins negative - Continue ASA 6. IDDM, - Sugars are poorly controlled - Check A1c - SSI per protocol - Continue Levemir to 45 units BID and initiate preprandial insulin to 5 units subcu 3 times daily. In addition we will not have any further visitors and will monitor her food intake closely to be on ADA diet. Visitors were bringing her excesses food which was not conducive of ADA diet. Good glycemic control is essential for wound healing and postsurgical care. Explained this to the patient again today. DVT prophylaxis: ASA per ortho, SCDs Discharge Planning: No payor source for placement will need to rehab here prior to going home. 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
[2018-04-18] MEDS: Insulin NovoLOG Aspart Correctional Sugar Inj SQ SCH ×7 (07:33→19:04)
[2018-04-18] MEDS: Multivitamin/Minerals Therapeutic Tablet PO SCH (09:27)
[2018-04-18] MEDS: Senna/Docusate Sodium 8.6/50 MG Tablet PO SCH ×2 (09:27→21:32)
[2018-04-18] MEDS: Gabapentin 300 MG Capsule PO SCH ×3 (09:27→17:56)
[2018-04-18] MEDS: Methadone 10 MG Tablet PO SCH (09:27)
[2018-04-18] MEDS: Lidocaine 5% Patch T-DERMAL SCH (09:28)
--- NOTE | 2018-04-18 11:13 | P.PNIM ---
Subjective Interval history: Patient states that she has difficulty sleeping at night. Physical Exam Vital signs: Vital Signs 04/17/18 12:00 04/17/18 20:00 04/18/18 00:00 Temperature 97.9 F 97.6 F 97.7 F Pulse Rate 78 81 75 Respiratory Rate 16 17 17 Blood Pressure 96/52 L 118/58 L 126/59 L Pulse Oximetry 95 94 L 96 04/18/18 04:00 04/18/18 08:00 Temperature 97.6 F 98 F Pulse Rate 76 78 Respiratory Rate 17 18 Blood Pressure 142/65 H 115/59 L Pulse Oximetry 96 96 Intake & Output 04/17/18 04/18/18 04/18/18 18:59 06:59 18:59 Intake Total 720 / 720 360 / 360 Output Total 800 / 800 Balance 720 / 720 -440 / -440 Intake: Oral 720 / 720 360 / 360 Output: Urine 800 / 800 Other: # Voids 2 2 Date of Last Bowel Movement 04/16/18 04/17/18 04/17/18 # Bowel Movements 1 Narrative: GENERAL: female sitting up in bed in sleepy. LUNGS: CTAB without wheezes or crackles. ABDOMEN: +BS, soft, NT, ND. EXTREMITIES: Dressing over L hip clean and dry. NEURO: Awake and alert. - Urinary Catheter Management Indwelling Urethral Catheter Cath placed during this visit: yes, but has since been removed by the nurse Reason for continuing: Other continuation reason Insertion date: 04/03/18 Insertion time: 11:22 Removal date: 04/05/18 Removal time: 06:45 Results - Labs CBC & Chem 7: 04/13/18 12:47 04/13/18 12:47 Laboratory Results - last 24 hr 04/17/18 04/17/18 04/18/18 17:32 22:13 07:25 POC Glucose 265 H 248 H 159 H - Procedures Closed reduction with trochanteric nail fixation left proximal femur fracture 04/03/18 Assessment and Plan - Assessment (1) Closed fracture of left hip requiring operative repair Code(s): S72.002A - Fracture of unspecified part of neck of left femur, initial encounter for closed fracture Status: Acute (2) Uncontrolled diabetes mellitus Code(s): E11.65 - Type 2 diabetes mellitus with hyperglycemia Status: Acute - Plan 60 year old female with history of IVDU, chronic methadone maintenance , IDDM, and chronic pain admitted on 04/02 for L hip fracture after falling. 1. L hip fracture - Ortho consulted, s/p closed reduction with trochanteric nail fixation left proximal femur fracture 04/03 - Pain difficult to control given her chronic pain and history of opiate use - Continue methadone, add Flexeril as needed for any spasms. 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 2. LLE cellulitis - Resolved - Blood cultures negative - Finished antibiotics (vancomycin and Zosyn, switched to Augmentin and finished 04/10) 3. Rhabdo - Resolved 4. Chronic pain - Verified on methadone 110 mg daily which will be continued - Continue home gabapentin - Mobic PRN - Flexeril PRN 5. Chest pain with no recurrence - Likely MSK - EKG unremarkable, CTA negative for PE - Troponins negative - Continue ASA 6. IDDM, - Sugars are better controlled now with Levemir and preprandial insulin - Check A1c - SSI per protocol - Continue Levemir to 45 units BID and initiate preprandial insulin to 5 units subcu 3 times daily. In addition we will not have any further visitors and will monitor her food intake closely to be on ADA diet. Visitors were bringing her excesses food which was not conducive of ADA diet. Good glycemic control is essential for wound healing and postsurgical care. Explained this to the patient again today. DVT prophylaxis: ASA per ortho, SCDs Discharge Planning: No payor source for placement will need to rehab here prior to going home. (1) Closed fracture of left hip requiring operative repair Qualifiers: Encounter type: initial encounter Qualified Code(s): S72.002A - Fracture of unspecified part of neck of left femur, initial encounter for closed fracture (2) Uncontrolled diabetes mellitus Qualifiers: Diabetes mellitus type: type 2 Diabetes mellitus care home insulin use: with care home use Diabetes mellitus complication status: with unspecified complications Qualified Code(s): E11.8 - Type 2 diabetes mellitus with unspecified complications; E11.65 - Type 2 diabetes mellitus with hyperglycemia ; Z79.4 - [facility] (current) use of insulin
[2018-04-18] MEDS: Insulin Detemir Inj 1,000 UNIT/10 ML Vial SQ SCH ×2 (12:39→21:42)
[2018-04-19] MEDS: Insulin NovoLOG Aspart Correctional Sugar Inj SQ SCH ×7 (01:01→17:12)
[2018-04-19] MEDS: Meloxicam 7.5 MG Tablet PO PRN (03:45)
[2018-04-19] MEDS: Lidocaine 5% Patch T-DERMAL SCH (10:14)
[2018-04-19] MEDS: Methadone 10 MG Tablet PO SCH (10:15)
[2018-04-19] MEDS: Gabapentin 300 MG Capsule PO SCH ×3 (10:16→17:11)
[2018-04-19] MEDS: Multivitamin/Minerals Therapeutic Tablet PO SCH (10:16)
[2018-04-19] MEDS: Senna/Docusate Sodium 8.6/50 MG Tablet PO SCH ×2 (10:16→21:53)
[2018-04-19] MEDS: Insulin Detemir Inj 1,000 UNIT/10 ML Vial SQ SCH ×2 (10:31→22:00)
--- NOTE | 2018-04-19 14:48 | P.PNIM ---
Subjective Interval history: Patient wants more pain medication although she is extremely sleepy after the methadone given per nursing staff. Patient nursing staff also states that she intentionally voided on the floor although she denies. She also did not use a call azar tube have the nurse assist her in getting to the bathroom. Physical Exam Vital signs: Vital Signs 04/18/18 16:00 04/18/18 20:00 04/19/18 00:00 Temperature 98 F 97.4 F L 97.5 F L Pulse Rate 84 73 71 Respiratory Rate 16 17 16 Blood Pressure 114/68 104/54 L 116/57 L Pulse Oximetry 96 97 95 04/19/18 08:00 04/19/18 12:00 Temperature 98 F 98 F Pulse Rate 63 94 H Respiratory Rate 18 18 Blood Pressure 97/56 L 98/58 L Pulse Oximetry 97 97 Intake & Output 04/18/18 04/19/18 04/19/18 18:59 06:59 18:59 Intake Total 720 / 720 Balance 720 / 720 Weight 95.9 kg Intake: Oral 720 / 720 Other: # Voids 2 2 Date of Last Bowel Movement 04/17/18 04/18/18 04/17/18 Narrative: GENERAL: female sitting up in bed in sleepy. LUNGS: CTAB without wheezes or crackles. ABDOMEN: +BS, soft, NT, ND. EXTREMITIES: Dressing over L hip clean and dry. NEURO: Awake and alert. - Urinary Catheter Management Indwelling Urethral Catheter Cath placed during this visit: yes, but has since been removed by the nurse Reason for continuing: Other continuation reason Insertion date: 04/03/18 Insertion time: 11:22 Removal date: 04/05/18 Removal time: 06:45 Results - Labs CBC & Chem 7: 04/13/18 12:47 04/13/18 12:47 Laboratory Results - last 24 hr 04/18/18 04/18/18 04/19/18 17:32 21:31 00:44 POC Glucose 281 H 248 H 167 H 04/19/18 04/19/18 07:09 11:43 POC Glucose 93 213 H - Procedures Closed reduction with trochanteric nail fixation left proximal femur fracture 04/03/18 Assessment and Plan - Assessment (1) Closed fracture of left hip requiring operative repair Code(s): S72.002A - Fracture of unspecified part of neck of left femur, initial encounter for closed fracture Status: Acute (2) Uncontrolled diabetes mellitus Code(s): E11.65 - Type 2 diabetes mellitus with hyperglycemia Status: Acute - Plan 60 year old female with history of IVDU, chronic methadone maintenance , IDDM, and chronic pain admitted on 04/02 for L hip fracture after falling. 1. L hip fracture - Ortho consulted, s/p closed reduction with trochanteric nail fixation left proximal femur fracture 04/03 - Pain difficult to control given her chronic pain and history of opiate use - Continue methadone, add Flexeril as needed for any spasms. 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 2. LLE cellulitis - Resolved - Blood cultures negative - Finished antibiotics (vancomycin and Zosyn, switched to Augmentin and finished 04/10) 3. Rhabdo - Resolved 4. Chronic pain - Verified on methadone 110 mg daily which will be continued however will need to consider titrating down this week. Nursing staff states that she does get drowsy after the methadone dose which could impede her rehab progress - Continue home gabapentin - Mobic PRN - Flexeril PRN 5. Chest pain with no recurrence - Likely MSK - EKG unremarkable, CTA negative for PE - Troponins negative - Continue ASA 6. IDDM, - Sugars are better controlled now with Levemir and preprandial insulin - Check A1c - SSI per protocol - Continue Levemir to 45 units BID and initiate preprandial insulin to 5 units subcu 3 times daily. In addition we will not have any further visitors and will monitor her food intake closely to be on ADA diet. Visitors were bringing her excesses food which was not conducive of ADA diet. Good glycemic control is essential for wound healing and postsurgical care. Explained this to the patient again today. DVT prophylaxis: ASA per ortho, SCDs Discharge Planning: No payor source for placement will need to rehab here prior to going home. (1) Closed fracture of left hip requiring operative repair Qualifiers: Encounter type: initial encounter Qualified Code(s): S72.002A - Fracture of unspecified part of neck of left femur, initial encounter for closed fracture (2) Uncontrolled diabetes mellitus Qualifiers: Diabetes mellitus type: type 2 Diabetes mellitus [facility] use: with [facility] use Diabetes mellitus complication status: with unspecified complications Qualified Code(s): E11.8 - Type 2 diabetes mellitus with unspecified complications; E11.65 - Type 2 diabetes mellitus with hyperglycemia ; 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
[2018-04-19] MEDS: Zolpidem Tartrate 5 MG Tablet PO PRN (21:58)
[2018-04-20] MEDS: Insulin NovoLOG Aspart Correctional Sugar Inj SQ SCH ×7 (00:46→17:28)
[2018-04-20] MEDS: Meloxicam 7.5 MG Tablet PO PRN ×2 (02:37→09:19)
--- NOTE | 2018-04-20 08:06 | P.PN ---
Subjective Interval history: Follow up on patient s/p ORIF IMN left hip fracture. Patient seen and examined. Patient states she feels very "shaky" today. She is asking for more pain medication. She states the Methadone is not helping. She complains of left groin pain. She denies any chest pain or shortness of breath. Denies any nausea, vomiting or abdominal pain. Physical Exam Vital signs: Vital Signs 04/19/18 12:00 04/19/18 16:00 04/19/18 20:00 Temperature 98 F 98 F 97.5 F L Pulse Rate 94 H 69 72 Respiratory Rate 18 18 16 Blood Pressure 98/58 L 116/61 111/59 L Pulse Oximetry 97 98 94 L 04/20/18 00:00 04/20/18 04:00 Temperature 97.7 F 97.9 F Pulse Rate 76 83 Respiratory Rate 17 18 Blood Pressure 132/64 126/60 Pulse Oximetry 96 96 Intake & Output 04/19/18 04/20/18 04/20/18 18:59 06:59 18:59 Intake Total 1240 / 1240 Balance 1240 / 1240 Intake: Oral 1240 / 1240 Other: # Voids 4 Date of Last Bowel Movement 04/17/18 04/19/18 Narrative: GENERAL: WDWN female, not in any acute distress. Awake and alert. Sitting up in bed eating breakfast. SKIN: Warm and dry. HEAD: Atraumatic. Normocephalic. EYES: Pupils equal and round. No scleral icterus. No injection or drainage. ENT: No nasal bleeding or discharge. Mucous membranes pink and moist. NECK: Trachea midline. CARDIOVASCULAR: Regular rate and rhythm. RESPIRATORY: No accessory muscle use. Clear to auscultation. Breath sounds equal bilaterally. GASTROINTESTINAL: Abdomen soft, non-tender, nondistended. +BS. MUSCULOSKELETAL: LLE edematous with mild erythema. NEUROLOGICAL: Awake and alert. No obvious cranial nerve deficits. Motor grossly within normal limits. Able to move all extremities spontaneously. Normal speech. PSYCHIATRIC: Anxious appearing. Cooperative with exam. - Urinary Catheter Management Indwelling Urethral Catheter Cath placed during this visit: yes, but has since been removed by the nurse Reason for continuing: Other continuation reason Insertion date: 04/03/18 Insertion time: 11:22 Removal date: 04/05/18 Removal time: 06:45 Results - Labs CBC & Chem 7: 04/20/18 11:12 04/20/18 11:12 Laboratory Results - last 24 hr 04/19/18 04/19/18 04/19/18 11:43 16:39 21:52 POC Glucose 213 H 174 H 147 H 04/20/18 00:40 POC Glucose 176 H - Imaging ITS Impressions Chest X-Ray 04/02/18 08:04 CONCLUSION: 1. No acute abnormality or significant interval change. Femur X-Ray 04/02/18 08:04 CONCLUSION: Angulated oblique fracture through the trochanteric region of the proximal left femur. Hand X-Ray 04/02/18 08:04 CONCLUSION: 1. No acute fracture or dislocation. Head CT 04/02/18 08:04 CONCLUSION: 1. No focal or acute intracranial hemorrhage. 2. Stable CT scan of the brain compared to the prior study. 3. Soft tissue swelling over the left for head. . Pelvis X-Ray 04/02/18 08:04 CONCLUSION: 1. Left femoral intertrochanteric fracture. Hip X-Ray 04/03/18 00:00 CONCLUSION: Left femur fracture fixation. Ankle X-Ray 04/04/18 10:29 CONCLUSION: Negative examination Chest CTA 04/08/18 00:00 CONCLUSION: 1. No evidence of pulmonary embolism. 2. Mild scarring and/or atelectasis in the right lower lobe. 3. Coronary artery calcifications. Venous Doppler Study 04/20/18 00:00 CONCLUSION: No venous thrombosis is identified within the left lower extremity. - Procedures Closed reduction with trochanteric nail fixation left proximal femur fracture 04/03/18 Assessment and Plan - Assessment (1) Closed fracture of left hip requiring operative repair Code(s): S72.002A - Fracture of unspecified part of neck of left femur, initial encounter for closed fracture Status: Acute (2) Uncontrolled diabetes mellitus Code(s): E11.65 - Type 2 diabetes mellitus with hyperglycemia Status: Acute - Plan 60 year old female with history of IVDU, chronic methadone maintenance , IDDM, and chronic pain admitted on 04/02 for L hip fracture after falling. L hip fracture - Ortho consulted, s/p closed reduction with trochanteric nail fixation left proximal femur fracture 04/03 - Pain difficult to control given her chronic pain and history of opiate use. Slow improvement with PT secondary to pain. - Continue methadone, add Flexeril as needed for any spasms. Will need to consider titrating down more methadone dose as patient has reported that she is sedated after taking the methadone dose - Tylenol and Mobic PRN - Lidoderm patch - Avoid other narcotics given history of IV drug dependence - 04/20 c/o severe left groin pain. Obtain xray left hip for further evaluation LLE edema Doppler negative for DVT - likely postop edema. Trial chloe wraps from toes up. - Monitor LLE cellulitis - Resolved - Blood cultures negative - Finished antibiotics (vancomycin and Zosyn, switched to Augmentin and finished 04/10) Rhabdo - Resolved Chronic pain - Verified on methadone 110 mg daily. Nursing staff states that she does get drowsy after the methadone dose which could impede her rehab progress. Patient too lethargic this am. Will decrease dose of Methadone to 100mg daily and monitor. - Continue home gabapentin - today's dose held 2/2 lethargy - Mobic PRN - Flexeril PRN Chest pain with no recurrence - Likely MSK - EKG unremarkable, CTA negative for PE - Troponins negative - Continue ASA IDDM, poorly controlled A1c 11.3 - BS 68 this am, patient c/o feeling shaky. BS improved now to 208. Decrease night time Levemir dose to 35u. Continue on 45u daily. Continue on preprandial insulin 6u TIDAC. - Continue SSI per protocol - In addition we will not have any further visitors and will monitor her food intake closely to be on ADA diet. Visitors were bringing her excesses food which was not conducive of ADA diet. DVT prophylaxis: ASA per ortho, SCDs Code Status: FULL Discussed Condition With: patient, nursing staff, Dr. Concepcion Discharge Planning: Difficult placement (1) Closed fracture of left hip requiring operative repair Qualifiers: Encounter type: initial encounter Qualified Code(s): S72.002A - Fracture of unspecified part of neck of left femur, initial encounter for closed fracture (2) Uncontrolled diabetes mellitus Qualifiers: Diabetes mellitus type: type 2 Diabetes mellitus extermination supervisor insulin use: with extermination supervisor use Diabetes mellitus complication status: with unspecified complications Qualified Code(s): E11.8 - Type 2 diabetes mellitus with unspecified complications; E11.65 - Type 2 diabetes mellitus with hyperglycemia ; Z79.4 - skilled nursing (current) use of insulin
[2018-04-20] MEDS: Methadone 10 MG Tablet PO SCH ×2 (09:18→16:09)
[2018-04-20] MEDS: Gabapentin 300 MG Capsule PO SCH ×3 (09:19→17:28)
[2018-04-20] MEDS: Senna/Docusate Sodium 8.6/50 MG Tablet PO SCH ×2 (09:19→21:22)
[2018-04-20] MEDS: Multivitamin/Minerals Therapeutic Tablet PO SCH (09:19)
[2018-04-20] MEDS: Lidocaine 5% Patch T-DERMAL SCH (09:20)
[2018-04-20] MEDS: Insulin Detemir Inj 1,000 UNIT/10 ML Vial SQ SCH ×2 (09:23→21:29)
--- NOTE | 2018-04-20 11:38 | US ---
EXAM DATE: 04/20/2018 11:35 AM EDT AGE/SEX: 63 years / Female INDICATIONS: Left leg edema. CLINICAL DATA: This is the patient's initial encounter. Patient reports that signs and symptoms have been present for 2 weeks and indicates a pain score of 0/10. MEDICAL/SURGICAL HISTORY: Diabetes mellitus type II. Hepatitis C. Left hip fracture. . Left h ip fracture repair. COMPARISON: [facility] [place] VENOUS DOPPLER LEG LEFT, 04/02/2018. . TECHNIQUE: Venous ultrasound of both lower extremities was performed from the inguinal ligament to t he proximal calf. Real-time, color Doppler and spectral tracing, compression and augmentation techni ques were used. FINDINGS: Normal compression of the deep venous system from the inguinal region to the proximal calf . No echogenic clot is seen. Normal response of the venous system to augmentation and respiration. CONCLUSION: No venous thrombosis is identified within the left lower extremity. Electronically signed by: Hima Bee MD 04/20/2018 11:36 AM EDT
[2018-04-20 11:44] LABS: Baso % (Auto) 0.7 % (0.0-2.0); Eos # (Auto) 0.1 th/mm3 (0.0-0.4); Eos % (Auto) 2.3 % (0.0-4.0); Hematocrit 31.1 % (35.0-46.0); Hemoglobin 10.2 gm/dL (11.6-15.3); Lymph % (Auto) 18.3 % (9.0-44.0); Mean Corpuscular HGB Conc 32.9 % (32.0-36.0); Mean Corpuscular Hemoglobin 29.9 pg (27.0-34.0); Mono # (Auto) 0.4 th/mm3 (0.0-0.9); Mono % (Auto) 6.8 % (0.0-8.0); Neut # (Auto) 3.8 th/mm3 (1.8-7.7); Neut % (Auto) 71.9 % (16.0-70.0); Platelet Count 141 th/mm3 (150-450); Red Blood Count 3.42 mil/mm3 (4.00-5.30); Red Cell Distribution Width 15.3 % (11.6-17.2); White Blood Count 5.3 th/mm3 (4.0-11.0)
[2018-04-20 12:03] LABS: Alanine Aminotransferase 72 U/L (10-53); Albumin 2.2 g/dL (3.4-5.0); Anion Gap 5 meq/L (5-15); Aspartate Aminotransferase 98 U/L (15-37); Blood Urea Nitrogen 16 mg/dL (7-18); Calcium 8.1 mg/dL (8.5-10.1); Carbon Dioxide 31.7 meq/L (21.0-32.0); Chloride 100 meq/L (98-107); Glomerular Filtration Rate 70 mL/min (>89); Glucose,Random 190 mg/dL (74-106); Potassium 4.3 meq/L (3.5-5.1); Sodium 137 meq/L (136-145)
[2018-04-20 12:06] LABS: Alkaline Phosphatase 186 U/L (45-117); Total Protein 6.9 g/dL (6.4-8.2)
--- NOTE | 2018-04-20 14:11 | XR ---
EXAM DATE: 04/20/2018 2:05 PM EDT AGE/SEX: 63 years / Female INDICATIONS: Left hip pain. CLINICAL DATA: This is the patient's initial encounter. Patient reports that signs and symptoms have been present for 3 weeks and indicates a pain score of 10/10. MEDICAL/SURGICAL HISTORY: None. . patient states left hip surgery 3 weeks ago. COMPAR[place]: [facility] [place] 2V, 04/02/2018. [facility] [place] 2V, 04/03/2018. . FINDINGS: AP and lateral views of the left hip demonstrate antegrade intramedullary elton with one distal interlo cking screw and a proximal femoral head and neck screw. Hardware demonstrates no finding of failure o r loosening. No acute fracture is identified. There is mild left hip joint osteoarthritis. Skin stapl es remain present on the lateral thigh. No soft tissue abnormality is identified. CONCLUSION: No acute left hip joint abnormality is identified. There is mild hip joint osteoarthritis. Electronically signed by: Hima Bee MD 04/20/2018 2:10 PM EDT
[2018-04-20] MEDS: Zolpidem Tartrate 5 MG Tablet PO PRN (21:32)
[2018-04-21] MEDS: Meloxicam 7.5 MG Tablet PO PRN ×2 (00:31→17:34)
[2018-04-21] MEDS: Insulin NovoLOG Aspart Correctional Sugar Inj SQ SCH ×7 (00:32→17:31)
--- NOTE | 2018-04-21 07:29 | P.PN ---
Subjective Interval history: Follow-up on patient status post IM in the left hip fracture. Patient seen and examined. Patient is again today requesting increase in pain medication. She reiterates to me that she has been on methadone for 4 years and it is not helping with her left leg pain. She states that she is not sleeping well at night. She complains of a twisting painful sensation in the left upper leg just above the knee. Physical Exam Vital signs: Vital Signs 04/20/18 08:00 04/20/18 12:00 04/20/18 16:00 Temperature 97.2 F L 97.5 F L 98.0 F Pulse Rate 77 68 76 Respiratory Rate 16 16 16 Blood Pressure 102/53 L 112/51 L 111/55 L Pulse Oximetry 94 L 95 94 L 04/20/18 20:00 04/20/18 22:30 04/21/18 00:00 Temperature 97.8 F 98.1 F Pulse Rate 84 68 Respiratory Rate 19 17 18 Blood Pressure 109/63 141/65 H Pulse Oximetry 93 L 97 04/21/18 01:57 04/21/18 04:00 Temperature 97.8 F Pulse Rate 73 Respiratory Rate 18 18 Blood Pressure 133/60 Pulse Oximetry 96 Intake & Output 04/20/18 04/21/18 04/21/18 18:59 06:59 18:59 Intake Total 240 / 240 720 / 720 Balance 240 / 240 720 / 720 Weight 95.9 kg Intake: Oral 240 / 240 720 / 720 Other: # Voids 2 2 Date of Last Bowel Movement 04/18/18 04/18/18 # Bowel Movements 1 Narrative: GENERAL: WDWN female, not in any acute distress. Awake and alert. Sitting up in bed. RN at the bedside. SKIN: Warm and dry. HEAD: Atraumatic. Normocephalic. EYES: Pupils equal and round. No scleral icterus. No injection or drainage. ENT: No nasal bleeding or discharge. Mucous membranes pink and moist. NECK: Trachea midline. CARDIOVASCULAR: Regular rate and rhythm. RESPIRATORY: No accessory muscle use. Clear to auscultation. Breath sounds equal bilaterally. GASTROINTESTINAL: Abdomen soft, non-tender, nondistended. +BS. MUSCULOSKELETAL: LLE edematous with mild erythema over left anterior tibia. Incision left hip healing very well, amos intact. NEUROLOGICAL: Awake and alert. No obvious cranial nerve deficits. Motor grossly within normal limits. Able to move all extremities spontaneously. Normal speech. PSYCHIATRIC: Anxious appearing. Cooperative with exam. - Urinary Catheter Management Indwelling Urethral Catheter Cath placed during this visit: yes, but has since been removed by the nurse Reason for continuing: Other continuation reason Insertion date: 04/03/18 Insertion time: 11:22 Removal date: 04/05/18 Removal time: 06:45 Results - Labs CBC & Chem 7: 04/20/18 11:12 04/20/18 11:12 Laboratory Results - last 24 hr 04/20/18 04/20/18 04/20/18 08:08 09:16 11:12 WBC 5.3 RBC 3.42 L Hgb 10.2 L Hct 31.1 L MCV 91.0 MCH 29.9 MCHC 32.9 RDW 15.3 Plt Count 141 L D MPV 11.0 Prelim Diff (Auto) Slide review pending Neut % (Auto) 71.9 H Lymph % (Auto) 18.3 [place] % (Auto) 6.8 Eos % (Auto) 2.3 Baso % (Auto) 0.7 Neut # (Auto) 3.8 Lymph # (Auto) 1.0 [place] # (Auto) 0.4 Eos # (Auto) 0.1 Baso # (Auto) 0.0 WBC Differential . Diff Scan Auto diff confirmed Differential Comment . Platelet Estimate Low L Platelet Morphology Enlarged H Sodium Potassium Chloride Carbon Dioxide Anion Gap BUN Creatinine Estimated GFR POC Glucose 68 192 H Random Glucose Calcium Total Bilirubin AST ALT Alkaline Phosphatase Ammonia Total Protein Albumin 04/20/18 04/20/18 04/20/18 11:12 11:47 14:28 WBC RBC Hgb Hct MCV MCH MCHC RDW Plt Count MPV Prelim Diff (Auto) Neut % (Auto) Lymph % (Auto) [place]berry % (Auto) Eos % (Auto) Baso % (Auto) Neut # (Auto) Lymph # (Auto) [place] # (Auto) Eos # (Auto) Baso # (Auto) WBC Differential Diff Scan Differential Comment Platelet Estimate Platelet Morphology Sodium 137 Potassium 4.3 Chloride 100 Carbon Dioxide 31.7 Anion Gap 5 BUN 16 Creatinine 0.82 Estimated GFR 70 L POC Glucose 208 H Random Glucose 190 H Calcium 8.1 L Total Bilirubin 0.4 AST 98 H ALT 72 H Alkaline Phosphatase 186 H Ammonia 29 Total Protein 6.9 Albumin 2.2 L 04/20/18 04/20/18 04/21/18 17:14 21:29 00:26 WBC RBC Hgb Hct MCV MCH MCHC RDW Plt Count MPV Prelim Diff (Auto) Neut % (Auto) Lymph % (Auto) [place] % (Auto) Eos % (Auto) Baso % (Auto) Neut # (Auto) Lymph # (Auto) [place] # (Auto) Eos # (Auto) Baso # (Auto) WBC Differential Diff Scan Differential Comment Platelet Estimate Platelet Morphology Sodium Potassium Chloride Carbon Dioxide Anion Gap BUN Creatinine Estimated GFR POC Glucose 121 H 286 H 248 H Random Glucose Calcium Total Bilirubin AST ALT Alkaline Phosphatase Ammonia Total Protein Albumin 04/21/18 06:35 WBC RBC Hgb Hct MCV MCH MCHC RDW Plt Count MPV Prelim Diff (Auto) Neut % (Auto) Lymph % (Auto) [place] % (Auto) Eos % (Auto) Baso % (Auto) Neut # (Auto) Lymph # (Auto) [place] # (Auto) Eos # (Auto) Baso # (Auto) WBC Differential Diff Scan Differential Comment Platelet Estimate Platelet Morphology Sodium Potassium Chloride Carbon Dioxide Anion Gap BUN Creatinine Estimated GFR POC Glucose 119 H Random Glucose Calcium Total Bilirubin AST ALT Alkaline Phosphatase Ammonia Total Protein Albumin - Imaging Impressions Hip X-Ray 04/20/18 00:00 CONCLUSION: No acute left hip joint abnormality is identified. There is mild hip joint osteoarthritis. Venous Doppler Study 04/20/18 00:00 CONCLUSION: No venous thrombosis is identified within the left lower extremity. - Procedures Closed reduction with trochanteric nail fixation left proximal femur fracture 04/03/18 Assessment and Plan - Assessment (1) Closed fracture of left hip requiring operative repair Code(s): S72.002A - Fracture of unspecified part of neck of left femur, initial encounter for closed fracture Status: Acute (2) Uncontrolled diabetes mellitus Code(s): E11.65 - Type 2 diabetes mellitus with hyperglycemia Status: Acute - Plan 60 year old female with history of IVDU, chronic methadone maintenance , IDDM, and chronic pain admitted on 04/02 for L hip fracture after falling. L hip fracture s/p IMN - Ortho consulted, s/p closed reduction with trochanteric nail fixation left proximal femur fracture 04/03 - Pain difficult to control given her chronic pain and history of opiate use. Slow improvement with PT secondary to pain. - Continue methadone, continue Flexeril as needed for any spasms. - Tylenol and Mobic PRN - Lidoderm patch - Avoid other narcotics given history of IV drug dependence - 04/20 c/o severe left groin pain. Xr left hip shows hardware in good position. - 04/21 patient complains of twisting pain in the left anterior thigh proximal to the knee. Will order additional imaging to evaluate the femur. - Continue with PT, request patient be seen daily 7 days per week LLE edema Doppler negative for DVT - likely postop edema. Trial chloe wraps from toes up. - keep left leg elevated - Monitor LLE cellulitis - Resolved - Blood cultures negative - Finished antibiotics (vancomycin and Zosyn, switched to Augmentin and finished 04/10) Rhabdo - Resolved Chronic pain - Verified on methadone 110 mg daily. Nursing staff states that she does get drowsy after the methadone dose which could impede her rehab progress. - Dose of Methadone decreased to 100mg daily. Will plan to further titrate methadone dose down if patient remains lethargic. - Continue home gabapentin - Mobic PRN - Flexeril PRN Chest pain with no recurrence - Likely MSK - EKG unremarkable, CTA negative for PE - Troponins negative - Continue ASA IDDM, poorly controlled A1c 11.3 - Blood sugars overall controlled. Continue on Levemir 35 units at night and 45 units daily. Continue on preprandial insulin 6u TIDAC. - Continue SSI per protocol - In addition we will not have any further visitors and will monitor her food intake closely to be on ADA diet. Visitors were bringing her excesses food which was not conducive of ADA diet. DVT prophylaxis: ASA per ortho, SCDs Code Status: FULL Discussed Condition With: patient, nursing staff, Dr. Concepcion Discharge Planning: Difficult placement (1) Closed fracture of left hip requiring operative repair Qualifiers: Encounter type: initial encounter Qualified Code(s): S72.002A - Fracture of unspecified part of neck of left femur, initial encounter for closed fracture (2) Uncontrolled diabetes mellitus Qualifiers: Diabetes mellitus type: type 2 Diabetes mellitus usp insulin use: with ferry terminal supervisor use Diabetes mellitus complication status: with unspecified complications Qualified Code(s): E11.8 - Type 2 diabetes mellitus with unspecified complications; E11.65 - Type 2 diabetes mellitus with hyperglycemia ; Z79.4 - intermodal dispatcher (current) use of insulin
[2018-04-21] MEDS: Methadone 10 MG Tablet PO SCH (08:07)
[2018-04-21] MEDS: Senna/Docusate Sodium 8.6/50 MG Tablet PO SCH ×2 (08:08→21:20)
[2018-04-21] MEDS: Lidocaine 5% Patch T-DERMAL SCH (08:08)
[2018-04-21] MEDS: Gabapentin 300 MG Capsule PO SCH ×3 (08:08→18:50)
[2018-04-21] MEDS: Multivitamin/Minerals Therapeutic Tablet PO SCH (08:08)
[2018-04-21] MEDS: Insulin Detemir Inj 1,000 UNIT/10 ML Vial SQ SCH ×2 (11:42→21:23)
--- NOTE | 2018-04-21 14:37 | XR ---
EXAM DATE: 04/21/2018 2:25 PM EDT AGE/SEX: 63 years / Female INDICATIONS: Left leg pain. CLINICAL DATA: This is the patient's initial encounter. Patient reports that signs and symptoms have been present for 2 weeks and indicates a pain score of 8/10. MEDICAL/SURGICAL HISTORY: . broken left hip 2 weeks ago. . left hip surgery 2 weeks ago COMPARISON: No prior exams available for comparison. FINDINGS: No definite fractures, or dislocations are identified. No definite lytic or sclerotic les ion is seen. Slight osteopenia is seen. Intramedullary elton traverses the proximal femur with proxima l and distal fixation screws. Alignment is anatomical. CONCLUSION: Slight osteopenia. Electronically signed by: Hillary Garcia MD 04/21/2018 2:36 PM EDT
[2018-04-21] MEDS: Nystatin 100,000 UNITS/GM Powder 15 GM Bottle TOPICAL SCH ×2 (17:01→21:24)
[2018-04-21] MEDS: Zolpidem Tartrate 5 MG Tablet PO PRN (21:20)
[2018-04-22] MEDS: Insulin NovoLOG Aspart Correctional Sugar Inj SQ SCH ×7 (00:27→17:14)
[2018-04-22] MEDS: Meloxicam 7.5 MG Tablet PO PRN ×2 (05:50→17:56)
--- NOTE | 2018-04-22 07:42 | P.PN ---
Subjective Interval history: Patient seen and examined. Patient complaining of blurry vision, chronic and unchanged since patient evaluated by Dr. Horan. She also is complaining of headache which is similar to other headaches she has had in the past. She denies any new onset numbness tingling or weakness. She denies any chest pain or shortness of breath. She denies any nausea, vomiting or abdominal pain. Physical Exam Vital signs: Vital Signs 04/21/18 08:00 04/21/18 12:00 04/21/18 16:00 Temperature 97.9 F 98.3 F 98.1 F Pulse Rate 68 67 81 Respiratory Rate 18 18 18 Blood Pressure 125/62 102/57 L 111/58 L Pulse Oximetry 96 93 L 98 04/21/18 20:00 04/21/18 23:00 04/22/18 00:00 Temperature 97.9 F 98.1 F Pulse Rate 66 72 Respiratory Rate 17 18 17 Blood Pressure 133/63 131/65 Pulse Oximetry 96 97 04/22/18 04:00 04/22/18 05:12 Temperature Pulse Rate Respiratory Rate 18 18 Blood Pressure Pulse Oximetry Intake & Output 04/21/18 04/22/18 04/22/18 18:59 06:59 18:59 Intake Total 920 / 920 Balance 920 / 920 Weight 95.6 kg Intake: Oral 920 / 920 Other: # Voids 3 2 Date of Last Bowel Movement 04/18/18 Narrative: GENERAL: WDWN female. Awake and alert. Sitting up in bed. RN at the bedside. Not in any distress. SKIN: Warm and dry. HEENT: Atraumatic. Normocephalic. Pupils equal and round. No scleral icterus. No injection or drainage. No nasal bleeding or discharge. Mucous membranes pink and moist. NECK: Trachea midline. CARDIOVASCULAR: Regular rate and rhythm. No murmur appreciated. RESPIRATORY: No accessory muscle use. Clear to auscultation. Breath sounds equal bilaterally. GASTROINTESTINAL: Abdomen soft, non-tender, nondistended. +BS. MUSCULOSKELETAL: LLE in PIERCE wrap. Incision left hip healing very well, amos intact. NEUROLOGICAL: Awake and alert. No obvious cranial nerve deficits. Motor grossly within normal limits. Able to move all extremities spontaneously. Normal speech. PSYCHIATRIC: Anxious appearing. Cooperative with exam. - Urinary Catheter Management Indwelling Urethral Catheter Cath placed during this visit: yes, but has since been removed by the nurse Reason for continuing: Other continuation reason Insertion date: 04/03/18 Insertion time: 11:22 Removal date: 04/05/18 Removal time: 06:45 Results - Labs CBC & Chem 7: 04/20/18 11:12 04/20/18 11:12 Laboratory Results - last 24 hr 04/21/18 04/21/18 04/21/18 09:01 12:32 17:06 POC Glucose 91 198 H 160 H 04/21/18 04/22/18 04/22/18 21:16 00:21 05:41 POC Glucose 233 H 318 H 212 H - Imaging Impressions Femur X-Ray 04/21/18 00:00 CONCLUSION: Slight osteopenia. - Procedures Closed reduction with trochanteric nail fixation left proximal femur fracture 04/03/18 Assessment and Plan - Assessment (1) Closed fracture of left hip requiring operative repair Code(s): S72.002A - Fracture of unspecified part of neck of left femur, initial encounter for closed fracture Status: Acute (2) Uncontrolled diabetes mellitus Code(s): E11.65 - Type 2 diabetes mellitus with hyperglycemia Status: Acute - Plan 60 year old female with history of IVDU, chronic methadone maintenance , IDDM, and chronic pain admitted on 04/02 for L hip fracture after falling. L hip fracture s/p IMN - Ortho consulted, s/p closed reduction with trochanteric nail fixation left proximal femur fracture 04/03 - Pain difficult to control given her chronic pain and history of opiate use. Slow improvement with PT secondary to pain. - Continue methadone, continue Flexeril as needed for any spasms. - Tylenol and Mobic PRN - Lidoderm patch - Avoid other narcotics given history of IV drug dependence - 04/20 c/o severe left groin pain. Xr left hip shows hardware in good position. - 04/21 patient complains of twisting pain in the left anterior thigh proximal to the knee. Femur xray unremarkable except for osteopenia. - Continue with PT, request patient be seen daily 7 days per week LLE edema Doppler negative for DVT - likely postop edema. Trial pierce wraps from toes up, continue. - keep left leg elevated - Monitor LLE cellulitis - Resolved - Blood cultures negative - Finished antibiotics (vancomycin and Zosyn, switched to Augmentin and finished 04/10) Rhabdo - Resolved Chronic pain - Verified on methadone 110 mg daily. Nursing staff states that she does get drowsy after the methadone dose which could impede her rehab progress. - Dose of Methadone decreased to 100mg daily. Will plan to further titrate methadone dose down if patient remains lethargic. - Continue home gabapentin, hold for lethargy - Mobic PRN - Flexeril PRN Chest pain with no recurrence - Likely MSK - EKG unremarkable, CTA negative for PE - Troponins negative - Continue ASA IDDM, poorly controlled A1c 11.3 - Blood sugars overall controlled. Increase BS last night, patient ate cierra crackers late as a snack. Encouraged not too eat cierra crackers due to sugar content. Will request dietitian see patient for additional diabetic education. Continue on Levemir 35 units at night and 45 units daily. Continue on preprandial insulin 6u TIDAC. - Continue SSI per protocol - In addition we will not have any further visitors and will monitor her food intake closely to be on ADA diet. Visitors were bringing her excesses food which was not conducive of ADA diet. Headache - Tylenol prn DVT prophylaxis: ASA per ortho, SCDs Code Status: FULL Discussed Condition With: patient, RN, Dr. Concepcion Discharge Planning: Difficult placement. No benefits for rehab. Unsafe discharge to home alone at this time. CM assists with ongoing d/c planning. 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
[2018-04-22] MEDS: Methadone 10 MG Tablet PO SCH (08:05)
[2018-04-22] MEDS: Senna/Docusate Sodium 8.6/50 MG Tablet PO SCH ×2 (08:05→21:21)
[2018-04-22] MEDS: Gabapentin 300 MG Capsule PO SCH ×3 (08:05→17:13)
[2018-04-22] MEDS: Lidocaine 5% Patch T-DERMAL SCH (08:05)
[2018-04-22] MEDS: Multivitamin/Minerals Therapeutic Tablet PO SCH (08:05)
[2018-04-22] MEDS: Insulin Detemir Inj 1,000 UNIT/10 ML Vial SQ SCH ×2 (08:06→21:21)
[2018-04-22] MEDS: Nystatin 100,000 UNITS/GM Powder 15 GM Bottle TOPICAL SCH ×4 (08:06→21:22)
[2018-04-22] MEDS: Zolpidem Tartrate 5 MG Tablet PO PRN (21:21)
[2018-04-23] MEDS: Insulin NovoLOG Aspart Correctional Sugar Inj SQ SCH ×7 (01:16→17:25)
--- NOTE | 2018-04-23 07:12 | P.PN ---
Subjective Interval history: Follow-up on patient status post left IMN. Patient seen and examined. Patient encountered in her room that strongly smells of urine. There is a large puddle of urine on the floor on the right side of her bed. Patient states that she got up to go to the bathroom last night and thought she she made it to the toilet but a little may have "leaked out" . She states this has been an ongoing problem since she had bladder surgery 4 years ago. She denies any dysuria. Patient continues to complain of severe twisting pain in her left anterior thigh just above the knee. She is requesting more pain medication. She denies any fever or chills. She denies any chest pain or shortness of breath. Physical Exam Vital signs: Vital Signs 04/22/18 08:00 04/22/18 16:00 04/22/18 20:00 Temperature 97.7 F 97.4 F L 97.6 F Pulse Rate 66 75 78 Respiratory Rate 16 18 17 Blood Pressure 125/63 107/56 L 126/59 L Pulse Oximetry 96 96 95 04/22/18 23:30 04/23/18 00:00 04/23/18 03:15 Temperature 97.4 F L Pulse Rate 85 Respiratory Rate 17 17 18 Blood Pressure 125/60 Pulse Oximetry 96 04/23/18 04:00 04/23/18 06:42 Temperature 97.7 F Pulse Rate 87 Respiratory Rate 17 17 Blood Pressure 129/63 Pulse Oximetry 96 Intake & Output 04/22/18 04/23/18 04/23/18 18:59 06:59 18:59 Intake Total 1320 / 1320 Balance 1320 / 1320 Intake: Oral 1320 / 1320 Other: # Voids 2 Date of Last Bowel Movement 04/19/18 04/22/18 # Bowel Movements 1 Narrative: GENERAL: WDWN female, INAD. Awake and alert. Sitting up in bed. Smells strongly of urine. SKIN: Warm and dry. HEENT: Atraumatic. Normocephalic. Pupils equal and round. No scleral icterus. No injection or drainage. No nasal bleeding or discharge. Mucous membranes pink and moist. NECK: Trachea midline. CARDIOVASCULAR: Regular rate and rhythm. No murmur appreciated. RESPIRATORY: No accessory muscle use. Clear to auscultation. Breath sounds equal bilaterally. GASTROINTESTINAL: Abdomen soft, non-tender, nondistended. +BS. MUSCULOSKELETAL: Incision left hip healing very well, amos intact. NEUROLOGICAL: Awake and alert. No obvious cranial nerve deficits. Motor grossly within normal limits. Able to move all extremities spontaneously. Normal speech. PSYCHIATRIC: Cooperative with exam. - Urinary Catheter Management Indwelling Urethral Catheter Cath placed during this visit: yes, but has since been removed by the nurse Reason for continuing: Other continuation reason Insertion date: 04/03/18 Insertion time: 11:22 Removal date: 04/05/18 Removal time: 06:45 Results - Labs CBC & Chem 7: 04/20/18 11:12 04/20/18 11:12 Laboratory Results - last 24 hr 04/22/18 04/22/18 04/22/18 07:56 12:36 17:09 POC Glucose 138 H 152 H 220 H 04/22/18 04/23/18 04/23/18 21:16 01:08 04:53 POC Glucose 172 H 71 122 H - Imaging ITS Impressions Chest X-Ray 04/02/18 08:04 CONCLUSION: 1. No acute abnormality or significant interval change. Hand X-Ray 04/02/18 08:04 CONCLUSION: 1. No acute fracture or dislocation. Head CT 04/02/18 08:04 CONCLUSION: 1. No focal or acute intracranial hemorrhage. 2. Stable CT scan of the brain compared to the prior study. 3. Soft tissue swelling over the left for head. . Pelvis X-Ray 04/02/18 08:04 CONCLUSION: 1. Left femoral intertrochanteric fracture. Ankle X-Ray 04/04/18 10:29 CONCLUSION: Negative examination Chest CTA 04/08/18 00:00 CONCLUSION: 1. No evidence of pulmonary embolism. 2. Mild scarring and/or atelectasis in the right lower lobe. 3. Coronary artery calcifications. Hip X-Ray 04/20/18 00:00 CONCLUSION: No acute left hip joint abnormality is identified. There is mild hip joint osteoarthritis. Venous Doppler Study 04/20/18 00:00 CONCLUSION: No venous thrombosis is identified within the left lower extremity. Femur X-Ray 04/21/18 00:00 CONCLUSION: Slight osteopenia. - Procedures Closed reduction with trochanteric nail fixation left proximal femur fracture 04/03/18 Assessment and Plan - Assessment (1) Closed fracture of left hip requiring operative repair Code(s): S72.002A - Fracture of unspecified part of neck of left femur, initial encounter for closed fracture Status: Acute (2) Uncontrolled diabetes mellitus Code(s): E11.65 - Type 2 diabetes mellitus with hyperglycemia Status: Acute - Plan 60 year old female with history of IVDU, chronic methadone maintenance , IDDM, and chronic pain admitted on 04/02 for L hip fracture after falling. L hip fracture s/p IMN - Ortho consulted, s/p closed reduction with trochanteric nail fixation left proximal femur fracture 04/03. D/C amos on postop day #8, amos still in place, discontinue amos - Pain difficult to control given her chronic pain and history of opiate use. Slow improvement with PT secondary to pain. - Continue methadone, continue Flexeril as needed for any spasms. - Tylenol and Mobic PRN - Lidoderm patch - Avoid other narcotics given history of IV drug dependence - 04/20 c/o severe left groin pain. Xr left hip shows hardware in good position. - 04/21 patient complains of twisting pain in the left anterior thigh proximal to the knee. Femur xray unremarkable except for osteopenia. - Start on po Vitamin D supplementation and obtain Vitamin D level - Continue with daily PT LLE edema Doppler negative for DVT - likely postop edema. Trial chloe wraps from toes up, continue. - keep left leg elevated - Monitor LLE cellulitis - Resolved - Blood cultures negative - Finished antibiotics (vancomycin and Zosyn, switched to Augmentin and finished 04/10) Rhabdo - Resolved Chronic pain - Verified on methadone 110 mg daily. Nursing staff states that she does get drowsy after the methadone dose which could impede her rehab progress. - Continue to titrate dose of Methadone, decreased to 90mg daily. - Continue home gabapentin, hold for lethargy - Mobic PRN - Flexeril PRN Chest pain with no recurrence - Likely MSK - EKG unremarkable, CTA negative for PE - Troponins negative - Continue ASA IDDM, poorly controlled A1c 11.3 - Blood sugar overall controlled - Asphalt Coater consulted for further diabetic education - Continue on Levemir 35 units at night and 45 units daily. Continue on preprandial insulin 6u TIDAC. - Continue SSI per protocol - In addition we will not have any further visitors and will monitor her food intake closely to be on ADA diet. Visitors were bringing her excesses food which was not conducive of ADA diet. Headache - Tylenol prn DVT prophylaxis: ASA per ortho, SCDs Code Status: FULL Discussed Condition With: patient, Dr. Concepcion Discharge Planning: Difficult placement. No benefits for rehab. Unsafe discharge to home alone at this time. CM assists with ongoing d/c planning. (1) Closed fracture of left hip requiring operative repair Qualifiers: Encounter type: initial encounter Qualified Code(s): S72.002A - Fracture of unspecified part of neck of left femur, initial encounter for closed fracture (2) Uncontrolled diabetes mellitus Qualifiers: Diabetes mellitus type: type 2 Diabetes mellitus correction insulin use: with correction use Diabetes mellitus complication status: with unspecified complications Qualified Code(s): E11.8 - Type 2 diabetes mellitus with unspecified complications; E11.65 - Type 2 diabetes mellitus with hyperglycemia ; Z79.4 - senior care (current) use of insulin
[2018-04-23] MEDS: Senna/Docusate Sodium 8.6/50 MG Tablet PO SCH ×2 (08:02→21:46)
[2018-04-23] MEDS: Methadone 10 MG Tablet PO SCH (08:02)
[2018-04-23] MEDS: Gabapentin 300 MG Capsule PO SCH ×3 (08:02→17:25)
[2018-04-23] MEDS: Multivitamin/Minerals Therapeutic Tablet PO SCH (08:02)
[2018-04-23] MEDS: Nystatin 100,000 UNITS/GM Powder 15 GM Bottle TOPICAL SCH ×4 (08:03→21:46)
[2018-04-23] MEDS: Lidocaine 5% Patch T-DERMAL SCH (08:03)
[2018-04-23] MEDS: Insulin Detemir Inj 1,000 UNIT/10 ML Vial SQ SCH ×3 (08:03→21:40)
[2018-04-23] MEDS ORDERED: Insulin Detemir Inj 1,000 UNIT/10 ML Vial SQ SCH (09:02)
--- NOTE | 2018-04-23 16:08 | P.DIET ---
Nutritional Evaluation Type of nutrition evaluation: initial Nutrition consult regarding: Diet Evaluation ([facility] for Diabetes Education) Assessment Assessment: Pt seen in her room. On arrival, pt stated that she has been educated before. When I asked pt a few questions (carb counting, meal pattern, hypo- & hyperglycemia) she closed her eyes and didn't respond. I told pt her A1C level ( 11.3%) and asked her if she knew what that meant. Again, pt closed her eyes and didn't respond. I explained pt's most up to date A1C level and what that meant and she told me she knew how to fix it. We started reviewing basic carb counting and pt closed her eyes. When asked if she was awake pt stated "yes, but I am so tired". Pt continued to close her eyes and did not participate in education session. Information for diabetes diet management was left on bedside table along w/ my contact information. Pt was previously educated by us in April of 2017 and at that time she also was not participative in educational section. Please consult RD if needed.
[2018-04-23] MEDS: Meloxicam 7.5 MG Tablet PO PRN (18:43)
[2018-04-23] MEDS: Zolpidem Tartrate 5 MG Tablet PO PRN (21:46)
[2018-04-24] MEDS: Insulin NovoLOG Aspart Correctional Sugar Inj SQ SCH ×8 (00:18→23:23)
[2018-04-24] MEDS: Methadone 10 MG Tablet PO SCH (08:33)
[2018-04-24] MEDS: Senna/Docusate Sodium 8.6/50 MG Tablet PO SCH ×2 (08:33→23:19)
[2018-04-24] MEDS: Gabapentin 300 MG Capsule PO SCH ×3 (08:33→18:17)
[2018-04-24] MEDS: Multivitamin/Minerals Therapeutic Tablet PO SCH (08:33)
[2018-04-24] MEDS: Lidocaine 5% Patch T-DERMAL SCH (08:34)
[2018-04-24] MEDS: Insulin Detemir Inj 1,000 UNIT/10 ML Vial SQ SCH ×2 (08:46→23:19)
[2018-04-24] MEDS: Nystatin 100,000 UNITS/GM Powder 15 GM Bottle TOPICAL SCH ×4 (08:58→23:19)
[2018-04-24] MEDS ORDERED: Propofol Inj 500 MG/50 ML Vial ONE (13:27)
--- NOTE | 2018-04-24 14:04 | P.PN ---
Subjective Interval history: She is encountered sleeping soundly in the room. Upon waking, patient begins to complain of twisting pain in left anterior thigh. She also begins to complain of a headache. She is upset that her methadone has been decreased. Ambulated 100 feet with PT yesterday. Physical Exam Vital signs: Vital Signs 04/23/18 16:00 04/23/18 20:00 04/24/18 00:00 Temperature 98.3 F 98.6 F 97.7 F Pulse Rate 67 74 70 Respiratory Rate 18 18 18 Blood Pressure 112/56 L 123/67 131/61 Pulse Oximetry 96 95 98 04/24/18 01:45 04/24/18 08:58 04/24/18 11:03 Temperature 97.9 F Pulse Rate 65 Respiratory Rate 18 16 18 Blood Pressure 117/56 L Pulse Oximetry 95 04/24/18 12:00 Temperature 99.0 F Pulse Rate 81 Respiratory Rate 16 Blood Pressure 117/72 Pulse Oximetry 95 Intake & Output 04/23/18 04/24/18 04/24/18 18:59 06:59 18:59 Intake Total 600 / 600 460 / 460 Balance 600 / 600 460 / 460 Weight 95.6 kg Intake: Oral 600 / 600 460 / 460 Other: # Voids 4 3 Date of Last Bowel Movement 04/19/18 04/22/18 04/22/18 Narrative: GENERAL: WDWN female, INAD. Sleeping soundly when I entered the room , easily awakens to voice. Appears comfortable. SKIN: Warm and dry. HEENT: Atraumatic. Normocephalic. Pupils equal and round. No scleral icterus. No injection or drainage. No nasal bleeding or discharge. Mucous membranes pink and moist. NECK: Trachea midline. CARDIOVASCULAR: Regular rate and rhythm. No murmur appreciated. RESPIRATORY: No accessory muscle use. Clear to auscultation. Breath sounds equal bilaterally. GASTROINTESTINAL: Abdomen soft, non-tender, nondistended. +BS. MUSCULOSKELETAL: Incision left hip healing very well, removed. NEUROLOGICAL: Awake and alert. No obvious cranial nerve deficits. Motor grossly within normal limits. Able to move all extremities spontaneously. Normal speech. PSYCHIATRIC: Cooperative with exam. - Urinary Catheter Management Indwelling Urethral Catheter Cath placed during this visit: yes, but has since been removed by the nurse Reason for continuing: Other continuation reason Insertion date: 04/03/18 Insertion time: 11:22 Removal date: 04/05/18 Removal time: 06:45 Results - Labs CBC & Chem 7: 04/20/18 11:12 04/20/18 11:12 Laboratory Results - last 24 hr 04/23/18 04/23/18 04/23/18 17:20 20:47 23:53 POC Glucose 116 H 246 H 223 H 04/24/18 04/24/18 04/24/18 05:17 08:43 12:11 POC Glucose 227 H 246 H 197 H - Imaging ITS Impressions Chest X-Ray 04/02/18 08:04 CONCLUSION: 1. No acute abnormality or significant interval change. Hand X-Ray 04/02/18 08:04 CONCLUSION: 1. No acute fracture or dislocation. Head CT 04/02/18 08:04 CONCLUSION: 1. No focal or acute intracranial hemorrhage. 2. Stable CT scan of the brain compared to the prior study. 3. Soft tissue swelling over the left for head. . Pelvis X-Ray 04/02/18 08:04 CONCLUSION: 1. Left femoral intertrochanteric fracture. Ankle X-Ray 04/04/18 10:29 CONCLUSION: Negative examination Chest CTA 04/08/18 00:00 CONCLUSION: 1. No evidence of pulmonary embolism. 2. Mild scarring and/or atelectasis in the right lower lobe. 3. Coronary artery calcifications. Hip X-Ray 04/20/18 00:00 CONCLUSION: No acute left hip joint abnormality is identified. There is mild hip joint osteoarthritis. Venous Doppler Study 04/20/18 00:00 CONCLUSION: No venous thrombosis is identified within the left lower extremity. Femur X-Ray 04/21/18 00:00 CONCLUSION: Slight osteopenia. - Procedures Closed reduction with trochanteric nail fixation left proximal femur fracture 04/03/18 Assessment and Plan - Assessment (1) Closed fracture of left hip requiring operative repair Code(s): S72.002A - Fracture of unspecified part of neck of left femur, initial encounter for closed fracture Status: Acute (2) Uncontrolled diabetes mellitus Code(s): E11.65 - Type 2 diabetes mellitus with hyperglycemia Status: Acute - Plan 60 year old female with history of IVDU, chronic methadone maintenance , IDDM, and chronic pain admitted on 04/02 for L hip fracture after falling. L hip fracture s/p IMN - Ortho consulted, s/p closed reduction with trochanteric nail fixation left proximal femur fracture 04/03. - Pain difficult to control given her chronic pain and history of opiate use. Slow improvement with PT secondary to pain. - Continue methadone, continue Flexeril as needed for any spasms. - Tylenol and Mobic PRN - Lidoderm patch - Avoid other narcotics given history of IV drug dependence - 04/20 c/o severe left groin pain. Xr left hip shows hardware in good position. - 04/21 patient complains of twisting pain in the left anterior thigh proximal to the knee. Femur xray unremarkable except for osteopenia. - Start on po Vitamin D supplementation and obtain Vitamin D level/pending - Continue with daily PT LLE edema Doppler negative for DVT - likely postop edema. Trial chloe wraps from toes up, continue. - keep left leg elevated - Monitor LLE cellulitis - Resolved - Blood cultures negative - Finished antibiotics (vancomycin and Zosyn, switched to Augmentin and finished 04/10) Rhabdo - Resolved Chronic pain - Verified on methadone 110 mg daily. Nursing staff states that she does get drowsy after the methadone dose which could impede her rehab progress. - Continue to titrate dose of Methadone, decreased to 90mg daily. Patient much more alert, progressing with PT. - Continue home gabapentin, hold for lethargy - Mobic PRN - Flexeril PRN Chest pain with no recurrence - Likely MSK - EKG unremarkable, CTA negative for PE - Troponins negative - Continue ASA IDDM, poorly controlled A1c 11.3 - Blood sugar overall controlled - Real Estate Leasing Agent consulted for further diabetic education - Continue on Levemir 35 units at night and 45 units daily. Continue on preprandial insulin 6u TIDAC. - Continue SSI per protocol - In addition we will not have any further visitors and will monitor her food intake closely to be on ADA diet. Visitors were bringing her excesses food which was not conducive of ADA diet. Headache - Tylenol prn DVT prophylaxis: ASA per ortho, SCDs Code Status: FULL Discussed Condition With: patient, nursing staff, Dr. Concepcion Discharge Planning: Difficult placement. No benefits for rehab. Unsafe discharge to home alone at this time. CM assists with ongoing d/c planning. (1) Closed fracture of left hip requiring operative repair Qualifiers: Encounter type: initial encounter Qualified Code(s): S72.002A - Fracture of unspecified part of neck of left femur, initial encounter for closed fracture (2) Uncontrolled diabetes mellitus Qualifiers: Diabetes mellitus type: type 2
[2018-04-24] MEDS: Meloxicam 7.5 MG Tablet PO PRN (18:40)
[2018-04-25] MEDS: Meloxicam 7.5 MG Tablet PO PRN ×2 (00:47→16:52)
[2018-04-25] MEDS: Insulin NovoLOG Aspart Correctional Sugar Inj SQ SCH ×6 (05:31→16:59)
[2018-04-25] MEDS: Methadone 10 MG Tablet PO SCH (08:08)
[2018-04-25] MEDS: Lidocaine 5% Patch T-DERMAL SCH (08:08)
[2018-04-25] MEDS: Multivitamin/Minerals Therapeutic Tablet PO SCH (08:09)
[2018-04-25] MEDS: Gabapentin 300 MG Capsule PO SCH ×3 (08:09→17:00)
[2018-04-25] MEDS: Senna/Docusate Sodium 8.6/50 MG Tablet PO SCH ×2 (08:09→21:12)
[2018-04-25] MEDS: Nystatin 100,000 UNITS/GM Powder 15 GM Bottle TOPICAL SCH ×4 (08:13→21:13)
[2018-04-25] MEDS: Insulin Detemir Inj 1,000 UNIT/10 ML Vial SQ SCH ×2 (09:30→21:11)
--- NOTE | 2018-04-25 13:14 | P.PNIM ---
Subjective Interval history: Seen and examined this morning. Afebrile vital signs stable. Reports that she is attempting to work with physical therapy as much as possible. Reports he is having some pain in her left leg. Wishes to have her methadone increased but understands that it will be maintained at the current level. She is complaining of difficulty sleeping and does not help her at all. Physical Exam Vital signs: Vital Signs 04/24/18 16:00 04/24/18 20:00 04/25/18 00:00 Temperature 98.3 F 97.5 F L 98 F Pulse Rate 63 76 73 Respiratory Rate 18 Blood Pressure 115/63 136/58 L 152/71 H Pulse Oximetry 97 99 99 04/25/18 04:00 04/25/18 08:00 04/25/18 12:00 Temperature 97.5 F L 97.9 F 97.4 F L Pulse Rate 74 78 85 Respiratory Rate 18 Blood Pressure 148/70 H 132/66 112/56 L Pulse Oximetry 97 100 94 L Intake & Output 04/24/18 04/25/18 04/25/18 18:59 06:59 18:59 Intake Total 480 / 480 240 / 240 Output Total 500 / 500 Balance -20 / -20 240 / 240 Weight 99 kg Intake: Oral 480 / 480 240 / 240 Output: Urine 500 / 500 Other: # Voids 3 Date of Last Bowel Movement 04/22/18 04/23/18 04/23/18 Narrative: GENERAL: WDWN female, no apparent distress. Sitting up in bed eating lunch appears comfortable. SKIN: Warm and dry. HEENT: Atraumatic. Normocephalic. Pupils equal and round. No scleral icterus. No injection or drainage. No nasal bleeding or discharge. Mucous membranes pink and moist. NECK: Trachea midline. CARDIOVASCULAR: Regular rate and rhythm. No murmur appreciated. RESPIRATORY: No accessory muscle use. Clear to auscultation. Breath sounds equal bilaterally. GASTROINTESTINAL: Abdomen soft, non-tender, nondistended. +BS. MUSCULOSKELETAL: Incision left hip healing very well, removed. NEUROLOGICAL: Awake and alert. No obvious cranial nerve deficits. Motor grossly within normal limits. Able to move all extremities spontaneously. Normal speech. PSYCHIATRIC: Cooperative with exam. - Urinary Catheter Management Indwelling Urethral Catheter Cath placed during this visit: yes, but has since been removed by the nurse Reason for continuing: Other continuation reason Insertion date: 04/03/18 Insertion time: 11:22 Removal date: 04/05/18 Removal time: 06:45 Results - Labs CBC & Chem 7: 04/20/18 11:12 04/20/18 11:12 Laboratory Results - last 24 hr 04/24/18 04/24/18 04/25/18 17:17 23:18 05:28 POC Glucose 116 H 131 H 148 H 04/25/18 04/25/18 07:37 11:31 POC Glucose 105 202 H - Procedures Closed reduction with trochanteric nail fixation left proximal femur fracture 04/03/18 Assessment and Plan - Assessment (1) Closed fracture of left hip requiring operative repair Code(s): S72.002A - Fracture of unspecified part of neck of left femur, initial encounter for closed fracture Status: Acute (2) Uncontrolled diabetes mellitus Code(s): E11.65 - Type 2 diabetes mellitus with hyperglycemia Status: Acute - Plan 60 year old female with history of IVDU, chronic methadone maintenance , IDDM, and chronic pain admitted on 04/02 for L hip fracture after falling. L hip fracture s/p IMN - Ortho consulted, s/p closed reduction with trochanteric nail fixation left proximal femur fracture 04/03. - Pain difficult to control given her chronic pain and history of opiate use. Slow improvement with PT secondary to pain. - Continue methadone, continue Flexeril as needed for any spasms. - Tylenol and Mobic PRN - Lidoderm patch - Avoid other narcotics given history of IV drug dependence - 04/20 c/o severe left groin pain. Xr left hip shows hardware in good position. - 04/21 patient complains of twisting pain in the left anterior thigh proximal to the knee. Femur xray unremarkable except for osteopenia. - Start on po Vitamin D supplementation and obtain Vitamin D level/pending - Continue with daily PT LLE edema Doppler negative for DVT - likely postop edema. Trial chloe wraps from toes up, continue. - keep left leg elevated - Monitor LLE cellulitis - Resolved - Blood cultures negative - Finished antibiotics (vancomycin and Zosyn, switched to Augmentin and finished 04/10) Rhabdo - Resolved Chronic pain - Verified on methadone 110 mg daily. Nursing staff states that she does get drowsy after the methadone dose which could impede her rehab progress. - Continue to titrate dose of Methadone, decreased to 90mg daily. Patient much more alert, progressing with PT. - Continue home gabapentin, hold for lethargy - Mobic PRN - Flexeril PRN Chest pain with no recurrence - Likely MSK - EKG unremarkable, CTA negative for PE - Troponins negative - Continue ASA IDDM, poorly controlled A1c 11.3 - Blood sugar overall controlled - Electroplater Apprentice consulted for further diabetic education - Continue on Levemir 35 units at night and 45 units daily. Continue on preprandial insulin 6u TIDAC. - Continue SSI per protocol - In addition we will not have any further visitors and will monitor her food intake closely to be on ADA diet. Visitors were bringing her excesses food which was not conducive of ADA diet. Headache - Tylenol prn DVT prophylaxis: ASA per ortho, SCDs Code Status: Full code Discharge Planning: Difficult placement. No benefits for rehab. Unsafe discharge to home alone at this time. CM assists with ongoing d/c planning. (1) Closed fracture of left hip requiring operative repair Qualifiers: Encounter type: initial encounter Qualified Code(s): S72.002A - Fracture of unspecified part of neck of left femur, initial encounter for closed fracture (2) Uncontrolled diabetes mellitus Qualifiers: Diabetes mellitus type: type 2
[2018-04-26] MEDS: Insulin NovoLOG Aspart Correctional Sugar Inj SQ SCH ×7 (00:13→17:30)
[2018-04-26] MEDS: Methadone 10 MG Tablet PO SCH (08:10)
[2018-04-26] MEDS: Senna/Docusate Sodium 8.6/50 MG Tablet PO SCH ×2 (08:11→21:10)
[2018-04-26] MEDS: Insulin Detemir Inj 1,000 UNIT/10 ML Vial SQ SCH ×2 (08:12→21:10)
[2018-04-26] MEDS: Gabapentin 300 MG Capsule PO SCH ×3 (08:12→17:25)
[2018-04-26] MEDS: Multivitamin/Minerals Therapeutic Tablet PO SCH (08:12)
[2018-04-26] MEDS: Nystatin 100,000 UNITS/GM Powder 15 GM Bottle TOPICAL SCH ×4 (08:12→21:10)
[2018-04-26] MEDS: Lidocaine 5% Patch T-DERMAL SCH (08:12)
--- NOTE | 2018-04-26 09:22 | P.PNIM ---
Subjective Interval history: Patient seen and examined this morning. Afebrile vital signs stable. Patient still reporting pain. Difficult to manage due to chronic opiate use and chronic pain. Patient's main concern today was that her sleeping a did not help her with her insomnia last night. Sitting up appears comfortable eating her breakfast. Has been working with physical therapy. Discussed patient with case management who reports that she is likely to be discharged home tomorrow she will be cleared by physical therapy then. Patient is concerned that her apartment will kick her out. Case management is already spoken with the math and sciences department chair and that she is fine to return to her apartment. Physical Exam Vital signs: Vital Signs 04/25/18 12:00 04/25/18 16:00 04/25/18 20:00 Temperature 97.4 F L 97.8 F 97.6 F Pulse Rate 85 67 76 Respiratory Rate 18 18 17 Blood Pressure 112/56 L 110/53 L 128/60 Pulse Oximetry 94 L 98 96 04/25/18 23:59 04/26/18 04:00 04/26/18 08:00 Temperature 98.0 F 97.2 F L 98.1 F Pulse Rate 76 62 63 Respiratory Rate 17 17 18 Blood Pressure 123/73 134/69 123/59 L Pulse Oximetry 97 96 95 04/26/18 08:40 Temperature Pulse Rate Respiratory Rate 16 Blood Pressure Pulse Oximetry Intake & Output 04/25/18 04/26/18 04/26/18 18:59 06:59 18:59 Intake Total 600 / 600 Output Total Balance 599 / 599 Intake: Oral 600 / 600 Output: Stool Other: # Voids 3 Date of Last Bowel Movement 04/23/18 04/23/18 Narrative: GENERAL: WDWN female, no apparent distress. Sitting up in bed eating breakfast appears comfortable. SKIN: Warm and dry. HEENT: Atraumatic. Normocephalic. Pupils equal and round. No scleral icterus. No injection or drainage. No nasal bleeding or discharge. Mucous membranes pink and moist. NECK: Trachea midline. CARDIOVASCULAR: Regular rate and rhythm. No murmur appreciated. RESPIRATORY: No accessory muscle use. Clear to auscultation. Breath sounds equal bilaterally. GASTROINTESTINAL: Abdomen soft, non-tender, nondistended. +BS. MUSCULOSKELETAL: Incision left hip healing very well, removed. NEUROLOGICAL: Awake and alert. No obvious cranial nerve deficits. Motor grossly within normal limits. Able to move all extremities spontaneously. Normal speech. PSYCHIATRIC: Cooperative with exam. - Urinary Catheter Management Indwelling Urethral Catheter Cath placed during this visit: yes, but has since been removed by the nurse Reason for continuing: Other continuation reason Insertion date: 04/03/18 Insertion time: 11:22 Removal date: 04/05/18 Removal time: 06:45 Results - Labs CBC & Chem 7: 04/20/18 11:12 04/20/18 11:12 Laboratory Results - last 24 hr 04/25/18 04/25/18 04/25/18 11:31 16:51 21:06 POC Glucose 202 H 123 H 115 H 04/26/18 04/26/18 04/26/18 00:08 06:09 07:41 POC Glucose 123 H 78 124 H - Imaging Chest X-Ray 04/02/18 08:04 CONCLUSION: 1. No acute abnormality or significant interval change. Femur X-Ray 04/02/18 08:04 CONCLUSION: Angulated oblique fracture through the trochanteric region of the proximal left femur. Hand X-Ray 04/02/18 08:04 CONCLUSION: 1. No acute fracture or dislocation. Head CT 04/02/18 08:04 CONCLUSION: 1. No focal or acute intracranial hemorrhage. 2. Stable CT scan of the brain compared to the prior study. 3. Soft tissue swelling over the left for head. . Pelvis X-Ray 04/02/18 08:04 CONCLUSION: 1. Left femoral intertrochanteric fracture. Venous Doppler Study 04/02/18 08:11 CONCLUSION: 1. No evidence of DVT. Hip X-Ray 04/03/18 00:00 CONCLUSION: Left femur fracture fixation. Ankle X-Ray 04/04/18 10:29 CONCLUSION: Negative examination Chest CTA 04/08/18 00:00 CONCLUSION: 1. No evidence of pulmonary embolism. 2. Mild scarring and/or atelectasis in the right lower lobe. 3. Coronary artery calcifications. Hip X-Ray 04/20/18 00:00 CONCLUSION: No acute left hip joint abnormality is identified. There is mild hip joint osteoarthritis. Venous Doppler Study 04/20/18 00:00 CONCLUSION: No venous thrombosis is identified within the left lower extremity. Femur X-Ray 04/21/18 00:00 CONCLUSION: Slight osteopenia. - Procedures Closed reduction with trochanteric nail fixation left proximal femur fracture 04/03/18 Assessment and Plan - Assessment (1) Closed fracture of left hip requiring operative repair Code(s): S72.002A - Fracture of unspecified part of neck of left femur, initial encounter for closed fracture Status: Acute (2) Uncontrolled diabetes mellitus Code(s): E11.65 - Type 2 diabetes mellitus with hyperglycemia Status: Acute - Plan 60 year old female with history of IVDU, chronic methadone maintenance , IDDM, and chronic pain admitted on 04/02 for L hip fracture after falling. L hip fracture s/p IMN - Ortho consulted, s/p closed reduction with trochanteric nail fixation left proximal femur fracture 04/03. - Pain difficult to control given her chronic pain and history of opiate use. Slow improvement with PT secondary to pain. - Continue methadone, continue Flexeril as needed for any spasms. - Tylenol and Mobic PRN - Lidoderm patch - Avoid other narcotics given history of IV drug dependence - 04/20 c/o severe left groin pain. Xr left hip shows hardware in good position. - 04/21 patient complains of twisting pain in the left anterior thigh proximal to the knee. Femur xray unremarkable except for osteopenia. - Start on po Vitamin D supplementation and obtain Vitamin D level/pending - Continue with daily PT LLE edema Doppler negative for DVT - likely postop edema. Trial chloe wraps from toes up, continue. - keep left leg elevated - Monitor LLE cellulitis - Resolved - Blood cultures negative - Finished antibiotics (vancomycin and Zosyn, switched to Augmentin and finished 04/10) Rhabdo - Resolved Chronic pain - Verified on methadone 110 mg daily. Nursing staff states that she does get drowsy after the methadone dose which could impede her rehab progress. - Continue to titrate dose of Methadone, decreased to 90mg daily. Patient much more alert, progressing with PT. - Continue home gabapentin, hold for lethargy - Mobic PRN - Flexeril PRN Chest pain with no recurrence - Likely MSK - EKG unremarkable, CTA negative for PE - Troponins negative - Continue ASA IDDM, poorly controlled A1c 11.3 - Blood sugar overall controlled - Vocational Training Teacher consulted for further diabetic education - Continue on Levemir 35 units at night and 45 units daily. Continue on preprandial insulin 6u TIDAC. - Continue SSI per protocol - In addition we will not have any further visitors and will monitor her food intake closely to be on ADA diet. Visitors were bringing her excesses food which was not conducive of ADA diet. Headache - Tylenol prn DVT prophylaxis: ASA per ortho, SCDs Code Status: Full Discharge Planning: Difficult placement. No benefits for rehab. Progressing well with physical therapy, anticipate discharge home tomorrow 04/27/18. CM assists with ongoing d/ c planning. (1) Closed fracture of left hip requiring operative repair Qualifiers: Encounter type: initial encounter Qualified Code(s): S72.002A - Fracture of unspecified part of neck of left femur, initial encounter for closed fracture (2) Uncontrolled diabetes mellitus Qualifiers: Diabetes mellitus type: type 2
[2018-04-26] MEDS: Meloxicam 7.5 MG Tablet PO PRN (17:26)
[2018-04-26] MEDS ORDERED: Temazepam 15 MG Capsule PO PRN (21:00)
[2018-04-27] MEDS: Insulin NovoLOG Aspart Correctional Sugar Inj SQ SCH ×5 (00:22→12:09)
[2018-04-27] MEDS: Multivitamin/Minerals Therapeutic Tablet PO SCH (08:14)
[2018-04-27] MEDS: Gabapentin 300 MG Capsule PO SCH ×2 (08:14→12:09)
[2018-04-27] MEDS: Methadone 10 MG Tablet PO SCH (08:15)
[2018-04-27] MEDS: Senna/Docusate Sodium 8.6/50 MG Tablet PO SCH (08:15)
[2018-04-27] MEDS: Nystatin 100,000 UNITS/GM Powder 15 GM Bottle TOPICAL SCH ×2 (08:16→12:05)
[2018-04-27] MEDS: Lidocaine 5% Patch T-DERMAL SCH (08:17)
[2018-04-27] MEDS: Insulin Detemir Inj 1,000 UNIT/10 ML Vial SQ SCH (08:17)
--- NOTE | 2018-04-27 09:18 | P.DCO ---
- Home Health Nursing Order: Medical education, Signs/symptoms of disease process, Diabetic education , Medication education-adverse effect, Wound care and dressing changes, Nursing assessment with vital signs - Home Health Aide Order: To assist in: Bathing and personal care, dental office coordinator and meal prep - Certification I have seen patient Jade Sahni on 04/27/18. My clinical findings support the need for the requested home health care services because: Deconditioned with increased weakness, Limited ability to care for self, High risk of falls I certify that my clinical findings support that this patient is homebound because: Post-op weakness, Unsteady gait/balance, Need for psychosocial assistance
--- NOTE | 2018-04-27 09:22 | P.PNIM ---
Subjective Interval history: Patient seen and examined this morning. Afebrile vital signs stable. At this time patient has been cleared by physical therapy for discharge home with home health. Spent going home and she is concerned that she will be evicted. Case management spoke with her apartment database manager and she is not to be evicted at this time. She is anxious about going home however explained her that she will have home health which will help her. Also explained her the remaining in the hospital can increase her risk for infections and other worse outcomes. Patient understands and is willing to go home. She reports she will have a friend move in with her to help her out. Denies any severe pain at this time. Physical Exam Vital signs: Vital Signs 04/26/18 12:00 04/26/18 16:00 04/26/18 20:00 Temperature 97.8 F 97.4 F L 98.3 F Pulse Rate 62 67 69 Respiratory Rate 18 18 18 Blood Pressure 122/58 L 118/57 L 152/68 H Pulse Oximetry 96 97 96 04/27/18 00:00 04/27/18 04:00 Temperature 98.2 F 97.3 F L Pulse Rate 66 68 Respiratory Rate 17 17 Blood Pressure 149/70 H 132/63 Pulse Oximetry 94 L 96 Intake & Output 04/26/18 04/27/18 04/27/18 18:59 06:59 18:59 Intake Total 600 / 600 Balance 600 / 600 Intake: Oral 600 / 600 Other: # Voids 3 5 Date of Last Bowel Movement 04/23/18 04/23/18 # Bowel Movements 1 Narrative: GENERAL: WDWN female, no apparent distress. Sitting up in bed eating breakfast appears comfortable. SKIN: Warm and dry. HEENT: Atraumatic. Normocephalic. Pupils equal and round. No scleral icterus. No injection or drainage. No nasal bleeding or discharge. Mucous membranes pink and moist. NECK: Trachea midline. CARDIOVASCULAR: Regular rate and rhythm. No murmur appreciated. RESPIRATORY: No accessory muscle use. Clear to auscultation. Breath sounds equal bilaterally. GASTROINTESTINAL: Abdomen soft, non-tender, nondistended. +BS. MUSCULOSKELETAL: Incision left hip healing very well, removed. NEUROLOGICAL: Awake and alert. No obvious cranial nerve deficits. Motor grossly within normal limits. Able to move all extremities spontaneously. Normal speech. PSYCHIATRIC: Cooperative with exam. - Urinary Catheter Management Indwelling Urethral Catheter Cath placed during this visit: yes, but has since been removed by the nurse Reason for continuing: Other continuation reason Insertion date: 04/03/18 Insertion time: 11:22 Removal date: 04/05/18 Removal time: 06:45 Results - Labs CBC & Chem 7: 04/20/18 11:12 04/20/18 11:12 Laboratory Results - last 24 hr 04/26/18 04/26/18 04/26/18 11:23 16:21 20:20 POC Glucose 197 H 113 H 169 H 04/27/18 04/27/18 04/27/18 00:16 05:53 08:09 POC Glucose 231 H 130 H 85 - Imaging Chest X-Ray 04/02/18 08:04 CONCLUSION: 1. No acute abnormality or significant interval change. Femur X-Ray 04/02/18 08:04 CONCLUSION: Angulated oblique fracture through the trochanteric region of the proximal left femur. Hand X-Ray 04/02/18 08:04 CONCLUSION: 1. No acute fracture or dislocation. Head CT 04/02/18 08:04 CONCLUSION: 1. No focal or acute intracranial hemorrhage. 2. Stable CT scan of the brain compared to the prior study. 3. Soft tissue swelling over the left for head. . Pelvis X-Ray 04/02/18 08:04 CONCLUSION: 1. Left femoral intertrochanteric fracture. Venous Doppler Study 04/02/18 08:11 CONCLUSION: 1. No evidence of DVT. Hip X-Ray 04/03/18 00:00 CONCLUSION: Left femur fracture fixation. Ankle X-Ray 04/04/18 10:29 CONCLUSION: Negative examination Chest CTA 04/08/18 00:00 CONCLUSION: 1. No evidence of pulmonary embolism. 2. Mild scarring and/or atelectasis in the right lower lobe. 3. Coronary artery calcifications. Hip X-Ray 04/20/18 00:00 CONCLUSION: No acute left hip joint abnormality is identified. There is mild hip joint osteoarthritis. Venous Doppler Study 04/20/18 00:00 CONCLUSION: No venous thrombosis is identified within the left lower extremity. Femur X-Ray 04/21/18 00:00 CONCLUSION: Slight osteopenia. - Procedures Closed reduction with trochanteric nail fixation left proximal femur fracture 04/03/18 Assessment and Plan - Assessment (1) Closed fracture of left hip requiring operative repair Code(s): S72.002A - Fracture of unspecified part of neck of left femur, initial encounter for closed fracture Status: Acute (2) Uncontrolled diabetes mellitus Code(s): E11.65 - Type 2 diabetes mellitus with hyperglycemia Status: Acute - Plan 60 year old female with history of IVDU, chronic methadone maintenance , IDDM, and chronic pain admitted on 04/02 for L hip fracture after falling. L hip fracture s/p IMN - Ortho consulted, s/p closed reduction with trochanteric nail fixation left proximal femur fracture 04/03. - Pain difficult to control given her chronic pain and history of opiate use. Slow improvement with PT secondary to pain. - Continue methadone, continue Flexeril as needed for any spasms. - Tylenol and Mobic PRN - Lidoderm patch - Avoid other narcotics given history of IV drug dependence - 04/20 c/o severe left groin pain. Xr left hip shows hardware in good position. - 04/21 patient complains of twisting pain in the left anterior thigh proximal to the knee. Femur xray unremarkable except for osteopenia. - Start on po Vitamin D supplementation and obtain Vitamin D level/pending - Continue with daily PT -At this time patient is been cleared for discharge will be discharged home today, 04/27/18 LLE cellulitis - Resolved - Blood cultures negative - Finished antibiotics (vancomycin and Zosyn, switched to Augmentin and finished 04/10) Rhabdo - Resolved Chronic pain - Verified on methadone 110 mg daily. Nursing staff states that she does get drowsy after the methadone dose which could impede her rehab progress. - Continue to titrate dose of Methadone, decreased to 90mg daily. Patient much more alert, progressing with PT. - Continue home gabapentin - Mobic PRN - Flexeril PRN Chest pain with no recurrence - Likely MSK - EKG unremarkable, CTA negative for PE - Troponins negative - Continue ASA IDDM, poorly controlled A1c 11.3 - Blood sugar overall controlled - Cartridge Feeder consulted for further diabetic education - Continue on Levemir 35 units at night and 45 units daily. Continue on preprandial insulin 6u TIDAC. - Continue SSI per protocol - In addition we will not have any further visitors and will monitor her food intake closely to be on ADA diet. Visitors were bringing her excesses food which was not conducive of ADA diet. Headache - Tylenol prn DVT prophylaxis: ASA per ortho, SCDs Code Status: Full code Discharge Planning: Difficult placement. No benefits for rehab. Progressing well with physical therapy, anticipate discharge home today 04/27/18 with home health. CM assists with ongoing d/c planning. (1) Closed fracture of left hip requiring operative repair Qualifiers: Encounter type: initial encounter Qualified Code(s): S72.002A - Fracture of unspecified part of neck of left femur, initial encounter for closed fracture (2) Uncontrolled diabetes mellitus Qualifiers: Diabetes mellitus type: type 2
--- NOTE | 2018-04-27 09:30 | P.DS ---
Date of admission: 04/02/18 12:43 Primary care physician: Ying Camacho DO Attending physician on discharge: Rikki Espinoza Anticipated date of discharge: 04/27/18 Brief History from admission: 62-year-old female with a history of and IV drug use on methadone, IDDM, chronic pain presenting to the emergency department for the end of follow-up and states that yesterday evening she fell out of her wheelchair and the EMS personnel was able to ambulate her back home. She reports that later that night while at home she tripped over her roommates roman and fell a second time. Following the second fall she was unable to ambulate. Following the second fall she laid on the ground for about 8 hours until the morning when her roommate called the ambulance for her. She denies any loss of consciousness. She reports that despite tripping, she felt dizzy as she fell to the ground. She currently endorses left leg pain, chest wall pain, and left eye pain. She endorses a mild headache since the fall. She was recently discharged from the hospital last week for hyperglycemia and reports that she is pretty uncontrolled with her diabetes. DS: Diagnosis - Discharge Diagnosis (1) Closed fracture of left hip requiring operative repair Status: Acute (2) Uncontrolled diabetes mellitus Status: Acute DS: Summary Hospital Course: Patient arrived due to a hip fracture. Required multiple stay in the hospital due to inability for placement in a retirement facility. Found to have cellulitis also upon arriving. Treated with antibiotics during his hospitalization. Received her physical. The during this hospitalization. On she was found to be adequately stable enough to return home with home health - Time Spent with Patient Total time spent providing and/or coordinating discharge services: Less than 30 minutes - Quality: VTE Deep Vein Thrombosis/Pulmonary Embolism Present on Admission: No Exam Vital signs: Vital Signs 04/26/18 12:00 04/26/18 16:00 04/26/18 20:00 Temperature 97.8 F 97.4 F L 98.3 F Pulse Rate 62 67 69 Respiratory Rate 18 18 18 Blood Pressure 122/58 L 118/57 L 152/68 H Pulse Oximetry 96 97 96 04/27/18 00:00 04/27/18 04:00 Temperature 98.2 F 97.3 F L Pulse Rate 66 68 Respiratory Rate 17 17 Blood Pressure 149/70 H 132/63 Pulse Oximetry 94 L 96 Intake & Output 04/26/18 04/27/18 04/27/18 18:59 06:59 18:59 Intake Total 600 / 600 Balance 600 / 600 Intake: Oral 600 / 600 Other: # Voids 3 5 Date of Last Bowel Movement 04/23/18 04/23/18 # Bowel Movements 1 Narrative: GENERAL: WDWN female, no apparent distress. Sitting up in bed eating breakfast appears comfortable. SKIN: Warm and dry. HEENT: Atraumatic. Normocephalic. Pupils equal and round. No scleral icterus. No injection or drainage. No nasal bleeding or discharge. Mucous membranes pink and moist. NECK: Trachea midline. CARDIOVASCULAR: Regular rate and rhythm. No murmur appreciated. RESPIRATORY: No accessory muscle use. Clear to auscultation. Breath sounds equal bilaterally. GASTROINTESTINAL: Abdomen soft, non-tender, nondistended. +BS. MUSCULOSKELETAL: Incision left hip healing very well, removed. NEUROLOGICAL: Awake and alert. No obvious cranial nerve deficits. Motor grossly within normal limits. Able to move all extremities spontaneously. Normal speech. PSYCHIATRIC: Cooperative with exam. Results Procedures completed during hospitalization: Closed reduction with trochanteric nail fixation left proximal femur fracture 04/03/18 Labs on day of discharge: Labs from last 24 hours 04/27/18 04/27/18 04/27/18 08:09 05:53 00:16 POC Glucose 85 130 H 231 H 04/26/18 04/26/18 04/26/18 20:20 16:21 11:23 POC Glucose 169 H 113 H 197 H - Impressions ITS Impressions Chest X-Ray 04/02/18 08:04 CONCLUSION: 1. No acute abnormality or significant interval change. Hand X-Ray 04/02/18 08:04 CONCLUSION: 1. No acute fracture or dislocation. Head CT 04/02/18 08:04 CONCLUSION: 1. No focal or acute intracranial hemorrhage. 2. Stable CT scan of the brain compared to the prior study. 3. Soft tissue swelling over the left for head. . Pelvis X-Ray 04/02/18 08:04 CONCLUSION: 1. Left femoral intertrochanteric fracture. Ankle X-Ray 04/04/18 10:29 CONCLUSION: Negative examination Chest CTA 04/08/18 00:00 CONCLUSION: 1. No evidence of pulmonary embolism. 2. Mild scarring and/or atelectasis in the right lower lobe. 3. Coronary artery calcifications. Hip X-Ray 04/20/18 00:00 CONCLUSION: No acute left hip joint abnormality is identified. There is mild hip joint osteoarthritis. Venous Doppler Study 04/20/18 00:00 CONCLUSION: No venous thrombosis is identified within the left lower extremity. Femur X-Ray 04/21/18 00:00 CONCLUSION: Slight osteopenia. Discharge Plan - Discharge Disposition Patient Disposition: /Home Health Service - Discharge Condition Condition: Good - Discharge Order Discharge Orders: Discharge Order (Routine); Ordered 04/09/18 Ordered By: Leonid Vaca - Physicians Team Primary Care Provider: Ying Camacho Attending Provider: Rikki Espinoza Other Providers: Magno Bai MD ; Leonid Vaca MD
--- NOTE | 2018-04-27 09:57 | P.DCO ---
- Home Health Nursing Order: Medical education, Signs/symptoms of disease process, Diabetic education , Medication education-adverse effect, Wound care and dressing changes, Nursing assessment with vital signs - [employer] Order: To evaluate: Living conditions/environment, Support services Order: To provide: Long range planning, Community services - Certification I have seen patient Jade Sahni on 04/27/18. My clinical findings support the need for the requested home health care services because: Limited mobility due to disease progression, Deconditioned with increased weakness, Medication compliance is questionable, Limited ability to care for self, High risk of falls I certify that my clinical findings support that this patient is homebound because: Post-op weakness, Unsteady gait/balance, Need for psychosocial assistance, Poor cardiac reserve
== END 2018-04-27 16:41 | disposition home health service (06) ==
LOC: NEPC 07:29 → NEDA 12:43 → N06 14:29
PROVIDERS: ADMIT Hospitalist; ATTEND Hospitalist

== ENCOUNTER 2018-07-08 09:58 | Observation (INO) ==
[2018-07-08] MEDS ORDERED: predniSONE 20 MG Tablet PO ONE (10:49)
--- NOTE | 2018-07-08 11:13 | ED ---
HPI General Chief complaint: Respiratory Symptoms Stated complaint: respiratory Time Seen by Provider: 07/08/18 10:08 History of Present Illness HPI narrative: Patient 63-year-old female presents emergency department for evaluation of shortness of breath and cough. Patient states his been going on for the past few days, she was actually visiting her significant other who was admitted to the hospital bilateral pneumonia, she thinks he might have the same. States symptoms are moderate, associate with a dry cough, no sputum production, no hemoptysis. No fevers. No chest pain no nausea vomiting or diarrhea. Related Data Home Medications Medication Instructions Recorded Confirmed methadone 110 mg PO DAILY 03/24/18 07/08/18 gabapentin [Neurontin] 600 mg PO TID 03/25/18 07/08/18 insulin detemir U-100 [Levemir 45 unit SUBCUT DAILY 06/23/18 07/08/18 U-100 Insulin] insulin aspart U-100 [Novolog 25 unit SUBCUT DAILY 06/24/18 07/08/18 U-100 Insulin aspart] Previous Rx's Medication Instructions Recorded blood sugar diagnostic [Advanced #1 box 03/27/18 Gluc Meter Test Strip] blood sugar diagnostic [Contour #1 box 03/27/18 Test Strips] insulin syringes (disposable) #1 box 03/27/18 Allergies Allergy/AdvReac Type Severity Reaction Status Date / Time erythromycin base Allergy Severe Rash Verified 07/08/18 10:11 ketorolac Allergy Severe Shortness Verified 07/08/18 10:11 of Breath Review of Systems ROS: all other systems reviewed are negative PMFSH Social History Social History Substance History: No History of Abuse Second Hand Smoke Exposure: No Smoking Status: Current every day smoker Tobacco Type: Cigarettes How Often Do You Have a Drink Containing Alcohol: Never Recent Travel in [facility] within the Last 8 Weeks: No Recent Out of Country Travel within the Last 8 Weeks: No Immunization History Tetanus Immunization: <5 Years Exam Narrative Exam Narrative: GENERAL: Well-developed well-nourished, audible wheezing. Tripod position. Dry cough. SKIN: Focused skin assessment warm/dry. HEAD: Atraumatic. Normocephalic. EYES: Pupils equal and round. No scleral icterus. No injection or drainage. ENT: No nasal bleeding or discharge. Mucous membranes pink and moist. NECK: Trachea midline. No JVD. CARDIOVASCULAR: Regular rate and rhythm. No murmur appreciated. RESPIRATORY: No accessory muscle use. He is to return expiratory wheezing and rhonchi. No rales. Breath sounds equal bilaterally. GASTROINTESTINAL: Abdomen soft, non-tender, nondistended. Hepatic and splenic margins not palpable. MUSCULOSKELETAL: No obvious deformities. No clubbing. No cyanosis. No edema. NEUROLOGICAL: Awake and alert. No obvious cranial nerve deficits. Motor grossly within normal limits. Normal speech. PSYCHIATRIC: Appropriate mood and affect; insight and judgment normal. Course Initial Documented Vital Signs Temperature 98.7 F 07/08/18 10:03 Pulse Rate 81 07/08/18 10:03 Respiratory Rate 19 07/08/18 10:03 Blood Pressure 154/72 H 07/08/18 10:03 Pulse Oximetry 93 L 07/08/18 10:03 Last Documented Vital Signs Temperature 97.8 F 07/09/18 07:30 Pulse Rate 56 L 07/09/18 08:41 Respiratory Rate 20 07/09/18 08:41 Blood Pressure 137/82 07/09/18 07:30 Pulse Oximetry 95 07/09/18 08:41 Medical Decision Making MDM Narrative Medical decision making narrative: Patient room to the emergency department, prednisone DuoNeb given. Patient after treatments revisited and appears more comfortable, attempted to wean her off her oxygen and saturations fell to 86%. Placed back on 2 L oxygen and additional DuoNeb given. CT PE protocol was performed patient has a history of PE and was negative for PE but did show possible infiltrate versus atelectasis in the base. She was started on antibiotics. Discussed with [facility] for admission for hypoxia COPD exacerbation possible pneumonia. Medical Screen Exam Complete: Yes Emergency Medical Condition: Yes Lab Data Result diagrams: 07/08/18 10:55 07/08/18 22:49 Lab Results 07/08/18 07/08/18 07/08/18 Range/Units 10:55 10:55 18:28 WBC 9.5 (4.0-11.0) th/mm3 RBC 5.01 (4.00-5.30) mil/mm3 Hgb 14.1 (11.6-15.3) gm/dL Hct 41.7 (35.0-46.0) % MCV 83.1 (80.0-100.0) fL MCH 28.1 (27.0-34.0) pg MCHC 33.8 (32.0-36.0) % RDW 14.3 (11.6-17.2) % Plt Count 137 L D (150-450) th/mm3 MPV 9.3 (7.0-11.0) fL Neut % (Auto) 81.2 H (16.0-70.0) % Lymph % (Auto) 12.2 (9.0-44.0) % [place] % (Auto) 4.1 (0.0-8.0) % Eos % (Auto) 2.2 (0.0-4.0) % Baso % (Auto) 0.3 (0.0-2.0) % Neut # (Auto) 7.7 (1.8-7.7) th/mm3 Lymph # (Auto) 1.2 (1.0-4.8) th/mm3 [place] # (Auto) 0.4 (0.0-0.9) th/mm3 Eos # (Auto) 0.2 (0.0-0.4) th/mm3 Baso # (Auto) 0.0 (0.0-0.2) th/mm3 WBC Differential . Differential Comment Auto diff final Sodium 137 (136-145) meq/L Potassium 4.4 (3.5-5.1) meq/L Chloride 100 (98-107) meq/L Carbon Dioxide 29.0 (21.0-32.0) meq/L Anion Gap 8 (5-15) meq/L BUN 17 (7-18) mg/dL Creatinine 0.98 (0.50-1.00) mg/dL Estimated GFR 57 L (>89) mL/min POC Glucose 406 H (68-110) mg/dl Random Glucose 141 H (74-106) mg/dL Calcium 8.3 L (8.5-10.1) mg/dL Total Bilirubin 0.5 (0.2-1.0) mg/dL AST 90 H (15-37) U/L ALT 87 H (10-53) U/L Alkaline Phosphatase 207 H (45-117) U/L Troponin I Less than 0.02 L (0.02-0.05) ng/mL Total Protein 8.5 H (6.4-8.2) g/dL Albumin 3.0 L (3.4-5.0) g/dL 07/08/18 07/08/18 07/09/18 Range/Units 22:38 22:49 04:35 WBC (4.0-11.0) th/mm3 RBC (4.00-5.30) mil/mm3 Hgb (11.6-15.3) gm/dL Hct (35.0-46.0) % MCV (80.0-100.0) fL MCH (27.0-34.0) pg MCHC (32.0-36.0) % RDW (11.6-17.2) % Plt Count (150-450) th/mm3 MPV (7.0-11.0) fL Neut % (Auto) (16.0-70.0) % Lymph % (Auto) (9.0-44.0) % [place] % (Auto) (0.0-8.0) % Eos % (Auto) (0.0-4.0) % Baso % (Auto) (0.0-2.0) % Neut # (Auto) (1.8-7.7) th/mm3 Lymph # (Auto) (1.0-4.8) th/mm3 [place] # (Auto) (0.0-0.9) th/mm3 Eos # (Auto) (0.0-0.4) th/mm3 Baso # (Auto) (0.0-0.2) th/mm3 WBC Differential Differential Comment Sodium (136-145) meq/L Potassium (3.5-5.1) meq/L Chloride (98-107) meq/L Carbon Dioxide (21.0-32.0) meq/L Anion Gap (5-15) meq/L BUN (7-18) mg/dL Creatinine (0.50-1.00) mg/dL Estimated GFR (>89) mL/min POC Glucose 461 H* 458 H* (68-110) mg/dl Random Glucose 448 H D (74-106) mg/dL Calcium (8.5-10.1) mg/dL Total Bilirubin (0.2-1.0) mg/dL AST (15-37) U/L ALT (10-53) U/L Alkaline Phosphatase (45-117) U/L Troponin I (0.02-0.05) ng/mL Total Protein (6.4-8.2) g/dL Albumin (3.4-5.0) g/dL 07/09/18 Range/Units 07:56 WBC (4.0-11.0) th/mm3 RBC (4.00-5.30) mil/mm3 Hgb (11.6-15.3) gm/dL Hct (35.0-46.0) % MCV (80.0-100.0) fL MCH (27.0-34.0) pg MCHC (32.0-36.0) % RDW (11.6-17.2) % Plt Count (150-450) th/mm3 MPV (7.0-11.0) fL Neut % (Auto) (16.0-70.0) % Lymph % (Auto) (9.0-44.0) % [place] % (Auto) (0.0-8.0) % Eos % (Auto) (0.0-4.0) % Baso % (Auto) (0.0-2.0) % Neut # (Auto) (1.8-7.7) th/mm3 Lymph # (Auto) (1.0-4.8) th/mm3 [place] # (Auto) (0.0-0.9) th/mm3 Eos # (Auto) (0.0-0.4) th/mm3 Baso # (Auto) (0.0-0.2) th/mm3 WBC Differential Differential Comment Sodium (136-145) meq/L Potassium (3.5-5.1) meq/L Chloride (98-107) meq/L Carbon Dioxide (21.0-32.0) meq/L Anion Gap (5-15) meq/L BUN (7-18) mg/dL Creatinine (0.50-1.00) mg/dL Estimated GFR (>89) mL/min POC Glucose 431 H (68-110) mg/dl Random Glucose (74-106) mg/dL Calcium (8.5-10.1) mg/dL Total Bilirubin (0.2-1.0) mg/dL AST (15-37) U/L ALT (10-53) U/L Alkaline Phosphatase (45-117) U/L Troponin I (0.02-0.05) ng/mL Total Protein (6.4-8.2) g/dL Albumin (3.4-5.0) g/dL Imaging Data Radiologist's impression: Venous Doppler Study 07/08/18 00:00 CONCLUSION: 1. No sonographic evidence for right lower extremity DVT. Chest X-Ray 07/08/18 10:39 CONCLUSION: 1. No acute abnormality or significant interval change. Chest CTA 07/08/18 12:10 CONCLUSION: 1. No pulmonary embolus identified. 2. There is an area of atelectasis at the right lung base. This is increased in size compared to previous dated 07/08/2018. An underlying basilar pneumonia cannot be definitively excluded. Discharge Plan Discharge Disposition Patient Disposition: 30 Still Patient Discharge Condition Condition: Good Discharge Order Discharge Orders: Discharge Order (Routine); Ordered 07/09/18 Ordered By: Antony Solano Discharge Details Diagnosis: Acute exacerbation of chronic obstructive pulmonary disease (COPD), Pneumonia, Acute on chronic respiratory failure with hypoxemia Physicians Team ED Provider: Eliu Riggs Primary Care Provider: Ying Camacho Attending Provider: Antony Solano Discharge Interventions Interventions: ED Discharge Assessment Last Done: 07/08/18 18:38 Vital Signs Last Done: 07/08/18 10:18 Status ED Status: Left Department Discharge Information Discharge Date/Time: 07/08/18 18:38
[2018-07-08 11:20] LABS: Baso % (Auto) 0.3 % (0.0-2.0); Eos # (Auto) 0.2 th/mm3 (0.0-0.4); Eos % (Auto) 2.2 % (0.0-4.0); Hematocrit 41.7 % (35.0-46.0); Hemoglobin 14.1 gm/dL (11.6-15.3); Lymph # (Auto) 1.2 th/mm3 (1.0-4.8); Lymph % (Auto) 12.2 % (9.0-44.0); Mean Corpuscular HGB Conc 33.8 % (32.0-36.0); Mean Corpuscular Hemoglobin 28.1 pg (27.0-34.0); Mean Corpuscular Volume 83.1 fL (80.0-100.0); Mean Platelet Volume 9.3 fL (7.0-11.0); Mono # (Auto) 0.4 th/mm3 (0.0-0.9); Mono % (Auto) 4.1 % (0.0-8.0); Neut # (Auto) 7.7 th/mm3 (1.8-7.7); Neut % (Auto) 81.2 % (16.0-70.0); Platelet Count 137 th/mm3 (150-450); Red Blood Count 5.01 mil/mm3 (4.00-5.30); Red Cell Distribution Width 14.3 % (11.6-17.2); White Blood Count 9.5 th/mm3 (4.0-11.0)
[2018-07-08 11:41] LABS: Alanine Aminotransferase 87 U/L (10-53); Anion Gap 8 meq/L (5-15); Aspartate Aminotransferase 90 U/L (15-37); Blood Urea Nitrogen 17 mg/dL (7-18); Calcium 8.3 mg/dL (8.5-10.1); Chloride 100 meq/L (98-107); Glomerular Filtration Rate 57 mL/min (>89); Glucose,Random 141 mg/dL (74-106); Potassium 4.4 meq/L (3.5-5.1); Sodium 137 meq/L (136-145)
[2018-07-08 11:45] LABS: Alkaline Phosphatase 207 U/L (45-117); Total Protein 8.5 g/dL (6.4-8.2)
--- NOTE | 2018-07-08 12:00 | XR ---
EXAM DATE: 07/08/2018 11:44 AM EST AGE/SEX: 63 years / Female INDICATIONS: . Shortness of breath with wheezing. CLINICAL DATA: This is the patient's initial encounter. Patient reports that signs and symptoms have been present for 1 day and indicates a pain score of 1/10. MEDICAL/SURGICAL HISTORY: Congestive heart failure. None. COMPARISON: . FINDINGS: No significant new focal pleural or parenchymal opacities. The cardiomediastinal contours are unremar kable. Osseous structures are intact. CONCLUSION: 1. No acute abnormality or significant interval change. Electronically signed by: Cricket Gay MD 07/08/2018 11:59 AM EST
--- NOTE | 2018-07-08 14:22 | CT ---
EXAM DATE: 07/08/2018 2:17 PM EST AGE/SEX: 63 years / Female INDICATIONS: Shortness of breath CLINICAL DATA: This is the patient's initial encounter. Patient reports that signs and symptoms have been present for 1 day and indicates a pain score of 3/10. MEDICAL/SURGICAL HISTORY: Diabetes. Hepatitis C. . Orthopedic RADIATION DOSE: 20.43 CTDI (mGy) COMPARISON: [facility], CTA PULMONARY W CONTRAST W 3D, 04/08/2018. . TECHNIQUE: Volumetric scanning was performed using a multi-row detector CT scanner during bolus infu hai of 60 ml Omnipaque 350 (iohexol) nonionic water-soluble contrast as a single exam dose. The jenny a was post processed with a variety of visualization algorithms including full volume maximum intensi ty projection and sliding thin slab reformation. Using automated exposure control and adjustment of the mA and/or kV according to patient size, radiation dose was kept as low as reasonably achievable t o obtain optimal diagnostic quality images. DICOM format image data is available electronically for review and comparison. FINDINGS: Pulmonary Arteries: No filling defects are seen in the pulmonary arteries out to the subsegmental ve ssels. The left and right pulmonary arteries are normal in diameter. Lung: Examination of the pulmonary parenchyma demonstrates an area of atelectasis or infiltrate at t he right lung base. This area has increased in size when compared to previous examination. Effusion: None. Mediastinum: No evidence of mediastinal or hilar adenopathy. Other: The axilla is unremarkable. CONCLUSION: 1. No pulmonary embolus identified. 2. There is an area of atelectasis at the right lung base. This is increased in size compared to pre vious dated 07/08/2018. An underlying basilar pneumonia cannot be definitively excluded. Electronically signed by: Jarvis Adams MD 07/08/2018 2:20 PM EST
[2018-07-08] MEDS ORDERED: Dextrose 50% in Water 50 ML Vial IV.PUSH PRN (15:28)
--- NOTE | 2018-07-08 15:35 | P.HPIM ---
History of Present Illness Primary Care Physician: Ying Camacho DO Chief Complaint: shortness of breath History of Present Illness: patient is a 63 y/o female,chronic smoker, with history of COPD, PE, diabetes mellitus, neuropathy, chronic back pain,who presented to ER with shortness of breath. she says that her room was admitted to the hospital recently because of pneumonia. she says that she started to have sob three-four days ago and it gradually got worse to the extent that this morning she woke up ' gasping for air'. she has productive cough of ' greenish sputum'. she denies any fever. she says that her lower chest hurts when she's coughing. Review of Systems All other systems reviewed negative except as stated in HPI PMFSH - History History Provided By: Patient - Medical History Medical History: Medical History (Last Reviewed 07/08/18 @ 15:24 by Kobe Urban MD) Diabetes Diabetic neuropathy Hepatitis C - Surgical History Surgical History: Surgical History (Last Reviewed 07/08/18 @ 15:24 by Kobe Urban MD) History of hip surgery - Family History Family History: Family History (Last Reviewed 07/08/18 @ 15:24 by Kobe Urban MD) Other Diabetes mellitus - Tobacco History Second Hand Smoke Exposure: No Tobacco Use In Past 30 Days: Yes Smoking Status: Current every day smoker Tobacco Type: Cigarettes - Alcohol History How Often Do You Have a Drink Containing Alcohol: Never - Substance Use History Substance History: No History of Abuse - Travel History Recent Travel in the [place] Within the Last 8 Weeks: No Recent Travel Out of the Country Within the Last 8 Weeks: No - Immunization History Tetanus Immunization: <5 Years Medications and Allergies Active Medications: Active Medications Acetaminophen (Tylenol) 650 mg PO Q4H PRN PRN Reason: fever/pain Albuterol (Albuterol Neb (Prn)) 1.25 mg NEB Q2HR NEB PRN PRN Reason: sob Albuterol (Duoneb Neb (Kristin)) 1 ampul NEB Q4HR NEB KRISTIN Levofloxacin/Dextrose (Levaquin 750 Mg Premix Inj) 150 mls @ 100 mls/hr IV.SIG ONCE ONE Stop: 07/08/18 15:59 Last Admin: 07/08/18 14:46 Dose: 100 mls/hr Sodium Chloride (Ns Flush) 2 ml IV.FLUSH UNSCH PRN PRN Reason: FLUSH AFTER USING IV ACCESS Allergies Allergy/AdvReac Type Severity Reaction Status Date / Time erythromycin base Allergy Severe Rash Verified 07/08/18 10:11 ketorolac Allergy Severe Shortness Verified 07/08/18 10:11 of Breath Home Medications Medication Instructions Recorded Confirmed Type methadone 110 mg PO DAILY 03/24/18 07/08/18 History gabapentin [Neurontin] 600 mg PO TID 03/25/18 07/08/18 History insulin detemir U-100 [Levemir 45 unit SUBCUT DAILY 06/23/18 07/08/18 History U-100 Insulin] insulin aspart U-100 [Novolog 25 unit SUBCUT DAILY 06/24/18 07/08/18 History U-100 Insulin aspart] Exam Vital signs: Vital Signs 07/08/18 10:03 07/08/18 10:14 07/08/18 10:18 Temperature 98.7 F Pulse Rate 81 84 Respiratory Rate 19 22 24 Blood Pressure 154/72 H 160/90 H Pulse Oximetry 93 L 91 L 93 L 07/08/18 10:47 07/08/18 10:54 07/08/18 11:14 Temperature Pulse Rate 73 80 94 H Respiratory Rate 22 22 22 Blood Pressure 145/62 H Pulse Oximetry 95 93 L 07/08/18 12:55 07/08/18 13:11 07/08/18 13:22 Temperature Pulse Rate 85 84 84 Respiratory Rate 22 22 20 Blood Pressure Pulse Oximetry Intake & Output 07/07/18 07/08/18 07/08/18 18:59 06:59 18:59 Weight 81.647 kg - Constitutional moderate distress - Routine HEENT Exam Eye: Present: PERRL - Routine Neck Exam Present: supple - Routine Respiratory Exam Present: prolonged expiratory phase, wheezes - Routine Cardiovascular Exam Present: RRR - Routine Abdominal Exam Present: soft - Routine Extremities Exam Comments: mild edema and erythema over the right lower leg. - Routine Skin Exam Present: erythema (mild erythema over the right leg.) - Routine Neurological Exam Present: alert, oriented X3 Results - Labs CBC & Chem 7: 07/08/18 10:55 07/08/18 10:55 Labs: Short CBC 07/08/18 Range/Units 10:55 WBC 9.5 (4.0-11.0) th/mm3 Hgb 14.1 (11.6-15.3) gm/dL Hct 41.7 (35.0-46.0) % Plt Count 137 L D (150-450) th/mm3 BMP 07/08/18 10:55 Sodium 137 Potassium 4.4 Chloride 100 Carbon Dioxide 29.0 BUN 17 Creatinine 0.98 Calcium 8.3 L Cardiac Enzymes 07/08/18 Range/Units 10:55 Troponin I Less than 0.02 L (0.02-0.05) ng/mL Liver Function 07/08/18 Range/Units 10:55 Total Bilirubin 0.5 (0.2-1.0) mg/dL AST 90 H (15-37) U/L ALT 87 H (10-53) U/L Alkaline Phosphatase 207 H (45-117) U/L Albumin 3.0 L (3.4-5.0) g/dL - Imaging Impressions Chest X-Ray 07/08/18 10:39 CONCLUSION: 1. No acute abnormality or significant interval change. Chest CTA 07/08/18 12:10 CONCLUSION: 1. No pulmonary embolus identified. 2. There is an area of atelectasis at the right lung base. This is increased in size compared to previous dated 07/08/2018. An underlying basilar pneumonia cannot be definitively excluded. Caprini VTE Risk Assessment Caprini VTE Risk Assessment: Moderate/High Risk (score >= 2) Caprini Risk Assessment Model: Point Value = 1 Point Value = 2 Point Value = 3 Point Value = 5 Age 41-60 Minor surgery BMI > 25 kg/m2 Swollen legs Varicose veins or History of unexplained or recurrent spontaneous Oral contraceptives or hormone replacement Sepsis (< 1 month) Serious lung disease, including pneumonia (< 1 month) Abnormal pulmonary function Acute myocardial infarction Congestive heart failure (< 1 month) History of inflammatory bowel disease Medical patient at bed rest Age 61-74 Arthroscopic surgery Major open surgery (> 45 min) Laparoscopic surgery (> 45 min) Malignancy Confined to bed (> 72 hours) Immobilizing plaster cast Central venous access Age >= 75 History of VTE Family history of VTE Factor V Leiden Prothrombin [id number] Lupus anticoagulant Anticardiolipin antibodies Elevated serum homocysteine Heparin-induced thrombocytopenia Other congenital or acquired thrombophilia Stroke (< 1 month) Elective arthroplasty Hip, pelvis, or leg fracture Acute spinal cord injury (< 1 month) Prophylaxis Regimen: Total Risk Factor Score Risk Level Prophylaxis Regimen 0-1 Low Early ambulation 2 Moderate Order ONE of the following: *Sequential Compression Device (SCD) *Heparin 5000 units SQ BID 3-4 Higher Order ONE of the following medications: *Heparin 5000 units SQ TID *Enoxaparin/Lovenox 40 mg SQ daily (WT < 150 kg, CrCl > 30 mL/min) *Enoxaparin/Lovenox 30 mg SQ daily (WT < 150 kg, CrCl > 10-29 mL/min) *Enoxaparin/Lovenox 30 mg SQ BID (WT < 150 kg, CrCl > 30 mL/min) AND/OR *Sequential Compression Device (SCD) 5 or more Highest Order ONE of the following medications: *Heparin 5000 units SQ TID (Preferred with Epidurals) *Enoxaparin/Lovenox 40 mg SQ daily (WT < 150 kg, CrCl > 30 mL/min) *Enoxaparin/Lovenox 30 mg SQ daily (WT < 150 kg, CrCl > 10-29 mL/min) *Enoxaparin/Lovenox 30 mg SQ BID (WT < 150 kg, CrCl > 30 mL/min) AND *Sequential Compression Device (SCD) Assessment and Plan - Plan A/P - COPD exacerbation/ chronic smoker/ history of PE CTA chest with no PE start on IV steroids and continue with antibiotics- neb treatment; scheduled and prn- keep on oxygen to keep O2 sat > 90%. counselled on smoking cessation. -right leg erythema; check the venous doppler to r/o DVT -diabetes mellitus; resume home long-acting insulin regimen and start on accu- check with SSI. -neuropathy; resume Neurontin -chronic low back pain; will verify and resume the home methadone dose . -elevated LFT's due to hepatitis C- f/u as outpatient -DVT prophylaxis with subq Lovenox. Discussed Condition With: ER physician and the patient. Discharge Planning: home when has clinically improved.
--- NOTE | 2018-07-08 15:52 | US ---
EXAM DATE: 07/08/2018 3:49 PM EST AGE/SEX: 63 years / Female INDICATIONS: Right leg redness and swelling. CLINICAL DATA: This is the patient's initial encounter. Patient reports that signs and symptoms have been present for 1 week and indicates a pain score of 3/10. MEDICAL/SURGICAL HISTORY: Diabetes. Hepatitis C. . Left hip fracture repair. COMPARISON: [facility] [place] BILATERAL VENOUS DOPPLER, 05/05/2017. . TECHNIQUE: Venous ultrasound of both lower extremities was performed from the inguinal ligament to t he proximal calf. Real-time, color Doppler and spectral tracing, compression and augmentation techni ques were used. FINDINGS: Normal compression of the deep venous system from the inguinal region to the proximal calf . No echogenic clot is seen. Normal response of the venous system to augmentation and respiration. CONCLUSION: 1. No sonographic evidence for right lower extremity DVT. Electronically signed by: Cricket Gay MD 07/08/2018 3:50 PM EST
[2018-07-08] MEDS ORDERED: guaiFENesin/Dextromethorphan 200 MG/20 MG 10 ML UDC PO PRN (17:00)
[2018-07-08] MEDS ORDERED: Acetaminophen 325 MG Tablet PO PRN (17:00)
[2018-07-08] MEDS: Gabapentin 300 MG Capsule PO SCH (17:51)
[2018-07-08] MEDS: MethylPREDNISolone Sod Succinate Inj 125 MG/2 ML Vial IV.PUSH SCH (17:51)
--- NOTE | 2018-07-08 18:13 | ECG ---
Date Performed: 07/08/2018 Time Performed: 10:20:22 PTAGE: 63 years EKG: Sinus rhythm NORMAL ECG PREVIOUS TRACING 06/24/2018 10.29: Since the previous tracing, no significant change noted DOCTOR: Mark Solis Interpretating Date/Time 07/08/2018 18:12:22
[2018-07-08] MEDS: Insulin NovoLOG Aspart Correctional Sugar Inj SQ SCH ×2 (18:40→22:54)
[2018-07-08] MEDS ORDERED: Melatonin 5 MG Tablet PO ONE (20:46)
[2018-07-09] MEDS: MethylPREDNISolone Sod Succinate Inj 125 MG/2 ML Vial IV.PUSH SCH ×2 (01:42→08:17)
[2018-07-09] MEDS: Gabapentin 300 MG Capsule PO SCH (08:17)
[2018-07-09] MEDS: Insulin NovoLOG Aspart Correctional Sugar Inj SQ SCH (08:18)
[2018-07-09 08:42] VITALS: RESP 20
[2018-07-09] MEDS ORDERED: predniSONE 20 MG Tablet PO SCH (09:00)
[2018-07-09] MEDS ORDERED: Enoxaparin Inj 40 MG/0.4 ML Syringe SQ SCH (09:00)
[2018-07-09] MEDS ORDERED: Insulin Detemir Inj 1,000 UNIT/10 ML Vial SQ SCH (09:00)
[2018-07-09] MEDS ORDERED: Methadone 10 MG Tablet PO ONE ×2 (09:31)
--- NOTE | 2018-07-09 09:48 | P.PNIM ---
Subjective Interval history: Patient reports she is feeling better today. Stable on room air. Physical Exam Vital signs: Vital Signs 07/08/18 10:03 07/08/18 10:14 07/08/18 10:18 Temperature 98.7 F Pulse Rate 81 84 Respiratory Rate 19 22 24 Blood Pressure 154/72 H 160/90 H Pulse Oximetry 93 L 91 L 93 L 07/08/18 10:47 07/08/18 10:54 07/08/18 11:14 Temperature Pulse Rate 73 80 94 H Respiratory Rate 22 22 22 Blood Pressure 145/62 H Pulse Oximetry 95 93 L 07/08/18 12:55 07/08/18 13:11 07/08/18 13:22 Temperature Pulse Rate 85 84 84 Respiratory Rate 22 22 20 Blood Pressure Pulse Oximetry 07/08/18 15:33 07/08/18 23:33 07/09/18 06:00 Temperature 97.5 F L Pulse Rate 96 H 78 Respiratory Rate 20 20 16 Blood Pressure 167/79 H Pulse Oximetry 92 L 07/09/18 07:30 07/09/18 08:41 Temperature 97.8 F Pulse Rate 64 56 L Respiratory Rate 16 20 Blood Pressure 137/82 Pulse Oximetry 96 95 Intake & Output 07/08/18 07/09/18 07/09/18 18:59 06:59 18:59 Intake Total 150 / 150 Balance 150 / 150 Weight 81.647 kg Intake: IV 150 / 150 Levaquin 750 mg Premix Inj 150 150 / 150 ML @ 100 mls/hr IV.SIG ONCE ONE Rx#:[id number] Narrative: GENERAL: Patient appears older than stated age. No acute distress CARDIOVASCULAR: Normal rate and regular rhythm without murmurs, gallops, or rubs. RESPIRATORY: Good respiratory efforts. Air movement is fair. Faint expiratory wheezing. GASTROINTESTINAL: Abdomen soft, non-tender, non-distended. Normal active bowel sounds MUSCULOSKELETAL: Extremities without cyanosis, or edema. NEURO: Alert & Oriented x4 to person, place, time, situation. Moves all ext x4 PSYCH: Appropriate mood and affect. Results - Labs CBC & Chem 7: 07/08/18 10:55 07/08/18 22:49 Laboratory Results - last 24 hr 07/08/18 07/08/18 07/08/18 10:55 10:55 18:28 WBC 9.5 RBC 5.01 Hgb 14.1 Hct 41.7 MCV 83.1 MCH 28.1 MCHC 33.8 RDW 14.3 Plt Count 137 L D MPV 9.3 Neut % (Auto) 81.2 H Lymph % (Auto) 12.2 [place] % (Auto) 4.1 Eos % (Auto) 2.2 Baso % (Auto) 0.3 Neut # (Auto) 7.7 Lymph # (Auto) 1.2 [place] # (Auto) 0.4 Eos # (Auto) 0.2 Baso # (Auto) 0.0 WBC Differential . Differential Comment Auto diff final Sodium 137 Potassium 4.4 Chloride 100 Carbon Dioxide 29.0 Anion Gap 8 BUN 17 Creatinine 0.98 Estimated GFR 57 L POC Glucose 406 H Random Glucose 141 H Calcium 8.3 L Total Bilirubin 0.5 AST 90 H ALT 87 H Alkaline Phosphatase 207 H Troponin I Less than 0.02 L Total Protein 8.5 H Albumin 3.0 L 07/08/18 07/08/18 07/09/18 22:38 22:49 04:35 WBC RBC Hgb Hct MCV MCH MCHC RDW Plt Count MPV Neut % (Auto) Lymph % (Auto) [place] % (Auto) Eos % (Auto) Baso % (Auto) Neut # (Auto) Lymph # (Auto) [place] # (Auto) Eos # (Auto) Baso # (Auto) WBC Differential Differential Comment Sodium Potassium Chloride Carbon Dioxide Anion Gap BUN Creatinine Estimated GFR POC Glucose 461 H* 458 H* Random Glucose 448 H D Calcium Total Bilirubin AST ALT Alkaline Phosphatase Troponin I Total Protein Albumin 07/09/18 07:56 WBC RBC Hgb Hct MCV MCH MCHC RDW Plt Count MPV Neut % (Auto) Lymph % (Auto) [place] % (Auto) Eos % (Auto) Baso % (Auto) Neut # (Auto) Lymph # (Auto) [place] # (Auto) Eos # (Auto) Baso # (Auto) WBC Differential Differential Comment Sodium Potassium Chloride Carbon Dioxide Anion Gap BUN Creatinine Estimated GFR POC Glucose 431 H Random Glucose Calcium Total Bilirubin AST ALT Alkaline Phosphatase Troponin I Total Protein Albumin - Imaging Impressions Venous Doppler Study 07/08/18 00:00 CONCLUSION: 1. No sonographic evidence for right lower extremity DVT. Chest X-Ray 07/08/18 10:39 CONCLUSION: 1. No acute abnormality or significant interval change. Chest CTA 07/08/18 12:10 CONCLUSION: 1. No pulmonary embolus identified. 2. There is an area of atelectasis at the right lung base. This is increased in size compared to previous dated 07/08/2018. An underlying basilar pneumonia cannot be definitively excluded. Assessment and Plan - Plan 63-year-old female admitted with COPD exacerbation. - COPD exacerbation/ chronic smoker/ history of PE CTA chest with no PE Patient treated with IV steroids and antibiotics- neb treatment. She was transitioned to oral steroid and antibiotics to complete the course of treatment at home. The patient was extensively counselled on smoking cessation. -right leg erythema; chronic per patient. Venous Doppler negative for DVT -diabetes mellitus; resume home long-acting insulin regimen and accu-check with SSI. -neuropathy; resume Neurontin -Chronic pain, history of IV drug use: Patient can continue on home dose methadone. -elevated LFT's due to hepatitis C- f/u as outpatient Discharge Planning: Discharge patient to home Condition on discharge: Improved Regular Diet as tolerated Ad Daxa activity Rx written: Per med rec Follow-up with primary care physician
[2018-07-09 11:37] VITALS: BP 87/55; PULSE 111; TEMP 98.7; O2SAT 97
[2018-07-09] MEDS ORDERED: levoFLOXacin 750 MG Tablet PO SCH (13:00)
[2018-07-09] MEDS ORDERED: Levofloxacin 500 mg Premix Inj 500 MG/100 ML PIGGYBACK IV.SIG SCH (16:00)
== END 2018-07-09 12:05 | disposition home or self-care (01) ==
LOC: NEDA 09:58 → NEPE 09:58 → NEPFCDU 18:01
PROVIDERS: ADMIT Family Medicine; ATTEND Family Medicine
DX: J44.1 Chronic obstructive pulmonary disease with (acute) exacerbation; J98.11 Atelectasis; Z83.3 Family history of diabetes mellitus; Z79.4 Long term (current) use of insulin; E11.40 Type 2 diabetes mellitus with diabetic neuropathy, unspecified; M54.5 Low back pain; F17.210 Nicotine dependence, cigarettes, uncomplicated; B19.20 Unspecified viral hepatitis C without hepatic coma; Z86.711 Personal history of pulmonary embolism; G89.29 Other chronic pain; J96.21 Acute and chronic respiratory failure with hypoxia